=== PATIENT | male | born 1960 | race Caucasian/White ===

== ENCOUNTER → 2020-07-02 14:05 | Outpatient (BNVA) | payer OTHER, SELFPAY | PROVIDERS: Visit Provider Internal Medicine Endocrinology, Diabetes & Metabolism | DX: Z76.89 Persons encountering health services in other specified circumstances (principal) | CPT/HCPCS: 99214 ==

== ENCOUNTER → 2020-08-08 10:47 | Outpatient (BNVA) | payer OTHER, SELFPAY | PROVIDERS: Visit Provider Internal Medicine Endocrinology, Diabetes & Metabolism | DX: E11.65 Type 2 diabetes mellitus with hyperglycemia (principal); E11.42 Type 2 diabetes mellitus with diabetic polyneuropathy; E11.22 Type 2 diabetes mellitus with diabetic chronic kidney disease; I12.9 Hypertensive chronic kidney disease with stage 1 through stage 4 chronic kidney disease, or unspecified chronic kidney disease; N18.30 Chronic kidney disease, stage 3 unspecified; Z96.41 Presence of insulin pump (external) (internal); E78.5 Hyperlipidemia, unspecified; E66.9 Obesity, unspecified; Z91.19 Patient's noncompliance with other medical treatment and regimen | CPT/HCPCS: 99212 ==

== ENCOUNTER → 2020-10-17 10:17 | Outpatient (BNVA) | payer OTHER, SELFPAY | PROVIDERS: PCP Family Medicine; Visit Provider Internal Medicine Endocrinology, Diabetes & Metabolism ==

== ENCOUNTER → 2021-03-15 10:13 | Outpatient (BNVA) | payer OTHER, SELFPAY | PROVIDERS: PCP Family Medicine; Visit Provider Internal Medicine Endocrinology, Diabetes & Metabolism | DX: E11.65 Type 2 diabetes mellitus with hyperglycemia (principal); E11.42 Type 2 diabetes mellitus with diabetic polyneuropathy; E11.21 Type 2 diabetes mellitus with diabetic nephropathy; E11.22 Type 2 diabetes mellitus with diabetic chronic kidney disease; I12.9 Hypertensive chronic kidney disease with stage 1 through stage 4 chronic kidney disease, or unspecified chronic kidney disease; N18.30 Chronic kidney disease, stage 3 unspecified; E78.5 Hyperlipidemia, unspecified; E66.9 Obesity, unspecified; Z91.19 Patient's noncompliance with other medical treatment and regimen; Z79.1 Long term (current) use of non-steroidal anti-inflammatories (NSAID); Z71.3 Dietary counseling and surveillance | CPT/HCPCS: 82947; 96372; 99212; J1815 ==

== ENCOUNTER 2021-03-15 11:07 | Emergency (ER) | payer OTHER, SELFPAY ==
--- NOTE | ~2021-03-15 | XR_ITS ---
EXAMINATION: XR CHEST CLINICAL INFORMATION: Hyperglycemia COMPARISON: None TECHNIQUE: Portable upright AP view of the chest was obtained. FINDINGS: The lungs are clear. The vascularity is normal. There is no vascular congestion, airspace consolidation, groundglass opacity, or effusion. The costophrenic sulci are clear. The heart is normal in size. The hilar and mediastinal contours are normal. No visible acute bony abnormality. XR/XR chest 1V IMPRESSION: Unremarkable examination.
[2021-03-15 11:26] VITALS: BP 200/101; PULSE 103; RESP 20; TEMP 37.2; O2SAT 100; BMI 33.0
[2021-03-15 11:33] LABS: Glucose, Whole Blood > 600 mg/dL (60-115)
[2021-03-15 12:02] LABS: MANUAL DIFF FLAG NO
[2021-03-15 12:05] LABS: Basophils Percent Auto 0.3 % (0-2); Eosinophils Absolute Auto 0.1 X10*3/uL (0.0-0.4); Eosinophils Percent Auto 0.8 % (0-4); Hematocrit 47.3 % (42-52); Imm Gran Abs Auto 0.01 X10*3/uL (0.00-0.03); Imm Gran Pct Auto 0.2 % (0.0-0.4); Lymphocytes Percent Auto 32.2 % (20-40); Mean Corpuscular HGB Conc 35.9 g/dl (31.0-36.0); Mean Corpuscular Hemoglobin 31.1 pg (27.0-33.0); Mean Corpuscular Volume 86.5 fL (80-98); Mean Platelet Volume 11.4 fL (9.4-12.4); Monocytes Absolute Auto 0.4 X10*3/uL (0.1-1.2); Neutrophils Absolute Auto 3.7 X10*3/uL (2.0-8.3); Neutrophils Percent Auto 59.5 % (45-73); Platelet Count 204 X10*3/uL (160-400); Red Blood Count 5.47 X10*6/uL (4.60-5.80); Red Cell Distribution Width 11.9 % (11.0-16.0); White Blood Count 6.1 X10*3/uL (4.8-10.8)
--- NOTE | 2021-03-15 12:07 | ECG_ITS ---
Test Reason : GENERAL MEDICINE Blood Pressure : / mmHG Vent. Rate : 102 BPM Atrial Rate : 102 BPM P-R Int : 164 ms QRS Dur : 086 ms QT Int : 346 ms P-R-T Axes : 070 050 066 degrees QTc Int : 450 ms Sinus tachycardia Otherwise normal ECG No previous ECGs available Referred By: Fransisca Chapman Electronically Signed By:ESTRELLA IVERSON
[2021-03-15 12:28] LABS: Acetone, serum QL Negative (Negative)
--- NOTE | 2021-03-15 12:32 | ED.GENADULT ---
HPI - General Adult General Chief complaint: General Medical Stated complaint: HBS Time Seen by Provider: 03/15/21 12:05 Source: patient History of Present Illness HPI narrative: 60-year-old male with a past medical history of CKD, diabetes on insulin, hyperlipidemia, hypertension, presenting to the ED from PCPs office for hyperglycemia with POC noted to be greater than 600. Patient reports has been out of his insulin secondary to insurance issues for the past 4 days, states his glucometer has been reading high at home, but was just waiting for his PCP visit today. Admits was given 10 units subQ insulin [employer]. Reports headaches, generalized fatigue, dizziness, polyuria, polydipsia, nausea, and some chest burning. Denies fever, chills, cough, abdominal pain, vomiting, diarrhea, SOB Related Data Home Medications Medication Instructions Recorded Confirmed albuterol sulfate 90 mcg/actuation INHALATION 06/30/20 03/15/21 aerosol inhaler blood sugar diagnostic #10 ea 06/30/20 03/15/21 clopidogrel 75 mg tablet 75 mg PO DAILY 06/30/20 03/15/21 lidocaine 5 % topical patch 1 patch TOPICAL DAILY 06/30/20 03/15/21 omeprazole 40 mg capsule,delayed 40 mg PO QAM 06/30/20 03/15/21 release pen needle, diabetic 32 gauge x #50 ea 06/30/20 03/15/21 nortriptyline 50 mg capsule 50 mg PO DAILY cap 07/02/20 03/15/21 nortriptyline 25 mg capsule 25 mg PO cap 10/17/20 03/15/21 Previous Rx's Medication Instructions Recorded atorvastatin 80 mg tablet 80 mg PO DAILY #90 tab 07/02/20 diltiazem HCl 360 mg capsule,24 360 mg PO DAILY 30 Days #30 cap 07/02/20 hr,extended release lisinopril 40 mg tablet 40 mg PO DAILY 30 Days #30 tab 10/19/20 Humulin R U-500 (Conc) Insulin 500 See Rx Instructions SUBCUT DAILY 03/15/21 unit/mL subcutaneous soln 30 Days #20 ml NS insulin pump cartridge #15 ea 03/15/21 Allergies Allergy/AdvReac Type Severity Reaction Status Date / Time No Known Allergies Allergy Verified 06/30/20 11:02 Review of Systems Review of Systems: Constitutional: No Weight loss, No Fever, No Chills, +Fatigue, No Malaise Cardiovascular: No Chest Pain, No SOB, No Edema, No Palpitations Respiratory: No Cough, No Dyspnea Gastrointestinal: + Nausea, No Vomiting, No Diarrhea, No Constipation, No Abdominal pain Genitourinary: No Dysuria, No Urinary Frequency, No Hematuria, No Flank Pain, No Urinary Flow Changes Musculoskeletal: No joint pain, No Myalgias, No Joint Swelling Skin: No Skin Lesions, No rash Neuro: No Weakness, No Numbness, No Paresthesias, + Dizziness, No Headache Endocrine: + Polyuria, + Polydipsia Yes all other systems are reviewed and are negative FORMERLY [facility], 1928–1983 Past Medical History Medical History (Updated 03/15/21 @ 16:40 by RA Payton) CKD (chronic kidney disease) stage 3, GFR 30-59 ml/min Diabetes type 2, uncontrolled Diabetic nephropathy associated with type 2 diabetes mellitus Diabetic polyneuropathy associated with type 2 diabetes mellitus Dyslipidemia Hypertension correction (current) use of insulin Non-adherence to medical treatment Obesity (BMI 30-39.9) Surgical History (Updated 08/08/20 @ 10:53 by LU Durbin) No pertinent past surgical history Family History Family History (Updated 07/02/20 @ 14:42 by Dali Jarrett MD) Father Lung cancer Mother Diabetes Hypertension Arthritis CKD (chronic kidney disease) stage 4, GFR 15-29 ml/min Social History Social History (Updated 10/17/20 @ 10:16 by LU Durbin) Household Members: Family Alcohol intake: never Advance Directives: No Advance Directives Information Provided: No Physical Exam Vital Signs: Vital Signs: Last Vital Signs Temp 98.8 F 03/15/21 12:34 Pulse 87 03/15/21 15:12 Resp 20 03/15/21 15:12 BP 185/105 H 03/15/21 15:12 Pulse Ox 98 03/15/21 12:34 Body Mass Index 33.0 Const: General: cooperative, healthy appearing and no acute distress Orientation/consciousness: patient oriented x3 Limitations: no limitations HENMT: Head: Yes normal to inspection Ears: hearing grossly normal bilaterally General nose exam: Normal external nose present Face and sinus: Yes normal facial exam Eyes: General: appearance normal, both eyes and all related structures EOM: EOMs intact bilaterally Neck: Neck: Yes normal visual inspection and Yes no meningeal signs Resp: Effort & Inspection: normal respiratory effort Auscultation: clear to auscultation bilaterally, no crackles and no wheezes Cardio: Rate: regular rate Heart sounds: S1 normal heart sound present and S2 normal heart sound present GI: Inspection: Yes normal to inspection Palpation (GI): Soft to palpation, nontender, no guarding and not rigid Skin: Rashes: no rashes Wounds: no wounds Neuro: General: patient oriented x3 and no meningeal signs Gait exam (Neuro): Normal gait present Extrem: General: Yes normal to inspection Course Course Course Narrative: -1252--No leukocytosis, glucose 654, no anion gap, acetone negative. Sodium 128 > corrected for hyperglycemia is 137. Patient with acute on chronic CARLOS ENRIQUE with a BUN of 21, creatinine of 2.16 (unknown baseline renal function with CKD records requested from PCP) Labs from PCPs office from 06/11/20: BUN/creatinine 21/1.8 and AST/ALT 72/85 -AST/ALT elevated. -1258--Additional 5 units IV insulin ordered -1452--VBG with a pH is 7.42, repeat POC 345 -1517--repeat POC 285. Second L IV fluid completed will obtain repeat BMP to check renal function XR chest 1V IMPRESSION: Unremarkable examination. -1637--repeat BMP with improved BUN/creatinine to 18/1.6 > back to patient's baseline. Glucose 300. Patient was supplied with Humalog from PCP to get him through the weekend, then his insulin will be completely restocking it at the pharmacy on Thursday. Stressed importance of monitoring/taking his insulin at home, he verbalized understanding of feel safe for discharge home Medical Decision Making [facility] Narrative Medical decision making narrative: 60-year-old male with a past medical history of CKD, diabetes on insulin, hyperlipidemia, hypertension, presenting to the ED from PCPs office for hyperglycemia with POC noted to be greater than 600. Patient reports has been out of his insulin secondary to insurance issues for the past 4 days. Reports headaches, generalized fatigue, dizziness, polyuria, polydipsia, nausea, and some chest burning. On exam initially hypertensive, tachycardic, anxious, NAD/nontoxic appearing. Concern for hyperglycemia from noncompliance vs DKA. Rule out metabolic abnormalities, lower concern for infectious etiology. Rule out ACS Plan: EKG, labs, UA, CXR, IVF, insulin, reassess Lab Data Result diagrams: 03/15/21 11:58 03/15/21 15:51 Labs: Lab Results 03/15/21 03/15/21 03/15/21 Range/Units 11:26 11:58 11:58 WBC 6.1 (4.8-10.8) X10*3/uL RBC 5.47 (4.60-5.80) X10*6/uL Hgb 17.0 (14.0-18.0) g/dl Hct 47.3 (42-52) % MCV 86.5 (80-98) fL MCH 31.1 (27.0-33.0) pg MCHC 35.9 (31.0-36.0) g/dl RDW 11.9 (11.0-16.0) % Plt Count 204 (160-400) X10*3/uL MPV 11.4 (9.4-12.4) fL Immature Gran % (Auto) 0.2 (0.0-0.4) % Neut % (Auto) 59.5 (45-73) % Lymph % (Auto) 32.2 (20-40) % [place] % (Auto) 7.0 (2-11) % Eos % (Auto) 0.8 (0-4) % Baso % (Auto) 0.3 (0-2) % Lymph # (Auto) 2.0 (1.2-4.9) X10*3/uL [place] # (Auto) 0.4 (0.1-1.2) X10*3/uL Eos # (Auto) 0.1 (0.0-0.4) X10*3/uL Baso # (Auto) 0.0 (0.0-0.2) X10*3/uL Abs Immat Gran (auto) 0.01 (0.00-0.03) X10*3/uL Absolute Neuts (auto) 3.7 (2.0-8.3) X10*3/uL Absolute Nucleated RBC 0.000 (0.0-0.012) X10*3/uL Nucleated RBC % (auto) 0.0 (0.0-0.2) /100WBC VBG pH (7.32-7.43) VBG pCO2 mmHg VBG pO2 mmHg VBG HCO3 (22-26) mmol/L VBG O2 Saturation % VBG Base Excess mmol/L Sodium 128 L (135-145) mmol/L Potassium 4.2 (3.3-5.1) mmol/L Chloride 91 L (96-108) mmol/L Carbon Dioxide 25 (22-29) mmol/L Anion Gap 16 (12-20) BUN 21 H (9-16) mg/dL Creatinine 2.16 H (0.5-1.4) mg/dL Estim Creat Clear Calc 41.0 Estimated GFR 32 POC Glucose > 600 H* (60-115) mg/dL Random Glucose 654 H* (60-115) mg/dL Calcium 9.2 (8.4-10.2) mg/dL Magnesium 2.1 (1.6-2.6) mg/dL Total Bilirubin 0.7 (0.0-1.0) mg/dL Direct Bilirubin 0.3 (0.0-0.5) mg/dL AST 73 H (5-37) U/L ALT 112 H (0-40) U/L Alkaline Phosphatase 158 H (39-117) U/L Troponin I High Sens (<3.5-35.0) ng/L Total Protein 8.0 (6.5-8.0) g/dL Albumin 4.4 (3.5-5.0) g/dL Lipase 48 (8-78) U/L Urine Color Urine Appearance Urine pH (5.0-8.0) Ur Specific [place] (1.005-1.025) Urine Protein (NEG-TRACE) MG/DL Urine Glucose (UA) (NEG) MG/DL Urine Ketones (NEG) MG/DL Urine Blood (NEG) Urine Nitrite (NEG) Ur Leukocyte Esterase (NEG) Urine RBC (0) /HPF Urine WBC (0-4) /HPF Ur Squamous Epith Cells /LPF Urine Bacteria /LPF Acetone, Qual Negative (Negative) 03/15/21 03/15/21 03/15/21 Range/Units 11:58 12:53 12:58 WBC (4.8-10.8) X10*3/uL RBC (4.60-5.80) X10*6/uL Hgb (14.0-18.0) g/dl Hct (42-52) % MCV (80-98) fL MCH (27.0-33.0) pg MCHC (31.0-36.0) g/dl RDW (11.0-16.0) % Plt Count (160-400) X10*3/uL MPV (9.4-12.4) fL Immature Gran % (Auto) (0.0-0.4) % Neut % (Auto) (45-73) % Lymph % (Auto) (20-40) % [place] % (Auto) (2-11) % Eos % (Auto) (0-4) % Baso % (Auto) (0-2) % Lymph # (Auto) (1.2-4.9) X10*3/uL [place] # (Auto) (0.1-1.2) X10*3/uL Eos # (Auto) (0.0-0.4) X10*3/uL Baso # (Auto) (0.0-0.2) X10*3/uL Abs Immat Gran (auto) (0.00-0.03) X10*3/uL Absolute Neuts (auto) (2.0-8.3) X10*3/uL Absolute Nucleated RBC (0.0-0.012) X10*3/uL Nucleated RBC % (auto) (0.0-0.2) /100WBC VBG pH 7.42 (7.32-7.43) VBG pCO2 37 mmHg VBG pO2 64 mmHg VBG HCO3 24 (22-26) mmol/L VBG O2 Saturation 92.0 % VBG Base Excess 0.1 mmol/L Sodium (135-145) mmol/L Potassium (3.3-5.1) mmol/L Chloride (96-108) mmol/L Carbon Dioxide (22-29) mmol/L Anion Gap (12-20) BUN (9-16) mg/dL Creatinine (0.5-1.4) mg/dL Estim Creat Clear Calc Estimated GFR POC Glucose (60-115) mg/dL Random Glucose (60-115) mg/dL Calcium (8.4-10.2) mg/dL Magnesium (1.6-2.6) mg/dL Total Bilirubin (0.0-1.0) mg/dL Direct Bilirubin (0.0-0.5) mg/dL AST (5-37) U/L ALT (0-40) U/L Alkaline Phosphatase (39-117) U/L Troponin I High Sens 6.3 (<3.5-35.0) ng/L Total Protein (6.5-8.0) g/dL Albumin (3.5-5.0) g/dL Lipase (8-78) U/L Urine Color YELLOW Urine Appearance CLEAR Urine pH 6.0 (5.0-8.0) Ur Specific [place] 1.010 (1.005-1.025) Urine Protein 2+ H (NEG-TRACE) MG/DL Urine Glucose (UA) >=1000 H (NEG) MG/DL Urine Ketones 5 (NEG) MG/DL Urine Blood 1+ H (NEG) Urine Nitrite NEG (NEG) Ur Leukocyte Esterase NEG (NEG) Urine RBC 0-2 (0) /HPF Urine WBC 0 (0-4) /HPF Ur Squamous Epith Cells NONE /LPF Urine Bacteria TRACE /LPF Acetone, Qual (Negative) 03/15/21 03/15/21 03/15/21 Range/Units 13:59 15:12 15:51 WBC (4.8-10.8) X10*3/uL RBC (4.60-5.80) X10*6/uL Hgb (14.0-18.0) g/dl Hct (42-52) % MCV (80-98) fL MCH (27.0-33.0) pg MCHC (31.0-36.0) g/dl RDW (11.0-16.0) % Plt Count (160-400) X10*3/uL MPV (9.4-12.4) fL Immature Gran % (Auto) (0.0-0.4) % Neut % (Auto) (45-73) % Lymph % (Auto) (20-40) % [place] % (Auto) (2-11) % Eos % (Auto) (0-4) % Baso % (Auto) (0-2) % Lymph # (Auto) (1.2-4.9) X10*3/uL [place] # (Auto) (0.1-1.2) X10*3/uL Eos # (Auto) (0.0-0.4) X10*3/uL Baso # (Auto) (0.0-0.2) X10*3/uL Abs Immat Gran (auto) (0.00-0.03) X10*3/uL Absolute Neuts (auto) (2.0-8.3) X10*3/uL Absolute Nucleated RBC (0.0-0.012) X10*3/uL Nucleated RBC % (auto) (0.0-0.2) /100WBC VBG pH (7.32-7.43) VBG pCO2 mmHg VBG pO2 mmHg VBG HCO3 (22-26) mmol/L VBG O2 Saturation % VBG Base Excess mmol/L Sodium 134 L (135-145) mmol/L Potassium 4.0 (3.3-5.1) mmol/L Chloride 103 (96-108) mmol/L Carbon Dioxide 24 (22-29) mmol/L Anion Gap 11 L (12-20) BUN 18 H (9-16) mg/dL Creatinine 1.62 H (0.5-1.4) mg/dL Estim Creat Clear Calc 54.7 Estimated GFR 44 POC Glucose 345 H 285 H (60-115) mg/dL Random Glucose 300 H D (60-115) mg/dL Calcium 8.1 L D (8.4-10.2) mg/dL Magnesium (1.6-2.6) mg/dL Total Bilirubin (0.0-1.0) mg/dL Direct Bilirubin (0.0-0.5) mg/dL AST (5-37) U/L ALT (0-40) U/L Alkaline Phosphatase (39-117) U/L Troponin I High Sens (<3.5-35.0) ng/L Total Protein (6.5-8.0) g/dL Albumin (3.5-5.0) g/dL Lipase (8-78) U/L Urine Color Urine Appearance Urine pH (5.0-8.0) Ur Specific [place] (1.005-1.025) Urine Protein (NEG-TRACE) MG/DL Urine Glucose (UA) (NEG) MG/DL Urine Ketones (NEG) MG/DL Urine Blood (NEG) Urine Nitrite (NEG) Ur Leukocyte Esterase (NEG) Urine RBC (0) /HPF Urine WBC (0-4) /HPF Ur Squamous Epith Cells /LPF Urine Bacteria /LPF Acetone, Qual (Negative) Discharge Plan Discharge Clinical Impression: Acute hyperglycemia Patient Disposition: Home, Self-Care Instructions: Diabetic Hyperglycemia (ED) Additional Instructions: It is important for you to closely monitor your glucose at home. Take insulin as needed Follow-up with her primary care doctor Refill/pick up driver her medications on Thursday If her glucometer is reading high, and your unable to control your sugars, please return to the ED Prescriptions: No Action atorvastatin 80 mg tablet 80 mg PO DAILY Qty: 90 RF: 1 lisinopril 40 mg tablet 40 mg PO DAILY 30 Days Qty: 30 RF: 4 (DME) Omnipod Insulin Refill Cartridge See Rx Instructions .ROUTE .MEDSUPPLY Qty: 15 RF: 6 Humulin R U-500 (Conc) Insulin 500 unit/mL solution See Rx Instructions subcut DAILY 30 Days Qty: 20 RF: 6 clopidogrel 75 mg tablet 75 mg PO DAILY RF: 0 (DME) pen needle, diabetic 32 gauge x 5/32 needle See Rx Instructions ea subcut .MEDSUPPLY Qty: 50 RF: 0 lidocaine 5 % adhesive patch,medicated 1 patch topical DAILY RF: 0 omeprazole 40 mg capsule,delayed release(DR/EC) 40 mg PO QAM RF: 0 (DME) FreeStyle Lite Strips Strip See Rx Instructions ea Not Applicable .MEDSUPPLY Qty: 10 RF: 0 albuterol sulfate 90 mcg/actuation HFA aerosol inhaler inhalation RF: 0 nortriptyline 50 mg capsule 50 mg PO DAILY RF: 0 diltiazem HCl 360 mg capsule,extended release 24 hr 360 mg PO DAILY 30 Days Qty: 30 RF: 4 nortriptyline 25 mg capsule 25 mg PO RF: 0 Referrals: Jose Angel Jo MD [Primary Care Provider] - 3 days
[2021-03-15 12:34] VITALS: BP 156/79; PULSE 98; RESP 18; TEMP 37.1; O2SAT 98
[2021-03-15 12:37] LABS: Glucose Random 654 mg/dL (60-115)
[2021-03-15 12:38] LABS: Alanine Aminotransferase 112 U/L (0-40); Albumin Level 4.4 g/dL (3.5-5.0); Alkaline Phosphatase 158 U/L (39-117); Anion Gap 16 (12-20); Aspartate Amino Transferase 73 U/L (5-37); Bilirubin Direct 0.3 mg/dL (0.0-0.5); Bilirubin Total 0.7 mg/dL (0.0-1.0); Blood Urea Nitrogen 21 mg/dL (9-16); Calcium 9.2 mg/dL (8.4-10.2); Carbon Dioxide 25 mmol/L (22-29); Chloride 91 mmol/L (96-108); Estimated Glomerular Filt Rate 32; Lipase 48 U/L (8-78); Magnesium 2.1 mg/dL (1.6-2.6); Potassium 4.2 mmol/L (3.3-5.1); Sodium 128 mmol/L (135-145)
[2021-03-15] MEDS: 0.9 % Sodium Chloride 1,000 ML 999 ML IVCONT ×2 (12:56)
[2021-03-15 13:04] LABS: Glucose Urine UA >=1000 MG/DL (NEG); Leukocyte Esterase Urine NEG (NEG); Nitrite Urine NEG (NEG); Urine Blood 1+ (NEG); Urine Ketones 5 MG/DL (NEG); Urine Protein 2+ MG/DL (NEG-TRACE); Venous Blood Gas Refer to POC result
[2021-03-15 13:06] LABS: VBG Base Excess 0.1 mmol/L; VBG HCO3 24 mmol/L (22-26); VBG pCO2 37 mmHg; VBG pH 7.42 (7.32-7.43); VBG pO2 64 mmHg
[2021-03-15 13:06] LABS: Appearance Urine CLEAR; Color Urine YELLOW
[2021-03-15] MEDS: Insulin Regular, Human 100 UNIT/ML 3 ML VIAL IVPUSH (13:09)
[2021-03-15 13:19] LABS: Bacteria Urine TRACE /LPF; RBC Urine 0-2 /HPF (0); WBC Urine 0 /HPF (0-4)
[2021-03-15 14:03] LABS: Glucose, Whole Blood 345 mg/dL (60-115)
[2021-03-15 14:13] LABS: Troponin-I High Sensitivity 6.3 ng/L (<3.5-35.0)
[2021-03-15 15:12] VITALS: BP 185/105; PULSE 87; RESP 20
[2021-03-15 15:16] LABS: Glucose, Whole Blood 285 mg/dL (60-115)
[2021-03-15 16:25] LABS: Anion Gap 11 (12-20); Blood Urea Nitrogen 18 mg/dL (9-16); Calcium 8.1 mg/dL (8.4-10.2); Carbon Dioxide 24 mmol/L (22-29); Chloride 103 mmol/L (96-108); Creatinine Clr Calc Pharmacy 54.7; Estimated Glomerular Filt Rate 44; Glucose Random 300 mg/dL (60-115); Sodium 134 mmol/L (135-145)
[2021-03-15 16:33] VITALS: BP 171/106; PULSE 86; RESP 18; TEMP 36.7; O2SAT 98
== END 2021-03-15 17:21 | disposition home or self-care (01) ==
PROVIDERS: Physician Assistant; Emergency Provider Internal Medicine; PCP Family Medicine
DX: E11.65 Type 2 diabetes mellitus with hyperglycemia (principal); I12.9 Hypertensive chronic kidney disease with stage 1 through stage 4 chronic kidney disease, or unspecified chronic kidney disease; E11.22 Type 2 diabetes mellitus with diabetic chronic kidney disease; N18.9 Chronic kidney disease, unspecified; Z79.4 Long term (current) use of insulin; Z79.899 Other long term (current) drug therapy
CPT/HCPCS: 36415; 71045; 80048; 80053; 80076; 81001; 81003; 82009; 82248; 82947; 83690; 83735; 84484; 85025; 93005; 96361; 96374; 99284

== ENCOUNTER → 2021-03-25 12:54 | Outpatient (BNVA) | payer OTHER, SELFPAY | PROVIDERS: PCP Family Medicine; Visit Provider Internal Medicine Endocrinology, Diabetes & Metabolism | DX: E11.65 Type 2 diabetes mellitus with hyperglycemia (principal); E11.42 Type 2 diabetes mellitus with diabetic polyneuropathy; E11.21 Type 2 diabetes mellitus with diabetic nephropathy; E11.22 Type 2 diabetes mellitus with diabetic chronic kidney disease; I12.9 Hypertensive chronic kidney disease with stage 1 through stage 4 chronic kidney disease, or unspecified chronic kidney disease; N18.30 Chronic kidney disease, stage 3 unspecified; E78.5 Hyperlipidemia, unspecified; E66.9 Obesity, unspecified; Z91.19 Patient's noncompliance with other medical treatment and regimen; Z79.4 Long term (current) use of insulin | CPT/HCPCS: 82947; 99212 ==

== ENCOUNTER → 2021-04-04 12:37 | Outpatient (BNVA) | payer OTHER, SELFPAY | PROVIDERS: PCP Family Medicine; Visit Provider Internal Medicine Endocrinology, Diabetes & Metabolism | DX: E11.65 Type 2 diabetes mellitus with hyperglycemia (principal); E11.21 Type 2 diabetes mellitus with diabetic nephropathy; E11.42 Type 2 diabetes mellitus with diabetic polyneuropathy; I12.9 Hypertensive chronic kidney disease with stage 1 through stage 4 chronic kidney disease, or unspecified chronic kidney disease; N18.30 Chronic kidney disease, stage 3 unspecified; K21.9 Gastro-esophageal reflux disease without esophagitis; E66.9 Obesity, unspecified; F32.9 Major depressive disorder, single episode, unspecified; E78.5 Hyperlipidemia, unspecified; Z79.4 Long term (current) use of insulin; Z96.41 Presence of insulin pump (external) (internal); Z46.81 Encounter for fitting and adjustment of insulin pump; Z91.19 Patient's noncompliance with other medical treatment and regimen | CPT/HCPCS: 82947; 99212 ==

== ENCOUNTER → 2021-08-06 12:21 | Outpatient (BNVA) | payer OTHER, SELFPAY | PROVIDERS: PCP Family Medicine; Visit Provider Nurse Practitioner Gerontology | DX: E11.65 Type 2 diabetes mellitus with hyperglycemia (principal); E11.42 Type 2 diabetes mellitus with diabetic polyneuropathy; E11.21 Type 2 diabetes mellitus with diabetic nephropathy; E11.22 Type 2 diabetes mellitus with diabetic chronic kidney disease; I12.9 Hypertensive chronic kidney disease with stage 1 through stage 4 chronic kidney disease, or unspecified chronic kidney disease; N18.30 Chronic kidney disease, stage 3 unspecified; E66.9 Obesity, unspecified; E78.5 Hyperlipidemia, unspecified; R00.0 Tachycardia, unspecified; Z79.4 Long term (current) use of insulin | CPT/HCPCS: 82947; 83036; 99212 ==

== ENCOUNTER 2021-09-25 13:51 | Outpatient (REF) | payer OTHER, SELFPAY ==
[2021-09-25 15:28] LABS: Hematocrit 49.5 % (42.0-52.0); Hemoglobin 17.1 g/dl (14.0-18.0); Mean Corpuscular HGB Conc 34.5 g/dl (31.0-36.0); Mean Corpuscular Hemoglobin 31.2 pg (27.0-33.0); Mean Corpuscular Volume 90.3 fL (80.0-98.0); Mean Platelet Volume 11.1 fL (9.4-12.4); Platelet Count 224 X10*3/uL (160-400); Red Blood Count 5.48 X10*6/uL (4.60-5.80); Red Cell Distribution Width 12.3 % (11.0-16.0); White Blood Count 6.2 X10*3/uL (4.8-10.8)
[2021-09-25 15:58] LABS: Prothrombin Time 11.5 SEC (9.9-13.0)
[2021-09-25 16:13] LABS: Alanine Aminotransferase 112 U/L (0-40); Alkaline Phosphatase 114 U/L (39-117); Anion Gap 12 (12-20); Aspartate Amino Transferase 66 U/L (5-37); Bilirubin Total 0.5 mg/dL (0.0-1.0); Blood Urea Nitrogen 28 mg/dL (9-16); Calcium 9.5 mg/dL (8.4-10.2); Carbon Dioxide 30 mmol/L (22-29); Chloride 98 mmol/L (96-108); Cholesterol 235 mg/dL; Estimated Glomerular Filt Rate 34; Glucose Fasting 229 mg/dL (60-99); HDL Cholesterol 35 mg/dL; Potassium 4.6 mmol/L (3.3-5.1); Sodium 135 mmol/L (135-145); Total Protein 7.5 g/dL (6.5-8.0); Triglycerides 437 mg/dL
[2021-09-25 16:31] LABS: Free T4 (Free Thyroxine) 0.85 ng/dL (0.71-1.85); Vitamin D 25-OH Total 25.6 ng/mL (>30)
[2021-09-25 16:35] LABS: Vitamin B12 504 pg/mL (200-900)
[2021-09-25 18:47] LABS: Creatinine Urine 202.64 mg/dL
[2021-09-25 19:13] LABS: Microalbum/Creatinine Ratio Ur 925.7 ug/mg cr
[2021-09-26 04:42] LABS: LDL Cholesterol Direct 95 mg/dL (<100)
== END 2021-09-25 13:52 | disposition home or self-care (01) ==
LOC: HO.LAB 13:51
PROVIDERS: Nurse Practitioner Gerontology; PCP Family Medicine; Visit Provider Internal Medicine Cardiovascular Disease
DX: I42.9 Cardiomyopathy, unspecified (principal); E11.65 Type 2 diabetes mellitus with hyperglycemia; E55.9 Vitamin D deficiency, unspecified
CPT/HCPCS: 36415; 80048; 80053; 80061; 82043; 82306; 82607; 83721; 84439; 84443; 85027; 85610; 93005; 99202

== ENCOUNTER → 2021-10-24 14:09 | Outpatient (BNVA) | payer OTHER, SELFPAY | PROVIDERS: PCP Family Medicine; Visit Provider Internal Medicine Cardiovascular Disease | DX: I42.8 Other cardiomyopathies (principal); I10 Essential (primary) hypertension | CPT/HCPCS: 99212 ==

== ENCOUNTER → 2021-11-27 09:43 | Outpatient (BNVA) | payer OTHER, SELFPAY | PROVIDERS: PCP Family Medicine; Visit Provider Nurse Practitioner Gerontology ==

== ENCOUNTER → 2021-12-18 12:18 | Outpatient (BNVA) | payer OTHER, SELFPAY | PROVIDERS: PCP Family Medicine; Visit Provider Registered Nurse Diabetes Educator | DX: E11.42 Type 2 diabetes mellitus with diabetic polyneuropathy (principal); Z79.4 Long term (current) use of insulin | CPT/HCPCS: 99212 ==

== ENCOUNTER → 2021-12-25 13:13 | Outpatient (BNVA) | payer OTHER, SELFPAY | PROVIDERS: PCP Family Medicine; Visit Provider Dietitian, Registered | DX: E11.42 Type 2 diabetes mellitus with diabetic polyneuropathy (principal); Z71.3 Dietary counseling and surveillance | CPT/HCPCS: 97802 ==

== ENCOUNTER → 2022-02-11 12:45 | Outpatient (BNVA) | payer OTHER, SELFPAY | PROVIDERS: PCP Family Medicine; Visit Provider Dietitian, Registered | DX: E11.42 Type 2 diabetes mellitus with diabetic polyneuropathy (principal) | CPT/HCPCS: 97802 ==

== ENCOUNTER 2022-03-26 14:59 | Outpatient (REF) | payer OTHER, SELFPAY ==
[2022-03-26 15:47] LABS: Estimated Average Glucose 266 mg/dL; Hemoglobin A1c % 10.9 %
[2022-03-26 16:00] LABS: Creatinine Urine 103.17 mg/dL
[2022-03-26 16:12] LABS: Microalbum/Creatinine Ratio Ur 613.5 ug/mg cr
[2022-03-26 18:04] LABS: Alanine Aminotransferase 60 U/L (0-40); Albumin Level 3.8 g/dL (3.5-5.0); Alkaline Phosphatase 152 U/L (39-117); Anion Gap 12 (12-20); Aspartate Amino Transferase 36 U/L (5-37); Bilirubin Total 0.5 mg/dL (0.0-1.0); Blood Urea Nitrogen 16 mg/dL (9-16); Calcium 9.5 mg/dL (8.4-10.2); Carbon Dioxide 26 mmol/L (22-29); Chloride 100 mmol/L (96-108); Cholesterol 119 mg/dL; Estimated Glomerular Filt Rate 36; Glucose Fasting 393 mg/dL (60-99); HDL Cholesterol 32 mg/dL; LDL Cholesterol Calculated 47 mg/dl; Potassium 4.6 mmol/L (3.3-5.1); Sodium 133 mmol/L (135-145); Total Protein 7.2 g/dL (6.5-8.0); Triglycerides 203 mg/dL
[2022-03-28 01:32] LABS: LDL Cholesterol Direct 56 mg/dL (<100)
== END 2022-03-26 15:00 | disposition home or self-care (01) ==
LOC: HO.LAB 14:59
PROVIDERS: PCP Family Medicine; Visit Provider Nurse Practitioner Gerontology
DX: E11.65 Type 2 diabetes mellitus with hyperglycemia (principal); E11.42 Type 2 diabetes mellitus with diabetic polyneuropathy
CPT/HCPCS: 36415; 80053; 80061; 82043; 83036; 83721; 97803

== ENCOUNTER → 2022-04-15 13:16 | Outpatient (BNVA) | payer OTHER, SELFPAY | PROVIDERS: PCP Family Medicine; Visit Provider Internal Medicine Endocrinology, Diabetes & Metabolism | DX: E11.42 Type 2 diabetes mellitus with diabetic polyneuropathy (principal); Z96.41 Presence of insulin pump (external) (internal) | CPT/HCPCS: 82947; 99212 ==

== ENCOUNTER → 2022-05-05 13:03 | Outpatient (BNVA) | payer OTHER, SELFPAY | PROVIDERS: PCP Family Medicine; Visit Provider Registered Nurse Diabetes Educator | DX: E11.65 Type 2 diabetes mellitus with hyperglycemia (principal) | CPT/HCPCS: 99211 ==

== ENCOUNTER → 2022-05-14 12:34 | Outpatient (BNVA) | payer OTHER, SELFPAY | PROVIDERS: PCP Family Medicine; Visit Provider Dietitian, Registered | DX: E11.42 Type 2 diabetes mellitus with diabetic polyneuropathy (principal); Z71.3 Dietary counseling and surveillance | CPT/HCPCS: 97803 ==

== ENCOUNTER → 2022-06-11 14:07 | Outpatient (BNVA) | payer OTHER, SELFPAY | PROVIDERS: PCP Family Medicine; Visit Provider Registered Nurse Diabetes Educator | DX: Z46.81 Encounter for fitting and adjustment of insulin pump (principal); E11.42 Type 2 diabetes mellitus with diabetic polyneuropathy; E11.22 Type 2 diabetes mellitus with diabetic chronic kidney disease; N18.30 Chronic kidney disease, stage 3 unspecified | CPT/HCPCS: 99211 ==

== ENCOUNTER → 2022-08-01 13:27 | Outpatient (BNVA) | payer OTHER, SELFPAY | PROVIDERS: PCP Family Medicine; Visit Provider Internal Medicine Endocrinology, Diabetes & Metabolism | DX: E11.65 Type 2 diabetes mellitus with hyperglycemia (principal); E11.42 Type 2 diabetes mellitus with diabetic polyneuropathy; E11.21 Type 2 diabetes mellitus with diabetic nephropathy; Z79.4 Long term (current) use of insulin; Z96.41 Presence of insulin pump (external) (internal); Z46.81 Encounter for fitting and adjustment of insulin pump | CPT/HCPCS: 82947; 83036; 99212 ==

== ENCOUNTER → 2022-08-08 14:11 | Outpatient (BNVA) | payer OTHER, SELFPAY | PROVIDERS: PCP Family Medicine; Visit Provider Registered Nurse Diabetes Educator | DX: E11.65 Type 2 diabetes mellitus with hyperglycemia (principal); E11.42 Type 2 diabetes mellitus with diabetic polyneuropathy; E11.21 Type 2 diabetes mellitus with diabetic nephropathy; E11.22 Type 2 diabetes mellitus with diabetic chronic kidney disease; I12.9 Hypertensive chronic kidney disease with stage 1 through stage 4 chronic kidney disease, or unspecified chronic kidney disease; N18.30 Chronic kidney disease, stage 3 unspecified; Z79.4 Long term (current) use of insulin; Z96.41 Presence of insulin pump (external) (internal); Z91.14 Patient's other noncompliance with medication regimen | CPT/HCPCS: 99211 ==

== ENCOUNTER → 2022-08-14 13:12 | Outpatient (BNVA) | payer OTHER, SELFPAY | PROVIDERS: PCP Family Medicine; Visit Provider Dietitian, Registered | DX: E11.42 Type 2 diabetes mellitus with diabetic polyneuropathy (principal) | CPT/HCPCS: 97803 ==

== ENCOUNTER → 2022-09-03 13:20 | Outpatient (BNVA) | payer OTHER, SELFPAY | PROVIDERS: PCP Family Medicine; Visit Provider Internal Medicine Cardiovascular Disease | DX: I42.8 Other cardiomyopathies (principal); R00.0 Tachycardia, unspecified; R07.9 Chest pain, unspecified | CPT/HCPCS: 93005; 99212 ==

== ENCOUNTER → 2022-09-09 13:40 | Outpatient (REF) | payer OTHER, SELFPAY ==
--- NOTE | 2022-09-09 13:43 | CA_ITS ---
Transthoracic Echocardiogram Patient (Last, First, Middle): Sang Lester, Gender: Male Date of : 1960 Age: 62 Procedure Date: 09/09/2022 Procedure Type: Transthoracic Echocardiogram Location: OP Height: 170.18 cm Weight: 102.06 kg BSA: 2.13 m2 Heart Rate: bpm BP: 134 / 80 mmHg Distance Learning Technician: Referring MD: Yo Baig MD Symptoms: I42.8 - Other cardiomyopathies Study Quality: Fair/Contrast ECG Rhythm: Sinus Conclusions: - The left ventricular systolic function is mildly decreased. The calculated ejection fraction is 46% by biplane method. - There is moderately increased left ventricular wall thickness. - The basal inferior and basal inferolateral segments are akinetic. - No obvious valvular pathology seen on this study. Findings Procedure Information Contrast agent, definity, is being given per protocol without apparent complications. Left Ventricle Normal left ventricular cavity size. There is moderately increased left ventricular wall thickness. The left ventricular systolic function is mildly decreased. The calculated ejection fraction is 46% by biplane method. There is mild global hypokinesis. Diastolic function is normal for age. Wall Motion Rest Echo Findings The basal inferior and basal inferolateral segments are akinetic. Right Ventricle Normal right ventricular cavity size and systolic function. Atria Both atria are normal in size. Aortic Valve There is a normal trileaflet aortic valve. There is no aortic valve stenosis. There is no aortic valve regurgitation. Mitral Valve The mitral valve appears normal. There is no mitral valve regurgitation. There is no mitral valve stenosis. Pulmonic Valve The pulmonic valve is likely normal. Tricuspid Valve There is trace tricuspid valve regurgitation. There is no evidence of pulmonary hypertension. Great Vessels The aortic annulus, sinuses of valsalva, and asc aorta are normal in size. Venous The inferior vena cava was not well visualized. The inferior vena cava is normal in size. Pericardium/Pleural There is no evidence of pericardial effusion. Prior Study Comparison No prior study available for comparison. Recommendations, Care & Conclusions No obvious valvular pathology seen on this study. Measurements 2D Linear Measurements IVSd: 1.32 0.6-0.9/0.6-1.0 cm LVIDd: 3.48 3.9-5.3/4.2-5.9 cm LVIDd Index: 1.63 2.4-3.2/2.2-3.1 cm/m2 LVIDs: 2.52 2.0-3.6 cm LVPWd: 1.31 0.7-1.1 cm Ao Root: 3.40 2.1-3.5 cm LA Diam: 3.30 2.7-3.8/3.0-4.0 cm LAIDs Index: 1.55 1.5-2.3 cm/m2 LV Mass: 193.39 67-162/88-224 g LV Mass Index: 90.79 43-95/49-115 g/m2 LVOT Diam: 2.10 3.0+(-)1.3 cm 2D Systolic Function EF 4C: 46.50 >55% EF 2C: 46.60 >55% EF BiP: 46.30 >55% Mitral Valve MV Pk E: 0.63 MV PK A: 0.89 MV Decel Time: 157.00 E/A: 0.70 E'Lateral: 7.62 E'Medial: 5.22 E/E' Med: 12.10 E/E' Lat: 8.30 PHT: 46.00 MVA PHT: 4.78 Decel Rowan: 4.03 Aortic Valve AoV Pk Danie: 1.34 AoV Mn Danie: 0.84 AoV VTI: 0.24 AoV Pk Grad: 7.00 Aov Mn Grad: 4.00 KAYLEE Cont.VTI: 2.47 LVOT LVOT Pk Danie: 0.80 LVOT Mn Danie: 0.49 LVOT VTI: 0.17 LVOT Pk Grad: 3.00 LVOT Mn Grad: 1.00 LVOT Diam: 2.10 LVOT Area: 3.46 Diastolic Function MV Pk E: 0.63 MV Pk A: 0.89 E/A: 0.70 E'Medial: 5.22 E/E' Med: 12.10 E' Laterial: 7.62 E/E' Lat: 8.30 Right Ventricle TAPSE (mm): 24.00 TVS' Danie: 13.00 Tricuspid Valve TR Pk Danie: 1.72 TR Pk Grad: 12.00 RA Press: 3.00 RVSP: 15.00 Great Vessels Aorta Ao Root-2D: 3.40 2.0-3.7 cm Ao Asc: 3.60 2.1-3.4 cm Pulmonary Valve PV Pk Danie: 0.97 Peak PV Grad: 4.00 Updated in Other Vendor System with Status of Final Justin Garcia MD electronically signed on 09/14/2022 11:18:09 AM with status of Final
== END ==
LOC: HO.CARD 13:40
PROVIDERS: Visit Provider Internal Medicine Cardiovascular Disease
DX: I42.8 Other cardiomyopathies (principal)
CPT/HCPCS: 93306; Q9957

== ENCOUNTER → 2022-10-08 13:49 | Outpatient (BNVA) | payer OTHER, SELFPAY | PROVIDERS: PCP Family Medicine; Visit Provider Registered Nurse Diabetes Educator | DX: E11.42 Type 2 diabetes mellitus with diabetic polyneuropathy (principal); Z79.4 Long term (current) use of insulin | CPT/HCPCS: 99211 ==

== ENCOUNTER → 2022-11-07 12:57 | Outpatient (BNVA) | payer OTHER, SELFPAY | PROVIDERS: PCP Family Medicine; Visit Provider Internal Medicine Endocrinology, Diabetes & Metabolism | DX: E11.42 Type 2 diabetes mellitus with diabetic polyneuropathy (principal); E11.21 Type 2 diabetes mellitus with diabetic nephropathy; I12.9 Hypertensive chronic kidney disease with stage 1 through stage 4 chronic kidney disease, or unspecified chronic kidney disease; N18.30 Chronic kidney disease, stage 3 unspecified; K21.9 Gastro-esophageal reflux disease without esophagitis; E66.9 Obesity, unspecified; Z68.36 Body mass index [BMI] 36.0-36.9, adult; Z79.4 Long term (current) use of insulin; Z96.41 Presence of insulin pump (external) (internal) | CPT/HCPCS: 82947; 83036; 99212 ==

== ENCOUNTER → 2022-12-11 09:29 | Outpatient (REF) | payer OTHER, SELFPAY ==
--- NOTE | ~2022-12-11 | NM_ITS ---
Exercise Myocardial perfusion study Indication: Chest pain to evaluate for myocardial ischemia Technique: The patient was brought in for an exercise perfusion study on 12/11/2022. Patient performed exercise as per Jay protocol and was injected 35 mCi of sestamibi was given intravenously one target HR was achieved. Images were obtained using the SPECT gamma camera interlaced with the gating device. Images were obtained in supine position. Resting perfusion study was performed on 12/12/2022. Patient was administered 35 mCi of sestamibi intravenously at rest. Images were then obtained in supine position. Images obtained with and without CT attenuation. Total DLP 161 mGy-cm. Images were processed with the software and compared side to side in short axis, horizontal long axis and vertical long axis views. Findings: The stress perfusion study showed non attenuated images show minimally reduced uptake in the basal of the LV myocardium. Attenuation corrected images show mildly reduced uptake in the apex of the LV myocardium.. The gated study shows normal LV systolic function with calculated LVEF of 56%. LV cavity is normal in size. The gated study shows normal systolic wall thickening and contraction of all segments. There is no transient ischemic dilation. Resting study shows no change in perfusion in compared to stress perfusion study. Gating at rest reveals normal systolic wall motion with ejection fraction at greater than 55%. The findings are consistent with likely normal myocardial perfusion. NM/NM valarie perf SPECT rest & str Impression: 1. Likely normal myocardial perfusion 2. Gated LVEF is 56% 3. Transient ischemic dilatation present Stress EKG is equivocal for ischemia
--- NOTE | 2022-12-11 09:32 | CA_ITS ---
Acquisition Time: 2022-12-11 09:48:26 Total Exercise Time: 00:04:47 Test Indications: CP, PREOP Medications: SEE H Protocol: HIRA Max HR: 139 BPM 86% of Pred: 160 BPM Max BP: 170/050 mmHG Max Work Load: 6.0 METS Exercise stress test with 4 min 47 sec of Hira protocol acheiving 86% MPHR, with moderate SOB, no chest discomfort, without arrythmia, with normotensive response to exercise, with basline EKG showing non specific ST abnormality in V5, V6. With exercise there are downsloping ST segments in leads 3, aVF, V4 - V6, horizontal ST depression in lead 2 only. Equivocal for ischemia. Nuclear images pending. Test reviewed with Dr. Baig. Referred By: Yo Baig Overread By: OLIVE RIVERA
== END ==
LOC: HO.CARD 09:29
PROVIDERS: Visit Provider Internal Medicine Cardiovascular Disease
DX: R07.9 Chest pain, unspecified (principal)
CPT/HCPCS: 78452; 93017; A9500

== ENCOUNTER 2023-01-19 09:10 | Outpatient (REF) | payer OTHER, SELFPAY ==
[2023-01-19 09:22] LABS: MANUAL DIFF FLAG NO
[2023-01-19 09:57] LABS: Basophils Percent Auto 0.4 % (0-2); Eosinophils Absolute Auto 0.1 X10*3/uL (0.0-0.4); Eosinophils Percent Auto 1.8 % (0-4); Hemoglobin 16.1 g/dl (14.0-18.0); Imm Gran Abs Auto 0.02 X10*3/uL (0.00-0.03); Imm Gran Pct Auto 0.3 % (0.0-0.4); Lymphocytes Absolute Auto 2.6 X10*3/uL (1.2-4.9); Lymphocytes Percent Auto 33.8 % (20-40); Mean Corpuscular HGB Conc 34.3 g/dl (31.0-36.0); Mean Corpuscular Hemoglobin 31.1 pg (27.0-33.0); Mean Corpuscular Volume 90.7 fL (80.0-98.0); Mean Platelet Volume 10.9 fL (9.4-12.4); Monocytes Absolute Auto 0.7 X10*3/uL (0.1-1.2); Monocytes Percent Auto 8.4 % (2-11); Neutrophils Absolute Auto 4.3 x10*3/uL (2.0-8.3); Neutrophils Percent Auto 55.3 % (45-73); Platelet Count 193 X10*3/uL (160-400); Red Blood Count 5.18 X10*6/uL (4.60-5.80); Red Cell Distribution Width 12.8 % (11.0-16.0); White Blood Count 7.8 X10*3/uL (4.8-10.8)
[2023-01-19 10:01] LABS: Prothrombin Time 11.3 SEC (10.0-13.1)
[2023-01-19 10:56] LABS: Anion Gap 12 (12-20); Blood Urea Nitrogen 20 mg/dL (9-16); Calcium 9.4 mg/dL (8.4-10.2); Carbon Dioxide 29 mmol/L (22-29); Chloride 103 mmol/L (96-108); Estimated Glomerular Filt Rate 38; Glucose Random 144 mg/dL (60-115); Potassium 4.9 mmol/L (3.3-5.1); Sodium 139 mmol/L (135-145)
== END 2023-01-19 09:11 | disposition home or self-care (01) ==
LOC: HO.LAB 09:10
PROVIDERS: Visit Provider Internal Medicine Cardiovascular Disease
DX: R07.9 Chest pain, unspecified (principal); I10 Essential (primary) hypertension
CPT/HCPCS: 36415; 80048; 85025; 85610

== ENCOUNTER → 2023-02-20 13:10 | Outpatient (BNVA) | payer OTHER, SELFPAY | PROVIDERS: PCP Family Medicine; Visit Provider Internal Medicine Endocrinology, Diabetes & Metabolism | DX: E11.42 Type 2 diabetes mellitus with diabetic polyneuropathy (principal) | CPT/HCPCS: 82947; 99212 ==

== ENCOUNTER → 2023-02-24 15:01 | Outpatient (BNVA) | payer OTHER, SELFPAY | PROVIDERS: PCP Family Medicine; Visit Provider Nurse Practitioner Family | DX: I25.10 Atherosclerotic heart disease of native coronary artery without angina pectoris (principal); I42.8 Other cardiomyopathies; I10 Essential (primary) hypertension; E78.5 Hyperlipidemia, unspecified; Z79.02 Long term (current) use of antithrombotics/antiplatelets; Z79.82 Long term (current) use of aspirin; Z79.899 Other long term (current) drug therapy; Z98.890 Other specified postprocedural states | CPT/HCPCS: 99212 ==

== ENCOUNTER → 2023-05-22 14:51 | Outpatient (REF) | payer OTHER, SELFPAY ==
--- NOTE | 2023-05-22 14:53 | CA_ITS ---
Transthoracic Echocardiogram Patient (Last, First, Middle): Sang Lester, Gender: Male Date of : 1960 Age: 63 Procedure Date: 05/22/2023 Procedure Type: Transthoracic Echocardiogram Location: OP Height: 170.18 cm Weight: 99.79 kg BSA: 2.11 m2 Heart Rate: 79 bpm BP: 130 / 72 mmHg Billet Cutter: SB Referring MD: Alise Harris ORIENTAL MEDICINE PRACTITIONER-C Symptoms: I25.10 - Atherosclerotic heart disease of [place] coronary artery without... Study Quality: Adequate w contrast/limited echo ordered ECG Rhythm: Sinus Conclusions: - The left ventricular systolic function is mildly decreased. The visually estimated ejection fraction is between 45-50%. - Even with contrast, difficult to assess wall motion. Possibly basal inferior/infero-lateral hypokinesis. Findings Procedure Information Contrast agent, definity, is being given per protocol without apparent complications. Left Ventricle Mildly increased left ventricular cavity size. There is normal left ventricular wall thickness. The left ventricular systolic function is mildly decreased. The visually estimated ejection fraction is between 45-50%. Even with contrast, difficult to assess wall motion. Possibly basal inferior/infero-lateral hypokinesis. Prior Study Comparison No significant change compared to prior study dated: 09/09/2022. Measurements 2D Linear Measurements IVSd: 0.84 0.6-0.9/0.6-1.0 cm LVIDd: 5.51 3.9-5.3/4.2-5.9 cm LVIDd Index: 2.61 2.4-3.2/2.2-3.1 cm/m2 LVPWd: 0.87 0.7-1.1 cm LV Mass: 217.45 67-162/88-224 g LV Mass Index: 103.06 43-95/49-115 g/m2 2D Systolic Function EF 4C: 53.80 >55% EF 2C: 52.40 >55% EF BiP: 53.60 >55% Updated in Other Vendor System with Status of Final Justin Garcia MD electronically signed on 05/23/2023 12:20:46 PM with status of Final
== END ==
LOC: HO.CARD 14:51
PROVIDERS: PCP Family Medicine; Visit Provider Nurse Practitioner Family
DX: I25.10 Atherosclerotic heart disease of native coronary artery without angina pectoris (principal); I42.8 Other cardiomyopathies
CPT/HCPCS: 93308; Q9957

== ENCOUNTER → 2023-05-22 14:53 | Outpatient (BNV) | payer OTHER, SELFPAY | PROVIDERS: PCP Family Medicine; Visit Provider Internal Medicine | DX: I25.10 Atherosclerotic heart disease of native coronary artery without angina pectoris (principal) | CPT/HCPCS: 93308 ==

== ENCOUNTER 2023-08-24 09:21 | Outpatient (AMB) | payer OTHER, SELFPAY ==
--- NOTE | 2023-08-24 10:02 | MHC.AMDMED ---
Intake Intake Visit Reasons: DM Pump Range Conservationist Required: No Accompanied by: Nephew or Niece Allergies No Known Allergies Allergy (Verified 02/24/23 15:13) HPI Comprehensive Diabetes Asmnt Most Recent Diabetes Results: Microalb/Creat Ratio 613.5 ug/mg cr 03/26/22 Cholesterol 119 mg/dL 03/26/22 HDL Cholesterol 32 mg/dL 03/26/22 Triglycerides 203 mg/dL 03/26/22 Creatinine 1.84 mg/dL (0.5-1.4) H 01/19/23 Blood Urea Nitrogen 20 mg/dL (9-16) H 01/19/23 Sodium 139 mmol/L (135-145) 01/19/23 Potassium 4.9 mmol/L (3.3-5.1) 01/19/23 Chloride 103 mmol/L (96-108) 01/19/23 Carbon Dioxide 29 mmol/L (22-29) 01/19/23 Calcium 9.4 mg/dL (8.4-10.2) 01/19/23 AST 36 U/L (5-37) 03/26/22 ALT 60 U/L (0-40) H 03/26/22 Total Protein 7.2 g/dL (6.5-8.0) 03/26/22 Albumin 3.8 g/dL (3.5-5.0) 03/26/22 [facility] Medical History CKD (chronic kidney disease) stage 3, GFR 30-59 ml/min Diabetes type 2, uncontrolled Diabetic nephropathy associated with type 2 diabetes mellitus Diabetic polyneuropathy associated with type 2 diabetes mellitus Dyslipidemia Fatty liver Hypertension 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 insulin Non-adherence to medical treatment Obesity (BMI 30-39.9) Surgical History History of cardiac cath History of carpal tunnel surgery Family History Father Lung cancer Mother Diabetes Hypertension Arthritis CKD (chronic kidney disease) stage 4, GFR 15-29 ml/min Household Members: Family Alcohol intake: current Alcohol intake frequency: other Alcohol type: wine Patient Tobacco Use Status: Former Tobacco user Quit Date: Over 10 years ago Assessment & Plan Assessment & Plan (1) Type 2 diabetes mellitus with diabetic polyneuropathy: Code(s): E11.42 - Type 2 diabetes mellitus with diabetic polyneuropathy Plan: Patient presents for pump training for Omnipod with Dexcom G6. 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 Insurance company says dash pods are approved through February 2024, requesting new prescription for dash pods be sent to patient's pharmacy Patient has not been adding carbohydrates only been, correcting when glucose levels are high. Patient has several episodes hypoglycemia after correction see adjustment to correction factor below Patient overdue for A1c, patient has upcoming appoint with Dr. Pruett on 09/10/2023 ?? High Alert: ? 250 mg/dl ??? Low Alert: ? 70 mg/dl Patient above target 54% Patient at target 44% Patient below target 2% Average glucose for the last 2 weeks 205 mg/dL Encourage patient to continue to work towards improvement, be sure to bolus for half an hour before meals Reviewed with patient importance of changing insulin delivery set/Pod every 72 hours, with site rotation. Patient given the opportunity to ask questions about pump function ?Basal rate(s) (units/hour) : 12 AM? to 12 AM? 1.5 units / hr Bolus setting Insulin Carbohydrate Ratio (s) 12 AM? to 12 AM?? 1:12 Correction Factor / Sensitivity Factor 12 AM? to 12 AM?? 1:75 New 12 AM? to 12 AM?? 1:80 Active Insulin Time:? 5 hours Target(s):120 New added correction threshold 130 mg/dL Patient Instructions: Patient will follow-up with Diabetes Education nurse in 1 month Coding Level of Care Code Est Pt Level 1 (48937) Diagnoses Type 2 diabetes mellitus with diabetic polyneuropathy E11.42
== END 2023-08-24 10:05 | disposition home or self-care (01) ==
PROVIDERS: PCP Family Medicine; Visit Provider Registered Nurse Diabetes Educator
DX: E11.42 Type 2 diabetes mellitus with diabetic polyneuropathy (principal)

== ENCOUNTER → 2023-08-24 09:21 | Outpatient (BNVA) | payer OTHER, SELFPAY | PROVIDERS: PCP Family Medicine; Visit Provider Registered Nurse Diabetes Educator | DX: E11.42 Type 2 diabetes mellitus with diabetic polyneuropathy (principal); Z79.4 Long term (current) use of insulin | CPT/HCPCS: 99211 ==

== ENCOUNTER 2023-12-08 15:07 | Outpatient (AMB) | payer OTHER, SELFPAY ==
--- NOTE | 2023-12-08 15:08 | MHC.OFFVIS ---
Intake Vital Signs 12/08/23 15:09 Height 5 ft 7 in Weight 246 lb 0.574 oz BMI 38.5 BP 152/96 H Blood Pressure Location Lt brachial Position Sitting Pulse 89 Pulse Source Pulse Oximeter Intake Visit Reasons: DM-lvm Intake Note: Patient presents today to follow up on D2MT. Last Diabetic Eye exam:09/2022 Last Podiatry Visit: Doesn't have one. 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 Accompanied by: Self / Same As Patient Allergies No Known Allergies Allergy (Verified 02/24/23 15:13) Medication List - Last Reconciled 12/08/23 by Howie Pruett MD albuterol sulfate 90 mcg/actuation inhalation ONCE PRN atorvastatin 80 mg PO DAILY blood sugar diagnostic As directed blood sugar diagnostic (FreeStyle Lite Strips) TESTS 2 X/DAY carvedilol 25 mg PO BID cholecalciferol (vitamin D3) (Vitamin D3) 25 mcg PO DAILY clopidogrel 75 mg PO DAILY diclofenac sodium 1% 1 ea topical QID doxazosin 4 mg PO BEDTIME fluticasone propionate 50 mcg/actuation sprays intranasal furosemide 20 mg PO DAILY PRN insulin pump cart,cont inf,BT ([employer] Dash Pods (Gen 4) subcutaneous cartridge) As directed change every 72 hours insulin pump cartridge (Omnipod Insulin Refill) every other day insulin pump controller ([employer] DASH PDM Kit (Gen 4)) As directed insulin regular hum U-500 conc (Humulin R U-500 (Concentrated) Insulin) 300 units (0.6 mL) subcut DAILY lidocaine 5% 1 patch topical DAILY lidocaine 5% topical lisinopril 40 mg PO DAILY 30 days loratadine 10 mg PO DAILY nortriptyline 75 mg PO BEDTIME nortriptyline 25 mg PO QAM pantoprazole 40 mg PO DAILY pen needle, diabetic As directed pregabalin 50 mg PO BID sucralfate 1 g PO BID tirzepatide (Mounjaro) 2.5 mg (0.5 mL) subcut QWEEK 4 weeks HPI HPI Comments History of Present Illness Details Patient is a 63-year-old male with DM type 2 diagnosed in 1999 who presents for management of diabetes . .. He is using Humulin U 500. He restarted Trulicity at 1.5mg Q weekly but stopped because of foul burping Past medical history: Diabetes type 2, hypertension, depression, GERD Micro and macrovascular complications: Neuropathy and nephropathy Diabetes medications: Humulin U 500 via pump. last known pump settings: Basal rate(s) (units/hour) : 12 AM? to 12 AM? 1.5 units / hr Bolus setting Insulin Carbohydrate Ratio (s) 12 AM? to 12 AM?? 1:12 Correction Factor / Sensitivity Factor New 12 AM? to 12 AM?? 1:80 Active Insulin Time:? 5 hours Target(s):120 New added correction threshold 130 mg/dL total daily insulin use is 36 units with 78% basal 22% bolus Dexcom download shows average glucose to be 255 with G mi of 9.4%. Using Dexcom 100% of the time. 12 % range with 32% hyperglycemia and 55% very hyperglycemic and 0% hypoglycemia less than 0% very hypoglycemic. 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 the past Operating Room Registered Nurse: denies Dental exam: 2 years ago Ophthalmology evaluation: 08/2023 Other specialists: Category Director Laboratory Tests 03/15/21 03/15/21 10:49 15:51 Creatinine 1.62 H Estimated GFR 44 Hgb A1c (Clinic) > 14.0 H [facility] Medical History CKD (chronic kidney disease) stage 3, GFR 30-59 ml/min Diabetes type 2, uncontrolled Diabetic nephropathy associated with type 2 diabetes mellitus Diabetic polyneuropathy associated with type 2 diabetes mellitus Dyslipidemia Fatty liver Hypertension 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 Non-adherence to medical treatment Obesity (BMI 30-39.9) Surgical History History of cardiac cath History of carpal tunnel surgery Family History Father Lung cancer Mother Diabetes Hypertension Arthritis CKD (chronic kidney disease) stage 4, GFR 15-29 ml/min Social History Household Members: Family Alcohol intake: current Alcohol intake frequency: other Alcohol type: wine Patient Tobacco Use Status: Former Tobacco user Quit Date: Over 10 years ago Physical Exam Vital Signs: Last Vital Signs Pulse 89 12/08/23 15:09 BP 152/96 H 12/08/23 15:09 BMI result Body Mass Index 38.5 Absence of Cushingoid features. Absence of acromegalic features. Neck exam reveals nl size thyroid about 15 gms. No thyroid nodules palpable. No carotid bruits present. Lungs CTA. Heart S1 S2, Reg R/R. No M/R/ G. Skin exam reveals absence of vitiligo or acanthosis nigricans. Abdominal exam reveals Soft NT/ND with NA BS. No organomegaly present. Neck Other: . Extrem Other: Visual exam of foot performed. No ulcerations or open lesions. No onchomycosis, no callouses.Pulses 2 + distally Sensation decreased to monofilament exam. Vibratory sensation sensed is decreased with 128 Hz tuning fork Results AMB Hemoglobin A1c AMB Hemoglobin A1c 8.7 % Last Edit by LU Winchester on 12/08/23 15:29 Results Reviewed Results Reviewed: Laboratory Last Values Glucose (Clinic) 202 mg/dL (60-115) H 12/08/23 15:18 Assessment & Plan Assessment & Plan (1) Type 2 diabetes mellitus with diabetic polyneuropathy: Code(s): E11.42 - Type 2 diabetes mellitus with diabetic polyneuropathy Plan: This 63-year-old white male with a history type 2 diabetes being treated with U-500 insulin in a tandem pump with poor glycemic control and known microvascular complications namely CKD stage IIIB and neuropathy The plan is to start Mounjaro 2.5 mg wkly as pt was intolerant of Trulicity. If insurance will not cover, will then start Ozempic . Alternatively if optimal glycemic control is not obtained , would raise basal rate or consider switching to Tandem Patient will meet with the health educator to discuss. Went over side effects of Mounjaro and Ozempic including but not limited to nausea, vomiting rare risk of pancreatitis Orders: Orders AMB Hemoglobin A1c Today E11.42 - Type 2 diabetes mellitus with diabetic polyneuropathy, Z13.9 - Encounter for screening, unspecified Medications: New tirzepatide (Mounjaro) 2.5 mg (0.5 mL) subcut QWEEK 2 mL 4RF 4 weeks Coding Level of Care Code Est Pt Level 4 (62605) Diagnoses Type 2 diabetes mellitus with diabetic polyneuropathy E11.42
[2023-12-08 15:09] VITALS: BP 152/96; PULSE 89; BMI 38.5
[2023-12-08 15:23] LABS: Glucose, Whole Blood 202 mg/dL (60-115)
== END 2023-12-08 15:41 | disposition home or self-care (01) ==
PROVIDERS: PCP Family Medicine; Visit Provider Internal Medicine Endocrinology, Diabetes & Metabolism
DX: Z13.9 Encounter for screening, unspecified (principal); E11.42 Type 2 diabetes mellitus with diabetic polyneuropathy
CPT/HCPCS: 99214

== ENCOUNTER → 2023-12-08 15:07 | Outpatient (BNVA) | payer OTHER, SELFPAY | PROVIDERS: PCP Family Medicine; Visit Provider Internal Medicine Endocrinology, Diabetes & Metabolism | DX: E11.42 Type 2 diabetes mellitus with diabetic polyneuropathy (principal) | CPT/HCPCS: 82947; 83036; 99212 ==

== ENCOUNTER 2023-12-17 14:50 | Outpatient (AMB) | payer OTHER, SELFPAY ==
--- NOTE | 2023-12-17 15:31 | A.OFFVIS_ITS ---
Intake Intake Visit Reasons: f/u Type 2 DM-lvm Grain Combine Driver Required: No Accompanied by: Self / Same As Patient Allergies No Known Allergies Allergy (Verified 02/24/23 15:13) HPI Comprehensive Diabetes Asmnt Most Recent Diabetes Results: No Data to Display [facility] Medical History CKD (chronic kidney disease) stage 3, GFR 30-59 ml/min Diabetes type 2, uncontrolled Diabetic nephropathy associated with type 2 diabetes mellitus Diabetic polyneuropathy associated with type 2 diabetes mellitus Dyslipidemia Fatty liver Hypertension half-way (current) use of insulin Non-adherence to medical treatment Obesity (BMI 30-39.9) Surgical History History of carpal tunnel surgery History of cardiac cath Family History Father Lung cancer Mother Diabetes Hypertension Arthritis CKD (chronic kidney disease) stage 4, GFR 15-29 ml/min Social History Household Members: Family Alcohol intake: current Alcohol intake frequency: other Alcohol type: wine Patient Tobacco Use Status: Former Tobacco user Quit Date: Over 10 years ago Assessment & Plan Assessment & Plan (1) Type 2 diabetes mellitus with diabetic polyneuropathy: Code(s): E11.42 - Type 2 diabetes mellitus with diabetic polyneuropathy Plan: Patient presents for pump training for Omnipod Dash with Dexcom G6. The following topics were reviewed today: Patient uses Humulin U 500 in insulin pump Topics covered today's: -Omnipod 5 verses Omnipod Dash -T slim insulin ?? High Alert: ? 250 mg/dl ??? Low Alert: ? 70 mg/dl Patient above target 93% Patient at target 7% Patient below target 0% Average glucose for the last 2 weeks 279 mg/dL Patient glucose running well above target. Patient reports that sometimes he even puts in carbs that he is not eating to trying correct hyperglycemia Explained to patient this makes it more difficult for us to adjust pump settings, see adjustments to pump settings below Encourage patient to continue to work towards improvement, be sure to bolus for half an hour before meals Reviewed with patient importance of changing insulin delivery set/Pod every 48 hours, with site rotation. Patient given the opportunity to ask questions about pump function ?Basal rate(s) (units/hour) : 12 AM? to 12 AM? 1.5 units / hr New 12 AM? to 12 AM? 1.75 units / hr Bolus setting Insulin Carbohydrate Ratio (s) 12 AM? to 12 AM?? 1:12 Correction Factor / Sensitivity Factor 12 AM? to 12 AM?? 1:80 New 12 AM? to 12 AM?? 1:75 Active Insulin Time:? 5 hours Target(s):120 New added correction threshold 130 mg/dL Coding Level of Care Code Est Pt Level 1 (11506) Diagnoses Type 2 diabetes mellitus with diabetic polyneuropathy E11.42
== END 2023-12-17 15:33 | disposition home or self-care (01) ==
PROVIDERS: PCP Family Medicine; Visit Provider Registered Nurse Diabetes Educator
DX: E11.42 Type 2 diabetes mellitus with diabetic polyneuropathy (principal)

== ENCOUNTER → 2023-12-17 14:50 | Outpatient (BNVA) | payer OTHER, SELFPAY | PROVIDERS: PCP Family Medicine; Visit Provider Registered Nurse Diabetes Educator | DX: E11.42 Type 2 diabetes mellitus with diabetic polyneuropathy (principal); Z96.41 Presence of insulin pump (external) (internal); Z79.4 Long term (current) use of insulin | CPT/HCPCS: 99211 ==

== ENCOUNTER 2024-01-05 14:07 | Outpatient (AMB) | payer OTHER, SELFPAY ==
--- NOTE | 2024-01-05 15:17 | MHC.AMDMED ---
Intake Intake Visit Reasons: needs help with pump Performance Improvement Specialist Required: No Accompanied by: Self / Same As Patient Allergies No Known Allergies Allergy (Verified 02/24/23 15:13) HPI Comprehensive Diabetes Asmnt Most Recent Diabetes Results: No Data to Display [facility] Medical History CKD (chronic kidney disease) stage 3, GFR 30-59 ml/min Diabetes type 2, uncontrolled Diabetic nephropathy associated with type 2 diabetes mellitus Diabetic polyneuropathy associated with type 2 diabetes mellitus Dyslipidemia Fatty liver Hypertension nursing home (current) use of insulin Non-adherence to medical treatment Obesity (BMI 30-39.9) Surgical History History of carpal tunnel surgery History of cardiac cath Family History Father Lung cancer Mother Diabetes Hypertension Arthritis CKD (chronic kidney disease) stage 4, GFR 15-29 ml/min Social History Household Members: Family Alcohol intake: current Alcohol intake frequency: other Alcohol type: wine Patient Tobacco Use Status: Former Tobacco user Quit Date: Over 10 years ago Assessment & Plan Assessment & Plan (1) Type 2 diabetes mellitus with diabetic polyneuropathy: Code(s): E11.42 - Type 2 diabetes mellitus with diabetic polyneuropathy Plan: Patient presents for pump training for Omnipod Dash with Dexcom G6. The following topics were reviewed today: Patient uses Humulin U 500 in insulin pump Topics covered today's: -Omnipod 5 verses Omnipod Dash -T slim insulin ?? High Alert: ? 250 mg/dl ??? Low Alert: ? 70 mg/dl Patient above target 93% Patient at target 7% Patient below target 0% Average glucose for the last 2 weeks 279 mg/dL Patient glucose running well above target. Patient reports that sometimes he even puts in carbs that he is not eating to trying correct hyperglycemia Explained to patient this makes it more difficult for us to adjust pump settings, see adjustments to pump settings below Encourage patient to continue to work towards improvement, be sure to bolus for half an hour before meals Reviewed with patient importance of changing insulin delivery set/Pod every 48 hours, with site rotation. Patient given the opportunity to ask questions about pump function ?Basal rate(s) (units/hour) : 12 AM? to 12 AM? 1.5 units / hr New 12 AM? to 12 AM? 1.75 units / hr Bolus setting Insulin Carbohydrate Ratio (s) 12 AM? to 12 AM?? 1:12 Correction Factor / Sensitivity Factor 12 AM? to 12 AM?? 1:75 Active Insulin Time:? 5 hours Target(s):120 New added correction threshold 130 mg/dL Plan Patient presents for pump training for Omnipod 5 with Dexcom G6. The following topics were reviewed today: Patient uses Humulin U 500 in insulin pump Topics covered today's: Entered Omnipod dash setting into new Omnipod 5 ?? High Alert: ? 250 mg/dl ??? Low Alert: ? 70 mg/dl Encourage patient to continue to work towards improvement, be sure to bolus for half an hour before meals Reviewed with patient importance of changing insulin delivery set/Pod every 48 hours, with site rotation. Patient given the opportunity to ask questions about pump function ?Basal rate(s) (units/hour) : 12 AM? to 12 AM? 1.5 units / hr New 12 AM? to 12 AM? 1.75 units / hr Bolus setting Insulin Carbohydrate Ratio (s) 12 AM? to 12 AM?? 1:12 Correction Factor / Sensitivity Factor 12 AM? to 12 AM?? 1:80 Active Insulin Time:? 5 hours Target(s):120 correction threshold 130 mg/dL Patient Instructions: Follow-up with assistant health educator in 1 week Coding Level of Care Code Est Pt Level 1 (28452) Diagnoses Type 2 diabetes mellitus with diabetic polyneuropathy E11.42
== END 2024-01-05 15:35 | disposition home or self-care (01) ==
PROVIDERS: PCP Family Medicine; Visit Provider Registered Nurse Diabetes Educator
DX: E11.42 Type 2 diabetes mellitus with diabetic polyneuropathy (principal)

== ENCOUNTER → 2024-01-05 14:07 | Outpatient (BNVA) | payer OTHER, SELFPAY | PROVIDERS: PCP Family Medicine; Visit Provider Registered Nurse Diabetes Educator | DX: E11.21 Type 2 diabetes mellitus with diabetic nephropathy (principal); E11.42 Type 2 diabetes mellitus with diabetic polyneuropathy; E11.65 Type 2 diabetes mellitus with hyperglycemia; E11.22 Type 2 diabetes mellitus with diabetic chronic kidney disease; I12.9 Hypertensive chronic kidney disease with stage 1 through stage 4 chronic kidney disease, or unspecified chronic kidney disease; N18.30 Chronic kidney disease, stage 3 unspecified; Z79.4 Long term (current) use of insulin; Z46.81 Encounter for fitting and adjustment of insulin pump; Z96.41 Presence of insulin pump (external) (internal) | CPT/HCPCS: 99211 ==

== ENCOUNTER 2024-01-13 15:21 | Outpatient (AMB) | payer OTHER, SELFPAY ==
--- NOTE | 2024-01-13 15:49 | MHC.AMDMED ---
Intake Intake Visit Reasons: Needs help with Pump/CONFIRMED Shoe Sticks Repairer Required: No Accompanied by: Self / Same As Patient Allergies No Known Allergies Allergy (Verified 02/24/23 15:13) HPI Comprehensive Diabetes Asmnt Most Recent Diabetes Results: No Data to Display [facility] Medical History CKD (chronic kidney disease) stage 3, GFR 30-59 ml/min Diabetes type 2, uncontrolled Diabetic nephropathy associated with type 2 diabetes mellitus Diabetic polyneuropathy associated with type 2 diabetes mellitus Dyslipidemia Fatty liver Hypertension [facility] (current) use of insulin Non-adherence to medical treatment Obesity (BMI 30-39.9) Surgical History History of carpal tunnel surgery History of cardiac cath Family History Father Lung cancer Mother Diabetes Hypertension Arthritis CKD (chronic kidney disease) stage 4, GFR 15-29 ml/min Social History Household Members: Family Alcohol intake: current Alcohol intake frequency: other Alcohol type: wine Patient Tobacco Use Status: Former Tobacco user Quit Date: Over 10 years ago Assessment & Plan Assessment & Plan (1) Type 2 diabetes mellitus with diabetic polyneuropathy: Code(s): E11.42 - Type 2 diabetes mellitus with diabetic polyneuropathy Plan: Patient presents for pump training for Omnipod 5 with Dexcom G6. The following topics were reviewed today: Patient uses Humulin U 500 in insulin pump Topics covered today's: How to enter carbohydrates into Omnipod 5 ?? High Alert: ? 250 mg/dl ??? Low Alert: ? 70 mg/dl CGM: Patient above target 34% Patient at target 63% Patient below target 2% Average glucose for the last 10 days 159 mg/dL Encourage patient to continue to work towards improvement, be sure to bolus for half an hour before meals Also connected patient's Omnipod 5 PDM to [place] Reviewed with patient importance of changing insulin delivery set/Pod every 48 hours, with site rotation. Patient given the opportunity to ask questions about pump function ?Basal rate(s) (units/hour) : 12 AM? to 12 AM? 1.75 units / hr Bolus setting Insulin Carbohydrate Ratio (s) 12 AM? to 12 AM?? 1:12 Correction Factor / Sensitivity Factor 12 AM? to 12 AM?? 1:80 Active Insulin Time:? 5 hours Target(s):120 correction threshold 130 mg/dL Coding Level of Care Code Est Pt Level 1 (71297) Diagnoses Type 2 diabetes mellitus with diabetic polyneuropathy E11.42
== END 2024-01-13 15:51 | disposition home or self-care (01) ==
PROVIDERS: PCP Family Medicine; Visit Provider Registered Nurse Diabetes Educator
DX: E11.42 Type 2 diabetes mellitus with diabetic polyneuropathy (principal)

== ENCOUNTER → 2024-01-13 15:21 | Outpatient (BNVA) | payer OTHER, SELFPAY | PROVIDERS: PCP Family Medicine; Visit Provider Registered Nurse Diabetes Educator | DX: Z46.81 Encounter for fitting and adjustment of insulin pump (principal); E11.42 Type 2 diabetes mellitus with diabetic polyneuropathy; Z79.4 Long term (current) use of insulin | CPT/HCPCS: 99211 ==

== ENCOUNTER 2024-02-15 15:37 | Outpatient (AMB) | payer OTHER, SELFPAY ==
--- NOTE | 2024-02-15 15:53 | A.OFFVIS_ITS ---
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 Accompanied by: Self / Same As Patient Allergies No Known Allergies Allergy (Verified 02/24/23 15:13) HPI Comprehensive Diabetes Asmnt Most Recent Diabetes Results: Microalb/Creat Ratio 613.5 ug/mg cr 03/26/22 Cholesterol 119 mg/dL 03/26/22 HDL Cholesterol 32 mg/dL 03/26/22 Triglycerides 203 mg/dL 03/26/22 Creatinine 1.84 mg/dL (0.5-1.4) H 01/19/23 Blood Urea Nitrogen 20 mg/dL (9-16) H 01/19/23 Sodium 139 mmol/L (135-145) 01/19/23 Potassium 4.9 mmol/L (3.3-5.1) 01/19/23 Chloride 103 mmol/L (96-108) 01/19/23 Carbon Dioxide 29 mmol/L (22-29) 01/19/23 Calcium 9.4 mg/dL (8.4-10.2) 01/19/23 AST 36 U/L (5-37) 03/26/22 ALT 60 U/L (0-40) H 03/26/22 Total Protein 7.2 g/dL (6.5-8.0) 03/26/22 Albumin 3.8 g/dL (3.5-5.0) 03/26/22 [facility] Medical History CKD (chronic kidney disease) stage 3, GFR 30-59 ml/min Diabetes type 2, uncontrolled Diabetic nephropathy associated with type 2 diabetes mellitus Diabetic polyneuropathy associated with type 2 diabetes mellitus Dyslipidemia Fatty liver Hypertension residential (current) use of insulin Non-adherence to medical treatment Obesity (BMI 30-39.9) Surgical History History of carpal tunnel surgery History of cardiac cath Family History Father Lung cancer Mother Diabetes Hypertension Arthritis CKD (chronic kidney disease) stage 4, GFR 15-29 ml/min Social History Household Members: Family Alcohol intake: current Alcohol intake frequency: other Alcohol type: wine Patient Tobacco Use Status: Former Tobacco user Quit Date: Over 10 years ago Assessment & Plan Assessment & Plan (1) Type 2 diabetes mellitus with diabetic polyneuropathy: Code(s): E11.42 - Type 2 diabetes mellitus with diabetic polyneuropathy Plan: Patient presents for pump training for Omnipod 5 with Dexcom G6. The following topics were reviewed today: Patient uses Humulin U 500 in insulin pump Topics covered today's: How to enter carbohydrates into Omnipod 5 ?? High Alert: ? 250 mg/dl ??? Low Alert: ? 70 mg/dl CGM: Patient above target 36% Patient at target 64% Patient below target 0% Average glucose for the last 10 days 167 mg/dL Patient is only using 15 units daily, with U 500 in his Omnipod. Patient reports he is too afraid of hypoglycemia to put carbohydrates into insulin pump. Discussed with Dr. Pruett changing from U 500 to U 100. If patient is glucose deteriorates we can try U 200. Ask front loader residential driver to contact patient to set up appointment when he picks up U 100 from the pharmacy ?Basal rate(s) (units/hour) : 12 AM? to 12 AM? 1.5 units / hr Bolus setting Insulin Carbohydrate Ratio (s) 12 AM? to 12 AM?? 1:12 Correction Factor / Sensitivity Factor 12 AM? to 12 AM?? 1:80 Active Insulin Time:? 5 hours Target(s):120 correction threshold 130 mg/dL Medications: New insulin lispro (Humalog U-100 Insulin) infuse up to 100 units via insulin pump subcutaneously 3 times a day; 30 mL 5RF Discontinued insulin regular hum U-500 conc (Humulin R U-500 (Concentrated) Insulin) Discontinued Reason: Doctor's Order 300 units (0.6 mL) subcut DAILY 20 mL 3RF E11.65 - Type 2 diabetes mellitus with hyperglycemia Coding Level of Care Code Est Pt Level 1 (61041) Diagnoses Type 2 diabetes mellitus with diabetic polyneuropathy E11.42
== END 2024-02-15 16:08 | disposition home or self-care (01) ==
PROVIDERS: PCP Family Medicine; Visit Provider Registered Nurse Diabetes Educator
DX: E11.42 Type 2 diabetes mellitus with diabetic polyneuropathy (principal)

== ENCOUNTER → 2024-02-15 15:37 | Outpatient (BNVA) | payer OTHER, SELFPAY | PROVIDERS: PCP Family Medicine; Visit Provider Registered Nurse Diabetes Educator | DX: E11.65 Type 2 diabetes mellitus with hyperglycemia (principal); E11.21 Type 2 diabetes mellitus with diabetic nephropathy; E11.42 Type 2 diabetes mellitus with diabetic polyneuropathy; E11.22 Type 2 diabetes mellitus with diabetic chronic kidney disease; I12.9 Hypertensive chronic kidney disease with stage 1 through stage 4 chronic kidney disease, or unspecified chronic kidney disease; N18.30 Chronic kidney disease, stage 3 unspecified; Z96.41 Presence of insulin pump (external) (internal); Z79.4 Long term (current) use of insulin | CPT/HCPCS: 99211 ==

== ENCOUNTER 2024-05-12 12:42 | Outpatient (AMB) | payer OTHER, SELFPAY ==
--- NOTE | 2024-05-12 13:19 | A.OFFVIS_ITS ---
Intake Intake Visit Reasons: Type 2 dm/CONFIRMED Signwriter Required: No Accompanied by: Self / Same As Patient Allergies No Known Allergies Allergy (Verified 02/24/23 15:13) HPI Comprehensive Diabetes Asmnt Most Recent Diabetes Results: Microalb/Creat Ratio 613.5 ug/mg cr 03/26/22 Cholesterol 119 mg/dL 03/26/22 HDL Cholesterol 32 mg/dL 03/26/22 Triglycerides 203 mg/dL 03/26/22 Creatinine 1.84 mg/dL (0.5-1.4) H 01/19/23 Blood Urea Nitrogen 20 mg/dL (9-16) H 01/19/23 Sodium 139 mmol/L (135-145) 01/19/23 Potassium 4.9 mmol/L (3.3-5.1) 01/19/23 Chloride 103 mmol/L (96-108) 01/19/23 Carbon Dioxide 29 mmol/L (22-29) 01/19/23 Calcium 9.4 mg/dL (8.4-10.2) 01/19/23 AST 36 U/L (5-37) 03/26/22 ALT 60 U/L (0-40) H 03/26/22 Total Protein 7.2 g/dL (6.5-8.0) 03/26/22 Albumin 3.8 g/dL (3.5-5.0) 03/26/22 [facility] Medical History CKD (chronic kidney disease) stage 3, GFR 30-59 ml/min Diabetes type 2, uncontrolled Diabetic nephropathy associated with type 2 diabetes mellitus Diabetic polyneuropathy associated with type 2 diabetes mellitus Dyslipidemia Fatty liver Hypertension 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 (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) use of insulin Non-adherence to medical treatment Obesity (BMI 30-39.9) Surgical History History of carpal tunnel surgery History of cardiac cath Family History Father Lung cancer Mother Diabetes Hypertension Arthritis CKD (chronic kidney disease) stage 4, GFR 15-29 ml/min Social History Household Members: Family Alcohol intake: current Alcohol intake frequency: other Alcohol type: wine Patient Tobacco Use Status: Former Tobacco user Assessment & Plan Assessment & Plan (1) Type 2 diabetes mellitus with diabetic polyneuropathy: Code(s): E11.42 - Type 2 diabetes mellitus with diabetic polyneuropathy Plan: Patient presents for pump training for Omnipod 5 with Dexcom G6. The following topics were reviewed today: Patient has transitioned from Humulin U 500 to Humulin U 100 in insulin pump Topics covered today's: Reinforced the importance of entering carbohydrates Reinforced the importance of manual corrections when glucoses above target High Alert: ? 250 mg/dl Low Alert: ? 70 mg/dl CGM: Patient above target 69% Patient at target 31% Patient below target 0% Average glucose for the last 10 days 202 mg/dL Patient in Automode 100% Basal: 84% Bolus: 14% Patient has not been entering carbohydrates into pump, reports that he does not eat very much, only a few crackers Patient has been doing some manual corrections, see changes to correction factor and target goals below We did not adjust insulin to carb ratio at this visit, because patient is rarely entering carbs into the pump Troubleshooting after starting new pod or inserting new insulin set: Occlusion, adhesive tape sensitivity, redness Check BG 2 hours after site change Safety information: Importance of a backup plan, for manual injections, proper prescriptions and emergency supplies ketone strips, and rules for testing for ketones Patient was able to insert insulin set today without difficulty. Patient understands the basic concepts of pump therapy, how to give insulin for meals and snacks, how to troubleshoot for hyper and hypoglycemia. Setting verified by CDCES ?Basal rate(s) (units/hour) : 12 AM? to 12 AM? 1.5 units / hr Bolus setting Insulin Carbohydrate Ratio (s) 12 AM? to 12 AM?? 1:12 Correction Factor / Sensitivity Factor 12 AM? to 12 AM?? 1:80 New 12 AM? to 12 AM?? 1:70 Active Insulin Time:? 5 hours Target(s):12 AM? to 12 AM 120mg/dL New 12 AM? to 12 AM 110 mg/dL Correction threshold 130 mg/dL New 12 AM? to 12 AM 120 mg/dL Patient Instructions: Patient will follow-up with disability specialist in 3 months Coding Level of Care Code Est Pt Level 1 (58845) Diagnoses Type 2 diabetes mellitus with diabetic polyneuropathy E11.42
== END 2024-05-12 13:20 | disposition home or self-care (01) ==
PROVIDERS: PCP Family Medicine; Visit Provider Registered Nurse Diabetes Educator
DX: E11.42 Type 2 diabetes mellitus with diabetic polyneuropathy (principal)

== ENCOUNTER 2024-05-12 12:42 | Outpatient (REF) | payer OTHER, SELFPAY ==
[2024-05-12 15:50] LABS: Creatinine Urine 98.17 mg/dL; Microalbum/Creatinine Ratio Ur 500.1 ug/mg cr (<30)
[2024-05-12 15:52] LABS: Anion Gap 12 (12-20); Blood Urea Nitrogen 18 mg/dL (9-16); Calcium 8.9 mg/dL (8.4-10.2); Carbon Dioxide 28 mmol/L (22-29); Chloride 102 mmol/L (96-108); Cholesterol 150 mg/dL (<200); Estimated Glomerular Filt Rate 27; Glucose Random 204 mg/dL (60-115); HDL Cholesterol 33 mg/dL (>40); LDL Cholesterol Calculated 74 mg/dL (<100); Potassium 3.9 mmol/L (3.3-5.1); Sodium 138 mmol/L (135-145); Triglycerides 216 mg/dL (<150)
== END 2024-05-12 12:43 | disposition home or self-care (01) ==
LOC: HO.LAB 12:42
PROVIDERS: Absent Provider Internal Medicine Endocrinology, Diabetes & Metabolism; PCP Family Medicine; Visit Provider Registered Nurse Diabetes Educator
DX: E11.65 Type 2 diabetes mellitus with hyperglycemia (principal); E11.42 Type 2 diabetes mellitus with diabetic polyneuropathy; Z96.41 Presence of insulin pump (external) (internal)
CPT/HCPCS: 36415; 80048; 80061; 82043; 82570; 99211

== ENCOUNTER 2024-05-20 15:15 | Outpatient (AMB) | payer OTHER, SELFPAY ==
--- NOTE | 2024-05-20 15:16 | A.OFFVIS_ITS ---
Vital Signs 05/20/24 15:22 Height 5 ft 7 in Weight 209 lb 7.026 oz BMI 32.8 BP 124/80 Blood Pressure Location Rt brachial Position Sitting Pulse 95 Pulse Source Pulse Oximeter Intake Visit Reasons: T2DM/CONFIRMED Intake Note: Patient presents today to re-establish treatment for Type 2 Diabetes Mellitus: Last Diabetic eye exam was on: a year ago Last Podiatry exam was on: Does not see a Director Of Early Childhood Most recent HbA1c: 7.1%, 05/20/2024 Random Glucose- 147mg/dL, Today Rehabilitation Therapy Technician Required: No Accompanied by: Self / Same As Patient Allergies No Known Allergies Allergy (Verified 05/20/24 15:24) HPI Comments Details: Patient is a 64-year-old male with DM type 2 diagnosed in 1999 who presents for management of diabetes. He was last seen by Tori JOHN 1 week ago and by Dr. Pruett in 02/15/2024. He was using Humulin U 500 in a pump but has been changed to u100 insulin. He had tried trulicity 1.5mg Q weekly but stopped because of foul burping. He has been on Mounjaro since his last visit with Dr. Pruett. His appetite is down and has lost 44 pounds. Hgb A1C in the office today is: 7/1% Past medical history: Diabetes type 2, hypertension, depression, GERD Micro and macrovascular complications: Neuropathy and nephropathy Diabetes medications: humalog via pump.Omni pod jardiance 10mg started by nephrology mounjaro 5mg Dexcom average glucose: [190 ] 14 day continous glucose monitor report reviewed Glucose Managment indicator [7.9 ] % TIme in range: Six % very high (above 250) 50 % high ?(181-250) 24 % in range ?(70-180] 0 % low (69-55) 0 % ?very low (below 54) [ 91] % TIme CGM Active Details [he is in auto mode 100% of the time he is entering in 37.5 carb g per day 1.6 entries total daily dose of insulin 13.7 units 76% basal 10.3 units and 24% bolus 3.3 unit carbs entered 38 Symptoms reported: + numbness, tingling, cramping in lower extremities Hypoglycemia:very rare Hyperglycemia: + urinary frequency, +nocturia, + polydypsia Exercise: limited due to pain in feet ldl:74 05/21 Creatinine:2.47 05/21 which is an increase City Planner - CDE education: has been seen recently Director Of Early Childhood: denies Dental exam: 2 years ago Ophthalmology evaluation: 08/2023 He is overdue and will find a new opth as he missed several appts. Other specialists: Research Development Manager on a regular basis. Appetite is down, He reports drinking alot of mushroom and herbal tea and powdered protein. Basal rate(s) (units/hour) : 12 AM? to 12 AM? 1.5 units / hr Bolus setting Insulin Carbohydrate Ratio (s) 12 AM? to 12 AM?? 1:12 new 11 Correction Factor / Sensitivity Factor 12 AM? to 12 AM?? 1:70 NEW 65 Active Insulin Time:? 5 hours Target(s):12 AM? 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 Diabetic nephropathy associated with type 2 diabetes mellitus Diabetes type 2, uncontrolled Surgical History History of carpal tunnel surgery History of cardiac cath Family History Father Lung cancer Mother Diabetes Hypertension Arthritis CKD (chronic kidney disease) stage 4, GFR 15-29 ml/min Social History Household Members: Family Alcohol intake: current Alcohol intake frequency: other Alcohol type: wine Patient Tobacco Use Status: Former Tobacco user Physical Exam Vital Signs: Last Vital Signs Pulse 95 05/20/24 15:22 BP 124/80 05/20/24 15:22 BMI result Body Mass Index 32.8 Const Other: Absence of Cushingoid features. Absence of acromegalic features. Neck exam reveals nl size thyroid about 15 gms. No thyroid nodules palpable. Heart S1 S2, Reg R/R. No M/R G. Skin exam reveals absence of vitiligo or acanthosis nigricans. Extrem Other: Visual exam of foot performed. No ulcerations or open lesions. No onchomycosis, no callouses. no interdigit fissuring or maceration. Sensation diminished to monofilament exam. Vibratory sensation is diminished with 128 Hz tuning fork. Results AMB Hemoglobin A1c AMB Hemoglobin A1c 7.1 % Last Edit by LU Durbin on 05/20/24 15:39 Results Reviewed Results Reviewed: Laboratory Last Values Glucose (Clinic) 147 mg/dL (60-115) H 05/20/24 15:29 Hgb A1c (Clinic) 7.1 % (4.0-6.0) H 05/20/24 15:34 Laboratory Tests 01/19/23 05/12/24 09:21 13:39 Plt Count 193 Potassium 3.9 BUN 18 H Creatinine 2.47 H Estimated GFR 27 Calcium 8.9 Triglycerides 216 H Cholesterol 150 LDL Cholesterol, Calc 74 HDL Cholesterol 33 L Assessment & Plan Assessment & Plan (1) Type 2 diabetes mellitus with diabetic polyneuropathy: Code(s): E11.42 - Type 2 diabetes mellitus with diabetic polyneuropathy Category: Medical Plan: Type 2 diabetic CKD CAD and neuropathy with improved A1c of 7 1%. GME my latest sensor report is 7.9%. Changes made in pump setting to bolus settings. He is consuming a small amount of carbs less than he has required nutritional intake. He has an upcoming appointment with both the Palmira Crowder RD in the office and his business support manager. He is consuming large amounts of mushroom in a T along with a protein based powder. He was advised to discuss this we will providers. I discussed taking him off Mounjaro today is I believe it is suppressing his appetite too much and is triggering weight loss. He is reluctant to do some today but I will see him back in 4 weeks' time in the interim he will have seen both the Palmira Vel RD and business support manager. Will order an JORDI at his next visit. Prescriptions for ketone test strips and nasal glucagon were sent. Reviewed use with both patient and his sales representative publications who is his niece. Patient was encouraged to schedule an appointment with his loss prevention coordinator as he is has not been seen in over a year Orders: Orders AMB Hemoglobin A1c Today E11.21 - Type 2 diabetes mellitus with diabetic nephropathy Medications: New glucagon 3 mg/actuation (Baqsimi) 3 mg intranasal BID 30 days PRN 2 ea 1RF Unresponsive hypoglycemia MDD 6 mg E11.42 - Type 2 diabetes mellitus with diabetic polyneuropathy acetone (urine) test (Ketone Urine Test strips) As directed p.r.n. tid glucose 250 coming illness, nausea, vomiting 25 ea 1RF E11.42 - Type 2 diabetes mellitus with diabetic polyneuropathy Patient Instructions: The patient was counseled to always carry a source of sugar and on the rule of 15's: Take 3 glucose tablets and repeat again in 15 minutes if blood sugar is not in normal range. Continue to repeat every 15 minutes until blood sugar is normal. The patient was counseled to achieve a target A1C of 7% (154 avg). Fasting blood sugars should be 90-130 in the morning and less than 180 two hours after meals. Reviewed the relationship between poor diabetic control and the developement of complications Troubleshooting after starting new pod or inserting new insulin set: Occlusion, adhesive tape sensitivity, redness Check BG 2 hours after site change Safety information: Importance of a backup plan, for manual injections, proper prescriptions and emergency supplies ketone strips, and rules for testing for ketones Coding Level of Care Code Est Pt Level 5 (55299) Complex EM visit Add On G2211 Diagnoses Type 2 diabetes mellitus with diabetic polyneuropathy E11.42 Time Spent (min) 60
[2024-05-20 15:22] VITALS: BP 124/80; PULSE 95; BMI 32.8
[2024-05-20 15:34] LABS: Glucose, Whole Blood 147 mg/dL (60-115)
== END 2024-05-20 16:18 | disposition home or self-care (01) ==
PROVIDERS: PCP Family Medicine; Visit Provider Nurse Practitioner Adult Health
DX: E11.42 Type 2 diabetes mellitus with diabetic polyneuropathy (principal); E11.21 Type 2 diabetes mellitus with diabetic nephropathy
CPT/HCPCS: 99215; G2211

== ENCOUNTER → 2024-05-20 15:15 | Outpatient (BNVA) | payer OTHER, SELFPAY | PROVIDERS: PCP Family Medicine; Visit Provider Nurse Practitioner Adult Health | DX: E11.42 Type 2 diabetes mellitus with diabetic polyneuropathy (principal); E11.21 Type 2 diabetes mellitus with diabetic nephropathy; Z79.4 Long term (current) use of insulin; Z46.81 Encounter for fitting and adjustment of insulin pump | CPT/HCPCS: 82947; 83036; 99212 ==

== ENCOUNTER 2024-05-25 12:37 | Outpatient (AMB) | payer OTHER, SELFPAY ==
[2024-05-25 12:42] VITALS: BMI 33.6
--- NOTE | 2024-05-25 12:42 | A.OFFVIS_ITS ---
VS Expanded 05/25/24 12:42 06/01/24 11:26 Height 5 ft 7 in 5 ft 7 in Weight 214 lb 11.684 oz 215 lb BMI 33.6 33.7 Intake Visit Reasons: T2DM/CONFIRMED Allergies No Known Allergies Allergy (Verified 05/20/24 15:24) Nutrition Presentation Details: Pt presents for MNT for T2DM. Pt was referred by Yeni Rosado NP from endocrinology Pt reports feeling motivated working on diet modifications Meal pattern 7am B: mushroom coffee 10 am cheese sand on honey wheat bread , milk o r water 1pm lean cuisine snack on tea and crackers dinner: rice/chicken or soup with poultry starchy veg food frequency fruits 2-3 /day vegetables: 1-2 x/wk fish at least once/ wk sweets/pastries: 1-2 x/wk physical activity: daily life activities eoth/smoking: denies BS Monitoring Most Recent Diabetes Results: Microalb/Creat Ratio 500.1 ug/mg cr (<30) H 05/12/24 Cholesterol 150 mg/dL (<200) 05/12/24 HDL Cholesterol 33 mg/dL (>40) L 05/12/24 Triglycerides 216 mg/dL (<150) H 05/12/24 Creatinine 2.47 mg/dL (0.5-1.4) H 05/12/24 Blood Urea Nitrogen 18 mg/dL (9-16) H 05/12/24 Sodium 138 mmol/L (135-145) 05/12/24 Potassium 3.9 mmol/L (3.3-5.1) 05/12/24 Chloride 102 mmol/L (96-108) 05/12/24 Carbon Dioxide 28 mmol/L (22-29) 05/12/24 Calcium 8.9 mg/dL (8.4-10.2) 05/12/24 CNL-Mynulql-Zk.Jeor Equation Height: 5 ft 7 in Weight: 215 lb Resting Metabolic Rate: 1737.83 Calculated Activity Level: Sedentary Calories Needed to Maintain Weight: 2085.40 Diagnosis Nutrition problem #1: food nutri know defi As related to (etiology) #1: diagnosis PFSH Medical History Fatty liver Non-adherence to medical treatment Diabetic polyneuropathy associated with type 2 diabetes mellitus Obesity (BMI 30-39.9) Hypertension CKD (chronic kidney disease) stage 3, GFR 30-59 ml/min Dyslipidemia MCC (current) use of insulin Diabetic nephropathy associated with type 2 diabetes mellitus Diabetes type 2, uncontrolled Surgical History History of carpal tunnel surgery History of cardiac cath Family History Father Lung cancer Mother Diabetes Hypertension Arthritis CKD (chronic kidney disease) stage 4, GFR 15-29 ml/min Social History Household Members: Family Alcohol intake: current Alcohol intake frequency: other Alcohol type: wine Patient Tobacco Use Status: Former Tobacco user Assessment & Plan Assessment & Plan (1) Type 2 diabetes mellitus with diabetic polyneuropathy: Code(s): E11.42 - Type 2 diabetes mellitus with diabetic polyneuropathy Category: Medical Plan Used wt : 97kg (05/21) Est kcal as per MSJ: 2100 (40% carb, 30% fat/prot) Est fluid needs: 2400 ml/d (25 ml/kg bw) Rec fiber: increase to 8-10 g per day and gradually increase to 35 g as tolerated Rec Na: < 1500 mg /d Educate patient on: (R= Reviewed, V = verbalizes understanding N/R= Needs review N/A= not applicable) * Food sources of carbohydrates and serving adequate serving sizes : R V * Difference between complex carbohydrates and simple carbohydrates, role of fiber: R V * Differences between fats (MUFA/PUFA/saturated fats, trans fats) and food sources of various fats: R * Food sources of sodium and salt and healthy modifications for heart health and kidney health: R R * Vitamins and minerals: R V * How to interpret food labels: R V * Healthy Plate method concept: R V * Physical activity: benefits and precaution: R V Patient Instructions: Follow healthy plate method at dinner Choose low sodium food options keep hydrated by having water with meals/snacks Coding Level of Care Code Nutr Indiv Subseq (52126) Diagnoses Type 2 diabetes mellitus with diabetic polyneuropathy E11.42 Time Spent (min) 30
[2024-06-01 12:20] VITALS: BMI 33.7
== END 2024-05-25 13:21 | disposition home or self-care (01) ==
PROVIDERS: PCP Family Medicine; Visit Provider Dietitian, Registered
DX: E11.42 Type 2 diabetes mellitus with diabetic polyneuropathy (principal)

== ENCOUNTER → 2024-05-25 12:37 | Outpatient (BNVA) | payer OTHER, SELFPAY | PROVIDERS: PCP Family Medicine; Visit Provider Dietitian, Registered | DX: E11.42 Type 2 diabetes mellitus with diabetic polyneuropathy (principal); Z71.3 Dietary counseling and surveillance | CPT/HCPCS: 97803 ==

== ENCOUNTER 2024-07-06 12:42 | Outpatient (AMB) | payer OTHER, SELFPAY ==
[2024-07-06 12:45] VITALS: BP 120/78; PULSE 75; BMI 33.1
--- NOTE | 2024-07-06 12:45 | A.OFFVIS_ITS ---
Vital Signs 07/06/24 12:45 Height 5 ft 7 in Weight 211 lb 10.3 oz BMI 33.1 BP 120/78 Blood Pressure Location Rt brachial Position Sitting Pulse 75 Pulse Source Pulse Oximeter Intake Visit Reasons: DM/CONFIRMED Intake Note: Patient presents today to re-establish treatment for Type 2 Diabetes Mellitus: Last Diabetic eye exam was on: a year ago Last Podiatry exam was on: Does not see a Juvenile Probation Officer Most recent HbA1c: 7.1%, 05/20/2024 Random Glucose- 325mg/dL, Today Auto Parts Salesperson Required: No Accompanied by: Self / Same As Patient Allergies No Known Allergies Allergy (Verified 05/20/24 15:24) HPI Comments Details: Patient is a 64-year-old male with DM type 2 diagnosed in 1999 who presents for management of diabetes. He was last seen 05/20/24. He previously had been on an insulin pump with u500 and was recently changed to u100.He had tried trulicity 1.5mg Q weekly but stopped because of foul burping. He has been on Mounjaro since his last visit with Dr. Pruett. His appetite is down and has lost 44 pounds. Hgb A1C in the office today is: 7/1% Past medical history: Diabetes type 2, hypertension, depression, GERD Micro and macrovascular complications: Neuropathy and nephropathy Had tried trulicity but stopped due to foul odor burping. Diabetes medications: humalog via pump.Omni pod jardiance 10mg started by nephrology mounjaro 5mg Dexcom average glucose: [175 ] 14 day continous glucose monitor report reviewed TIme in range: 3 % very high (above 250) 38 % high ?(181-250) 59 % in range ?(70-180] 0 % low (69-55) 0 % ?very low (below 54) [ 49] % TIme CGM Active didn't have sensor for few days Details [he is in auto mode 100% of the time he is entering in 47 carbs 1.7 entries total daily dose of insulin 13.3 units 92% basal 1.1units and 8% bolus carbs entered 47 Symptoms reported: + numbness, tingling, cramping in lower extremities Hypoglycemia:very rare Hyperglycemia: + urinary frequency, +nocturia, + polydypsia Exercise: limited due to pain in feet ldl:74 05/21 Creatinine:2.47 05/21 which is an increase Ticket Marker - CDE education: has been seen recently Juvenile Probation Officer: denies Dental exam: 2 years ago Ophthalmology evaluation: 05/2024 per patient no retinopathy mild cataract Other specialists: Coil Winding Machines Set Up Mechanic on a regular basis. Appetite is down, He reports drinking herbal tea. He stopped the protein powder he was using He takes one protein shake daily. Basal rate(s) (units/hour) : 12 AM? to 12 AM? 1.5 units / hr Bolus setting Insulin Carbohydrate Ratio (s) 12 AM? to 12 AM?? 1:11 Correction Factor / Sensitivity Factor 12 AM? to 12 AM?? 1:65 Active Insulin Time:? 5 hours Target(s):12 AM? 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 Diabetic nephropathy associated with type 2 diabetes mellitus Diabetes type 2, uncontrolled Surgical History History of carpal tunnel surgery History of cardiac cath Family History Father Lung cancer Mother Diabetes Hypertension Arthritis CKD (chronic kidney disease) stage 4, GFR 15-29 ml/min Social History Household Members: Family Alcohol intake: current Alcohol intake frequency: other Alcohol type: wine Patient Tobacco Use Status: Former Tobacco user Physical Exam Vital Signs: Last Vital Signs Pulse 75 07/06/24 12:45 BP 120/78 07/06/24 12:45 BMI result Body Mass Index 33.1 Const Other: Absence of Cushingoid features. Absence of acromegalic features. Neck exam reveals nl size thyroid about 15 gms. No thyroid nodules palpable. No carotid bruits present. Lungs CTA. Heart S1 S2, Reg R/R. No M/R G. Skin exam reveals absence of vitiligo or acanthosis nigricans. No edema Visual exam of foot performed. No ulcerations or open lesions. No inter digit maceration or fissuring. No onychomycosis, no callouses. Sensation dimnished to monofilament exam. Vibratory sensation is diminishedl with 128 Hz tuning fork. Results Reviewed Results Reviewed: Laboratory Last Values Glucose (Clinic) 325 mg/dL (60-115) H 07/06/24 12:51 Assessment & Plan Assessment & Plan (1) Type 2 diabetes mellitus with diabetic polyneuropathy: Code(s): E11.42 - Type 2 diabetes mellitus with diabetic polyneuropathy Category: Medical Plan: see below Plan Type 2 diabetic with nephropathy and neuropathy with improved A1c to 7.1%. He is on Mounjaro and Jardiance in his insulin requirements have dramatically dropped. He was counseled for the need to track his prior authorization for his diabetes equipment as they annually. He tried to fill his sensors through [employer] but was unable to. He was counseled to continue with his current DME Orders: Orders AMB Glucose Monitoring Today E11.42 - Type 2 diabetes mellitus with diabetic polyneuropathy Medications: New blood-glucose meter (FreeStyle Lite Meter kit) As directed 1 ea 0RF tirzepatide (Mounjaro) 5 mg (0.5 mL) subcut QWEEK 2 mL 3RF blood sugar diagnostic (FreeStyle Lite Strips) qid prn sensor failure, confirm glucose 100 ea 1RF lancets (FreeStyle Lancets) 4 times a day prn sensor failure or to confirm glucose dispense as 30 gauge if available 100 ea 1RF Refilled acetone (urine) test (Ketone Urine Test strips) As directed p.r.n. tid glucose 250 coming illness, nausea, vomiting 25 ea 1RF E11.42 - Type 2 diabetes mellitus with diabetic polyneuropathy Patient Instructions: The patient was counseled to achieve a target A1C of 7% (154 avg). Fasting blood sugars should be 90-130 in the morning and less than 180 two hours after meals. Reviewed the relationship between poor diabetic control and the development of complications. The patient had an opportunity to ask questions regarding treatment plan. The patient expressed understanding and agreement with the above treatment plan. The patient is aware they should contact our office by phone for worsening glucose readings or for any low blood sugars which may warrant a change in diabetes medication. Compliance is encouraged with any medications and followup testing that is ordered The patient was counseled to wear closed toe shoes, never walk barefooted and to inspect the feet daily. For any signs of infection or open wound patient should notify PCP or go to urgent care. Symptoms of DKA were reviewed: early: frequent urination, dry mouth, fatigue, feeling ill, severe symptoms: ketones in the urine, abdominal pain, nausea, vomiting and weakness. It is important to hydrate with sugar free liquids every 30 minutes and bring the sugars down to normal levels. Troubleshooting after starting new pod or inserting new insulin set: Occlusion, adhesive tape sensitivity, redness Check BG 2 hours after site change Safety information: Importance of a backup plan, for manual injections, proper prescriptions and emergency supplies ketone strips, and rules for testing for ketones Coding Level of Care Code Est Pt Level 4 (72455) Diagnoses Type 2 diabetes mellitus with diabetic polyneuropathy E11.42 Time Spent (min) 30 Comment Reviewing labs/provider notes, glucose sensor/pump reports, face to face, chart doc
[2024-07-06 12:54] LABS: Glucose, Whole Blood 325 mg/dL (60-115)
== END 2024-07-06 13:31 | disposition home or self-care (01) ==
PROVIDERS: PCP Family Medicine; Visit Provider Nurse Practitioner Adult Health
DX: E11.42 Type 2 diabetes mellitus with diabetic polyneuropathy (principal)
CPT/HCPCS: 99214

== ENCOUNTER → 2024-07-06 12:42 | Outpatient (BNVA) | payer OTHER, SELFPAY | PROVIDERS: PCP Family Medicine; Visit Provider Nurse Practitioner Adult Health | DX: E11.65 Type 2 diabetes mellitus with hyperglycemia (principal); E11.42 Type 2 diabetes mellitus with diabetic polyneuropathy; E11.21 Type 2 diabetes mellitus with diabetic nephropathy; E11.22 Type 2 diabetes mellitus with diabetic chronic kidney disease; I12.9 Hypertensive chronic kidney disease with stage 1 through stage 4 chronic kidney disease, or unspecified chronic kidney disease; N18.30 Chronic kidney disease, stage 3 unspecified; Z79.4 Long term (current) use of insulin | CPT/HCPCS: 82947; 99212 ==

== ENCOUNTER 2024-07-22 22:11 | Emergency (ER) | payer MEDICARE, MEDICAID, SELFPAY ==
--- NOTE | 2024-07-22 | ECG_ITS ---
Test Reason : WEAKNESS Blood Pressure : / mmHG Vent. Rate : 063 BPM Atrial Rate : 063 BPM P-R Int : 178 ms QRS Dur : 092 ms QT Int : 434 ms P-R-T Axes : 083 053 086 degrees QTc Int : 444 ms Normal sinus rhythm Normal ECG When compared with ECG of 15-MAR-2021 12:29, Vent. rate has decreased BY 39 BPM Referred By: Generic ED Physician Electronically Signed By:Yo Baig
--- NOTE | ~2024-07-22 | CT_ITS ---
EXAMINATION: CT HEAD WITHOUT CONTRAST CT CERVICAL SPINE WITHOUT CONTRAST CLINICAL INFORMATION: Fall. Pain. COMPARISON: None available. TECHNIQUE: Contiguous axial imaging was performed through the head and cervical spine without intravenous administration of contrast. Sagittal and coronal reformatted images also obtained. This CT examination was performed using dose optimization techniques as appropriate, variously including the following: *Automated exposure control *Adjustment of mA and/or kV according to patient size (this includes techniques or standardized protocols for targeted exams where dose is matched to indication/reason for exam; i.e. extremities or head) *Use of iterative reconstruction technique DLP: 1165 mGy-cm FINDINGS: There is cerebral volume loss with prominence of the lateral and the third ventricles. The cortical sulci are widened appropriately. The fourth ventricle and basal cisterns are normally outlined. There is minimal bilateral periventricular and central white matter diminished attenuation. There is no acute territorial defect, hemorrhage or midline shift. The extra-axial spaces are unremarkable. Calvarium/scalp: Intact. Maxillofacial sinuses and mastoids: Clear as visualized. Cervical spine: There is straightening of the expected cervical spine curvature. There is diffuse mild to moderate cervical disc degenerative change most pronounced at C5-6 and C6-7 with loss of disc space, endplate change and posterior osteophytes associated with mild diffuse facet osteoarthritic hypertrophic change with mild spinal canal and multilevel bilateral neuroforaminal narrowing moderate at C6-7 and mild at the remaining levels. There is no fracture. The soft tissues are unremarkable. The visualized upper lung coello are clear. CT/CT cervical spine wo IV con IMPRESSION: CT HEAD: No acute intracranial process seen. CT CERVICAL SPINE: Straightening of the expected cervical spine curvature. There is no acute fracture or dislocation. There is moderate degenerative disc changes C5-6 and C6-7 with mild spinal canal and bilateral neuroforaminal narrowing. Electronically signed by: Alvaro Neves MD 07/23/2024 05:03 AM EDT
[2024-07-22 22:20] VITALS: BP 106/57; PULSE 70; RESP 16; TEMP 36.3; O2SAT 97; BMI 31.0
[2024-07-22 22:54] LABS: Basophils Percent Auto 0.5 % (0-2); Eosinophils Absolute Auto 0.1 X10*3/uL (0.0-0.4); Eosinophils Percent Auto 1.7 % (0-4); Hematocrit 44.1 % (42.0-52.0); Hemoglobin 15.5 g/dl (14.0-18.0); Imm Gran Abs Auto 0.01 X10*3/uL (0.00-0.03); Imm Gran Pct Auto 0.2 % (0.0-0.4); Lymphocytes Absolute Auto 1.9 X10*3/uL (1.2-4.9); Lymphocytes Percent Auto 31.2 % (20-40); MANUAL DIFF FLAG NO; Mean Corpuscular HGB Conc 35.1 g/dl (31.0-36.0); Mean Corpuscular Hemoglobin 31.9 pg (27.0-33.0); Mean Corpuscular Volume 90.7 fL (80.0-98.0); Mean Platelet Volume 11.3 fL (9.4-12.4); Monocytes Absolute Auto 0.4 X10*3/uL (0.1-1.2); Monocytes Percent Auto 7.2 % (2-11); Neutrophils Absolute Auto 3.6 x10*3/uL (2.0-8.3); Neutrophils Percent Auto 59.2 % (45-73); Platelet Count 196 X10*3/uL (160-400); Red Blood Count 4.86 X10*6/uL (4.60-5.80); Red Cell Distribution Width 12.2 % (11.0-16.0)
[2024-07-22 23:11] LABS: Alanine Aminotransferase 33 U/L (0-40); Albumin Level 3.9 g/dL (3.5-5.0); Alkaline Phosphatase 93 U/L (39-117); Anion Gap 14 (12-20); Aspartate Amino Transferase 26 U/L (5-37); Bilirubin Total 0.4 mg/dL (0.0-1.0); Blood Urea Nitrogen 44 mg/dL (9-16); Calcium 8.9 mg/dL (8.4-10.2); Carbon Dioxide 23 mmol/L (22-29); Chloride 102 mmol/L (96-108); Estimated Glomerular Filt Rate 22; Glucose Random 351 mg/dL (60-115); Potassium 5.1 mmol/L (3.3-5.1); Sodium 134 mmol/L (135-145); Total Protein 7.6 g/dL (6.5-8.0)
[2024-07-23 00:32] VITALS: BP 106/40; PULSE 65; RESP 18; TEMP 36.4; O2SAT 96
--- NOTE | 2024-07-23 02:12 | ED.GENADULT ---
HPI - General Adult General Chief complaint: General Medical Stated complaint: fall yesterday, legs are weak Time Seen by Provider: 07/23/24 02:12 Source: patient Mode of arrival: ambulatory Limitations: no limitations History of Present Illness ED Provider: shailesh TURNER narrative: Patient with history of diabetic neuropathy been feeling increased overall weakness for last several weeks got worse in last 3 days almost fell yesterday without any significant injury no pain but just feel waxy and weak patient does have CKD and diabetes Related Data Home Medications ?Medication ?Instructions ?Recorded ?Confirmed blood sugar diagnostic #10 ea 06/30/20 02/24/23 clopidogrel 75 mg tablet 75 mg PO DAILY 06/30/20 02/24/23 lidocaine 5 % topical patch 1 patch topical DAILY 06/30/20 02/24/23 pen needle, diabetic 32 gauge x #50 ea 06/30/20 02/24/23 albuterol sulfate 90 mcg/actuation inhalation ONCE PRN 08/06/21 02/24/23 aerosol inhaler fluticasone propionate 50 spray intranasal 08/06/21 02/24/23 mcg/actuation nasal spray,suspension loratadine 10 mg tablet 10 mg PO DAILY 08/06/21 02/24/23 pantoprazole 40 mg tablet,delayed 40 mg PO DAILY 08/06/21 02/24/23 release atorvastatin 80 mg tablet 80 mg PO DAILY 10/24/21 02/24/23 cholecalciferol (vitamin D3) 25 25 mcg PO DAILY 10/24/21 02/24/23 mcg (1,000 unit) tablet (Vitamin D3) diclofenac sodium 1 % topical gel 1 ea topical QID 10/24/21 02/24/23 furosemide 20 mg tablet 20 mg PO DAILY PRN 10/24/21 02/24/23 lidocaine 5 % topical ointment topical 10/24/21 02/24/23 nortriptyline 75 mg capsule 75 mg PO BEDTIME 10/24/21 02/24/23 sucralfate 1 gram tablet 1 g PO BID 10/24/21 02/24/23 carvedilol 25 mg tablet 25 mg PO BID 08/01/22 02/24/23 doxazosin 4 mg tablet 4 mg PO BEDTIME 09/03/22 02/24/23 pregabalin 50 mg capsule 50 mg PO BID 09/03/22 02/24/23 nortriptyline 25 mg capsule 25 mg PO QAM 11/07/22 02/24/23 empagliflozin 10 mg tablet 10 mg PO DAILY 05/20/24 (Jardiance) nifedipine 30 mg tablet,extended 30 mg PO DAILY 05/20/24 release 24 hr Previous Rx's ?Medication ?Instructions ?Recorded lisinopril 40 mg tablet 40 mg PO DAILY 30 days #30 tabs 10/19/20 insulin lispro 100 unit/mL See Rx Instructions subcut TID #30 02/15/24 subcutaneous solution (Humalog mL U-100 Insulin) insulin pump cartridge,automated #3 ea 04/26/24 dose,BT with controller subcutaneous (Omnipod 5 G6 Intro Kit (Gen 5) subcutaneous cartridge with controller) insulin pump cart,automated,BT #15 ea 05/12/24 (Omnipod 5 G6 Pods (Gen 5) subcutaneous cartridge) glucagon 3 mg/actuation nasal 3 mg intranasal BID PRN 05/20/24 spray (Baqsimi) Unresponsive hypoglycemia 30 days #2 ea acetone (urine) test (Ketone Urine #25 ea 07/06/24 Test strips) blood sugar diagnostic (FreeStyle #100 ea 07/06/24 Lite Strips) blood-glucose meter (FreeStyle #1 ea 07/06/24 Lite Meter kit) lancets 28 gauge (FreeStyle #100 ea 07/06/24 Lancets) tirzepatide 5 mg/0.5 mL 5 mg (0.5 mL) subcut QWEEK #2 mL 07/06/24 subcutaneous pen injector (Abby) Allergies Allergy/AdvReac Type Severity Reaction Status Date / Time No Known Allergies Allergy Verified 07/22/24 22:26 Review of Systems Review of Systems: Yes all other systems are reviewed and are negative [facility] Past Medical History Medical History Fatty liver Non-adherence to medical treatment Diabetic polyneuropathy associated with type 2 diabetes mellitus Obesity (BMI 30-39.9) Hypertension CKD (chronic kidney disease) stage 3, GFR 30-59 ml/min 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 Diabetic nephropathy associated with type 2 diabetes mellitus Diabetes type 2, uncontrolled Surgical History History of carpal tunnel surgery History of cardiac cath Family History Family History Father Lung cancer Mother Diabetes Hypertension Arthritis CKD (chronic kidney disease) stage 4, GFR 15-29 ml/min Social History Social History Household Members: Family Alcohol intake: current Alcohol intake frequency: other Alcohol type: wine Patient Tobacco Use Status: Former Tobacco user Smoked in Last 30 Days: No Use of substances other than those prescribed or required for medical reasons: No Advance Directives: No Advance Directives Information Provided: Yes Physical Exam ED Vital Signs: Vital Signs - 24 hr 07/22/24 22:20 07/23/24 00:32 07/23/24 02:32 Temperature 97.4 F 97.5 F 98.0 F Pulse Rate 70 65 65 Respiratory Rate 16 18 16 Blood Pressure 106/57 L 106/40 L 126/39 L Pulse Oximetry 97 96 95 Oxygen Delivery Method Room Air Room Air Room Air 07/23/24 05:34 07/23/24 05:40 Temperature 97.8 F 97.8 F Pulse Rate 67 67 Respiratory Rate 16 16 Blood Pressure 111/64 111/64 Pulse Oximetry 98 98 Oxygen Delivery Method Room Air Room Air BMI result Body Mass Index 31.0 Appearance: Alert. Oriented X3. No acute distress. Eyes: PERRLA, No Nystagmus ENT: Pharynx normal. Oral Mucosa moist Neck: Normal inspection. Neck supple. Tenderness in lower cervical spine CVS: Normal heart rate and rhythm. Pulses normal. Respiratory: No respiratory distress. Equal air entry bilateral, no wheezing/rales/rhonchi Abdomen: Soft and nontender. Bowel sounds are present, no mass palpable, no CVA tenderness Skin: Skin warm and dry. Normal skin color. Normal skin turgor. Extremities: No lower extremity edema. No calf tenderness Neuro: Oriented X 3. No motor deficit. Decreased sensitive to light touch and pinprick in lower extremities.No cerebellar signs , cranial nerves II-XII intact Medical Decision Making Medical Decision Making MDM Narrative: Patient with peripheral neuropathy from diabetes likely the cause for poor gait and imbalance CT scan of the head and C-spine was negative for acute showed arthritic changes in the lower cervical spine patient advised to follow with PCP for further management patient ambulate in the in his steady gait Differential Diagnosis Differential Diagnoses: The differential diagnosis associated with the presentation includes Lab Data MDM Lab Attestation statement: I reviewed the patient's lab results. 07/22/24 22:48 07/22/24 22:48 Labs: Lab Results 07/22/24 07/23/24 07/23/24 Range/Units 22:48 02:30 02:56 WBC 6.0 (4.8-10.8) X10*3/uL RBC 4.86 (4.60-5.80) X10*6/uL Hgb 15.5 (14.0-18.0) g/dl Hct 44.1 (42.0-52.0) % MCV 90.7 (80.0-98.0) fL MCH 31.9 (27.0-33.0) pg MCHC 35.1 (31.0-36.0) g/dl RDW 12.2 (11.0-16.0) % Plt Count 196 (160-400) X10*3/uL MPV 11.3 (9.4-12.4) fL Immature Gran % (Auto) 0.2 (0.0-0.4) % Neut % (Auto) 59.2 (45-73) % Lymph % (Auto) 31.2 (20-40) % [place] % (Auto) 7.2 (2-11) % Eos % (Auto) 1.7 (0-4) % Baso % (Auto) 0.5 (0-2) % Lymph # (Auto) 1.9 (1.2-4.9) X10*3/uL [place] # (Auto) 0.4 (0.1-1.2) X10*3/uL Eos # (Auto) 0.1 (0.0-0.4) X10*3/uL Baso # (Auto) 0.0 (0.0-0.2) X10*3/uL Abs Immat Gran (auto) 0.01 (0.00-0.03) X10*3/uL Absolute Neuts (auto) 3.6 (2.0-8.3) x10*3/uL Absolute Nucleated RBC 0.000 (0.0-0.012) X10*3/uL Nucleated RBC % (auto) 0.0 (0.0-0.2) /100WBC Sodium 134 L (135-145) mmol/L Potassium 5.1 D (3.3-5.1) mmol/L Chloride 102 (96-108) mmol/L Carbon Dioxide 23 (22-29) mmol/L Anion Gap 14 (12-20) BUN 44 H (9-16) mg/dL Creatinine 2.92 H (0.5-1.4) mg/dL Estim Creat Clear Calc 28.0 Estimated GFR 22 POC Glucose 251 H (60-115) mg/dL Random Glucose 351 H* (60-115) mg/dL Calcium 8.9 (8.4-10.2) mg/dL Magnesium 2.4 (1.6-2.6) mg/dL Total Bilirubin 0.4 (0.0-1.0) mg/dL AST 26 (5-37) U/L ALT 33 (0-40) U/L Alkaline Phosphatase 93 (39-117) U/L Total Creatine Kinase 105 (38-174) U/L Total Protein 7.6 (6.5-8.0) g/dL Albumin 3.9 (3.5-5.0) g/dL Urine Color Yellow Urine Appearance Clear Urine pH 5.5 (5.0-9.0) Ur Specific [place] >= 1.030 H (1.005-1.025) Urine Protein 100 (2+) H (Neg-Trace) mg/dL Urine Glucose (UA) >=1000 H (Negative) mg/dL Urine Ketones Negative (Negative) mg/dL Urine Blood Negative (Negative) Urine Nitrite Negative (Negative) Ur Leukocyte Esterase Negative (Negative) Urine RBC 0-2 (0-2) /HPF Urine WBC 0-5 (0-5) /HPF Ur Squamous Epith Cells 0-2 (0-2) /HPF Urine Bacteria None Seen (None Seen) Hyaline Casts 0-2 (0-2) /LPF Discharge Plan Discharge Clinical Impression: Diabetic neuropathy, Cervical arthritis Patient Disposition: Home, Self-Care Instructions: Diabetic Peripheral Neuropathy (ED), Neck Pain (ED) Additional Instructions: Care and cautions as advised Continue pregabalin and nortriptyline Follow with your PCP Prescriptions: No Action lisinopril 40 mg tablet 40 mg PO DAILY 30 Days Qty: 30 4RF (DME) Omnipod 5 G6 Intro Kit (Gen 5) Cartridge See Rx Instructions .Route Qty: 3 3RF Rx Instructions: As directed change every a48 hours (DME) Omnipod 5 G6 Pods (Gen 5) Cartridge See Rx Instructions .Route Qty: 15 5RF Rx Instructions: As directed change every 48 hrs pantoprazole 40 mg tablet,delayed release (DR/EC) 40 mg PO DAILY loratadine 10 mg tablet 10 mg PO DAILY fluticasone propionate 50 mcg/actuation spray,suspension intranasal clopidogrel 75 mg tablet 75 mg PO DAILY (DME) pen needle, diabetic 32 gauge x needle See Rx Instructions subcut .MEDSUPPLY Qty: 50 Rx Instructions: As directed lidocaine 5 % adhesive patch,medicated 1 patch topical DAILY (DME) FreeStyle Lite Strips Strip See Rx Instructions Not Applicable .MEDSUPPLY Qty: 10 Rx Instructions: As directed albuterol sulfate 90 mcg/actuation HFA aerosol inhaler inhalation ONCE PRN carvedilol 25 mg tablet 25 mg PO BID furosemide 20 mg tablet 20 mg PO DAILY PRN atorvastatin 80 mg tablet 80 mg PO DAILY cholecalciferol (vitamin D3) [Vitamin D3] 25 mcg (1,000 unit) tablet 25 mcg PO DAILY nortriptyline 75 mg capsule 75 mg PO BEDTIME sucralfate 1 gram tablet 1 g PO BID diclofenac sodium 1 % gel 1 ea topical QID lidocaine 5 % ointment topical doxazosin 4 mg tablet 4 mg PO BEDTIME pregabalin 50 mg capsule 50 mg PO BID nortriptyline 25 mg capsule 25 mg PO QAM insulin lispro [Humalog U-100 Insulin] 100 unit/mL solution See Rx Instructions subcut TID Qty: 30 5RF Rx Instructions: infuse up to 100 units via insulin pump subcutaneously 3 times a day; Jardiance 10 mg tablet 10 mg PO DAILY nifedipine 30 mg tablet extended release 24hr 30 mg PO DAILY Baqsimi 3 mg/actuation spray,non-aerosol 3 mg intranasal BID MDD 6 mg PRN (Reason: Unresponsive hypoglycemia) 30 Days Qty: 2 1RF (DME) Ketone Urine Test Strip See Rx Instructions .ROUTE .MEDSUPPLY Qty: 25 1RF Rx Instructions: As directed p.r.n. tid glucose 250 coming illness, nausea, vomiting (DME) FreeStyle Lite Strips Strip See Rx Instructions .ROUTE .MEDSUPPLY Qty: 100 1RF Rx Instructions: qid prn sensor failure, confirm glucose (DME) lancets [FreeStyle Lancets] 28 gauge misc See Rx Instructions .ROUTE .MEDSUPPLY Qty: 100 1RF Rx Instructions: 4 times a day prn sensor failure or to confirm glucose dispense as 30 gauge if available (DME) blood-glucose meter [FreeStyle Lite Meter] Kit See Rx Instructions .Route Qty: 1 0RF Rx Instructions: As directed Mounjaro 5 mg/0.5 mL pen injector 5 mg subcut QWEEK Qty: 2 3RF Interventions: ED Discharge Assessment Last Done: 07/23/24 05:40 Discharge Date/Time: 07/23/24 05:43 Print Language: Swedish
[2024-07-23 02:32] VITALS: BP 126/39; PULSE 65; RESP 16; TEMP 36.7; O2SAT 95
[2024-07-23 02:38] LABS: Appearance Urine Clear; Color Urine Yellow; Glucose Urine UA >=1000 mg/dL (Negative); Leukocyte Esterase Urine Negative (Negative); Nitrite Urine Negative (Negative); PH 5.5 (5.0-9.0); Specific Gravity - Urine >= 1.030 (1.005-1.025); UMIC TRIGGER UACC YES; Urine Blood Negative (Negative); Urine Ketones Negative (Negative); Urine Protein 100 (2+) mg/dL (Neg-Trace)
[2024-07-23 02:46] LABS: Magnesium 2.4 mg/dL (1.6-2.6)
[2024-07-23 03:00] LABS: Glucose, Whole Blood 251 mg/dL (60-115)
[2024-07-23 03:16] LABS: Bacteria Urine None Seen (None Seen); Hyaline Casts Urine 0-2 /LPF (0-2); RBC Urine 0-2 /HPF (0-2); Squamous Epithelial Cell Urine 0-2 /HPF (0-2); WBC Urine 0-5 /HPF (0-5)
--- NOTE | 2024-07-23 04:39 | PC.NURSE ---
Took over care from Geovani Patel, pt resting in bed no sign of distress.
[2024-07-23 05:34] VITALS: BP 111/64; PULSE 67; RESP 16; TEMP 36.6; O2SAT 98
--- NOTE | 2024-07-23 05:39 | PC.NURSE ---
reviewed discharge assignment with pt, pt verbalized understanding, no sign of distress. pt wheeled out by family
[2024-07-23 05:40] VITALS: BP 111/64; PULSE 67; RESP 16; TEMP 36.6; O2SAT 98
== END 2024-07-23 05:43 | disposition home or self-care (01) ==
PROVIDERS: Emergency Provider Internal Medicine; PCP Family Medicine
DX: E11.40 Type 2 diabetes mellitus with diabetic neuropathy, unspecified (principal); R53.1 Weakness; E11.22 Type 2 diabetes mellitus with diabetic chronic kidney disease; R51.9 Headache, unspecified; M54.2 Cervicalgia; I12.9 Hypertensive chronic kidney disease with stage 1 through stage 4 chronic kidney disease, or unspecified chronic kidney disease; N18.30 Chronic kidney disease, stage 3 unspecified; Z79.4 Long term (current) use of insulin; Z79.899 Other long term (current) drug therapy; Z87.891 Personal history of nicotine dependence
CPT/HCPCS: 36415; 70450; 72125; 80053; 81001; 82550; 82947; 83735; 85025; 93005; 99284

== ENCOUNTER → 2024-07-22 22:35 | Outpatient (BNV) | payer SELFPAY | PROVIDERS: Emergency Provider Internal Medicine; PCP Family Medicine; Visit Provider Internal Medicine Cardiovascular Disease | DX: R53.1 Weakness (principal) | CPT/HCPCS: 93010 ==

== ENCOUNTER 2024-07-27 13:59 | Outpatient (AMB) | payer OTHER, SELFPAY ==
[2024-07-27 14:05] VITALS: BMI 32.4
--- NOTE | 2024-07-27 14:05 | A.OFFVIS_ITS ---
VS Expanded 07/27/24 14:05 Height 5 ft 7 in Weight 206 lb 9.17 oz BMI 32.4 Intake Visit Reasons: T2DM/LVM Allergies No Known Allergies Allergy (Verified 07/22/24 22:26) Nutrition Presentation Details: Pt presents for MNT f/u for t2dm Pt reports he was in a cruise and return last week, had elevated BG due to lack of meds in combination with choosing larger food portions Pt reports working on getting back on track BG at 150 in the morning 10-11 am and now at 2 pm at 130 BS Monitoring Most Recent Diabetes Results: Microalb/Creat Ratio 500.1 ug/mg cr (<30) H 05/12/24 Cholesterol 150 mg/dL (<200) 05/12/24 HDL Cholesterol 33 mg/dL (>40) L 05/12/24 Triglycerides 216 mg/dL (<150) H 05/12/24 Creatinine 2.92 mg/dL (0.5-1.4) H 07/22/24 Blood Urea Nitrogen 44 mg/dL (9-16) H 07/22/24 Sodium 134 mmol/L (135-145) L 07/22/24 Potassium 5.1 mmol/L (3.3-5.1) 07/22/24 Chloride 102 mmol/L (96-108) 07/22/24 Carbon Dioxide 23 mmol/L (22-29) 07/22/24 Calcium 8.9 mg/dL (8.4-10.2) 07/22/24 AST 26 U/L (5-37) 07/22/24 ALT 33 U/L (0-40) 07/22/24 Total Protein 7.6 g/dL (6.5-8.0) 07/22/24 Albumin 3.9 g/dL (3.5-5.0) 07/22/24 [facility]Je[facility] Equation Height: 5 ft 7 in Weight: 206 lb Resting Metabolic Rate: 1697.05 Calculated Activity Level: Sedentary Calories Needed to Maintain Weight: 2036.46 [facility] Medical History Fatty liver Non-adherence to medical treatment Diabetic polyneuropathy associated with type 2 diabetes mellitus Obesity (BMI 30-39.9) Hypertension CKD (chronic kidney disease) stage 3, GFR 30-59 ml/min Dyslipidemia 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 Diabetic nephropathy associated with type 2 diabetes mellitus Diabetes type 2, uncontrolled Surgical History History of carpal tunnel surgery History of cardiac cath Family History Father Lung cancer Mother Diabetes Hypertension Arthritis CKD (chronic kidney disease) stage 4, GFR 15-29 ml/min Social History Household Members: Family Alcohol intake: current Alcohol intake frequency: other Alcohol type: wine Patient Tobacco Use Status: Former Tobacco user Assessment & Plan Assessment & Plan (1) Type 2 diabetes mellitus with diabetic polyneuropathy: Code(s): E11.42 - Type 2 diabetes mellitus with diabetic polyneuropathy Category: Medical Plan Used wt : 97kg (05/21), 94 kg (06/2024) Est kcal as per MSJ: 2100 (40% carb, 30% fat/prot) Est fluid needs: 2400 ml/d (25 ml/kg bw) Rec fiber: increase to 8-10 g per day and gradually increase to 35 g as tolerated Rec Na: < 1500 mg /d Educate patient on: (R= Reviewed, V = verbalizes understanding N/R= Needs review N/A= not applicable) * Food sources of carbohydrates and serving adequate serving sizes : R V * Difference between complex carbohydrates and simple carbohydrates, role of fiber: R V * Differences between fats (MUFA/PUFA/saturated fats, trans fats) and food sources of various fats: R, V * Food sources of sodium and salt and healthy modifications for heart health and kidney health: R R * Vitamins and minerals: R V * How to interpret food labels: R V * Healthy Plate method concept: R V * Physical activity: benefits and precaution: R V Patient Instructions: Include omega 3 fatty acids at least 1 serving daily ( fish, nuts, seeds, leafy vegetables) Resume following healthy plate method Engage in activity , walking 30 minutes 3-4 x/wk Coding Level of Care Code Nutr Indiv Subseq (46340) Diagnoses Type 2 diabetes mellitus with diabetic polyneuropathy E11.42 Time Spent (min) 30
[2024-08-03 09:02] VITALS: BMI 32.3
== END 2024-07-27 14:37 | disposition home or self-care (01) ==
PROVIDERS: PCP Family Medicine; Visit Provider Dietitian, Registered
DX: E11.42 Type 2 diabetes mellitus with diabetic polyneuropathy (principal)

== ENCOUNTER → 2024-07-27 13:59 | Outpatient (BNVA) | payer OTHER, SELFPAY | PROVIDERS: PCP Family Medicine; Visit Provider Dietitian, Registered | DX: E11.42 Type 2 diabetes mellitus with diabetic polyneuropathy (principal) | CPT/HCPCS: 97803 ==

== ENCOUNTER 2024-08-29 15:32 | Outpatient (AMB) | payer OTHER, SELFPAY ==
--- NOTE | 2024-08-29 15:58 | A.OFFVIS_ITS ---
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 Accompanied by: Nephew or Niece Allergies No Known Allergies Allergy (Verified 07/22/24 22:26) HPI Comprehensive Diabetes Asmnt Most Recent Diabetes Results: Microalb/Creat Ratio 500.1 ug/mg cr (<30) H 05/12/24 Cholesterol 150 mg/dL (<200) 05/12/24 HDL Cholesterol 33 mg/dL (>40) L 05/12/24 Triglycerides 216 mg/dL (<150) H 05/12/24 Creatinine 2.92 mg/dL (0.5-1.4) H 07/22/24 Blood Urea Nitrogen 44 mg/dL (9-16) H 07/22/24 Sodium 134 mmol/L (135-145) L 07/22/24 Potassium 5.1 mmol/L (3.3-5.1) 07/22/24 Chloride 102 mmol/L (96-108) 07/22/24 Carbon Dioxide 23 mmol/L (22-29) 07/22/24 Calcium 8.9 mg/dL (8.4-10.2) 07/22/24 AST 26 U/L (5-37) 07/22/24 ALT 33 U/L (0-40) 07/22/24 Total Protein 7.6 g/dL (6.5-8.0) 07/22/24 Albumin 3.9 g/dL (3.5-5.0) 07/22/24 [facility] Medical History Fatty liver Non-adherence to medical treatment Diabetic polyneuropathy associated with type 2 diabetes mellitus Obesity (BMI 30-39.9) Hypertension CKD (chronic kidney disease) stage 3, GFR 30-59 ml/min Dyslipidemia assisted (current) use of insulin Diabetic nephropathy associated with type 2 diabetes mellitus Diabetes type 2, uncontrolled Surgical History History of carpal tunnel surgery History of cardiac cath Family History Father Lung cancer Mother Diabetes Hypertension Arthritis CKD (chronic kidney disease) stage 4, GFR 15-29 ml/min Social History Household Members: Family Alcohol intake: current Alcohol intake frequency: other Alcohol type: wine Patient Tobacco Use Status: Former Tobacco user Assessment & Plan Assessment & Plan (1) Diabetes type 2, uncontrolled: Code(s): E11.65 - Type 2 diabetes mellitus with hyperglycemia Plan: Patient did not bring Omnipod control her to today's visit Patient is Omnipod information no longer a bloating to [employer] number [employer] customer service given to patient's niece, so that she can call and reconnect to clinic's [employer] account Patient also reports that he put Humulin U 500 back into pods, cause he ran out of lispro Explained to patient that he should no longer use Humulin U 500, because his insulin pump settings have been changed when he transition to U 100 this could lead him to severe hypoglycemic events Reviewed with patient how to treat hypoglycemia with rule of 15s Patient denies hypoglycemia, instructed patient to stop using came in U 500 Patient will follow-up with informatics educator on 09/07/2024 Coding Level of Care Code Est Pt Level 1 (91130) Diagnoses Diabetes type 2, uncontrolled E11.65
== END 2024-08-29 16:00 | disposition home or self-care (01) ==
LOC: HO.ENCR 15:32
PROVIDERS: PCP Family Medicine; Visit Provider Registered Nurse Diabetes Educator
DX: E11.65 Type 2 diabetes mellitus with hyperglycemia (principal)

== ENCOUNTER → 2024-08-29 15:32 | Outpatient (BNVA) | payer OTHER, SELFPAY | PROVIDERS: PCP Family Medicine; Visit Provider Registered Nurse Diabetes Educator | DX: E11.65 Type 2 diabetes mellitus with hyperglycemia (principal); Z96.41 Presence of insulin pump (external) (internal); Z79.4 Long term (current) use of insulin | CPT/HCPCS: 99211 ==

== ENCOUNTER 2024-09-07 12:58 | Outpatient (AMB) | payer OTHER, SELFPAY ==
--- NOTE | 2024-09-07 13:14 | A.OFFVIS_ITS ---
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 Accompanied by: Nephew or Niece Allergies No Known Allergies Allergy (Verified 07/22/24 22:26) HPI Comprehensive Diabetes Asmnt Most Recent Diabetes Results: Creatinine 2.92 mg/dL (0.5-1.4) H 07/22/24 Blood Urea Nitrogen 44 mg/dL (9-16) H 07/22/24 Sodium 134 mmol/L (135-145) L 07/22/24 Potassium 5.1 mmol/L (3.3-5.1) 07/22/24 Chloride 102 mmol/L (96-108) 07/22/24 Carbon Dioxide 23 mmol/L (22-29) 07/22/24 Calcium 8.9 mg/dL (8.4-10.2) 07/22/24 AST 26 U/L (5-37) 07/22/24 ALT 33 U/L (0-40) 07/22/24 Total Protein 7.6 g/dL (6.5-8.0) 07/22/24 Albumin 3.9 g/dL (3.5-5.0) 07/22/24 [facility] Medical History Fatty liver Non-adherence to medical treatment Diabetic polyneuropathy associated with type 2 diabetes mellitus Obesity (BMI 30-39.9) Hypertension CKD (chronic kidney disease) stage 3, GFR 30-59 ml/min 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 Diabetic nephropathy associated with type 2 diabetes mellitus Diabetes type 2, uncontrolled Surgical History History of carpal tunnel surgery History of cardiac cath Family History Father Lung cancer Mother Diabetes Hypertension Arthritis CKD (chronic kidney disease) stage 4, GFR 15-29 ml/min Social History Household Members: Family Alcohol intake: current Alcohol intake frequency: other Alcohol type: wine Patient Tobacco Use Status: Former Tobacco user Assessment & Plan Assessment & Plan (1) Diabetes type 2, uncontrolled: Code(s): E11.65 - Type 2 diabetes mellitus with hyperglycemia Plan: Patient presents for pump training for Omnipod 5 with Dexcom G6. The following topics were reviewed today: Patient has transitioned to Humalog U 100 in insulin pump Topics covered today's: Procedure for transitioning from Dexcom G6 to Dexcom G7 Reinforced the importance of manual corrections when glucoses above target High Alert: ? 250 mg/dl Low Alert: ? 70 mg/dl CGM: Patient above target 30% Patient at target 60% Patient below target 0% Average glucose for the last 10 days 158 mg/dL Patient in Automode 100% Basal: 88% Bolus: 18% Auto:79% Manual: 21% At last visit patient was told never to use Humulin U 500 in pump, due to settings being changed after transitioning to Humalog U 100. Patient stated he has discarded Humulin U 500. Patient brought G6-G7 pods to today's visit, patient reports he will transition at next pod change, request for Dexcom G7 pods script sent to provider Troubleshooting after starting new pod or inserting new insulin set: Occlusion, adhesive tape sensitivity, redness Check BG 2 hours after site change Safety information: Importance of a backup plan, for manual injections, proper prescriptions and emergency supplies ketone strips, and rules for testing for ketones Patient was able to insert insulin set today without difficulty. Patient understands the basic concepts of pump therapy, how to give insulin for meals and snacks, how to troubleshoot for hyper and hypoglycemia. Setting verified by CDCES ?Basal rate(s) (units/hour) : 12 AM? to 12 AM? 1.5 units / hr Bolus setting Insulin Carbohydrate Ratio (s) 12 AM? to 12 AM?? 1:11 Correction Factor / Sensitivity Factor 12 AM? to 12 AM?? 1:65 Active Insulin Time:? 4 hours Target(s): 12 AM? to 12 AM 110 mg/dL Correction threshold 12 AM? to 12 AM 120 mg/dL Coding Level of Care Code Est Pt Level 1 (98561) Diagnoses Diabetes type 2, uncontrolled E11.65
== END 2024-09-07 13:38 | disposition home or self-care (01) ==
PROVIDERS: PCP Family Medicine; Visit Provider Registered Nurse Diabetes Educator
DX: E11.65 Type 2 diabetes mellitus with hyperglycemia (principal)

== ENCOUNTER 2024-09-07 12:58 | Outpatient (AMB) | payer OTHER, SELFPAY ==
--- NOTE | 2024-09-07 13:32 | A.OFFVIS_ITS ---
VS Expanded 09/07/24 13:33 Height 5 ft 7 in Weight 205 lb 4.006 oz BMI 32.1 Intake Visit Reasons: T2DM/Left vm Allergies No Known Allergies Allergy (Verified 07/22/24 22:26) Nutrition Presentation Details: Pt presents for MNT f/u for T2DM Pt reports doing well food frequency fruits: 3/d fish: 0-1/wk veg: adding to meals 3x/wk dairy: desserts, cheese mainly starches > 20 serving/d beverages: water, tea, coffee, reg soda physical activity: daily life activities BS Monitoring Most Recent Diabetes Results: Creatinine 2.92 mg/dL (0.5-1.4) H 07/22/24 Blood Urea Nitrogen 44 mg/dL (9-16) H 07/22/24 Sodium 134 mmol/L (135-145) L 07/22/24 Potassium 5.1 mmol/L (3.3-5.1) 07/22/24 Chloride 102 mmol/L (96-108) 07/22/24 Carbon Dioxide 23 mmol/L (22-29) 07/22/24 Calcium 8.9 mg/dL (8.4-10.2) 07/22/24 AST 26 U/L (5-37) 07/22/24 ALT 33 U/L (0-40) 07/22/24 Total Protein 7.6 g/dL (6.5-8.0) 07/22/24 Albumin 3.9 g/dL (3.5-5.0) 07/22/24 [facility] Medical History Fatty liver Non-adherence to medical treatment Diabetic polyneuropathy associated with type 2 diabetes mellitus Obesity (BMI 30-39.9) Hypertension CKD (chronic kidney disease) stage 3, GFR 30-59 ml/min Dyslipidemia FDC (current) use of insulin Diabetic nephropathy associated with type 2 diabetes mellitus Diabetes type 2, uncontrolled Surgical History History of carpal tunnel surgery History of cardiac cath Family History Father Lung cancer Mother Diabetes Hypertension Arthritis CKD (chronic kidney disease) stage 4, GFR 15-29 ml/min Social History Household Members: Family Alcohol intake: current Alcohol intake frequency: other Alcohol type: wine Patient Tobacco Use Status: Former Tobacco user Assessment & Plan Assessment & Plan (1) Type 2 diabetes mellitus with diabetic polyneuropathy: Code(s): E11.42 - Type 2 diabetes mellitus with diabetic polyneuropathy Category: Medical Plan Used wt : 97kg (05/21), 94 kg (06/2024), 93 kg (09/20) Est kcal as per MSJ: 2100 (40% carb, 30% fat/prot) Est fluid needs: 2400 ml/d (25 ml/kg bw) Rec fiber: increase to 8-10 g per day and gradually increase to 35 g as tolerated Rec Na: < 1500 mg /d Educate patient on: (R= Reviewed, V = verbalizes understanding N/R= Needs review N/A= not applicable) * Food sources of carbohydrates and serving adequate serving sizes : R V * Difference between complex carbohydrates and simple carbohydrates, role of fiber: R V * Differences between fats (MUFA/PUFA/saturated fats, trans fats) and food sources of various fats: R, V * Food sources of sodium and salt and healthy modifications for heart health and kidney health: R R * Vitamins and minerals: R V * How to interpret food labels: R V * Healthy Plate method concept: R V * Physical activity: benefits and precaution: R V Patient Instructions: Continue working on following healthy plate method, choosing foods low in saturated fats (fish, nuts, legumes) have a yogurt as a bedtimes snack Coding Level of Care Code Nutr Indiv Subseq ([id number]) Diagnoses Type 2 diabetes mellitus with diabetic polyneuropathy E11.42 Time Spent (min) 20
[2024-09-07 13:33] VITALS: BMI 32.1
== END 2024-09-07 13:54 | disposition home or self-care (01) ==
PROVIDERS: PCP Family Medicine; Visit Provider Dietitian, Registered
DX: E11.42 Type 2 diabetes mellitus with diabetic polyneuropathy (principal)

== ENCOUNTER → 2024-09-07 12:58 | Outpatient (BNVA) | payer OTHER, SELFPAY | PROVIDERS: PCP Family Medicine; Visit Provider Registered Nurse Diabetes Educator | DX: E11.42 Type 2 diabetes mellitus with diabetic polyneuropathy (principal); Z71.3 Dietary counseling and surveillance; E11.65 Type 2 diabetes mellitus with hyperglycemia; Z96.41 Presence of insulin pump (external) (internal); Z79.4 Long term (current) use of insulin | CPT/HCPCS: 97803; 99211 ==

== ENCOUNTER 2024-10-28 09:58 | Outpatient (AMB) | payer OTHER, SELFPAY ==
[2024-10-28 10:10] VITALS: BP 114/72; PULSE 70; BMI 32.9
--- NOTE | 2024-10-28 10:10 | A.OFFVIS_ITS ---
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 tid glucose 250 coming illness, nausea, vomiting albuterol sulfate 90 mcg/actuation inhalation ONCE PRN blood sugar diagnostic As directed blood sugar diagnostic (FreeStyle Lite Strips) qid prn sensor failure, confirm glucose blood-glucose meter (FreeStyle Lite Meter kit) As directed blood-glucose sensor (InternetVista G7 Sensor device) As directed change every 10 days carvedilol 25 mg PO BID cholecalciferol (vitamin D3) (Vitamin D3) 25 mcg PO DAILY clopidogrel 75 mg PO DAILY diclofenac sodium 1% 1 ea topical QID doxazosin 4 mg PO BEDTIME empagliflozin (Jardiance) 10 mg PO DAILY fluticasone propionate 50 mcg/actuation sprays intranasal furosemide 20 mg PO DAILY PRN glucagon 3 mg/actuation (Baqsimi) 3 mg intranasal ONCE PRN 30 days MDD 6 mg insulin lispro (Humalog U-100 Insulin) infuse up to 70 units via insulin pump daily 30 days insulin pump cart,auto,BT-cntr (Omnipod 5 G6 Intro Kit (Gen 5) subcutaneous cartridge with controller) As directed change every a48 hours insulin pump cart,automated,BT As directed change every 48 hrs lancets (FreeStyle Lancets) 4 times a day prn sensor failure or to confirm glucose dispense as 30 gauge if available lidocaine 5% 1 patch topical DAILY lidocaine 5% topical lisinopril 40 mg PO DAILY 30 days loratadine 10 mg PO DAILY nifedipine ER 30 mg PO DAILY nortriptyline 75 mg PO BEDTIME nortriptyline 25 mg PO QAM pen needle, diabetic As directed pregabalin 50 mg PO BID tirzepatide (Mounjaro) 5 mg (0.5 mL) subcut QWEEK HPI HPI pre-op/clearance/hand surgery: Details: Sang is a 64-year-old male with past medical history of hypertension, hyperlipidemia, obesity, chronic kidney disease, cardiomyopathy, CAD, PIOTR to the proximal circumflex 12/2022 who presents for follow-up and preop clearance. His last prior visit to our office was 02/24/2023. Today he reports that since his last visit he has been having some issues with dizziness, head spinning. He reports unsteadiness at times with walking. For this reason he does only light physical activities. He has not had any recent falls. No chest discomfort brought on by walking. He does get periodic left chest burning which happens randomly. If he drinks [place] this helps to relieve this symptom. He says this has been going on intermittently since 2020. He has had no new chest symptoms since the cardiac catheterization. He does have some shortness of breath with activity which is not new. No PND, orthopnea or edema. Daughter is present. He is taking meds as directed and currently uses med [facility]. He reports that he needs surgery on his wrist but is unable to give further details. 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 Diabetic nephropathy associated with type 2 diabetes mellitus Diabetes type 2, uncontrolled Surgical History History of carpal tunnel surgery History of cardiac cath Family History Father Lung cancer Mother Diabetes Hypertension Arthritis CKD (chronic kidney disease) stage 4, GFR 15-29 ml/min Social History Household Members: Family Alcohol intake: current Alcohol intake frequency: other Alcohol type: wine Patient Tobacco Use Status: Former Tobacco user Review of Systems Const All systems reviewed & are unremarkable except as noted in HPI and below ENT Reports dizziness Card Reports chest pain, Denies chest pain at rest, Denies chest pain with activity, Denies rapid heart rate, Denies pedal edema, Denies edema, Denies leg edema, Denies lightheadedness, Denies palpitations, Denies dyspnea, Reports dyspnea on exertion and Denies orthopnea Resp Denies cough, Denies dyspnea and Reports dyspnea on exertion GI Denies hematochezia and Denies change in stool character Musc Denies abnormal gait, Denies limited range of motion, Denies muscle cramps, Denies muscle weakness, Denies numbness, Denies radiating pain into limb, Denies stiffness and Denies tingling Neuro Denies abnormal gait, Reports dizziness, Denies numbness and Denies tingling Endo Denies palpitations Physical Exam Vital Signs: Last Vital Signs Pulse 70 10/28/24 10:10 BP 114/72 10/28/24 10:10 BMI result Body Mass Index 32.9 Const General: cooperative, healthy appearing, comfortable and no acute distress Orientation/consciousness: patient oriented x3 Neck Neck: Yes normal visual inspection and Yes no JVD Resp Effort & Inspection: normal respiratory effort Auscultation: clear to auscultation bilaterally, no rales, no rhonchi and no wheezes Cardio Jugular venous distension: no JVD Rate: regular rate Rhythm: regular rhythm Heart sounds: S1 normal heart sound present, S2 normal heart sound present, no murmurs and no rubs Peripheral pulses: Peripheral pulses 2+ throughout Neuro General: patient oriented x3 Extrem Other: Right radial cath site well healed. easily palpable radial pulse, no bruising or swelling. Hand assessment within normal limits General: Yes normal to inspection and No no pedal edema Psych Appearance: grossly normal Mental Status: mental status grossly normal Speech and movement: Normal speech and movement present Office Procedures EKG Details: Today, read by me, normal sinus rhythm, nonspecific T-wave abnormality, rate 70, QTC 434 milliseconds [id number], Complete Assessment & Plan Assessment & Plan (1) CAD (coronary artery disease): Code(s): I25.10 - Atherosclerotic heart disease of [place] coronary artery without angina pectoris Category: Medical Plan: History of shortness of breath with activity as well as chest discomfort. A nuclear stress test done 12/11/2022 for ongoing symptoms showed exercise just under 5 minutes with moderate shortness of breath, equivocal EKG and normal myocardial perfusion imaging. Due to the known history of circumflex stenosis, seen on prior cath, he underwent a repeat cardiac catheterization on 01/23/2023 showing proximal circumflex 70% stenosis, IFR 0.88. He underwent balloon angioplasty and placement of PIOTR. On follow-up visit he reported improvement in his breathing and chest discomfort. He was not seen in our office between 02/24/2023 and today. At this time he reports an intermittent burning sensation in left chest that is relieved with [place]. He says this pain has been occurring on and off since 2020. He has no symptoms brought on by physical activity. Last echo done 05/22/2023 showed EF 45-50%, possible basal inferior and inferior lateral hypokinesis. At this time I will update an echocardiogram to reassess EF and wall motion. Will plan to review results and determine if stress testing is needed. EKG from today shows sinus rhythm with no acute ST or T-wave abnormalities, rate 70. Stopped aspirin due to GI upset. He continues on Plavix as single antiplatelet agent. He will not take statins. He says he looked them up and says they can cause all kind of side effects. He is taking carvedilol. He is agreeable to add Zetia at this time. Will plan a fasting lipid in 2 months. Cardiology follow-up in 6 months, sooner if needed (2) S/P cardiac cath: Comment: Cardiac catheterization 01/23/2023 showing left main normal, lad and RCA minimal luminal irregularities, left circumflex proximal 70% stenosis, IFR 0.88, balloon angioplasty with PIOTR placed Code(s): Z98.890 - Other specified postprocedural states Category: Surgical (3) NICM (nonischemic cardiomyopathy): Code(s): I42.8 - Other cardiomyopathies Category: Medical (4) Hypertension: Code(s): I10 - Essential (primary) hypertension Category: Medical Plan: Well controlled at this time. No med changes made (5) Dyslipidemia: Code(s): E78.5 - Hyperlipidemia, unspecified Category: Medical Plan: [place] LDL goal less than 70. Refuses to take statin. Will add Zetia. Fasting lipids 2 months, order entered, patient informed. (6) Preop cardiovascular exam: Code(s): Z01.810 - Encounter for preprocedural cardiovascular examination Category: Medical Plan: Preop for orthopedic type surgery on his right wrist. He is unable to give me details at this time. I will be updating his echocardiogram as above. He may need cardiac stress testing prior to clearance. I will update this note once clearance is complete. Plan Time spent on chart review, documentation, interview and assessment Orders: Orders Lipid Panel 2 Months E78.5 - Hyperlipidemia, unspecified CA echo transthoracic complete Today I42.8 - Other cardiomyopathies Medications: New ezetimibe (Zetia) 10 mg PO DAILY 30 tabs 5RF Coding Level of Care Code Est Pt Level 4 (13513) Complex EM visit Add On G2211 Diagnoses CAD (coronary artery disease) I25.10 S/P cardiac cath Z98.890 NICM (nonischemic cardiomyopathy) I42.8 Hypertension I10 Dyslipidemia E78.5 Preop cardiovascular exam Z01.810 CPT Codes EKG - CPT: [id number], Complete ([id number]) Time Spent (min) 36
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
--- OUTSIDE RECORDS SUMMARY | 2024-10-28 10:41 | XMS_ITS | Encounter Summary ---
Author Organization [facility] Address [address] [place] [address] Care Team Providers Care Boat Detailer Name Role Phone Jose Angel Perry MD Primary Care Provider Encounter Details Date Type Department Care Team (Late st Contact Info) Description 10/11/[address] [facility] [address] [phone] Venus Braden Social History Tobacco Use Types Packs/Day Years Used Date Smoking Tobacco: Never Assessed Sex and Gender Information Value Date Recorded Sex Assigned at Male 07/31/2024 6:17 AM EST Gender Identity Male 07/31/2024 6:17 AM EST Sexual Orientation Straight 07/31/2024 6: 17 AM EST Job Start Date Occupation Industry Not on file Not on file Not on file documented as of this encounter Progress Notes * Venus Braden - 10/11/2024 4:24 PM EST Spoke with the patient to confirm his preop visit with Dr. Willett that is scheduled for Thursday10/18/[address] Willett. The patient was made aware that he does need to keep this visit as to not impact his surgical date. documented in this encounter Plan of Treatment Upcoming Encounters Date Type Department Care Team (Late st Contact Info) Description 11/01/2024 9:15 AM EST Office Visit Orthopedic Surgery [facility] [address] [phone] Sharlene Champagne PA [address] [facility] [address] [place] [phone] 11/01/2024 3:15 PM EST Evaluation [facility] Occupational Therapy [address] [phone] Liz Mckenzie OT documented as of this encounter Visit Diagnoses Not on filedocumented in this encounter Care Teams Boat Detailer Relationship Specialty Start Date End Date Jose Angel Perry MD [address] [place] [phone] PCP - General 04/11/24 documented as of this encounter
--- OUTSIDE RECORDS SUMMARY | 2024-10-28 10:41 | XMS_ITS | Clinical Summary ---
Author Organization [facility], Address [address] [place] [address] [place] [address] Phone Care Team Providers Care Dairy Laboratory Technician Name Role Phone Jsoe Angel Perry MD Primary Care Provider Allergies Active Allergy Reactions Criticality Noted Date Comments Bupropion Other (see comments) 08/26/2021 Citalopram Other (see comments) 08/26/2021 Medications insulin lispro (HumaLOG) 100 UNIT/ML injection Comments: Filled Date: Apr 10 2017 12:00AM Patient Notes: INJECT UP TO 70 UNITS VIA INSULIN PUMP UTD DAILY. Duration: 7 Active clopidogrel (PLAVIX) 75 MG tablet Take 75 mg by mouth 1 (one) time each day Active cholecalcifero l (VITAMIN D-3) 25 MCG (1000 UT) tablet Take 1,000 Units by mouth 1 (one) time each day Active lisinopril 40 MG tablet Take 40 mg by mouth 1 (one) time each day Active atorvastatin (LIPITOR) 80 MG tablet Take 80 mg by mouth 1 (one) time each day Active carvedilol (COREG) 25 MG tablet Take 25 mg by mouth in the morning and 25 mg in the evening. Take with meals. Active loratadine (CLARITIN) 10 MG tablet Take 10 mg by mouth 1 (one) time each day Active pregabalin (LYRICA) 25 MG capsule Take 25 mg by mouth in the morning and 25 mg in the evening. Active nortriptyline (PAMELOR) 75 MG capsule Take 75 mg by mouth every night Active pantoprazole (PROTONIX) 40 MG EC tablet Take 40 mg by mouth 1 (one) time each day before breakfast Do not crush, chew, or split. Active sucralfate (CARAFATE) 1 g tablet Take 1 g by mouth in the morning and 1 g at noon and 1 g in the evening and 1 g before bedtime. Active Insulin Regular Human (HUMULIN R U-500, CONCENTRATED, SC) Inject under the skin Active Mounjaro 2.5 MG/0.5ML solution pen-injector INJECT 2.5 MG (0.5 ML) SUBCUTANEOUSLY WEEKLY F4W 4 Active furosemide (LASIX) 20 MG tablet Take 1 tablet (20 mg total) by mouth if needed 4 Active doxazosin (CARDURA) 4 MG tablet Take 1 tablet (4 mg total) by mouth at bed time 90 tablet 3 4 Active Jardiance 10 MG tablet Take 10 mg by mouth 1 (one) time each day 90 tablet 3 4 025 Active NIFEdipine XL (PROCARDIA XL) 30 MG 24 hr tablet Take 1 tablet (30 mg total) by mouth 1 (one) time each day Do not crush, chew, or split. 30 tablet 11 4 025 Active Active Problems Problem Noted Date Diagnosed Date Stage 3b chronic kidney disease 07/01/2022 Renal disorder due to type 2 diabetes mellitus 0 02/23/2020 Hypertensive heart disease without congestive he art failure 02/23/2020 Hypertension Proteinuria Resolved Problems Problem Noted Date Diagnosed Date Resolved Date Stage 3a chronic kidney disease 02/23/2020 10/31/2022 Immunizations Name Administration Dates Next Due H1N1 Inj 08/10/2009 Hep A / Hep B 11/18/2006 Hep A, Unspecified 10/11/2007 Hep B, Unspecified 09/26/2008,10/11/2007, 007 Influenza LAIV (Nasal) 08/10/2009 Influenza Split High Dose Pr eservative Free IM 05/29/2015 Influenza Whole 07/11/2020, 8,11/09/2007,11/18 Influenza, MDCK, Quadrivalen t, with preservative 07/11/2020,08/10/2017 Influenza, Unspecified 08/12/2021,2014,09/01/2013,06/18,06/25/2011 Pfizer SARS-COV-2 04/24/2021,04/03/2021 Pneumococcal Polysaccharide 07/19/2018,02/21/200 7 SARS-CoV-2, Unspecified 11/28/2021,09/26/2008 Tdap 07/19/2018 Tetanus Toxoid, Unspecified 12/22/2007 Family History Medical History Relation Comments Cancer Father lung/Lung Diabetes Father Heart disease Father Hypertension Father Stroke Father Dementia Mother Alzheimer diseas e/Alzheimers Diabetes Mother Mat. Grandmother /grandmother Heart disease Mother Hypertension Mother Kidney disease Mother Renal failure sy ndrome Stroke Mother Relation Status Comments Father Unknown Mother Unknown Social History Tobacco Use Types Packs/Day Years Used Date Smoking Tobacco: Former Cigarettes Q uit: 05/26/2011 Tobacco Cessation:Counseling Given: Not Answered Comments:Smoking History Info:Every day Alcohol Use Standard Drinks/Week Comments No 0 (1 standard drink = 0.6 oz pur e alcohol) Sex and Gender Information Value Date Recorded Sex Assigned at Not on file Legal Sex Male 4:35 PM EST Gender Identity Not on file Sexual Orientation Not on file Last Filed Vital Signs Vital Sign Reading Time Taken Comments Blood Pressure 134/94 01/27/2024 3:26 PM EDT Pulse 68 08/22/2019 12:00 PM EST Temperature - - Respiratory Rate 16 08/22/2019 12:00 PM EST Oxygen Saturation - - Inhaled Oxygen Concentration - - Weight 105 kg (230 lb 9.6 oz) 01/27/2024 3:26 PM EDT Height 167.6 cm (5' 6 ) 01/27/2024 3:26 PM EDT Body Mass Index 37.22 01/27/2024 3:26 PM EDT Plan of Treatment Upcoming Encounters Date Type Department Care Team (Late st Contact Info) Description 12/21/2024 3:00 PM EDT Office Visit [facility], [address] [place] [address] Denis Gutierrez MD [address] [place] [address] Health Maintenance Due Date Last Done Comments Hepatitis B Vaccine (2 of 3 - Hep B Twinrix 3-dose series) 10/24/2008 09/26/2008, 10/11/2007, 11/18/2006, Additional history exists Colorectal Cancer Screening: Annual FOBT 2011 Colorectal Cancer Screening: Colonoscopy 2011 Colorectal Cancer Screening: Sigmoidoscopy 2011 Pneumococcal Vaccine: Pediat rics (0 to 5 Years) and At-Risk Patients (6 to 64 Years) (3 of 3 - PCV) 07/19/2019 07/19/2018, 11/18/2006 Diabetes: Ophthalmology Exam 12/19/2019 Diabetes: Pedal Pulse Checked 12/19/2019 Diabetes: Sensory Foot Exam 12/19/2019 Diabetes: Visual Foot Exam 12/19/2019 Diabetes: Hemoglobin A1C 04/26/2024 024, 06/30/2022, 09/19/2021, Additional history exists Influenza Vaccine (#1) 2024 , 07/11/2020, 07/11/2020, Additional history exists Procedures Procedure Name Priority Date/Time Associated Diagnosis Comments HEMOGLOBIN A1C Routine 01/26/2024 4:10 PM EDT Renal disorder due to type 2 diabetes mellitus <Other diabetic kidney complication> (HCC) from Last 3 Months or Most Recently Relevant to Health Maintenance Results * (ABNORMAL) Hemoglobin A1c (01/26/2024 4:10 PM EDT) Hemoglobin A1C 8.4(H) 4.8 - 5.6 % See order comments Comment: ? Prediabetes: 5.7 - 6.4 ? Diabetes: >6.4 ? Glycemic control for adults with diabetes: <7.0 Blood (Blood, Venous) 01/26/2024 4:10 PM EDT 01/26/2024 Narrative [facility] - 01/27/2024 2:08 PM EDT Performed at: ??01 - [facility] [address] ??[id number] Keyboarding Clerk: Rose Mary Rosales MD, Phone: ??[phone] us Sha [facility] LAB BLOOD ORDERABLES Final Re sult [facility] See order comments [place] [address] from Last 3 Months or Most Recently Relevant to Health Maintenance Insurance [employer] MEDICA[employer] Care Teams Dairy Laboratory Technician Relationship Specialty Start Date End Date Jose Angel Perry MD [address] PCP - General 08/02/19
--- OUTSIDE RECORDS SUMMARY | 2024-10-28 10:41 | XMS_ITS | Encounter Summary ---
Author Organization [facility] Address [address] [place] [address] Phone Care Team Providers Care Sole Layer Name Role Phone Jose Angel Perry MD Primary Care Provider Encounter Details Date Type Department Care Team (Late st Contact Info) Description 10/29/2022 Documentation Only [facility] [address] [place] [address] Sha Chaudhry PA [address] [place] [address] [place] [address] Social History Tobacco Use Types Packs/Day Years Used Date Smoking Tobacco: Former Cigarettes Q uit: 05/26/2011 Comments:Smoking History Inf o:Every day Alcohol Use Standard Drinks/Week Comments No 0 (1 standard drink = 0.6 oz pur e alcohol) Sex and Gender Information Value Date Recorded Sex Assigned at Not on file Legal Sex Male 4:35 PM EST Gender Identity Not on file Sexual Orientation Not on file documented as of this encounter Plan of Treatment Upcoming Encounters Date Type Department Care Team (Late st Contact Info) Description 12/21/2024 3:00 PM EDT Office Visit [facility] [address] [place] [address] Denis Gutierrez MD [address] [place] [address] [place] [address] documented as of this encounter Visit Diagnoses Not on filedocumented in this encounter Care Teams Sole Layer Relationship Specialty Start Date End Date Jose Angel Perry MD [address] PCP - General 08/02/19 documented as of this encounter
--- OUTSIDE RECORDS SUMMARY | 2024-10-28 10:41 | XMS_ITS | Encounter Summary ---
Author Organization [facility] Address [address] [place] [address] Care Team Providers Care Respite Worker Name Role Phone Jose Angel Perry MD Primary Care Provider Reason for Visit * Reason Comments Pre-op Visit eCTR DOS: 10/20/24 Pre-op Visit TF release DOS: 10/20 Encounter Details Date Type Department Care Team (Late st Contact Info) Description 10/18/2024 9:30 AM EST Consult Orthopedic Surgery - [place] [address] [facility] [address] [place] [phone] Colette Willett MD [address] [facility] [address] [place] [phone] Diabetic mononeuropathy associated with type 2 diabetes mellitus (CMS/HCC) (Primary Dx); Right carpal tunnel syndrome; Trigger middle finger of right hand Social History Tobacco Use Types Packs/Day Years Used Date Smoking Tobacco: Never Assessed Sex and Gender Information Value Date Recorded Sex Assigned at Male 07/31/2024 6:17 AM EST Gender Identity Male 07/31/2024 6:17 AM EST Sexual Orientation Straight 07/31/2024 6: 17 AM EST Job Start Date Occupation Industry Not on file Not on file Not on file documented as of this encounter Last Filed Vital Signs Vital Sign Reading Time Taken Comments Blood Pressure 136/82 10/18/2024 9:18 AM EST Pulse 75 10/18/2024 9:18 AM EST Temperature 36.7 ??C (98.1 ??F) 10/18/2024 9:18 AM ES T Respiratory Rate - - Oxygen Saturation - - Inhaled Oxygen Concentration - - Weight 93 kg (205 lb) 10/18/2024 9:18 AM EST Height 170.2 cm (5' 7 ) 10/18/2024 9:18 AM EST Body Mass Index 32.11 10/18/2024 9:18 AM EST documented in this encounter Progress Notes * Colette Willett MD - 10/18/2024 9:30 AM EST PRE-OPERATIVE HISTORY & PHYSICAL PATIENT: Sang Lester :1960 VISIT DATE:10/18/2024 HPI: Sang Lester IS A 64 y.o. YEAR OLD male who presents for pre-operative exam. The patient isscheduled for revision right open carpal tunnel release and we will be adding on an A1 sepideh release of the right long finger. Patient reports he continues to have numbness and tingling in the right hand. Also the locking has persisted in his right long finger. He reports no recent colds flus or infections. ROS: Patient reports no hospitalizations, no colds or flus, he has not had any recent changes in his medications. Looking at the records we do not have a recent hemoglobin A1c. We might not be able to get the [place] records so we will send him over to get an updated 1. ALLERGIES: Allergies Allergen Reactions Bupropion Other and Unknown Other Reaction(s): made him aggressive Pt denies Other reaction(s): made him aggressive Citalopram Other Other reaction(s): Other (see comments) pt denies PROBLEM LIST: Patient Active Problem List Diagnosis Right carpal tunnel syndrome Trigger middle finger of right hand Diabetic neuropathy (CMS/HCC) Hypertension Neuropathy Neck pain on right side PAST SURGERIES: Past Surgical History: Procedure Laterality Date CARPAL TUNNEL RELEASE Right 2020 COLONOSCOPY SOCIAL HISTORY: Social History Tobacco Use Smoking status: Not on file Smokeless tobacco: Not on file Substance Use Topics Alcohol use: Not on file MEDICATIONS: Current Outpatient Medications: atorvastatin (LIPITOR) 80 mg tablet, Take 1 tablet (80 mg total) by mouth 1 (one) time each day., Disp: , Rfl: Baqsimi 3 mg/actuation nasal spray, given by Yeni colin alternate nostrils In one nostril; dose does not need to be inhaled, 0 Refills, Maintenance, 08/03/24 15:59:00 EST, Disp: , Rfl: carvediloL (COREG) 25 mg tablet, Take 1 tablet (25 mg total) by mouth 2 (two) times a day with meals., Disp: , Rfl: cholecalciferol (VITAMIN D-3) 25 mcg (1,000 unit) tablet, Take 1 tablet (1,000 Units total) by mouth 1 (one) time each day., Disp: , Rfl: clopidogreL (PLAVIX) 75 mg tablet, Take 1 tablet (75 mg total) by mouth 1 (one) time each day., Disp: , Rfl: doxazosin (CARDURA) 4 mg tablet, Take 1 tablet (4 mg total) by mouth daily., Disp: , Rfl: fluticasone propionate (FLONASE) 50 mcg/actuation nasal spray, Administer into affected nostril(s)., Disp: , Rfl: furosemide (LASIX) 20 mg tablet, Take 1 tablet (20 mg total) by mouth., Disp: , Rfl: insulin lispro 100 unit/mL injection, See Instructions, Use w arsenio colin, Howie Pruett, 0 Refills, Maintenance, 08/03/24 16:03:00 EST, Disp: , Rfl: lidocaine (LIDODERM) 5 % patch, , Disp: , Rfl: lisinopril (PRINIVIL,ZESTRIL) 40 mg tablet, Take 1 tablet (40 mg total) by mouth 1 (one) time each day., Disp: , Rfl: loratadine (CLARITIN) 10 mg tablet, Take 1 tablet (10 mg total) by mouth 1 (one) time each day., Disp: , Rfl: Lyrica 150 mg capsule, Take 1 capsule (150 mg total) by mouth 2 (two) times a day., Disp: , Rfl: nortriptyline (PAMELOR) 25 mg capsule, Take 1 capsule (25 mg total) by mouth., Disp: , Rfl: nortriptyline (PAMELOR) 75 mg capsule, Take 1 capsule (75 mg total) by mouth at bedtime., Disp: , Rfl: scopolamine (TRANSDERM-SCOP) 1 mg over 3 days patch 3 day, Apply topically., Disp: , Rfl: sucralfate (CARAFATE) 1 gram tablet, Take 1 tablet (1 g total) by mouth., Disp: , Rfl: tirzepatide (Mounjaro) 5 mg/0.5 mL injection, Inject 0.5 mL (5 mg total) under the skin every 7 (seven) days., Disp: , Rfl: PHYSICAL EXAM: Visit Vitals BP 136/82 Pulse 75 Temp 36.7 ??C (98.1 ??F) Ht 1.702 m (67 ) Wt 93 kg (205 lb) BMI 32.11 kg/m?? BSA 2.04 m?? APPEARANCE: Patient is alert and oriented and in no acute distress. HEENT: Normocephalic. Pupils are equal round and reactive to light. HEART: Heart rate is regular. There are no appreciable murmurs, rubs, or gallops. There is no JVD. LUNGS: Clear to auscultation. EXTREMITIES: Patient has an old scar in the palm of his right hand. He has intact sensation howeverhe has a positive Tinel's and positive Phalen's test. When he makes a fist the fingers do not come all the way down to the palm but rather about half a centimeter off. He has tenderness at the A1 sepideh of the long finger but not the neighboring fingers. There is no thenar hypothenar or intrinsic atrophy. Patient does have generalized puffiness of the hand and of the digits consistent with some diabetic sclerodactyly. ASSESSMENT & PLAN: ICD-10-CM ICD-9-CM 1. Diabetic mononeuropathy associated with type 2 diabetes mellitus (CMS/[facility]) E11.41 250.60 Hemoglobin A1c 355.9 Comprehensive metabolic panel 2. Right carpal tunnel syndrome G56.01 354.0 3. Trigger middle finger of right hand M65.331 727.03 I reviewed the surgery with the patient. Because he is still symptomatic we will add an A1 sepideh release of the right long finger. I showed the patient where the incisions would be. We talked about the surgery and the postoperative course. Risks of the procedure were reviewed. These can include, but are not limited to, nerve, tendon, or artery damage. There can also be complications with infection, bleeding, persistent pain, incomplete resolution of symptoms, and possibly the need for additional interventions. Any of these events could compromise the limb on a temporary or permanent basis. There can also be medical complications such as heart or lung dysfunction or blood clots that can putthe patient at risk. We reviewed the recuperative time and limitations. Pain management was reviewed with the patient. Typically Tylenol, an anti- inflammatory, and then, if necessary, a few tablets of pain medication. The patient indicated understanding. Patient's questions were answered. Consent was obtained. We will send to the lab to get an A1c Prescription was provided for him to go up to therapy so we can set that up right now. POST-OPERATIVE APPOINTMENT DATE: 11/01/2024 with Sharlene documented in this encounter Plan of Treatment Upcoming Encounters Date Type Department Care Team (Late st Contact Info) Description 11/01/2024 9:15 AM EST Office Visit Orthopedic Surgery [facility] [address] [facility] [address] [place] [phone] Sharlene Champagne PA 174 [facility] [address] [place] [phone] 11/01/2024 3:15 PM EST Evaluation [facility] Occupational Therapy [address] [facility] [address] [place] [phone] Liz Mckenzie OT documented as of this encounter Results * (ABNORMAL) Comprehensive metabolic panel (10/18/2024 9:54 AM EST) Sodium 135 133 - 145 mmol/L LAB CHEMISTRY METHOD 10/18/2024 2:31 PM [facility] Potassium 4.4 3.5 - 5.5 mmol/L LAB CHEMISTRY METHOD 10/18/2024 2:31 PM [facility] Chloride 104 96 - 110 mmol/L LAB CHEMISTRY METHOD 10/18/2024 2:31 PM [facility] CO2 27 21 - 32 mmol/L LAB CHEMISTRY METHOD 10/18/2024 2:31 PM [facility] Anion Gap 4 3 - 11 LAB CHEMISTRY METHOD 10/18/2024 2:31 PM [facility] Glucose 238(H) 70 - 100 mg/dL LAB CHEMISTRY METHOD 10/18/2024 2:31 PM [facility] BUN 15 5 - 25 mg/dL LAB CHEMISTRY METHOD 10/18/2024 2:31 PM [facility] Creatinine 2.42(H) 0.70 - 1.30 mg/dL LAB CHEMISTRY METHOD 10/18/2024 2:31 PM [facility] eGFR 29(L) >=60 mL/min/1. 73m2 LAB CHEMISTRY METHOD 10/18/2024 2:31 PM [facility] Comment:Calculation based on the??Chronic Kidney Disease Epidemiology Collaboration (CKD-EPI) equation refit??without adjustment for race. BUN/Creatinine Ratio 6.2 LAB CHEMISTRY METHOD 10/18/2024 2:31 PM [facility] Calcium 8.8 8.5 - 10.5 mg/dL LAB CHEMISTRY METHOD 10/18/2024 2:31 PM [facility] AST (SGOT) 20 10 - 42 unit/L LAB CHEMISTRY METHOD 10/18/2024 2:31 PM [facility] ALT (SGPT) 26 10 - 60 unit/L LAB CHEMISTRY METHOD 10/18/2024 2:31 PM [facility] Alkaline Phosphatase 100 42 - 121 unit/L LAB CHEMISTRY METHOD 10/18/2024 2:31 PM [facility] Total Protein 7.4 6.0 - 8.0 g/dL LAB CHEMISTRY METHOD 10/18/2024 2:31 PM [facility] Albumin 3.4 3.2 - 5.0 g/dL LAB CHEMISTRY METHOD 10/18/2024 2:31 PM [facility] Total Bilirubin 0.5 0.0 - 1.4 mg/dL LAB CHEMISTRY METHOD 10/18/2024 2:31 PM [facility] Blood Venous blood specimen / Unknown Venipuncture / Unknown 10/18/2024 9:54 AM EST 10/18/2024 9:54 AM EST Colette Willett MD LAB BLOOD ORDERABLES [facility] [address] [place] [address], * (ABNORMAL) Hemoglobin A1c (10/18/2024 9:54 AM EST) Hemoglobin A1C 7.0(H) <6.5 % LAB CHEMISTRY METHOD 10/18/2024 3:14 PM EST [facility] Mean Bld Glu Estim. 154 mg/dL LAB CHEMISTRY METHOD 10/18/2024 3:14 PM EST [facility] Blood Venous blood specimen / Unknown Venipuncture / Unknown 10/18/2024 9:54 AM EST 10/18/2024 9:54 AM EST Colette Willett MD LAB BLOOD ORDERABLES [facility] [address] [place] [address], documented in this encounter Visit Diagnoses Diagnosis Diabetic mononeuropathy associated with type 2 diabetes mellitus (CMS/HCC)- Primary Right carpal tunnel syndrome Carpal tunnel syndrome Trigger middle finger of right hand documented in this encounter Care Teams Respite Worker Relationship Specialty Start Date End Date Jose Angel Perry MD [address] [place] [phone] PCP - General 04/11/24 documented as of this encounter
--- OUTSIDE RECORDS SUMMARY | 2024-10-28 10:41 | XMS_ITS | Encounter Summary ---
Author Organization [facility] Address [address] [place] [address] Phone Care Team Providers Care Body And Fender Mechanic Name Role Phone Jose Angel Perry MD Primary Care Provider Encounter Details Date Type Department Care Team (Late st Contact Info) Description 09/25/2023 Documentation Only [facility] [address] [place] [address] Sha Chaudhry PA [address] [place] [address] [place] [address] Social History Tobacco Use Types [...] Visit [facility] [address] [place] [address] Denis Gutierrez MD [address] [place] [address] [place] [address] documented as of this encounter Visit Diagnoses Not on filedocumented in this encounter Care Teams Body And Fender Mechanic Relationship Specialty Start Date End Date Jose Angel Perry MD [address] PCP - General 08/02/19 documented as of this encounter
--- OUTSIDE RECORDS SUMMARY | 2024-10-28 10:41 | XMS_ITS | Encounter Summary ---
Author Organization [facility] Address [address] [place] [address] Phone Care Team Providers Care Briquette Maker Name Role Phone Jose Angel Perry MD Primary Care Provider Encounter Details Date Type Department Care Team (Late st Contact Info) Description 09/25/2023 Documentation Only [facility] [address] [place] [address] Sha Chaudhry PA [address] [place] [address] [place] [address] Social History Tobacco Use Types [...] Visit [facility] [address] [place] [address] Denis Gutierrez MD [address] [place] [address] [place] [address] documented as of this encounter Visit Diagnoses Not on filedocumented in this encounter Care Teams Briquette Maker Relationship Specialty Start Date End Date Jose Angel Perry MD [address] PCP - General 08/02/19 documented as of this encounter
--- OUTSIDE RECORDS SUMMARY | 2024-10-28 10:41 | XMS_ITS | Encounter Summary ---
Author Organization [facility] Address [address] [place] [address] Care Team Providers Care Paramedic Rn Name Role Phone Jose Angel Perry MD Primary Care Provider Reason for Visit * Auth/Cert (Routine) Specialty Diagnoses / Procedures Referred By Amparo ramirez Referred To Contact Diagnoses Right carpal tunnel syndrome Trigger middle finger of right hand RIGHT CARPAL TUNNEL SYNDROME,TRIGGER MIDDLE FINGER RIGHT Procedures VA NEUROPLASTY/TRANSPOSITION MEDIAN NERVE AT CARPAL TUNNEL VA INCISION TENDON SHEATH RELEASE CARPAL TUNNEL RIGHT RELEASE TRIGGER FINGER RIGHT [facility] Colette Willett MD [address] [facility] [address] [place] [address] [facility] Main [place] [address] [place] [address] Referral ID Status Reason Start Date Expiration Date Visits Re quested Visits Authorized [id number] 1 1 Encounter Details Date Type Department Care Team (Late st Contact Info) Description 10/20/2024 10:47 AM EST Anesthesia Event [facility] [place] [address] [place] [address] Sravanthi Chery MD [address] [place] [id number] Anesthesia Record Procedure Summary Procedure Name Responsible Anesthesiologist Anesthesia Start Time Anesthesia Stop Time RELEASE CARPAL TUNNEL RIGHT (canceled) Events Date Time Event Comment 10/20/2024 1011 Meds * Agents No agents on file. * Blood No blood administrations on file. Lines, Drains, and Airways No LDAs on file. documented in this encounter Social History Tobacco Use Types Packs/Day Years Used Date Smoking Tobacco: Never Assessed Interpersonal Safety Answer Date Record ed Physical [...] as of this encounter Progress Notes * Sravanthi Chery MD - 10/19/2024 2:08 PM EST 64 y.o. male scheduled for [VA NEUROPLASTY/TRANSPOSITION MEDIAN NERVE AT CARPAL TUNNEL *] Ht Readings from Last 1 Encounters: 10/18/24 1.702 m (67 ) Wt Readings from Last 1 Encounters: 10/18/24 93 kg (205 lb) Body mass index is 32.11 kg/m??. Past Medical History: Diagnosis Date Anxiety Chronic kidney disease Dental disease upper Diabetes mellitus (CMS/HCC) Heart disease cad Hyperlipidemia Hypertension Motion sickness Past Surgical History: Procedure Laterality Date CARPAL TUNNEL RELEASE Right 2020 COLONOSCOPY Denies anesthesia complications Allergies Allergen Reactions Bupropion Other and Unknown Other Reaction(s): made him aggressive Pt denies Other reaction(s): made him aggressive Citalopram Other Other reaction(s): Other (see comments) pt denies No current facility-administered medications on file prior to encounter. Current Outpatient Medications on File Prior to Encounter Medication Sig Dispense Refill atorvastatin (LIPITOR) 80 mg tablet Take 1 tablet (80 mg total) by mouth 1 (one) time each day. Baqsimi 3 mg/actuation nasal spray given by Yeni colin alternate nostrils In one nostril;dose does not need to be inhaled, 0 Refills, Maintenance, 08/03/24 15:59:00 EST carvediloL (COREG) 25 mg tablet Take 1 tablet (25 mg total) by mouth 2 (two) times a day with meals. cholecalciferol (VITAMIN D-3) 25 mcg (1,000 unit) tablet Take 1 tablet (1,000 Units total) by mouth1 (one) time each day. clopidogreL (PLAVIX) 75 mg tablet Take 1 tablet (75 mg total) by mouth 1 (one) time each day. doxazosin (CARDURA) 4 mg tablet Take 1 tablet (4 mg total) by mouth daily. fluticasone propionate (FLONASE) 50 mcg/actuation nasal spray Administer into affected nostril(s). furosemide (LASIX) 20 mg tablet Take 1 tablet (20 mg total) by mouth. insulin lispro 100 unit/mL injection See Instructions, Use w arsenio colin, Howie Pruett, 0 Refills, Maintenance, 08/03/24 16:03:00 EST lidocaine (LIDODERM) 5 % patch lisinopril (PRINIVIL,ZESTRIL) 40 mg tablet Take 1 tablet (40 mg total) by mouth 1 (one) time each day. loratadine (CLARITIN) 10 mg tablet Take 1 tablet (10 mg total) by mouth 1 (one) time each day. Lyrica 150 mg capsule Take 1 capsule (150 mg total) by mouth 2 (two) times a day. nortriptyline (PAMELOR) 25 mg capsule Take 1 capsule (25 mg total) by mouth. nortriptyline (PAMELOR) 75 mg capsule Take 1 capsule (75 mg total) by mouth at bedtime. scopolamine (TRANSDERM-SCOP) 1 mg over 3 days patch 3 day Apply topically. sucralfate (CARAFATE) 1 gram tablet Take 1 tablet (1 g total) by mouth. tirzepatide (Mounjaro) 5 mg/0.5 mL injection Inject 0.5 mL (5 mg total) under the skin every 7 (seven) days. Current In-hospital Medications Is the patient a current smoker (e.g. cigarette, cigar, pip, e-cigarette, or mariajuana)? Yes [] No[] Patient previously instructed to abstain from smoking on the day of procedure? Yes [] No[] Patient smoked on the day of procedure? Yes [] No[] ASPIRE smoking VBR: [] Not interested in quitting [] Interested in quitting- referred to treatment [] Interested in quitting - treatment provided Visit Vitals Ht 1.702 m (67 ) Wt 93 kg (205 lb) BMI 32.11 kg/m?? BSA 2.04 m?? Available cardiac studies reviewed: No results found. EKG No results found for this or any previous visit (from the past 4464 hour(s)). ECHO No results found for this or any previous visit. CATH No results found for this or any previous visit. LABS: No results found for: WBC , HGB , HCT , MCV , PLT Lab Results Component Value Date GLUCOSE 238 (H) 10/18/2024 CALCIUM 8.8 10/18/2024 NA 135 10/18/2024 K 4.4 10/18/2024 CO2 27 10/18/2024 CL 104 10/18/2024 BUN 15 10/18/2024 CREATININE 2.42 (H) 10/18/2024 No results found for: INR , PROTIME No results found for: PTT Pt took his plavix- case postponed; in interim will see cafeteria operator (due shortly) Cad s/p stent 2 years ago, silent OK (Sees cafeteria operator yearly- no recent changes-walks thru large grocery store) HTN,HYPERLIPIDEMIA Quit smoking 15 years ago Dental disease CKD JOYA doesn't use cpap Anxiety Denies cardiac, pulm, neuro, hepatic or renal s/sx. Patient meets ASA guidelines for NPO status. > 4 mets without anginal symptoms. Relevant labs, vitals, imaging, cardiac and pulmonary studies as well as HPI, Meds, Allergies, ROS,PMH, PSH, SH, and FH reviewed. Relevant Problems Cardio (+) Hypertension Clinical information reviewed: Allergies Meds Med Hx Surg Hx Fam Hx Soc Hx Anesthesia Plan ASA 3 Anesthesia Plan: MAC Comment: (ga backup discussed with patient) Anesthesia Risks Discussed nausea and pain Plan Factors Patient is not a current smoker Induction method: intravenous Anesthesia Evaluation No history of anesthetic complications Airway Dental (+) lower dentures and upper dentures Pulmonary breath sounds clear to auscultation Cardiovascular (+) hypertension Rhythm: regular Neuro/Psych Mental Status: alert and oriented GI/Hepatic/Renal (+) chronic renal disease Endo/Other (+) diabetes mellitus Abdominal PONV RISK SCORE: 1 Vitals: 10/03/24 1300 Weight: 93 kg (205 lb) Height: 1.702 m (67 ) SpO2 Readings from Last 1 Encounters: No data found for SpO2 No results found for: WBC , RBC , HGB , HCT , PLT , MCV Allergies Allergen Reactions Bupropion Other and Unknown Other Reaction(s): made him aggressive Pt denies Other reaction(s): made him aggressive Citalopram Other Other reaction(s): Other (see comments) pt denies STOP BANG: No data recorded NPO Status: No data recorded documented in this encounter Plan of Treatment Upcoming Encounters Date Type Department Care Team (Late st Contact Info) Description 11/01/2024 9:15 AM EST Office Visit Orthopedic Surgery [facility] 175 [facility] [address] [place] [address] Sharlene Champagne PA 174 [facility] [address] [place] [phone] 11/01/2024 3:15 PM EST Evaluation [facility] [address] [phone] Liz Mckenzie OT documented as of this encounter Visit Diagnoses Not on filedocumented in this encounter Care Teams Paramedic Rn Relationship Specialty Start Date End Date Jose Angel Perry MD [address] [place] [phone] PCP - General 04/11/24 documented as of this encounter
--- OUTSIDE RECORDS SUMMARY | 2024-10-28 10:41 | XMS_ITS | Encounter Summary ---
Author Organization [employer] [facility] Address [address] [place] [address] Care Team Providers Care Machine Edge Bander Name Role Phone Jose Angel Perry MD Primary Care Provider Reason for Visit * Auth/Cert (Routine) Specialty Diagnoses / Procedures Referred By Amparo ramirez Referred To Contact Diagnoses Right carpal tunnel syndrome Trigger middle finger of right hand RIGHT CARPAL TUNNEL SYNDROME,TRIGGER MIDDLE FINGER RIGHT Procedures DC NEUROPLASTY/TRANSPOSITION MEDIAN NERVE AT CARPAL TUNNEL DC INCISION TENDON SHEATH RELEASE CARPAL TUNNEL RIGHT RELEASE TRIGGER FINGER RIGHT MIDDLE Colette Willett MD [address] [phone] [facility] Main Or [address] [place] [address] Referral ID Status Reason Start Date Expiration Date Visits Re quested Visits Authorized [id number] 1 1 Encounter Details Date Type Department Care Team (Latest Contact Info) Description 10/20/2024 9:36 AM EST - 10/20/2024 11:59 PM [facility] Hospital Encounter [facility] Main OR [address] [place] [address] Colette Willett MD [address] [address] Discharge Disposition: Home or Self Care Social History Tobacco Use Types Packs/Day Years [...] - - Weight 93 kg (205 lb) 10/03/2024 1:00 PM EST Height 170.2 cm (5' 7 ) 10/03/2024 1:00 PM EST Body Mass Index 32.11 10/03/2024 1:00 PM EST documented in this encounter Medications at Time of Discharge Medication Sig Dispensed Refills Start Date End Date atorvastatin (LIPITOR) 80 mg tablet Take 1 tablet (80 mg total) by mouth 1 (one) time each day. 04/25/2024 carvediloL (COREG) 25 mg tablet Take 1 tablet (25 mg total) by mouth 2 (two) times a day with meals. 04/25/2024 cholecalciferol (VITAMIN D-3) 25 mcg (1,000 unit) tablet Take 1 tablet (1,000 Units total) by mouth 1 (one) time each day. clopidogreL (PLAVIX) 75 mg tablet Take 1 tablet (75 mg total) by mouth 1 (one) time each day. 04/25/2024 doxazosin (CARDURA) 4 mg tablet Take 1 tablet (4 mg total) by mouth daily. 01/23/2023 furosemide (LASIX) 20 mg tablet Take 1 tablet (20 mg total) by mouth. 01/27/2024 insulin lispro 100 unit/mL injection See Instructions, Use w Howie sapp, 0 Refills, Maintenance, 08/03/24 16:03:00 EST 08/03/2024 lisinopril (PRINIVIL,ZESTRIL) 40 mg tablet Take 1 tablet (40 mg total) by mouth 1 (one) time each day. 04/25/2024 Lyrica 150 mg capsule Take 1 capsule (150 mg total) by mouth 2 (two) times a day. 04/25/2024 nortriptyline (PAMELOR) 25 mg capsule Take 1 capsule (25 mg total) by mouth. 04/25/2024 04/20/2025 nortriptyline (PAMELOR) 75 mg capsule Take 1 capsule (75 mg total) by mouth at bedtime. 04/25/2024 Baqsimi 3 mg/actuation nasal spray given by endo , ?Yeni?? Matilda alternate nostrils In one nostril; dose does not need to be inhaled, 0 Refills, Maintenance, 08/03/24 15:59:00 EST 08/03/2024 fluticasone propionate (FLONASE) 50 mcg/actuation nasal spray Administer into affected nostril(s). 04/25/2024 lidocaine (LIDODERM) 5 % patch 08/04/2024 loratadine (CLARITIN) 10 mg tablet Take 1 tablet (10 mg total) by mouth 1 (one) time each day. 04/25/2024 sucralfate (CARAFATE) 1 gram tablet Take 1 tablet (1 g total) by mouth. 04/25/2024 tirzepatide (Mounjaro) 5 mg/0.5 mL injection Inject 0.5 mL (5 mg total) under the skin every 7 (seven) days. documented as of this encounter Discharge Disposition Disposition Code Departure Means Destination Home or Self Care documented in this encounter Progress Notes * Colette Willett MD - 10/20/2024 3:25 PM EST This morning there was a confusion as to what time the patient was having his surgery. He did come in at the time he had been previously told. Unfortunately he forgot to stop taking his Plavix. Giventhat we were planning to surgical sites and 1 is a revision open carpal tunnel I think it is best that we postpone the surgery so we do not run into bleeding issues. 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 We will look ahead to get another date for the procedure. documented in this encounter Procedure Notes * Jaylene Manning RN - 10/20/2024 10:21 AM EST RIDAgapito BROOKE [phone] documented in this encounter Plan of Treatment Upcoming Encounters Date Type Department Care Team (Late st Contact Info) Description 11/01/2024 9:15 AM EST Office Visit Orthopedic Surgery - [place] 175 [facility] [address] [place] [phone] Sharlene Champagne PA 174 [facility] [address] [place] [phone] 11/01/2024 3:15 PM EST Evaluation [facility] Occupational Therapy 175 [facility] [address] [place] [phone] Liz Mckenzie, OT documented as of this encounter Procedures Procedure Name Priority Date/Time Associated Diagnosis Comments POCT GLUCOSE BLOOD Routine 10/20/2024 9: 50 AM EST documented in this encounter Results * (ABNORMAL) POCT Glucose, blood (10/20/2024 9:50 AM EST) Glucose POCT 138(H) 70 - 100 mg/dL 10/20/2024 9:51 AM EST [facility] Blood Capillary blood specimen / Unknown 10/20/2024 9:50 AM EST 10/20/2024 9:52 AM EST Colette Willett MD LAB POINT OF CARE TE ST DOCKED DEVICE UNSOLICITED RESULTS [facility] [address] [place] [address], documented in this encounter Visit Diagnoses Diagnosis Right carpal tunnel syndrome Carpal tunnel syndrome Trigger middle finger of right hand documented in this encounter Admitting Diagnoses Diagnosis Right carpal tunnel syndrome Carpal tunnel syndrome Trigger middle finger of right hand documented in this encounter Administered Medications Inactive Administered Medications - up to 3 most recent administrations Medication Order MAR Action Action Date Dose Rate Site sodium chloride 0.9 % flush 10 mL 10 mL, intravenous, 2 times daily, First dose on Petty 10/20/24 at 1000, Preprocedure sodium chloride 0.9 % flush 10 mL 10 mL, intravenous, As needed, line care, Starting on Petty 10/20/24 at 0940, Preprocedure documented in this encounter Discontinued Medications Medication Sig Discontinue Reason Start Date End Da te empagliflozin (Jardiance) 10 mg tablet Take by mouth. Formulary change 10/03/2024 insulin regular (HumuLIN R U-500) 500 unit/mL CONCENTRATED injection Formulary change 04/03/2021 10/03/2024 insulin lispro (HumaLOG) 100 UNIT/ML patient supplied pump 1 EA by continuous sub-Q infusn (via wearable injector) route continuously. Formulary change 10/03/2024 pantoprazole (PROTONIX) 40 mg EC tablet Take 1 tablet (40 mg total) by mouth 1 (one) time each day before breakfast. Therapy completed 10/03/2024 albuterol HFA (PROAIR HFA ; PROVENTIL HFA ; VENTOLIN HFA) 90 mcg/actuation inhaler Inhale 2 puffs by mouth every 4 (four) hours if needed. 10/03/2024 scopolamine (TRANSDERM-SCOP) 1 mg over 3 days patch 3 day Apply topically. 08/03/2024 025 documented as of this encounter Historical Medications * This list may reflect changes made after this encounter. Medication Sig Dispensed Refills Start Date End Date tirzepatide (Mounjaro) 5 mg/0.5 mL injection Inject 0.5 mL (5 mg total) under the skin every 7 (seven) days. insulin lispro (HumaLOG) 100 UNIT/ML patient supplied pump 1 EA by continuous sub-Q infusn (via wearable injector) route continuously. 10/03/2024 added in this encounter Active and Recently Administered Medications Times are shown in EST. Scheduled Medication Order 10/18/2024 10/19/2024 10/20/2024 sodium chloride 0.9 % flush 10 mL(Linked Group 1) 10 mL, intravenous, 2 times daily, First dose on Petty 10/20/24 at 1000, Preprocedure 1000 (Canceled Entry - Provider: Automatic Discharge Provider - Comment: Automatically canceled at discontinue of medication order)2100 (Canceled Entry - Provider: Automatic Discharge Provider - Comment: Automatically canceled at discontinue of medication order) PRN Medication Order 10/18/2024 10/19/2024 10/20/2024 sodium chloride 0.9 % flush 10 mL(Linked Group 1) 10 mL, intravenous, As needed, line care, Starting on Petty 10/20/24 at 0940, Preprocedure Linked Groups Order Group 1: Insert peripheral IV (CANCELED) STAT, Once, On Petty 10/20/24 at 0941, For 1 occurrence, Preprocedure And Maintain IV access (CANCELED) Until discontinued, Starting on Petty 10/20/24 at 0941, Until Specified, Preprocedure And Saline lock IV (CANCELED) Routine, Once, On Petty 10/20/24 at 0941, For 1 occurrence, Preprocedure And sodium chloride 0.9 % flush 10 mLJump to med 10 mL, intravenous, 2 times daily, First dose on Petty 10/20/24 at 1000, Preprocedure And sodium chloride 0.9 % flush 10 mLJump to med 10 mL, intravenous, As needed, line care, Starting on Petty 10/20/24 at 0940, Preprocedure documented in this encounter Orders Medications Ordered That Yung ht Not Have Been Administered Count Last Ordered Date First Ordered Date sodium chloride 0.9 % flush 10 mL 2 025 documented in this encounter Care Teams Machine Edge Bander Relationship Specialty Start Date End Date Jose Angel Perry MD [address] [place] [phone] PCP - General 04/11/24 documented as of this encounter
--- OUTSIDE RECORDS SUMMARY | 2024-10-28 10:41 | XMS_ITS | Encounter Summary ---
Author Organization [facility] Address [address] [place] [address] Phone Care Team Providers Care Audio Visual Project Manager Name Role Phone Jose Angel Perry MD Primary Care Provider Encounter Details Date Type Department Care Team (Late Contact Info) Description 06/16/2022 Documentation Only [facility] [address] [place] [address] Og Weber MD [address] [place] [address] [place] [address] Social History Tobacco Use Types Packs/Day Years [...] Encounters Date Type Department Care Team (Late Contact Info) Description 12/21/2024 3:00 PM EDT Office Visit [facility] [address] [place] [address] Denis Gutierrez MD [address] [facility] [place] [address] documented as of this encounter Visit Diagnoses Not on filedocumented in this encounter Care Teams Audio Visual Project Manager Relationship Specialty Start Date End Date Jose Angel Perry MD [address] PCP - General 08/02/19 documented as of this encounter
== END 2024-10-28 10:53 | disposition home or self-care (01) ==
PROVIDERS: PCP Family Medicine; Visit Provider Nurse Practitioner Family
DX: I25.10 Atherosclerotic heart disease of native coronary artery without angina pectoris (principal); Z98.890 Other specified postprocedural states; I42.8 Other cardiomyopathies; I10 Essential (primary) hypertension; E78.5 Hyperlipidemia, unspecified; Z01.810 Encounter for preprocedural cardiovascular examination
CPT/HCPCS: 93010; 99214; G2211

== ENCOUNTER → 2024-10-28 09:58 | Outpatient (BNVA) | payer OTHER, SELFPAY | PROVIDERS: PCP Family Medicine; Visit Provider Nurse Practitioner Family | DX: Z01.810 Encounter for preprocedural cardiovascular examination (principal); I25.10 Atherosclerotic heart disease of native coronary artery without angina pectoris; I42.8 Other cardiomyopathies; E78.5 Hyperlipidemia, unspecified; I10 Essential (primary) hypertension; R94.31 Abnormal electrocardiogram [ECG] [EKG]; Z98.890 Other specified postprocedural states | CPT/HCPCS: 93005; 99212 ==

== ENCOUNTER → 2024-11-02 12:31 | Outpatient (BNVA) | payer OTHER, SELFPAY | PROVIDERS: PCP Family Medicine; Visit Provider Nurse Practitioner Adult Health | DX: E11.65 Type 2 diabetes mellitus with hyperglycemia (principal); E11.42 Type 2 diabetes mellitus with diabetic polyneuropathy; Z96.41 Presence of insulin pump (external) (internal); Z79.4 Long term (current) use of insulin | CPT/HCPCS: 82947; 83036; 99212 ==

== ENCOUNTER → 2024-11-17 11:21 | Outpatient (REF) | payer OTHER, SELFPAY ==
--- NOTE | 2024-11-17 11:25 | CA_ITS ---
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 The calculated ejection fraction is 47% by biplane method. - The basal inferior segment is hypokinetic. - No obvious valvular pathology seen on this study. Findings Procedure Information Contrast agent, definity, is being given per protocol without apparent complications. Left Ventricle Normal left ventricular cavity size. There is normal left ventricular wall thickness. The left ventricular systolic function is mildly decreased. The calculated ejection fraction is 47% by biplane method. There is mild global hypokinesis. Diastolic function is normal for age. Wall Motion Rest Echo Findings The basal inferior segment is hypokinetic. Right Ventricle Normal right ventricular cavity size. There is mildly decreased right ventricular systolic function. Atria Both atria are normal in size. Aortic Valve The aortic valve was not well visualized. There is no aortic valve stenosis. There is no aortic valve regurgitation. Mitral Valve The mitral valve appears normal. There is no mitral valve regurgitation. There is no mitral valve stenosis. Pulmonic Valve The pulmonic valve is likely normal. Tricuspid Valve There is no tricuspid valve regurgitation. Tricuspid regurgitation envelope is inadequate for calculation of right ventricular systolic pressure. Great Vessels The asc aorta is normal in size. Venous The inferior vena cava is normal in size and collapses greater than 50% with inspiration. Pericardium/Pleural There is no evidence of pericardial effusion. Prior Study Comparison No significant change compared to prior study dated: 05/22/2023. Recommendations, Care & Conclusions No obvious valvular pathology seen on this study. Measurements 2D Linear Measurements IVSd: 0.99 0.6-0.9/0.6-1.0 cm LVIDd: 4.13 3.9-5.3/4.2-5.9 cm LVIDd Index: 2.00 2.4-3.2/2.2-3.1 cm/m2 LVIDs: 2.88 2.0-3.6 cm LVPWd: 0.98 0.7-1.1 cm LA Diam: 3.40 2.7-3.8/3.0-4.0 cm LAIDs Index: 1.64 1.5-2.3 cm/m2 LV Mass: 162.10 67-162/88-224 g LV Mass Index: 78.31 43-95/49-115 g/m2 LVOT Diam: 2.00 3.0+(-)1.3 cm 2D Systolic Function EF 4C: 47.90 >55% EF 2C: 48.30 >55% EF BiP: 47.40 >55% Mitral Valve MV Pk E: 0.59 MV PK A: 0.65 MV Decel Time: 234.00 E/A: 0.90 E'Lateral: 5.55 E'Medial: 4.68 E/E' Med: 12.50 E/E' Lat: 10.60 PHT: 69.00 MVA PHT: 3.19 Decel [place]: 2.51 Aortic Valve AoV Pk Danie: 0.95 AoV Mn Danie: 0.76 AoV VTI: 0.18 AoV Pk Grad: 4.00 Aov Mn Grad: 2.00 KAYLEE Cont.VTI: 2.44 LVOT LVOT Pk Danie: 0.77 LVOT Mn Danie: 0.59 LVOT VTI: 0.14 LVOT Pk Grad: 2.00 LVOT Mn Grad: 2.00 LVOT Diam: 2.00 LVOT Area: 3.14 Diastolic Function MV Pk E: 0.59 MV Pk A: 0.65 E/A: 0.90 E'Medial: 4.68 E/E' Med: 12.50 E' Laterial: 5.55 E/E' Lat: 10.60 Right Ventricle TAPSE (mm): 19.80 TVS' Danie: 8.92 Tricuspid Valve RA Press: 3.00 Great Vessels Aorta Sinus of Valsalva: 3.71 2.0-3.[address] Ridge: 2.68 1.7-3.4 cm Ao Asc: 3.70 2.1-3.4 cm Updated in Other Vendor System with Status of Final Justin Garcia MD electronically signed on 11/18/2024 12:49:44 PM with status of Final
--- OUTSIDE RECORDS SUMMARY | 2024-11-17 12:39 | XMS_ITS | Encounter Summary ---
Author Organization [employer] [facility] Address [address] [place] [address] Care Team Providers Care Industry Operations Investigator Name Role Phone Jose Angel Perry MD Primary Care Provider Reason for Visit * Auth/Cert (Routine) Specialty Diagnoses / Procedures Referred By Amparo ramirez Referred To Contact Diagnoses Right carpal tunnel syndrome Trigger middle finger of right hand RIGHT CARPAL TUNNEL SYNDROME,TRIGGER MIDDLE FINGER RIGHT Procedures ND NEUROPLASTY/TRANSPOSITION MEDIAN NERVE AT CARPAL TUNNEL ND INCISION TENDON SHEATH RELEASE CARPAL TUNNEL RIGHT RELEASE TRIGGER FINGER RIGHT MIDDLE Colette Willett MD [address] [address] Phone: tel: fax: [facility] OR [address] [place] [phone] Phone: tel: Referral ID Status Reason Start Date Expiration Date Visits Re quested Visits Authorized [id number] 1 1 Encounter Details Date Type Department Care Team (Latest Contact Info) Description 10/20/2024 9:36 AM EST - 10/20/2024 11:59 PM EST Hospital Encounter [facility] OR [address] [place] [address] Colette Willett MD [address] [address] Discharge Disposition: Home or Self [...] Assigned at Male 07/31/2024 6:17 AM EST Legal Sex Male 5:43 AM EST Gender Identity Male 07/31/2024 6:17 AM EST Sexual Orientation Straight 07/31/2024 6: 17 AM EST documented as of this encounter Last Filed [...] this encounter Medications at Time of Discharge atorvastatin (LIPITOR) 80 mg tablet Take 1 tablet (80 mg total) by mouth 1 (one) time each day. 04/25/2024 Baqsimi 3 mg/actuation nasal spray given by endo , ?Yeni?? Matilda alternate nostrils In one nostril; dose does not need to be inhaled, 0 Refills, Maintenance, 08/03/24 15:59:00 EST 08/03/2024 carvediloL (COREG) 25 mg tablet Take 1 [...] (4 mg total) by mouth daily. 01/23/2023 fluticasone propionate (FLONASE) 50 mcg/actuation nasal spray Administer into affected nostril(s). 04/25/2024 furosemide (LASIX) 20 mg tablet Take 1 tablet (20 mg total) by mouth. 01/27/2024 insulin lispro 100 unit/mL injection See Instructions, Use w omnipod dixie, Howie Pruett, 0 Refills, Maintenance, 08/03/24 16:03:00 EST 08/03/2024 lidocaine (LIDODERM) 5 % patch 08/04/2024 lisinopril (PRINIVIL,ZESTRI L) 40 mg tablet Take 1 tablet (40 mg total) by mouth 1 (one) time each day. 04/25/2024 loratadine (CLARITIN) 10 mg tablet Take 1 tablet (10 mg total) by mouth 1 (one) time each day. 04/25/2024 Lyrica 150 mg capsule Take 1 capsule (150 mg total) by mouth 2 (two) times a day. 04/25/2024 nortriptyline (PAMELOR) 25 mg capsule Take 1 capsule (25 mg total) by mouth. 04/25/2024 nortriptyline (PAMELOR) 75 mg capsule Take 1 capsule (75 mg total) by mouth at bedtime. 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 We will look ahead to get another date for the procedure. documented in this encounter Procedure Notes * Jaylene Manning RN - 10/20/2024 10:21 AM EST RAN BROOKE [phone] documented in this encounter Plan of Treatment Not on file documented as of this encounter Procedures Procedure Name Priority Date/Time Associated Diagnosis Comments POCT GLUCOSE BLOOD Routine 10/20/2024 9: 50 AM EST documented in this encounter Results * (ABNORMAL) POCT Glucose, blood (10/20/2024 9:50 AM EST) Glucose POCT 138(H) 70 - 100 mg/dL 10/20/2024 9:51 AM EST [facility] Blood Capillary blood specimen / Unknown 10/20/2024 9:50 AM EST 10/20/2024 9:52 AM EST Colette Willett MD LAB POINT OF CARE TE ST DOCKED DEVICE UNSOLICITED RESULTS Final Result [facility] [address] [place] [address], documented in this encounter Visit Diagnoses Diagnosis [...] may reflect changes made after this encounter. tirzepatide (Mounjaro) 5 mg/0.5 mL injection Inject 0.5 mL (5 mg total) under the skin every 7 (seven) days. insulin lispro (HumaLOG) 100 UNIT/ML patient supplied pump 1 EA by continuous sub-Q infusn (via wearable injector) route continuously. added in this encounter Active and Recently [...] 025 documented in this encounter Care Teams Industry Operations Investigator Relationship Specialty Start Date End Date Jose Angel Perry MD [address] [place] [phone] PCP - General 04/11/24 documented as of this encounter
--- OUTSIDE RECORDS SUMMARY | 2024-11-17 12:40 | XMS_ITS | Encounter Summary ---
Author Organization [facility] Address [address] [place] [address] Phone Care Team Providers Care Scaling Machine Operator Name Role Phone Jose Angel Perry MD Primary Care Provider Encounter Details Date Type Department Care Team (Late Contact Info) Description 06/16/2022 Documentation Only [facility] [address] [place] [address] Og Weber MD [address] [place] [address] [place] [address] Social History Tobacco Use Types [...] Visit [facility] [address] [place] [address] Denis Gutierrez MD [address] [facility] [place] [address] documented as of this encounter Visit Diagnoses Not on filedocumented in this encounter Care Teams Scaling Machine Operator Relationship Specialty Start Date End Date Jose Angel Perry MD [address] PCP - General 08/02/19 documented as of this encounter
--- OUTSIDE RECORDS SUMMARY | 2024-11-17 12:40 | XMS_ITS | Encounter Summary ---
Author Organization [facility] Address [address] [place] [address] Phone Care Team Providers Care Hoop Cutter Name Role Phone Jose Angel Perry MD Primary Care Provider Encounter Details Date Type Department Care Team (Late st Contact Info) Description 09/25/2023 Documentation Only [facility] [address] [place] [phone] Sha Chaudhry PA Social History Tobacco Use Types Packs/Day Years [...] Visit [facility] [address] [place] [phone] Denis Gutierrez MD [address] [place] [address] [place] [phone] documented as of this encounter Visit Diagnoses Not on filedocumented in this encounter Care Teams Hoop Cutter Relationship Specialty Start Date End Date Jose Angel Perry MD [address] PCP - General 08/02/19 documented as of this encounter
--- OUTSIDE RECORDS SUMMARY | 2024-11-17 12:40 | XMS_ITS ---
Author Organization [facility] Address [address] [place] [address] Care Team Providers Care Wellness Manager Name Role Phone Sandro SRIVASTAVA, Juice Primary Care Provider Unavail able Frances Duncan Unavailable [phone] Allergies No Known Allergies REASON FOR VISIT At Risk Footcare, Skin problem(s) Medications Medication SIG (Take, Route, Frequency, Duration) Notes Start Date End Date Status Lisinopril Active Clopidogrel Bisulfate Active Carvedilol Active NIFEdipine Not-Takin g Doxazosin Mesylate 4 MG 1 tablet Orally Once a day Active Jardiance Active Vitamin D3 Active Nortriptyline HCl Ac tive Furosemide Active Insulin Lispro Activ e Loratadine Active Ventolin HFA Active Social History Tobacco Use: Social History Observation Description Date Details (start date - stop date) Former Smoker NA - NA Tobacco use other than smoking: Question Answer Notes Are you an other tobacco user? No Tobacco Control (Standard) Question Answer Notes Tobacco use: Former smoker Additional Findings: Tobacco non-user Ex-cigaret te smoker AUDIT-C (Standard) Question Answer Notes Did you have a drink containing alcohol in the p ast year? No Points 0 Interpretation Negative Vital Signs Height 5ft 7in in 09/08/2024 Weight 202 lbs 09/08/2024 BMI 31.63 kg/m2 09/08/2024 Blood pressure systolic 0120 mm Hg 09/08/20 24 Blood pressure diastolic 77 mm Hg 024 Encounters Encounter Location Date Provider Diagnosis [facility] [address] [address] 09/08/2024 Frances Duncan Xerosis of skin L85. 3 ; Type 2 diabetes mellitus with diabetic polyneuropathy E11.42 and Tinea unguium B35.1 Assessments Encounter Date Diagnosis (ICD Code) Assessment Notes Treatment Notes Treatment Clinical Notes Section Notes 09/08/2024 Xerosis of skin (ICD-10 - L85.3) 09/08/2024 Type 2 diabetes mellitus with diabetic polyneuropathy (ICD-10 - E11.42) 09/08/2024 Tinea unguium (ICD-10 - B35.1) Plan Of Treatment Next Appt Details Follow Up: 3 Months, Reason: Provider Name:Frances burciaga, 11/17/2024 03:00:00 PM, [address] [facility], [place], [address], Procedure Notes * Category Sub-Category Detail Notes Keratoma Treatment Parring or Cutting o f Benign Hyperkeratotic Lesion(s) (-56) 2-4 Lesions - Due to the at risk nature of the patients medical condition as documented in the exam findings, performance of this keratoderma treatment is medically necessary as its management by an unskilled/untrained nonprofessional would put this patients foot and overall health at risk. Therefore, the benign hyperkeratotic lesions, ( 4 ) in total, locations as stated and described in the exam, were pared, and/or cut utilizing a sterile 15 blade, tissue nippers, and/or power dremel instrumentation by the physician of record - 23632 Debride Nails 1-5 Procedure: Performance of this nail treatment by a nonprofessional would put this patients foot and overall health at risk. Therefore, nail debridement was performed extensively to reduce/remove overall nail length, girth, thickness, subungual debris, and necrotic tissue, by manual and/or electrical means through the use of a nail nipper and/or dremel-type snuff grinder and screener, to a more viable healthy nail plate or bed tissue 1-5. Silver nitrate used for any petechial bleeding as necessary. Definitive antifungal treatment options have been reviewed and discussed with the patient. The patient chooses, no pharmaceutical tx - 19376 Nail Reduction Nail Reduction (-27) Trimming o f dystrophic nails performed to reduce/remove overall nail length and girth, by manual and electrical means with use of a nail nipper and/or dremel, to more viable healthy nail plate or bed tissue, any number - G0127 Progress Notes * Sang LESTER ADOB:1959 (64 yo M)Acc No.[id number]:09/08/2024 Progress Note Patient:?Sang LESTER Provider:?Frances Duncan DPM :1960???Age:64 Y???Sex:Male Price e:09/08/2024 Address:[address] [place] [address] [place], [facility] Pcp:Juice Jo MD Subjective: * Chief Complaints: * ???At Risk FootcareSkin prob jamil(s) * HPI: ???At Risk footcare:?Pt States Last PCP Visit:?Date?08/10/2024 ???Skin problems:?Nature:?dryness , scaling.?Location:?B/L .?Duration:?several days.?Course:?worse.? * ROS:?General/Constitutional:?Nausea?denies.?Vomiting?denies.?Hunger Thirst?denies.?Loss appetite?denies.?Chills?denies.?Fatigue?denies.?Fever?denies.?Night Sweats?denies.?Unexplained weight loss?denies.?Unexplained weight gain?denies.?HEENTM:?Dentures?denies.?Dizziness?denies.?Glasses/contacts?admits.?Retinopathy?den ies.?Blurred/double vision?denies.?TMJ?denies.?Discharge/drainage?denies.?Implants?denies.?Sore throat?denies.?Dental implants?denies.?Hard of hearing ?denies.?Difficulty chewing/swallowing/speaking?denies.?Nose bleeds?denies.?Sore mouth?denies.?Respiratory:?On O xygen?denies.?Pneumonia/pleurisy?denies.?Bronchitis?denies.?Emphysema?denies.?Co ughing?denies.?Cough blood?denies.?Shortness of breath?admits.?Wheezing?denies.?Cardiovascular:?Pacemaker?denies.?MVP?denies.?WPW?denies.?CHF?denies.?Heart attack?denies.?Septal defect?denies.?Rapid beat?denies.?Chest pain ?denies.?Atrial Fib.?denies.?Murmur/Palpitations?denies.?Gastrointestinal:?Hemorrhoids?denies.?Stomach/Abdominal pain?denies.?Dark blood stool?denies.?Irritable bowel ?denies.?Constipation?denies.?Diarrhea?denies.?Hematology:?Swelling?denies.?Clots?denies.?Varicose Veins?denies.?Bruising?denies.?Bleeding problem?denies.?Genitourinary:?Blood urine?denies.?Frequent/Painfu/urination/bladder control?denies.?Kidney stones?denies.?Infection (UTI)?denies.?Nephropathy?denies.?sex trans dis (STD)?denies.?Prostate?denies.?Musculoskeletal:?Hammertoes?denies.?Bunions?denies.?Back Pain?denies.?Muscle Cramps/ Resting?denies.?Muscle cramps / walking?denies.?Generalized aches and pains?denies.?Weakness?denies.?Integ.:?Nicole?denies.?Scars?denies.?Corns/calluses?denies.?Ingrown nails?denies.?Painful nails?admits.?Open Sores?denies.?Rashes?denies.?Neurologic:?Difficulty sleeping?admits.?Brain disorder?denies.?Numbness?admits.?Balance t rouble?admits.?Confusion?denies.?Fainting/blackouts?denies.?Tingling?admits.?Ja mors?denies.? * Medical History:? * Surgical History:?true rich jagdeep surgery 2022 * Hospitalization/Major Diagno stic Procedure:?Denies Past Hospitalization * Family History:?Mother: dece ased, diabetes, arthritis, stroke, kidney/liver disease, high blood pressure, poor circulation.?Father: .?Maternal Grand Mother: diabetes.? * Social History:?Tobacco Use:?Tobacco use other than smoking?Are you an other tobacco user??No ?Tobacco Control (Standard)?Tobacco use:?Former smoker ?Additional Findings: Tobacco non-user?Ex-cigarette smoker ???Drugs/Alcohol:?Drugs?Have you used drugs other than those for medical reasons in the past 12 months??No ???Miscellaneous:?Caffeine: yes, frequency:, 2-3 cups per day. ?Children: yes. ?Exercise: no. ?Marital status: single. ?Occupation: Disabled. ???Drug/Alcohol:?AUDIT-C (Standard)?Did you have a drink containing alcohol in the past year??No ?Points?0 ?Interpretation?Negative * Medications:?TakingLoratadin e Ventolin HFA Insulin Lispro Jardiance Nortriptyline HCl Vitamin D3 Furosemide Lisinopril Carvedilol Clopidogrel Bisulfate Doxazosin Mesylate 4 MG Tablet 1 tablet Orally Once a day Taking Loratadine Taking Ventolin HFA Taking Insulin Lispro Taking Jardiance Taking Nortriptyline HCl Taking Vitamin D3 Taking Furosemide Taking Lisinopril Taking Carvedilol Taking Clopidogrel Bisulfate Taking Doxazosin Mesylate 4 MG Tablet 1 tablet Orally Once a day Not-Taking/PRNNIFEdipine Medication List reviewed and reconciled with the patientNot-Taking/PRN NIFEdipine Medication List reviewed and reconciled with the patient * Allergies:?N.K.D.A.yes[Aller gies Verified] Objective: * Vitals:?Ht: 5ft 7in, Wt:202, BMI:31.63, Shoe size: 9.5, BP:0120/77mm Hg, BS: 260, Ht-cm: 170.18 cm, Wt-k.63 kg. * ???Past Orders: ???Lab:HEMOGLOBIN A1C (GLYCO HEMOGLOBIN) (Order Date - 06/30/2024) (Collection Date & Time - 06/30/2024 01:00 PM) ? Value Reference Range ?TOTAL HEMOGLOBIN (HGBA1C) 8 * Examination: ???Ophthalmology Referral: ?DIABETES EYE EXAM?Dermatologic: ?SKIN FINDINGS:?Skin shows sign(s) of, dryness, scaling, in a stocking fashion, no fissure(s) present, B/L, Skin exam reveals Keratotic lesion(s) located at, Medial plantar, TA, T5, Plantar Heel(s), B/L.?Neurological: ?SENSORY:?Neurological exam demonstrates, reduced light touch sensation, reduced sharp/dull discrimination , reduced vibration sensation, in a stocking fashion, B/L, 5.07 monofilament test performed at plantar aspects of 5 varied sites per foot shows sensation, reduced, B/L , Pt relates , hyperesthesia , paresthesia , shooting/radiating sensation , pins and needles sensation , B/L.?Nails: ?NAILS are:?Elongated, overgrown, dystrophic, lytic, greater than 3mm thick, discolored and friable with crumbly malodorous subungual debris , TA , T5 , T9 , remaining nails are elongated, overgrown, dystrophic.?Orthopedic: ?MUSCLE STRENGTH:?5/5 all groups in a symmetrical fashion, B/L.?FOOTWEAR:?fair condition.?Vascular: ?DP PULSES (B):?3/4, B/L.?PT PULSES (B):?3/4, B/L.?CAPILLARY FILL TIME:?immediate, all digits, B/L.?TROPHIC CONDITION-TEXTURE/ELASTICITY/TURGOR/HAIR GROWTH (B):?normal, B/L.?TEMPERTURE GRADIENT (C):?normal, warm to cool, proximal to distal, B/L, B/L.?General Examination: ?GENERAL APPEARANCE:?Reveals a pleasant, alert, well nourished, well- developed, well hydrated individual, who demonstrates proper attention to hygiene/body habitus, and is in no acute distress, Pt serves as own historian for office visit today.?ORIENTED:?person, place, and time.?FOOT EXAM:?Footwear Evaluation? Assessment: * Assessment: 1.?Type 2 diabetes mellitus with diabetic polyneuropathy - E11.42???2.?Xerosis of skin - L85.3 (Primary)???Specify :Acute problem, Uncomplicated (3),Rx Management (4)???3.?Tinea unguium - B35.1??? Plan: * Treatment: * Procedures:?Debride Nails 1-5:?Procedure:?Performance of this nail treatment by a nonprofessional would put this patients foot and overall health at risk. Therefore, nail debridement was performed extensively to reduce/remove overall nail length, girth, thickness, subungual debris, and necrotic tissue, by manual and/or electrical means through the use of a nail nipper and/or dremel-type snuff grinder and screener, to a more viable healthy nail plate or bed tissue 1-5. Silver nitrate used for any petechial bleeding as necessary. Definitive antifungal treatment options have been reviewed and discussed with the patient. The patient chooses, no pharmaceutical tx - 27714.?Keratoma Treatment:?Parring or Cutting of Benign Hyperkeratotic Lesion(s)?(-56) 2-4 Lesions - Due to the at risk nature of the patients medical condition as documented in the exam findings, performance of this keratoderma treatment is medically necessary as its management by an unskilled/untrained nonprofessional would put this patients foot and overall health at risk. Therefore, the benign hyperkeratotic lesions, ( 4 ) in total, locations as stated and described in the exam, were pared, and/or cut utilizing a sterile 15 blade, tissue nippers, and/or power dremel instrumentation by the physician of record - 89330.?Nail Reduction:?Nail Reduction?(-27) Trimming of dystrophic nails performed to reduce/remove overall nail length and girth, by manual and electrical means with use of a nail nipper and/or dremel, to more viable healthy nail plate or bed tissue, any number - G0127.? * Procedure Codes:?46534 DEBRI DE NAIL, 1-5, Modifiers: XS G0127 TRIMMING DYSTROPHIC NAILS ANY #, Modifiers: XS 72548 TRIM SKIN LESIONS, 2 TO 4, Modifiers: XS * Preventive Medicine:? ??Counseling:?Discussion:?-13: Office or other outpatient visit for the evaluation and management of an established patient, which required a medically appropriate history and/or examination and LOW level of DECISION MAKING for: 1 STABLE ACUTE UNCOMPLICATED PROBLEM, 2 OR MORE MINOR PROBLEMS, OR 1 STABLE CHRONIC PROBLEM, THAT POSE(S) A LOW RISK FOR MORBIDITY/MORTALITY. The visit on the day of the encounter encompassed interpreting the data and educating the patient as to the nature of their condition, treatment options available according to their individual PMH, meds, allergies, and overall health/living conditions, as well as any potential risks or complications that may occur from a failure to adhere to, and participate in, the recommended course of therapy. The discussion included a complete verbal, and/or written explanation of the examination results, any x-rays taken, the proposed diagnosis, and outline of the treatment plan. A schedule for future care needs was also explained. The patient verbalized an understanding of the instructions at this time and agreed to be an active participant in their treatment. If the patient should think of any questions or concerns after the visit, I have encouraged the patient to call the office.?Xerosis:?The patient was counseled on the diagnosis, potential etiologies, and treatment options for their skin condition. We discussed the risks and benefits of each option from performing no treatment, to utilizing OTC topical skin creams/ointments, to utilizing prescription topical creams/ointments, to utilizing customized compounded topical medications and use of nocturnal occlusion with any/all previously detailed therapies. We discussed the advantages and disadvantages of each possible treatment and importance for adherence to all the recommended therapies for optimum success and avoid potential complications such as open sore/infection/possible hospitalization. We discussed the potential effectiveness of each topical preparation as well as each ones possible side effects and/or patient medication interactions. Patient questions re: use, dosage, successful outcomes, and application consistency were reviewed and the patient verbalized that all answers were clearly understood, Recom. Gold Bonds for Diabetics.? ??Screening/Special Tests:?Fall Risk?Assessment:?Performed ?Screening:?No falls in the past year ?FALLS: Screening for Future Fall Risk?Have you had two or more falls in the past year??No ?Have you had any falls with injury in the past year??No * Follow Up:?3 Months * Images: * Sign off status: Completed true * Provider:?Frances Duncan DPM Date:?08/2024 Generated for Matias zavala/Kacy/Kolby on:?11/17/2024 12:40 PM EST History and Physical Notes * HPI (History of Present Illness) Category Sub-Category Detail Notes Category Not es Skin problems Nature: dryness , scaling Location: B/L Duration: several days Course: worse At Risk footcare Pt States Last PCP Visit: Date: 4 Examination Category Sub-Category Detail Notes Category Not es Neurological SENSORY: Neurological exa m demonstrates, reduced light touch sensation, reduced sharp/dull discrimination , reduced vibration sensation, in a stocking fashion, B/L, 5.07 monofilament test performed at plantar aspects of 5 varied sites per foot shows sensation, reduced, B/L , Pt relates , hyperesthesia , paresthesia , shooting/radiating sensation , pins and needles sensation , B/L Dermatologic SKIN FINDINGS: Skin shows sign( s) of, dryness, scaling, in a stocking fashion, no fissure(s) present, B/L, Skin exam reveals Keratotic lesion(s) located at, Medial plantar, TA, T5, Plantar Heel(s), B/L Orthopedic FOOTWEAR: fair condition MUSCLE STRENGTH: 5/5 all groups in a symmetrical fashion, B/L General Examination GENERAL APPEARANCE: Reveals a pleasant, alert, well nourished, well-developed, well hydrated individual, who demonstrates proper attention to hygiene/body habitus, and is in no acute distress, Pt serves as own historian for office visit today FOOT EXAM: Lower Extremity Neurological Exa m performed:: Yes Visual exam of foot performed:: Yes Date: 09/08/2024 ORIENTED: person, place, and t mee Footwear Evaluation Footwear Evaluation performe d:: Yes Ophthalmology Referral DIABETES EYE EXAM Procedure Perform ed:: Yes ?Date of Exam Performed: 07/20/2024 Diabetic Retinopathy Screening:: Yes Findings of Diabetic Eye Exam:: retinopa thy Vascular DP PULSES (B): 3/4, B/L PT PULSES (B): 3/4, B/L CAPILLARY FILL TIME: immediate, all digi ts, B/L TEMPERTURE GRADIENT (C): normal, warm to cool, proximal to distal, B/L, B/L TROPHIC CONDITION-TEXTURE/ELASTICITY/TURGOR/HAIR GROWTH (B): normal, B/L Nails NAILS are: Elongated, overg rown, dystrophic, lytic, greater than 3mm thick, discolored and friable with crumbly malodorous subungual debris , TA , T5 , T9 , remaining nails are elongated, overgrown, dystrophic
--- OUTSIDE RECORDS SUMMARY | 2024-11-17 12:40 | XMS_ITS | Patient Health Record ---
Author [facility] Address [address] [facility] [address] Care Team Providers Care Counselor Manager Name Role Phone Sandro SRIVASTAVA, Juice Primary Care Provider Unavail able Frances Duncan Unavailable [phone] Allergies No Known Allergies Results Component Value Reference Range Notes HEMOGLOBIN A1C (GLYCOHEMOGLO BIN) Reviewed date:06/30/2024 01:01:05 PM Interpretation: Performing Lab: Notes/Report: TOTAL HEMOGLOBIN (HGBA1C) 8 Reason For Referral No Information Medications Medication SIG (Take, Route, Frequency, Duration) Notes Start Date End Date Status Jardiance Active Vitamin D3 Active Nortriptyline HCl Ac tive Lisinopril Active Furosemide Active Clopidogrel Bisulfate Active Carvedilol Active Loratadine Active NIFEdipine Not-Takin g Doxazosin Mesylate 4 MG 1 tablet Orally Once a day Active Insulin Lispro Activ e Ventolin HFA Active Social History Tobacco Use: [...] ast year? No Points 0 Interpretation Negative Problems Problem Type SNOMED Code ICD Code Onset Dates Problem Status W/U Status Risk Notes Problem Polyneuropathy due to type 2 diabetes mellitus (268223245) Type 2 diabetes mellitus with diabetic polyneuropathy (E11.42) Active confirmed Problem [id number] Neuropathy (G62.9) Active confirmed Vital Signs Blood pressure diastolic 77 mm Hg 09/08/2024 Height 5ft 7in in 09/08/2024 Blood pressure systolic 0120 mm Hg 09/08/2024 Weight 202 lbs 09/08/2024 BMI 31.63 kg/m2 09/08/2024 Encounters Encounter Location Date Provider Diagnosis [address] [address] 06/30/2024 Frances Perla Type 2 diabetes mellitus with diabetic polyneuropathy E11.42 ; Neuropathic pain M79.2 ; Tinea unguium B35.1 and Neuropathy G62.[address] [address] 09/08/2024 Frances Perla Xerosis of skin L85. 3 ; Type 2 diabetes mellitus with diabetic polyneuropathy E11.42 and Tinea unguium B35.1 Assessments Encounter Date Diagnosis (ICD Code) Assessment Notes Treatment Notes Treatment Clinical Notes Section Notes 06/30/2024 Type 2 diabetes mellitus with diabetic polyneuropathy (ICD-10 - E11.42) 06/30/2024 Neuropathic pain (ICD-10 - M79.2) 09/08/2024 Type 2 diabetes mellitus with diabetic polyneuropathy (ICD-10 - E11.42) 09/08/2024 Xerosis of skin (ICD-10 - L85.3) 06/30/2024 Tinea unguium (ICD-10 - B35.1) 09/08/2024 Tinea unguium (ICD-10 - B35.1) 06/30/2024 Neuropathy (ICD-10 - G62.9) Plan Of Treatment Next Appt Details Provider Name:Frances burciaga, 11/17/2024 03:00:00 PM, [address] [place] [address], [phone], Insurance Providers Payer Name Payer Address Payer Phone Subscriber Number Group Number Insured Name Patient Relationship to Insured Coverage Start Date Coverage End Date [facility] [employer] Claims [address] [place] [id number] Sang Lester Self - patient is the insured Medical (General) History Medical History History ICD Code asthma Diabetic Headaches/Migraines High Blood Pressure Liver disease Chicken pox Carpal tunnel Surgical History Surgery Date(Month/Year) carpal tunnel surgery 2022
--- OUTSIDE RECORDS SUMMARY | 2024-11-17 12:40 | XMS_ITS | Encounter Summary ---
Author Organization [facility] Address [address] [place] [address] Care Team Providers Care Fountain Attendant Name Role Phone Jose Angel Perry MD Primary Care Provider Reason for Visit * Auth/Cert (Routine) Specialty Diagnoses / Procedures Referred By Amparo ramirez Referred To Contact Diagnoses Right carpal tunnel syndrome Trigger middle finger of right hand RIGHT CARPAL TUNNEL SYNDROME,TRIGGER MIDDLE FINGER RIGHT Procedures [place] NEUROPLASTY/TRANSPOSITION MEDIAN NERVE AT CARPAL TUNNEL [place] INCISION TENDON SHEATH RELEASE CARPAL TUNNEL RIGHT RELEASE TRIGGER FINGER RIGHT [facility] Colette Willett MD [address] [facility] [address] [place] [address] Phone: tel: fax: [facility] [place] [address] [place] [address] Phone: tel: Referral ID Status Reason Start Date Expiration Date Visits Re quested Visits Authorized [id number] 1 1 Encounter Details Date Type Department Care Team (Late st Contact Info) Description 10/20/2024 10:47 AM EST Anesthesia Event [facility] [place] [address] [place] [address] Sravanthi Chery MD [address] [place] [address] Anesthesia Record Procedure Summary Procedure Name Responsible [...] AM EST documented as of this encounter Progress Notes * Sravanthi Chery MD - 10/19/2024 2:08 PM EST 64 y.o. male scheduled for [[place] NEUROPLASTY/TRANSPOSITION MEDIAN NERVE AT CARPAL TUNNEL *] [...] plavix- case postponed; in interim will see station superintendent (due shortly) Cad s/p stent 2 years ago, silent [place] (Sees station superintendent yearly- no recent changes-walks thru large grocery [...] on file documented as of this encounter Visit Diagnoses Not on filedocumented in this encounter Care Teams Fountain Attendant Relationship Specialty Start Date End Date Jose Angel Perry MD [address] [place] [phone] PCP - General 04/11/24 documented as of this encounter
--- OUTSIDE RECORDS SUMMARY | 2024-11-17 12:40 | XMS_ITS ---
[facility] Organization [facility] Address [address] [place] [address] Care Team Providers Care Hog Pusher Name Role Phone Sandro SRIVASTAVA, Juice Primary Care Provider Unavail able Frances Duncan Unavailable [phone] Allergies No Known Allergies REASON FOR VISIT At Risk Footcare Medications Medication SIG (Take, Route, Fr equency, Duration) Notes Start Date End Date Status Loratadine Active Doxazosin Mesylate 4 MG 1 tablet Orally Once a day Active Clopidogrel Bisulfate Active Carvedilol Active Lisinopril Active NIFEdipine Active Furosemide Active Vitamin D3 Active Nortriptyline HCl Ac tive Jardiance Active Insulin Lispro Activ e Ventolin HFA Active Social History Tobacco Use: Social History Observation Description Date Details (start date - stop date) Former Smoker NA - NA Tobacco Use/Smoking Question Answer Notes Are you a: former smoker Additional Findings: Tobacco Non-User Ex-moderat e cigarette smoker (10-19/day) Alcohol Screen Question Answer Notes Did you have a drink containing alcohol in the p ast year? No Points 0 Interpretation Negative Tobacco use other than smoking: Question Answer Notes Are you an other tobacco user? No Problems Problem Type SNOMED Code ICD Code Onset Dates Problem Status W/U Status Risk Notes Problem Polyneuropathy due to type 2 diabetes mellitus (189421933) Type 2 diabetes mellitus with diabetic polyneuropathy (E11.42) Active confirmed Problem 346500269 Neuropathy (G62.9) Active confirmed Vital Signs Height 5ft 7in in 06/30/2024 Weight 211 lbs 06/30/2024 BMI 33.04 kg/m2 06/30/2024 Encounters Encounter Location Date Provider Diagnosis [facility] [address] [place] [address] 06/30/2024 Frances Duncan Type 2 diabetes mellitus with diabetic polyneuropathy E11.42 ; Neuropathic pain M79.2 ; Tinea unguium B35.1 and Neuropathy G62.9 Assessments Encounter Date Diagnosis (ICD Code) Assessment Notes Treatment Notes Treatment Clinical Notes Section Notes 06/30/2024 Type 2 diabetes mellitus with diabetic polyneuropathy (ICD-10 - E11.42) 06/30/2024 Neuropathic pain (ICD-10 - M79.2) 06/30/2024 Tinea unguium (ICD-10 - B35.1) 06/30/2024 Neuropathy (ICD-10 - G62.9) Plan Of Treatment Next Appt Details Follow Up: 2 Months, Reason: Provider Name:Frances burciaga, 11/17/2024 03:00:00 PM, [address] [facility], [place], [address], Procedure Notes * Category Sub-Category Detail Notes Debride Nails 1-5 Procedure: Performance of this nail treatment by a nonprofessional would put this patients foot and overall health at risk. Therefore, nail debridement was performed extensively to reduce/remove overall nail length, girth, thickness, subungual debris, and necrotic tissue, by manual and/or electrical means through the use of a nail nipper and/or dremel-type universal grinder tool, to a more viable healthy nail plate or bed tissue 1-5. Silver nitrate used for any petechial bleeding as necessary. Definitive antifungal treatment options have been reviewed and discussed with the patient. The patient chooses, no pharmaceutical tx - 11915 Nail Reduction Nail Reduction (-27) Trimming o f dystrophic nails performed to reduce/remove overall nail length and girth, by manual and electrical means with use of a nail nipper and/or dremel, to more viable healthy nail plate or bed tissue, any number - G0127 Progress Notes * Sang LESTER ADOB:1959 (64 yo M)Acc No.[id number]:06/30/2024 Progress Notes Patient:?Sang Lester Provider:?Frances Duncan DPM :1960???Age:64 Y???Sex:Male Price e:06/30/2024 Address:[address], [place], [place] Pcp:Juice Jo MD Subjective: * Chief Complaints: * ???At Risk Footcare * HPI: ???At Risk footcare:?Pt States Last PCP Visit:?Date?09/29/2023 ???Toe pain:?Location:?B/L feet.?Duration:?several years.?Course:?worse.?Aggravated by:?shoes, any pressure.?Treatments:?change in shoes.? * ROS:?General/Constitutional:?Nausea?denies.?Vomiting?denies.?Hunger Thirst?denies.?Loss appetite?denies.?Chills?denies.?Fatigue?denies.?Fever?denies.?Night Sweats?denies.?Unexplained weight loss?denies.?Unexplained weight gain?denies.?HEENTM:?Dentures?denies.?Dizziness?denies.?Glasses/contacts?admits.?Retinopathy?de nies.?Blurred/double vision?denies.?TMJ?denies.?Discharge/drainage?denies.?Implants?denies.?Sore throat?denies.?Dental implants?denies.?Hard of hearing ?denies.?Difficulty chewing/swallowing/speaking?denies.?Nose bleeds?denies.?Sore mouth?denies.?Respiratory:?On Oxygen?denies.?Pneumonia/pleurisy?denies.?Bronchitis?denies.?Emphysema?denies.?C oughing?denies.?Cough blood?denies.?Shortness of breath?admits.?Wheezing?denies.?Cardiovascular:?Pacemaker?denies.?MVP?denies.?WPW?denies.?CHF?denies.?Heart attack?denies.?Septal defect?denies.?Rapid beat?denies.?Chest pain ?denies.?Atrial Fib.?denies.?Murmur/Palpitations?denies.?Gastrointestinal:?Hemorrhoids?denies.?Stomach/Abdominal pain?denies.?Dark blood stool?denies.?Irritable bowel ?denies.?Constipation?denies.?Diarrhea?denies.?Hematology:?Swelling?denies.?Clots?denies.?Varicose Veins?denies.?Bruising?denies.?Bleeding problem?denies.?Genitourinary:?Blood urine?denies.?Frequent/Painfu/urination/bladder control?denies.?Kidney stones?denies.?Infection (UTI)?denies.?Nephropathy?denies.?sex trans dis (STD)?denies.?Prostate?denies.?Musculoskeletal:?Hammertoes?denies.?Bunions?denies.?Back Pain?denies.?Muscle Cramps/ Resting?denies.?Muscle cramps / walking?denies.?Generalized aches and pains?denies.?Weakness?denies.?Integ.:?Nicole?denies.?Scars?denies.?Corns/calluses?denies.?Ingrown nails?denies.?Painful nails?denies.?Open Sores?denies.?Rashes?denies.?Neurologic:?Difficulty sleeping?admits.?Brain disorder?denies.?Numbness?denies.?Balance trouble?admits.?Confusion?denies.?Fainting/blackouts?denies.?Tingling?admits.?Tr emors?denies.? * Medical History:? * Surgical History:?carpal layla jagdeep surgery 2022 * Hospitalization/Major Diagno stic Procedure:?No Hospitalization History. * Family History:?Mother: dece ased, diabetes, arthritis, stroke, kidney/liver disease, high blood pressure, poor circulation.?Father: .?Maternal Grand Mother: diabetes.? * Social History:?Tobacco Use:?Tobacco Use/Smoking?Are you a:?former smoker ?Additional Findings: Tobacco Non-User?Ex-moderate cigarette smoker (10-19/day) ?Tobacco use other than smoking?Are you an other tobacco user??No ???Drugs/Alcohol:?Drugs?Have you used drugs other than those for medical reasons in the past 12 months??No ?Alcohol Screen?Did you have a drink containing alcohol in the past year??No ?Points?0 ?Interpretation?Negative ???Miscellaneous:?Children: yes. ?no Exercise. ?Marital status: single. ?Occupation: Disabled. * Medications:?TakingLoratadin e Ventolin HFA Insulin Lispro Jardiance Nortriptyline HCl Vitamin D3 Furosemide NIFEdipine Lisinopril Carvedilol Clopidogrel Bisulfate Doxazosin Mesylate 4 MG Tablet 1 tablet Orally Once a dayMedication List reviewed and reconciled with the patientTaking Loratadine Taking Ventolin HFA Taking Insulin Lispro Taking Jardiance Taking Nortriptyline HCl Taking Vitamin D3 Taking Furosemide Taking NIFEdipine Taking Lisinopril Taking Carvedilol Taking Clopidogrel Bisulfate Taking Doxazosin Mesylate 4 MG Tablet 1 tablet Orally Once a dayMedication List reviewed and reconciled with the patient * Allergies:?N.K.D.A.yes[Aller gies Verified] Objective: * Vitals:?Ht: 5ft 7in, Wt:211, BMI:33.04, Shoe size: 9.5, BS: did not test, Ht-cm: 170.18 cm, Wt-k.71 kg. * ???Past Orders: ???Lab:HEMOGLOBIN A1C (GLYCO HEMOGLOBIN) (Order Date - 06/30/2024) (Collection Date - 06/30/2024) ? Value Reference Range ?TOTAL HEMOGLOBIN (HGBA1C) 8 * Examination: ???Ophthalmology Referral: ?DIABETES EYE EXAM?Neurological: ?SENSORY:?Neurological exam demonstrates, reduced light touch sensation, [...] T9 , remaining nails are elongated, overgrown, dystrophic.?Dermatologic: ?SKIN FINDINGS:?Skin exam reveals normal color, texture, elasticity, and turgor. There are no masses, nor excrescences. The interspaces are clear, B/L.?Orthopedic: ?MUSCLE STRENGTH:?5/5 all groups in a symmetrical fashion, B/L.?Vascular: ?DP PULSES(B):?3/4, B/L.?PT PULSES(B):?3/4, B/L.?CAPILLARY FILL TIME:?immediate, all digits, B/L.?TROPHIC CONDITION-TEXTURE/ELASTICITY/TURGOR/HAIR GROWTH(B):?normal, B/L.?TEMPERTURE GRADIENT(C):?normal, warm to cool, proximal to distal, B/L, B/L.?General Examination: ?GENERAL APPEARANCE:?Reveals a pleasant, alert, well nourished, well- developed, well hydrated individual, who demonstrates proper attention to hygiene/body habitus, and is in no acute distress, Pt serves as own historian for office visit today.?ORIENTED:?person, place, and time.? Assessment: * Assessment: 1.?Type 2 diabetes mellitus with diabetic polyneuropathy - E11.42?2.?Neuropathic pain - M79.2 (Primary)?3.?Tinea unguium - B35.1?4.?Neuropathy - G62.9? Plan: * Treatment: * Procedures:?Debride Nails 1-5:?Procedure:?Performance of this nail treatment by a nonprofessional would put this patients foot and overall health at risk. Therefore, nail debridement was performed extensively to reduce/remove overall nail length, girth, thickness, subungual debris, and necrotic tissue, by manual and/or electrical means through the use of a nail nipper and/or dremel-type universal grinder tool, to a more viable healthy nail plate or bed tissue 1-5. Silver nitrate used for any petechial bleeding as necessary. Definitive antifungal treatment options have been reviewed and discussed with the patient. The patient chooses, no pharmaceutical tx - 37512.?Nail Reduction:?Nail Reduction?(-27) Trimming of dystrophic nails performed to reduce/remove overall nail length and girth, by manual and electrical means with use of a nail nipper and/or dremel, to more viable healthy nail plate or bed tissue, any number - G0127.? * Procedure Codes:?G0127 JOSÉ MIGUEL ING DYSTROPHIC NAILS ANY #, Modifiers: XS 82707 DEBRIDE NAIL, 1-5, Modifiers: XS * Preventive Medicine:? ??Counseling:?Discussion:?-04: Office or other outpatient visit for the evaluation and management of a new patient, which required a medically appropriate history and/or examination and MODERATE level of DECISION MAKING for: 1 OR MORE CHRONIC PROBLEM(S) THATS WORSENING, 2 STABLE CHRONIC PROBLEMS, A NEWLY DIAGNOSED PROBLEM WITH UNCERTAIN PROGNOSIS, AN ACUTE COMPLICATED INJURY WITH MULTIPLE TREATMENT OPTIONS, OR AN ACUTE PROBLEM WITH ACCOMPANYING SYSTEMIC SYMPTOMS, THAT POSE(S) A MODERATE RISK OF MORBIDITY. THIS CONDITION MAY ALSO INCLUDE RX DRUG MANAGEMENT, OR A DECISON FOR MINOR SURGERY. The visit on the day of the [...] have encouraged the patient to call the office.?Diabetic Footcare:?The patient was advised against future self nail/callus care due to inherent risks for infection, loss of limb/life given diabetes, neuropathy.?Neuritis/Neuropathy:?The patient was counseled on the diagnosis, possible etiologies (including mechanical stress, injury, entrapment, chemotherapy, diabetes, vertebral disk herniation if hx), treatment options, and importance for adherence to recommendations in order to address the patients Neuritis/Neuropathy. The advantages and disadvantages re: Accomidative mechanical support/offloading, Topical vs PO analgesics including aspercream/Voltaren gel/Lidoderm patches/Neurontin/Lyrica along with their potential side effects were discussed with the patient to their satisfaction. Also discussed the use of therapeutic injectable cortisone if needed. Surgical treatment, if considered an option, was discussed as well. If surgery is warranted, we discussed the potential successful outcomes as well as the possible complications such as failure, painful scar, permanent tingling/numbness/neuralgea/or intractable pain. Patient questions re: medication use, dosage, and possible side effects and drug interactions were reviewed and the answers to each understood. If the condition worsens, the patient was instructed to contact the office for an appointment. The patient verbally confirmed a full understanding of the above, tight glycemic control.? * Follow Up:?2 Months * Images: * Sign off status: Completed true * Provider:?Frances Duncan, DPM Date:?11/2023 Generated for Printi ng/Faxing/eTransmitting on:?11/17/2024 12:40 PM EST History and Physical Notes * HPI (History of Present Illness) Category Sub-Category Detail Notes Category Not es Toe pain Location: B/L feet Duration: several years Course: worse Aggravated by: shoes, any pressure Treatments: change in shoes At Risk footcare Pt States Last PCP Visit: Date: Examination Category Sub-Category Detail Notes Category Not [...] sensation , B/L Dermatologic SKIN FINDINGS: Skin exam reveal s normal color, texture, elasticity, and turgor. There are no masses, nor excrescences. The interspaces are clear, B/L Orthopedic MUSCLE STRENGTH: 5/5 all groups in a symmetrical fashion, B/L General Examination GENERAL APPEARANCE: Reveals a pleasant, alert, well nourished, well-developed, well hydrated individual, who demonstrates proper attention to hygiene/body habitus, and is in no acute distress, Pt serves as own historian for office visit today ORIENTED: person, place, and t mee Ophthalmology Referral DIABETES EYE EXAM Diabetic Retinopa thy Screening:: Yes Vascular DP PULSES (B): 3/4, B/L PT [...]
--- OUTSIDE RECORDS SUMMARY | 2024-11-17 12:40 | XMS_ITS | Clinical Summary ---
Author Organization [facility] Address [address] [place] [address] Phone Care Team Providers Care Chef Manager Name Role Phone Jose Angel Perry MD Primary Care Provider Allergies Active Allergy Reactions Criticality Noted Date Comments Bupropion Other,Unknown 08/26/2021 Other Reaction(s): made him aggressive ??Pt denies Other reaction(s): made him aggressive Citalopram Other 08/26/2021 Other reaction(s): Other (see comments) pt denies Medications atorvastatin (LIPITOR) 80 mg tablet Take 1 tablet (80 mg total) by mouth 1 (one) time each day. 04/25/20 24 Active carvediloL (COREG) 25 mg tablet Take 1 tablet (25 mg total) by mouth 2 (two) times a day with meals. 04/25/20 24 Active cholecalcifero l (VITAMIN D-3) 25 mcg (1,000 unit) tablet Take 1 tablet (1,000 Units total) by mouth 1 (one) time each day. Active clopidogreL (PLAVIX) 75 mg tablet Take 1 tablet (75 mg total) by mouth 1 (one) time each day. 04/25/20 24 Active doxazosin (CARDURA) 4 mg tablet Take 1 tablet (4 mg total) by mouth daily. 01/24/20 23 Active fluticasone propionate (FLONASE) 50 mcg/actuation nasal spray Administer into affected nostril(s). 04/25/20 24 Active furosemide (LASIX) 20 mg tablet Take 1 tablet (20 mg total) by mouth. 01/27/20 24 Active Baqsimi 3 mg/actuation nasal spray given by endo , ?Yeni?? Matilda alternate nostrils In one nostril; dose does not need to be inhaled, 0 Refills, Maintenance, 08/03/24 15:59:00 EST 08/03/20 Active insulin lispro 100 unit/mL injection See Instructions, Use w omnipod Howie colin, 0 Refills, Maintenance, 08/03/24 16:03:00 EST 08/03/20 Active lidocaine (LIDODERM) 5 % patch 08/04/20 Active lisinopril (PRINIVIL,ZEST RIL) 40 mg tablet Take 1 tablet (40 mg total) by mouth 1 (one) time each day. 04/25/20 Active loratadine (CLARITIN) 10 mg tablet Take 1 tablet (10 mg total) by mouth 1 (one) time each day. 04/25/20 Active nortriptyline (PAMELOR) 75 mg capsule Take 1 capsule (75 mg total) by mouth at bedtime. 04/25/20 Active nortriptyline (PAMELOR) 25 mg capsule Take 1 capsule (25 mg total) by mouth. 04/25/20 24 025 Active Lyrica 150 mg capsule Take 1 capsule (150 mg total) by mouth 2 (two) times a day. 04/25/20 Active sucralfate (CARAFATE) 1 gram tablet Take 1 tablet (1 g total) by mouth. 04/25/20 Active tirzepatide (Mounjaro) 5 mg/0.5 mL injection Inject 0.5 mL (5 mg total) under the skin every 7 (seven) days. Active scopolamine (TRANSDERM-SCO P) 1 mg over 3 days patch 3 day Apply topically. 08/03/20 24 025 Discontinued Active Problems Problem Noted Date Diagnosed Date Neuropathy 10/18/2024 Neck pain on right side 10/18/2024 Right carpal tunnel syndrome 08/16/2024 Trigger middle finger of right hand 08/16/2024 Hypertension 04/11/2024 Diabetic neuropathy 06/25/2011 Encounters Date Type Department Care Team Description 10/20/2024 10:47 AM EST Anesthesia Event [facility] Main OR [address] [place] [address] Sravanthi Chery MD 10/20/2024 9:36 AM EST - 10/20/2024 11:59 PM EST Hospital Encounter [facility] Main OR [address] [place] [phone] Colette Willett MD Discharge Disposition: Home or Self Care 10/18/2024 9:30 AM EST Consult Orthopedic Surgery [facility] [address] [phone] Colette Willett MD Diabetic mononeuropathy associated with type 2 diabetes mellitus (CMS/HCC) (Primary Dx); Right carpal tunnel syndrome; Trigger middle finger of right hand 10/11/2024 Telephone Orthopedic Surgery [address] [phone] SampsonVenus kennedy Jacky 08/29/2024 1:00 PM EST - 08/29/2024 11:59 PM EST Hospital Encounter [facility] Neurodiagnostic [address] [place] [phone] Carpal tunnel syndrome, unspecified upper limb Discharge Disposition: Home or Self Care from Last 3 Months Immunizations Name Administration [...] Orientation Straight 07/31/2024 6: 17 AM EST Obstetrics History Last Filed Vital Signs Vital [...] 10/18/2024 9:18 AM EST Plan of Treatment Health Maintenance Due Date Last Done Comments Diabetes: Annual Foot Exam 1972 Diabetes: Annual Retina Eye Exam 1972 Hepatitis A Vaccines (3 of 3 - Hep A Twinrix risk 3-dose series) 03/11/2008 10/11/2007, 11/18/2006 Zoster Vaccines (1 of 2) 2012 Pneumococcal Vaccine: 50+ Years (2 of 2 - PCV) 07/19/2019 07/19/2018, 11/18/2006 Pneumococcal Vaccine: Pediatrics (0 to 5 Years) [...] patient's age to complete this topic Meningococcal B Vacine Aged Out No lo nger eligible based on patient's age to complete this topic RSV Immunization Patients Under 20 months Aged Out No longer eligible based on patient's age to complete this topic Varicella Vaccines Aged Out No longer eligible based on patient's age to complete this topic Medical Devices Implanted Type Area Redipper Device Identifier Shelf Expiration Date Model / [...] POCT Glucose, blood (10/20/2024 9:50 AM EST) Pathologist [facility] Glucose POCT 138(H) 70 - 100 mg/dL 10/20/2024 9:51 AM EST [facility] Blood Capillary blood specimen / Unknown 10/20/2024 9:50 AM EST 10/20/2024 9:52 AM EST us Colette Willett MD LAB POINT OF CARE TE ST DOCKED DEVICE UNSOLICITED RESULTS Final Result Performing Organization Address [facility]/ZIP Co de Phone Number [facility] [address] [place] [address], [place] [phone] * (ABNORMAL) Hemoglobin A1c (10/18/2024 9:54 AM EST) [facility] Hemoglobin A1C 7.0(H) <6.5 % LAB CHEMISTRY METHOD 10/18/2024 3:14 PM EST [facility] Mean Bld Glu Estim. 154 mg/dL LAB CHEMISTRY METHOD 10/18/2024 3:14 PM EST [facility] Blood Venous blood specimen / Unknown Venipuncture / Unknown 10/18/2024 9:54 AM EST 10/18/2024 9:54 AM EST us Colette Willett MD LAB BLOOD ORDERABLES Final Re sult [facility] [address] [place] [address], [place] [phone] * (ABNORMAL) Comprehensive metabolic panel (10/18/2024 9:54 AM EST) [facility] Sodium 135 133 - 145 mmol/L LAB CHEMISTRY METHOD 10/18/2024 2:31 PM EST [facility] Potassium 4.4 3.5 - 5.5 mmol/L LAB CHEMISTRY METHOD 10/18/2024 2:31 PM EST [facility] Chloride 104 96 - 110 mmol/L LAB CHEMISTRY METHOD 10/18/2024 2:[address] [facility] CO2 27 21 - 32 mmol/L LAB CHEMISTRY METHOD 10/18/2024 2:[address] [facility] Anion Gap 4 3 - 11 LAB CHEMISTRY METHOD 10/18/2024 2:[address] [facility] Glucose 238(H) 70 - 100 mg/dL LAB CHEMISTRY METHOD 10/18/2024 2:[address] [facility] BUN 15 5 - 25 mg/dL LAB CHEMISTRY METHOD 10/18/2024 2:[address] [facility] Creatinine 2.42(H) 0.70 - 1.30 mg/dL LAB CHEMISTRY METHOD 10/18/2024 2:[address] [facility] eGFR 29(L) >=60 mL/min/1. 73m2 LAB CHEMISTRY METHOD 10/18/2024 2:[address] [facility] Comment:Calculation based on the??Chronic Kidney Disease Epidemiology Collaboration (CKD-EPI) equation refit??without adjustment for race. BUN/Creatinine Ratio 6.2 LAB CHEMISTRY METHOD 10/18/2024 2:[address] [facility] Calcium 8.8 8.5 - 10.5 mg/dL LAB CHEMISTRY METHOD 10/18/2024 2:[address] [facility] AST (SGOT) 20 10 - 42 unit/L LAB CHEMISTRY METHOD 10/18/2024 2:[address] [facility] ALT (SGPT) 26 10 - 60 unit/L LAB CHEMISTRY METHOD 10/18/2024 2:[address] [facility] Alkaline Phosphatase 100 42 - 121 unit/L LAB CHEMISTRY METHOD 10/18/2024 2:[address] [facility] Total Protein 7.4 6.0 - 8.0 g/dL LAB CHEMISTRY METHOD 10/18/2024 2:[address] [facility] Albumin 3.4 3.2 - 5.0 g/dL LAB CHEMISTRY METHOD 10/18/2024 2:31 PM EST [facility] Total Bilirubin 0.5 0.0 - 1.4 mg/dL LAB CHEMISTRY METHOD 10/18/2024 2:31 PM EST [facility] Blood Venous blood specimen / Unknown Venipuncture / Unknown 10/18/2024 9:54 AM EST 10/18/2024 9:54 AM EST us Colette Willett MD LAB BLOOD ORDERABLES Final Re sult [facility] ([facility]) [facility] [address] [place] [address], * [facility] two limbs (08/29/2024 2:30 PM EST) Narrative Graham Sellers MD - 08/29/2024 3:56 PM EST See report in chart review us Colette Willett MD NEUROLOGY ORDERABLES Final Re sult from Last 3 Months Insurance [facility] MEDIC[facility] Member Subscriber Plan / Payer (Ef fective 2024-Present) Name:Sang Lester Relation to Subscriber:Self Name:Sang Lester Payer ID:[id number] Group ID:[id number] Type:Not on file Address: [place] [address] [address] [address] Care Teams Chef Manager Relationship Specialty Start Date End Date Jose Angel Perry MD [address] [place] [phone] PCP - General 04/11/24
--- OUTSIDE RECORDS SUMMARY | 2024-11-17 12:40 | XMS_ITS | Clinical Summary ---
Author Organization [facility], Address [address] [place] [address] [place] [address] Phone Care Team Providers Care Steam Generating Powerplant Mechanic Name Role Phone Jose Angel Perry [...] Visit [facility], [address] [place] [address] Denis Gutierrez MD [address] [place] [address] Health Maintenance Due Date Last Done [...] PM EDT Performed at: ??01 - [facility] [address] ??[id number] Communication Manager: Rose Mary Rosales MD, Phone: ??[phone] us Sha KNAPP LAB BLOOD ORDERABLES Final Re sult [facility] See order comments [place] [address] from Last 3 Months or Most Recently Relevant to Health Maintenance Insurance [facility] MEDICAID Care Teams Steam Generating Powerplant Mechanic Relationship Specialty Start Date End Date Jose Angel Perry MD [address] PCP - General 08/02/19
--- OUTSIDE RECORDS SUMMARY | 2024-11-17 12:40 | XMS_ITS | Encounter Summary ---
Author Organization [facility] Address [address] [place] [address] Phone Care Team Providers Care Flame Burner Name Role Phone Jose Angel Perry MD Primary Care Provider Encounter Details Date Type Department Care Team (Late st Contact Info) Description 09/25/2023 Documentation Only [facility] [address] [place] [phone] Sha Chaudhry PA Social History Tobacco Use [...] Visit [facility] [address] [place] [phone] Denis Gutierrez MD [address] [place] [address] [place] [phone] documented as of this encounter Visit Diagnoses Not on filedocumented in this encounter Care Teams Flame Burner Relationship Specialty Start Date End Date Jose Angel Perry MD [address] PCP - General 08/02/19 documented as of this encounter
--- OUTSIDE RECORDS SUMMARY | 2024-11-17 12:40 | XMS_ITS | Encounter Summary ---
Author Organization [facility] Address [address] [place] [address] Phone Care Team Providers Care Rubber Press Operator Name Role Phone Jose Angel Perry MD Primary Care Provider Encounter Details Date Type Department Care Team (Late st Contact Info) Description 10/29/2022 Documentation Only [facility] [address] [place] [phone] Sha Chaudhry PA Social History Tobacco Use [...] Visit [facility] [address] [place] [phone] Denis Gutierrez MD [address] [place] [address] [place] [phone] documented as of this encounter Visit Diagnoses Not on filedocumented in this encounter Care Teams Rubber Press Operator Relationship Specialty Start Date End Date Jose Angel Perry MD [address] PCP - General 08/02/19 documented as of this encounter
--- OUTSIDE RECORDS SUMMARY | 2024-11-17 12:40 | XMS_ITS | Encounter Summary ---
Author Organization [facility] Address [address] [place] [address] Care Team Providers Care Rubber Mold Maker Name Role Phone Jose Angel Perry MD Primary Care Provider Reason for Visit * Reason Comments Pre-op Visit eCTR DOS: 10/20/24 Pre-op Visit TF release DOS: 10/20 Encounter Details Date Type Department Care Team (Late st Contact Info) Description 10/18/2024 9:30 AM EST Consult Orthopedic Surgery - [place] [address] [place] [phone] oClette Willett MD [address] [place] [phone] Diabetic mononeuropathy associated with type 2 diabetes [...] might not be able to get the [facility] records so we will send him over [...] mononeuropathy associated with type 2 diabetes mellitus (CMS/[facility]) E11.41 250.60 Hemoglobin A1c 355.9 Comprehensive metabolic [...] on file documented as of this encounter Results * (ABNORMAL) Comprehensive metabolic panel (10/18/2024 9:54 AM EST) Sodium 135 133 - 145 mmol/L LAB CHEMISTRY METHOD 10/18/2024 2:31 PM [facility] Potassium 4.4 3.5 - 5.5 mmol/L LAB CHEMISTRY METHOD 10/18/2024 2:31 PM [facility] Chloride 104 96 - 110 mmol/L LAB CHEMISTRY METHOD 10/18/2024 2:31 PM [facility] CO2 27 21 - 32 mmol/L LAB CHEMISTRY METHOD 10/18/2024 2:31 PM [facility] Anion Gap 4 3 - 11 LAB CHEMISTRY METHOD 10/18/2024 2:31 PM [facility] Glucose 238(H) 70 - 100 mg/dL LAB CHEMISTRY METHOD 10/18/2024 2:31 PM [facility] BUN 15 5 - 25 mg/dL LAB CHEMISTRY METHOD 10/18/2024 2:31 PM [facility] Creatinine 2.42(H) 0.70 - 1.30 mg/dL LAB CHEMISTRY METHOD 10/18/2024 2:31 PM [facility] eGFR 29(L) >=60 mL/min/1. 73m2 LAB CHEMISTRY METHOD 10/18/2024 2:31 PM [facility] Comment:Calculation based on the??Chronic Kidney Disease Epidemiology Collaboration (CKD-EPI) equation refit??without adjustment for race. BUN/Creatinine Ratio 6.2 LAB CHEMISTRY METHOD 10/18/2024 2:31 PM [facility] Calcium 8.8 8.5 - 10.5 mg/dL LAB CHEMISTRY METHOD 10/18/2024 2:31 PM [facility] AST (SGOT) 20 10 - 42 unit/L LAB CHEMISTRY METHOD 10/18/2024 2:31 PM [facility] ALT (SGPT) 26 10 - 60 unit/L LAB CHEMISTRY METHOD 10/18/2024 2:31 PM [facility] Alkaline Phosphatase 100 42 - 121 unit/L LAB CHEMISTRY METHOD 10/18/2024 2:31 PM [facility] Total Protein 7.4 6.0 - 8.0 g/dL LAB CHEMISTRY METHOD 10/18/2024 2:31 PM [facility] Albumin 3.4 3.2 - 5.0 g/dL LAB CHEMISTRY METHOD 10/18/2024 2:31 PM [facility] Total Bilirubin 0.5 0.0 - 1.4 mg/dL LAB CHEMISTRY METHOD 10/18/2024 2:31 PM [facility] Blood Venous blood specimen / Unknown Venipuncture / Unknown 10/18/2024 9:54 AM EST 10/18/2024 9:54 AM EST us Colette Willett MD LAB BLOOD ORDERABLES Final Re sult [facility] [address] [place] [address], * (ABNORMAL) Hemoglobin A1c (10/18/2024 9:54 AM EST) Hemoglobin A1C 7.0(H) <6.5 % LAB CHEMISTRY METHOD 10/18/2024 3:14 PM EST [facility] Mean Bld Glu Estim. 154 mg/dL LAB CHEMISTRY METHOD 10/18/2024 3:14 PM EST [facility] Blood Venous blood specimen / Unknown Venipuncture / Unknown 10/18/2024 9:54 AM EST 10/18/2024 9:54 AM EST us Colette Willett MD LAB BLOOD ORDERABLES Final Re sult [facility] [address] [place] [address], documented in this encounter Visit Diagnoses Diagnosis Diabetic mononeuropathy associated with type 2 diabetes mellitus (CMS/HCC)- Primary Right carpal tunnel syndrome Carpal tunnel syndrome Trigger middle finger of right hand documented in this encounter Care Teams Rubber Mold Maker Relationship Specialty Start Date End Date Jose Angel Perry MD [address] [place] [phone] PCP - General 04/11/24 documented as of this encounter
--- OUTSIDE RECORDS SUMMARY | 2024-11-17 12:40 | XMS_ITS ---
Author Organization [facility] Address [address] [place] [address] Care Team Providers Care Waterside Worker Name Role Phone Sandro SRIVASTAVA, Juice Primary Care Provider Unavail able Frances Duncan Unavailable [phone] Encounters Encounter Location Date Provider Diagnosis [address] [address] 11/17/2024 Frances Duncan Plan Of Treatment Next Appt Details Provider Name:Frances burciaga, 11/17/2024 03:00:00 PM, [address] [place] [address], [phone], Progress Notes * Sang LESTER ADOB:1959 (64 yo M)Acc No.[id number]:11/17/2024 Progress Note Patient:?Sang LESTER Provider:?Frances Duncan DPM :1960???Age:64 Y???Sex:Male Price e:11/17/2024 [facility] [facility] Pcp:Juice Jo MD Subjective: * Chief Complaints: * ??? * Medical History:? Objective: * Vitals:? Assessment: Plan: * Treatment: * Images: * The named appointment provid er may or may not be the originator of this progress note, and it is not deemed complete until electronically signed by the appointment provider. Sign off status: Pending * Provider:?Frances Duncan DPM Date:? Generated for Matias zavala/Kacy/Kolby on:?11/17/2024 12:40 PM EST
== END ==
LOC: HO.CARD 11:21
PROVIDERS: PCP Family Medicine; Visit Provider Nurse Practitioner Family
DX: I42.8 Other cardiomyopathies (principal)
CPT/HCPCS: 93306; Q9957

== ENCOUNTER → 2024-11-17 11:25 | Outpatient (BNV) | payer OTHER, SELFPAY | PROVIDERS: PCP Family Medicine; Visit Provider Internal Medicine | DX: I42.8 Other cardiomyopathies (principal) | CPT/HCPCS: 93306 ==

== ENCOUNTER 2024-12-07 13:38 | Outpatient (AMB) | payer OTHER, SELFPAY ==
--- NOTE | 2024-12-07 13:57 | A.OFFVIS_ITS ---
Intake Intake Visit Reasons: T2DM Service Observer Chief Required: No Accompanied by: Nephew or Niece Allergies No Known Allergies Allergy (Verified 11/02/24 12:40) HPI Comprehensive Diabetes Asmnt Most Recent Diabetes Results: 2 Microalb/Creat Ratio 500.1 ug/mg cr (<30) H 05/12/24 Cholesterol 150 mg/dL (<200) 05/12/24 HDL Cholesterol 33 mg/dL (>40) L 05/12/24 Triglycerides 216 mg/dL (<150) H 05/12/24 Creatinine 2.92 mg/dL (0.5-1.4) H 07/22/24 Blood Urea Nitrogen 44 mg/dL (9-16) H 07/22/24 Sodium 134 mmol/L (135-145) L 07/22/24 Potassium 5.1 mmol/L (3.3-5.1) 07/22/24 Chloride 102 mmol/L (96-108) 07/22/24 Carbon Dioxide 23 mmol/L (22-29) 07/22/24 Calcium 8.9 mg/dL (8.4-10.2) 07/22/24 AST 26 U/L (5-37) 07/22/24 ALT 33 U/L (0-40) 07/22/24 Total Protein 7.6 g/dL (6.5-8.0) 07/22/24 Albumin 3.9 g/dL (3.5-5.0) 07/22/24 [facility] Medical History Fatty liver Non-adherence to medical treatment Diabetic polyneuropathy associated with type 2 diabetes mellitus Obesity (BMI 30-39.9) Hypertension CKD (chronic kidney disease) stage 3, GFR 30-59 ml/min Dyslipidemia halfway (current) use of insulin Diabetic nephropathy associated with type 2 diabetes mellitus Diabetes type 2, uncontrolled Surgical History History of carpal tunnel surgery History of cardiac cath Family History Father Lung cancer Mother Diabetes Hypertension Arthritis CKD (chronic kidney disease) stage 4, GFR 15-29 ml/min Social History Household Members: Family Alcohol intake: current Alcohol intake frequency: other Alcohol type: wine Patient Tobacco Use Status: Former Tobacco user Assessment & Plan Assessment & Plan (1) Diabetes type 2, uncontrolled: Code(s): E11.65 - Type 2 diabetes mellitus with hyperglycemia Plan: Patient presents for pump training for Omnipod 5 with Dexcom G7. The following topics were reviewed today: Topics covered today's: Reinforced the importance of manual corrections when glucoses above target Entering carbohydrates at meal time Patient continues to forget to enter carbohydrates prior to meals showed patient on sensor download how forgetting to take mealtime insulin leads to hyperglycemia Troubleshooting after starting new pod or inserting new insulin set: Occlusion, adhesive tape sensitivity, redness Check BG 2 hours after site change Safety information: Importance of a backup plan, for manual injections, proper prescriptions and emergency supplies ketone strips, and rules for testing for ketones Patient given written instructions for how and when to test for ketones Patient understands the basic concepts of pump therapy, how to give insulin for meals and snacks, how to troubleshoot for hyper and hypoglycemia. Setting verified by CDCES, no changes made to patient's settings at today's visit encourage patient to change behavior before making any more adjustments ?Basal rate(s) (units/hour) : 12 AM? to 12 AM? 1.5 units / hr Bolus setting Insulin Carbohydrate Ratio (s) 12 AM? to 12 AM?? 1:10 Correction Factor / Sensitivity Factor 12 AM? to 12 AM?? 1:60 Active Insulin Time:? 4 hours Target(s): 12 AM? to 12 AM 110 mg/dL Correction threshold 12 AM? to 12 AM 120 mg/dL Patient Instructions: DIABETES PROBLEMS HOMECARE INSTRUCTIONS? for High Blood Sugar and When to Test for Ketones Hyperglycemia is the technical term for high blood glucose (blood sugar). High blood sugar happens when the body has too little insulin or when the body can't use insulin properly. What causes hyperglycemia? A number of things can cause hyperglycemia: * If you have type 1, you may not have given yourself enough insulin. ? If you have type 2, your body may have enough insulin, but it is not as effective as it should be. * You ate more than planned or exercised less than planned. * You have stress from an illness, such as a cold or flu. * You have other stress, such as family conflicts or school or dating problems. How to lower your blood sugar level. ? Take medications as directed by physician. ? Drink extra water or noncaffeinated, nonsugared drinks to prevented hydration. ? Exercise if you are not sick However, if your blood sugar is above 250 mg/dl, check your urine for ketones. I f you have ketones, do not exercise Exercising when ketones are present may make your blood sugar level go even higher. You'll need to work with your doctor to find the safest way for you to lower your blood sugar level. Regularly check blood sugar or urine for sugar and acetone during illness. Diabetic ketoacidosis (DKA) Is serious condition that can lead to diabetic coma (passing out for a long time) or even . When your cells don't get the glucose they need for energy, your body begins to burn fat for energy, which produces ketones. Ketones are chemicals that the body creates when it breaks down fat to use for energy. The body does this when it doesn?t have enough insulin to use glucose, the body?s normal source of energy. When ketones build up in the blood, they make it more acidic. They are a warning sign that your diabetes is out of control or that you are getting sick. Symptoms of Diabetic Ketoacidosis (DKA) ? DKA usually develops slowly. But when vomiting occurs, this life- threatening condition can develop in a few hours. Early symptoms include the following: ? Thirst or a very dry mouth ? Frequent urination ? High blood glucose (blood sugar) levels ? High levels of ketones in the urine ? Then, other symptoms appear: ? Constantly feeling tired ? Dry or flushed skin ? Nausea, vomiting, or abdominal pain ? (Vomiting can be caused by many illnesses, not just ketoacidosis. If vomiting continues for more than 2 hours, contact your health care provider.) ? Difficulty breathing ? Fruity odor on breath ? A hard time paying attention, or confusion When should you test for ketones? It is advisable to check for ketones under the following conditions when: Your blood glucose is higher than 250mg/dl. Feeling nauseated, throwing up, or have pains in your abdominal region. Have a cold or flu. Have general body fatigue. Feel thirsty or have a very dry mouth. Have flushed skin. Have a fruity breath or a hard time breathing. You feel perplexed or in fog. How to Test Urine for Ketones You can detect ketones with a simple urine test using a test strip, similar to a blood testing strip. Ask your health care provider when and how you should test for ketones. Many experts advise to check your urine for ketones when your blood glucose is more than 250 mg/dl. When you are ill (when you have a cold or the flu, for example), check for ketones every 4 to 6 hours. And check every 4 to 6 hours when your blood sugar is more than 250 mg/dl. Also, check for ketones when you have any symptoms of DKA. How to lower your blood sugar level. ? Take medications as directed by physician. ? Drink extra water or noncaffeinated, nonsugared drinks to prevented hydration. ? Exercise if you are not sick However, if your blood sugar is above 250 mg/dl, check your urine for ketones. I f you have ketones, do not exercise Exercising when ketones are present may make your blood sugar level go even higher. You'll need to work with your doctor to find the safest way for you to lower your blood sugar level. Regularly check blood sugar or urine for sugar and acetone during illness Coding Level of Care Code Est Pt Level 1 (76030) Diagnoses Diabetes type 2, uncontrolled E11.65
--- OUTSIDE RECORDS SUMMARY | 2024-12-07 16:05 | XMS_ITS | Clinical Summary ---
Author Organization [facility], Address [address] [place] [address] [place] [address] Phone Care Team Providers Care Insurance Claims Clerk Name Role Phone Jose Angel Perry MD [...] Visit [facility] [place], [address] [place] [address] Denis Gutierrez MD [address] [place] [address] Health Maintenance Due Date Last Done [...] PM EDT Performed at: ??01 - [facility] [address] ??[id number] Activities Therapist: Rose Mary Rosales MD, Phone: ??[phone] us Sha KNAPP LAB BLOOD ORDERABLES Final Re sult [facility] See order comments [place] [address] from Last 3 Months or Most Recently Relevant to Health Maintenance Insurance [employer] Care Teams Insurance Claims Clerk Relationship Specialty Start Date End Date Jose Angel Perry MD [address] PCP - General 08/02/19
--- OUTSIDE RECORDS SUMMARY | 2024-12-07 16:05 | XMS_ITS | Encounter Summary ---
Author Organization [facility] Address [address] [place] [address] Phone Care Team Providers Care Core Oven Tender Name Role Phone Jose Angel Perry MD Primary Care Provider Encounter Details Date Type Department Care Team (Late Contact Info) Description 06/16/2022 Documentation Only [facility] [address] [place] [address] Og Weber MD [address] [place] [address] [place] [address] Social History Tobacco Use Types [...] Visit [facility] [address] [place] [address] Denis Gutierrez MD [address] [place] [address] documented as of this encounter Visit Diagnoses Not on filedocumented in this encounter Care Teams Core Oven Tender Relationship Specialty Start Date End Date Jose Angel Perry MD [address] PCP - General 08/02/19 documented as of this encounter
--- OUTSIDE RECORDS SUMMARY | 2024-12-07 16:05 | XMS_ITS | Encounter Summary ---
Author Organization [facility] Address [address] [place] [address] Care Team Providers Care Patch Sander Name Role Phone Jose Angel Perry MD Primary Care Provider Encounter Details Date Type Department Care Team ([facility] st Contact Info) Description 11/23/2024 Telephone Orthopedic Surgery [facility] [address] [facility] [address] [place] [address] Colette Willett MD [address] [facility] [address] [place] [address] Social History Tobacco Use Types Packs/Day Years Used Date Smoking Tobacco: Former Cigarettes Q uit: 2010 Alcohol Use Standard Drinks/Week Comments Not Currently [...] as of this encounter Progress Notes * Sharlene Gonzalez - 11/23/2024 1:14 PM EST Pt called to see if we had received notes from Cardiology ([facility]) he had test last week documented in this encounter Plan of Treatment Not on file documented as of this encounter Visit Diagnoses Not on filedocumented in this encounter Care Teams Patch Sander Relationship Specialty Start Date End Date Jose Angel Perry MD [address] [place] [phone] PCP - General 04/11/24 documented as of this encounter
--- OUTSIDE RECORDS SUMMARY | 2024-12-07 16:05 | XMS_ITS | Encounter Summary ---
Author Organization [facility] Address [address] [place] [address] Phone Care Team Providers Care Body Designer Name Role Phone Jose Angel Perry MD Primary Care Provider Encounter Details Date Type Department Care Team (Late st Contact Info) Description 09/25/2023 Documentation Only [facility] [address] [place] [phone] Sha Chaudhry PA Social History Tobacco Use [...] Visit [facility] [address] [place] [phone] Denis Gutierrez MD [address] [place] [address] [place] [phone] documented as of this encounter Visit Diagnoses Not on filedocumented in this encounter Care Teams Body Designer Relationship Specialty Start Date End Date Jose Angel Perry MD [address] PCP - General 08/02/19 documented as of this encounter
--- OUTSIDE RECORDS SUMMARY | 2024-12-07 16:05 | XMS_ITS | Encounter Summary ---
Author Organization [facility] Address [address] [place] [address] Phone Care Team Providers Care Shearer [employer] Name Role Phone Jose Angel Perry MD Primary Care Provider Encounter Details Date Type Department Care Team (Late st Contact Info) Description 10/29/2022 Documentation Only [facility] [address] [place] [phone] Sha Chaudhry PA Social History Tobacco Use [...] Visit [facility] [address] [place] [phone] Denis Gutierrez MD [address] [place] [address] [place] [phone] documented as of this encounter Visit Diagnoses Not on filedocumented in this encounter Care Teams Shearer [employer] Relationship Specialty Start Date End Date Jose Angel Perry MD [address] PCP - General 08/02/19 documented as of this encounter
--- OUTSIDE RECORDS SUMMARY | 2024-12-07 16:05 | XMS_ITS | Encounter Summary ---
Author Organization [facility] Address [address] [place] [address] Phone Care Team Providers Care Offal Worker Name Role Phone Jose Angel Perry MD Primary Care Provider Encounter Details Date Type Department Care Team (Late st Contact Info) Description 09/25/2023 Documentation Only [facility] [address] [place] [phone] Sha Chaudhry PA Social History Tobacco Use [...] Visit [facility] [address] [place] [phone] Denis Gutierrez MD [address] [place] [address] [place] [phone] documented as of this encounter Visit Diagnoses Not on filedocumented in this encounter Care Teams Offal Worker Relationship Specialty Start Date End Date Jose Angel Perry MD [address] PCP - General 08/02/19 documented as of this encounter
--- OUTSIDE RECORDS SUMMARY | 2024-12-07 16:06 | XMS_ITS ---
Author Organization [facility] Address [address] [facility] [place] [address] Care Team Providers Care Wire Photo Operator Name Role Phone Sandro SRIVASTAVA, Juice Primary Care Provider Unavail able Frances Duncan Unavailable [phone] Allergies No Known Allergies REASON FOR VISIT [...] Polyneuropathy due to type 2 diabetes mellitus ([id number]) Type 2 diabetes mellitus with diabetic polyneuropathy (E11.42) Active confirmed Problem [id number] Neuropathy (G62.9) Active confirmed Vital Signs Height 5ft 7in in 06/30/2024 Weight 211 lbs 06/30/2024 BMI 33.04 kg/m2 06/30/2024 Encounters Encounter Location Date Provider Diagnosis [facility] [address] [place] [address] 06/30/2024 Frances Duncan Type 2 diabetes mellitus [...] Details Follow Up: 2 Months, Reason: Provider Name:Jorge A Guerin, 12/08/2024 01:45:00 PM, [address] [place] [address], [place], [address], Procedure Notes * Category Sub-Category Detail Notes Debride Nails 1-5 Procedure: Performance of this nail treatment by a nonprofessional would put this patients foot and overall health at risk. Therefore, nail debridement was performed extensively to reduce/remove overall nail length, girth, thickness, subungual debris, and necrotic tissue, by manual and/or electrical means through the use of a nail nipper and/or dremel-type grinder set up operator thread, to a more viable healthy nail plate or bed tissue 1-5. Silver nitrate used for any petechial bleeding as necessary. Definitive antifungal treatment options have been reviewed and discussed with the patient. The patient chooses, no pharmaceutical tx - [address]50 Nail Reduction Nail Reduction (-27) Trimming o f dystrophic nails performed to reduce/remove overall nail length and girth, by manual and electrical means with use of a nail nipper and/or dremel, to more viable healthy nail plate or bed tissue, any number - G0127 Progress Notes * Sang LESTER ADOB:1959 (64 yo M)Acc No.[id number]:06/30/2024 Progress Notes Patient:?Sang Lester Provider:?Frances Duncan DPM :1960???Age:64 Y???Sex:Male Price e:06/30/2024 Address:[address], [place] Pcp:Juice Jo MD Subjective: * Chief Complaints: [...] 8 * Examination: ???Ophthalmology Referral: ?DIABETES EYE EXAM?Diabetic Retinopathy Screening:?Yes?Neurological: ?SENSORY:?Neurological exam demonstrates, reduced light touch sensation, [...] use of a nail nipper and/or dremel-type grinder set up operator thread, to a more viable healthy nail plate or bed tissue 1-5. Silver nitrate used for any petechial bleeding as necessary. Definitive antifungal treatment options have been reviewed and discussed with the patient. The patient chooses, no pharmaceutical tx - [address]9688.?Nail Reduction:?Nail Reduction?(-27) Trimming of dystrophic nails performed to reduce/remove overall nail length and girth, by manual and electrical means with use of a nail nipper and/or dremel, to more viable healthy nail plate or bed tissue, any number - G0127.? * Procedure Codes:?G0127 JOSÉ MIGUEL ING DYSTROPHIC NAILS ANY #, Modifiers: XS [id number] DEBRIDE NAIL, 1-5, Modifiers: XS * Preventive [...] Duncan, DPM Date:?11/2023 Generated for Printi ng/Faxing/eTransmitting on:?12/07/2024 04:06 PM EDT History and Physical Notes * HPI (History [...]
--- OUTSIDE RECORDS SUMMARY | 2024-12-07 16:06 | XMS_ITS ---
Author Organization [facility] Address [address] [place] [address] Care Team Providers Care Bank Advisor Name Role Phone Sandro SRIVASTAVA, Juice Primary Care Provider Unavail Frances Palm Unavailable [phone] Encounters Encounter Location Date Provider Diagnosis [address] [address] 11/17/2024 Frances Duncan Plan Of Treatment Next Appt Details Provider Name:Jorge A Guerin, 12/08/2024 01:45:00 PM, [address] [place] [address], [place], [address], Progress Notes * Sang LESTER ADOB:1959 (64 yo M)Acc No.[id number]:11/17/2024 Progress Note Patient:?Sang LESTER Provider:?Frances Duncan DPM :1960???Age:64 Y???Sex:Male Price e:11/17/2024 [address] [facility] [facility] [id number] Pcp:Juice Jo MD Subjective: * Chief Complaints: [...] Duncan DPM Date:? Generated for Matias zavala/Kacy/Kolby on:?12/07/2024 04:05 PM EDT
--- OUTSIDE RECORDS SUMMARY | 2024-12-07 16:06 | XMS_ITS | Patient Health Record ---
Author Organization [facility] Address [address] [place] [address] Care Team Providers Care Pest Control Chemical Technician Name Role Phone Sandro SRIVASTAVA, Juice Primary Care Provider Unavail able Frances Duncan Unavailable [phone] Allergies No Known Allergies Results Component Value [...] Polyneuropathy due to type 2 diabetes mellitus ([id number]) Type 2 diabetes mellitus with diabetic polyneuropathy (E11.42) Active confirmed Problem [id number] Neuropathy (G62.9) Active confirmed Vital Signs Blood pressure diastolic 77 mm Hg 09/08/2024 Height 5ft 7in in 09/08/2024 Blood pressure systolic 0120 mm Hg 09/08/2024 Weight 202 lbs 09/08/2024 BMI 31.63 kg/m2 09/08/2024 Encounters Encounter Location Date Provider Diagnosis [address] [address] 06/30/2024 Frances Duncan Type 2 diabetes mellitus with diabetic polyneuropathy E11.42 ; Neuropathic pain M79.2 ; Tinea unguium B35.1 and Neuropathy G62.[address] [address] 09/08/2024 Frances Duncan Xerosis of skin L85. [...] Provider Name:Jorge A Guerin, 12/08/2024 01:45:00 PM, [address] [place], [address], Insurance Providers Payer Name Payer Address Payer Phone Subscriber Number Group Number Insured Name Patient Relationship to Insured Coverage Start Date Coverage End Date [facility] [employer] Claims [address] [place] [id number] Sang Lester Self - patient is the insured Medical (General) History Medical History History ICD Code asthma Diabetic Headaches/Migraines High Blood Pressure Liver disease Chicken pox Carpal tunnel Surgical History Surgery Date(Month/Year) carpal tunnel surgery 2022
--- OUTSIDE RECORDS SUMMARY | 2024-12-07 16:06 | XMS_ITS | Clinical Summary ---
Author Organization [address] [facility] Address [address] [place] [address] Phone Care Team Providers Care Product Marketer Name Role Phone Jose Angel Perry MD Primary Care Provider Allergies Active Allergy Reactions Criticality Noted Date Comments Bupropion Other,Unknown 08/26/2021 Other Reaction(s): made him aggressive ??Pt denies Other reaction(s): made him aggressive Citalopram Other 08/26/2021 Other reaction(s): Other (see comments) pt denies Medications atorvastatin (LIPITOR) 80 mg tablet Take 1 tablet (80 mg total) by mouth 1 (one) time each day. 4 Active carvediloL (COREG) 25 mg tablet Take 1 tablet (25 mg total) by mouth 2 (two) times a day with meals. 4 Active cholecalciferol (VITAMIN D-3) 25 mcg (1,000 unit) tablet Take 1 tablet (1,000 Units total) by mouth 1 (one) time each day. Active clopidogreL (PLAVIX) 75 mg tablet Take 1 tablet (75 mg total) by mouth 1 (one) time each day. 4 Active doxazosin (CARDURA) 4 mg tablet Take 1 tablet (4 mg total) by mouth daily. 3 Active fluticasone propionate (FLONASE) 50 mcg/actuation nasal spray Administer into affected nostril(s). 4 Active furosemide (LASIX) 20 mg tablet Take 1 tablet (20 mg total) by mouth. 4 Active Baqsimi 3 mg/actuation nasal spray given by endo , ?Yeni?? Matilda alternate nostrils In one nostril; dose does not need to be inhaled, 0 Refills, Maintenance, 08/03/24 15:59:00 EST 4 Active insulin lispro 100 unit/mL injection See Instructions, Use w omnipod dixie, Howie Pruett, 0 Refills, Maintenance, 08/03/24 16:03:00 EST 4 Active lidocaine (LIDODERM) 5 % patch 4 Active lisinopril (PRINIVIL,ZESTR IL) 40 mg tablet Take 1 tablet (40 mg total) by mouth 1 (one) time each day. 4 Active loratadine (CLARITIN) 10 mg tablet Take 1 tablet (10 mg total) by mouth 1 (one) time each day. 4 Active nortriptyline (PAMELOR) 75 mg capsule Take 1 capsule (75 mg total) by mouth at bedtime. 4 Active nortriptyline (PAMELOR) 25 mg capsule Take 1 capsule (25 mg total) by mouth. 4 04/20/20 25 Active Lyrica 150 mg capsule Take 1 capsule (150 mg total) by mouth 2 (two) times a day. 4 Active sucralfate (CARAFATE) 1 gram tablet Take 1 tablet (1 g total) by mouth. 4 Active tirzepatide (Mounjaro) 5 mg/0.5 mL injection Inject 0.5 mL (5 mg total) under the skin every 7 (seven) days. Active Active Problems Problem Noted Date Diagnosed Date Neuropathy 10/18/2024 Neck pain on right side 10/18/2024 Right carpal tunnel syndrome 08/16/2024 Trigger middle finger of right hand 08/16/2024 Hypertension 04/11/2024 Diabetic neuropathy 06/25/2011 Encounters Date Type Department Care Team Description 11/23/2024 Telephone Orthopedic Surgery - [address] [address] Colette Willett MD 10/20/2024 10:47 AM EST Anesthesia Event [facility] [place] [address] [place] [address] Sravanthi Chery MD 10/20/2024 9:36 AM EST - 10/20/2024 11:59 PM EST Hospital Encounter [facility] OR [address] [place] [address] Colette Willett MD Discharge Disposition: Home or Self Care 10/18/2024 9:30 AM EST Consult Orthopedic Surgery [facility] [address] [address] Colette Willett MD Diabetic mononeuropathy associated with type 2 diabetes mellitus (CMS/HCC) (Primary Dx); Right carpal tunnel syndrome; Trigger middle finger of right hand 10/11/[address] [facility] [address] [address] Venus Braden from Last 3 Months Immunizations Name Administration [...] this topic Medical Devices Implanted Type Area Digital Photographic Printer Device Identifier Shelf Expiration Date Model / [...] associated with type 2 diabetes mellitus (CMS/HCC) from Last 3 Months Results * (ABNORMAL) POCT Glucose, blood (10/20/2024 9:50 AM EST) [facility] Glucose POCT 138(H) 70 - 100 mg/dL 10/20/2024 9:51 AM EST [facility] Blood Capillary blood specimen / Unknown 10/20/2024 9:50 AM EST 10/20/2024 9:52 AM EST us Colette Willett MD LAB POINT OF CARE TE ST DOCKED DEVICE UNSOLICITED RESULTS Final Result [facility] [address] [place] [address], [place] [phone] * (ABNORMAL) Hemoglobin A1c (10/18/2024 9:54 AM EST) Pathologist [facility] Hemoglobin A1C 7.0(H) <6.5 % LAB CHEMISTRY METHOD 10/18/2024 3:14 PM EST [facility] Mean Bld Glu Estim. 154 mg/dL LAB CHEMISTRY METHOD 10/18/2024 3:14 PM [facility] Blood Venous blood specimen / Unknown Venipuncture / Unknown 10/18/2024 9:54 AM EST 10/18/2024 9:54 AM EST us Colette Willett MD LAB BLOOD ORDERABLES Final Re sult [facility] [address] [place] [address], [place] [phone] * (ABNORMAL) Comprehensive metabolic panel (10/18/2024 9:54 AM EST) Pathologist [facility] Sodium 135 133 - 145 mmol/L LAB CHEMISTRY METHOD 10/18/2024 2:31 PM [facility] Potassium 4.4 3.5 - 5.5 mmol/L LAB CHEMISTRY METHOD 10/18/2024 2:31 PM [facility] Chloride 104 96 - 110 mmol/L LAB CHEMISTRY METHOD 10/18/2024 2:31 PM [facility] CO2 27 21 - 32 mmol/L LAB CHEMISTRY METHOD 10/18/2024 2:31 PM [facility] Anion Gap 4 3 - 11 LAB CHEMISTRY METHOD 10/18/2024 2:31 PM [facility] Glucose 238(H) 70 - 100 mg/dL LAB CHEMISTRY METHOD 10/18/2024 2:31 PM [facility] BUN 15 5 - 25 mg/dL LAB CHEMISTRY METHOD 10/18/2024 2:31 PM [facility] Creatinine 2.42(H) 0.70 - 1.30 mg/dL LAB CHEMISTRY METHOD 10/18/2024 2:31 PM [facility] eGFR 29(L) >=60 mL/min/1. 73m2 LAB CHEMISTRY METHOD 10/18/2024 2:31 PM [facility] Comment:Calculation based on the??Chronic Kidney Disease Epidemiology Collaboration (CKD-EPI) equation refit??without adjustment for race. BUN/Creatinine Ratio 6.2 LAB CHEMISTRY METHOD 10/18/2024 2:31 PM [facility] Calcium 8.8 8.5 - 10.5 mg/dL LAB CHEMISTRY METHOD 10/18/2024 2:31 PM [facility] AST (SGOT) 20 10 - 42 unit/L LAB CHEMISTRY METHOD 10/18/2024 2:31 PM [facility] ALT (SGPT) 26 10 - 60 unit/L LAB CHEMISTRY METHOD 10/18/2024 2:31 PM [facility] Alkaline Phosphatase 100 42 - 121 unit/L LAB CHEMISTRY METHOD 10/18/2024 2:31 PM [facility] Total Protein 7.4 6.0 - 8.0 g/dL LAB CHEMISTRY METHOD 10/18/2024 2:31 PM [facility] Albumin 3.4 3.2 - 5.0 g/dL LAB CHEMISTRY METHOD 10/18/2024 2:31 PM [facility] Total Bilirubin 0.5 0.0 - 1.4 mg/dL LAB CHEMISTRY METHOD 10/18/2024 2:31 PM [facility] Blood Venous blood specimen / Unknown Venipuncture / Unknown 10/18/2024 9:54 AM EST 10/18/2024 9:54 AM EST us Colette Willett MD LAB BLOOD ORDERABLES Final Re sult [facility] [address] [place] [address], [place] [phone] from Last 3 Months Insurance [facility] MEDICARE Member Subscriber Plan / Payer (Ef fective 2024-Present) Name:Sang Lester Relation to Subscriber:Self Name:Sang Lester Payer ID:[id number] Group ID:[id number] Type:Not on file Address: [place] [address] [place] [phone] Care Teams Product Marketer Relationship Specialty Start Date End Date Jose Angel Perry MD [address] [place] [phone] PCP - General 04/11/24
--- OUTSIDE RECORDS SUMMARY | 2024-12-07 16:06 | XMS_ITS ---
Author Organization [facility] Address [address] [place] [address] Care Team Providers Care Recordist Chief Name Role Phone Sandro SRIVASTAVA, Juice Primary Care Provider Unavail able Frances Duncan Unavailable [phone] Allergies No Known Allergies REASON FOR VISIT [...] 024 Encounters Encounter Location Date Provider Diagnosis [facility] [address] [address] 09/08/2024 Frances Duncan Xerosis of skin L85. [...] Details Follow Up: 3 Months, Reason: Provider Name:Jorge A Sergio Guerin, 12/08/2024 01:45:00 PM, [address] [facility], [place], [address], Procedure Notes * Category Sub-Category Detail Notes [...] instrumentation by the physician of record - 57092 Debride Nails 1-5 Procedure: Performance of this nail treatment by a nonprofessional would put this patients foot and overall health at risk. Therefore, nail debridement was performed extensively to reduce/remove overall nail length, girth, thickness, subungual debris, and necrotic tissue, by manual and/or electrical means through the use of a nail nipper and/or dremel-type almond grinder, to a more viable healthy nail plate or bed tissue 1-5. Silver nitrate used for any petechial bleeding as necessary. Definitive antifungal treatment options have been reviewed and discussed with the patient. The patient chooses, no pharmaceutical tx - 02916 Nail Reduction Nail Reduction (-27) Trimming o f dystrophic nails performed to reduce/remove overall nail length and girth, by manual and electrical means with use of a nail nipper and/or dremel, to more viable healthy nail plate or bed tissue, any number - G0127 Progress Notes * Sang LESTER ADOB:1959 (64 yo M)Acc No.[id number]:09/08/2024 Progress Note Patient:?Sang LESTER Provider:?Frances Duncan DPM :1960???Age:64 Y???Sex:Male Price e:09/08/2024 Address:[address] [place] [address] [address] [place] Pcp:Juice Jo MD Subjective: * Chief Complaints: [...] rouble?admits.?Confusion?denies.?Fainting/blackouts?denies.?Tingling?admits.?Ja mors?denies.? * Medical History:? * Surgical History:?carpal layla [...] 8 * Examination: ???Ophthalmology Referral: ?DIABETES EYE EXAM?Procedure Performed:?Yes ?Date of Exam Performed?07/20/2024 ?Diabetic Retinopathy Screening:?Yes ?Findings of Diabetic Eye Exam:?retinopathy?Dermatologic: ?SKIN FINDINGS:?Skin shows sign(s) of, dryness, scaling, [...] for office visit today.?ORIENTED:?person, place, and time.?FOOT EXAM:?Lower Extremity Neurological Exam performed:?Yes ?Visual exam of foot performed:?Yes ?Date?09/08/2024 ?Footwear Evaluation?Footwear Evaluation performed:?Yes??? Assessment: * Assessment: 1.?Type 2 diabetes mellitus [...] use of a nail nipper and/or dremel-type almond grinder, to a more viable healthy nail plate or bed tissue 1-5. Silver nitrate used for any petechial bleeding as necessary. Definitive antifungal treatment options have been reviewed and discussed with the patient. The patient chooses, no pharmaceutical tx - 59651.?Keratoma Treatment:?Parring or Cutting of Benign Hyperkeratotic Lesion(s)?(-56) [...] instrumentation by the physician of record - 83411.?Nail Reduction:?Nail Reduction?(-27) Trimming of dystrophic nails performed to reduce/remove overall nail length and girth, by manual and electrical means with use of a nail nipper and/or dremel, to more viable healthy nail plate or bed tissue, any number - G0127.? * Procedure Codes:?29784 DEBRI DE NAIL, 1-5, Modifiers: XS G0127 TRIMMING DYSTROPHIC NAILS ANY #, Modifiers: XS 39962 TRIM SKIN LESIONS, 2 TO 4, Modifiers: [...] all answers were clearly understood, Recom. Gold Prudencio for Diabetics.? ??Screening/Special Tests:?Fall Risk?Assessment:?Performed ?Screening:?No falls in the past year ?FALLS: Screening for Future Fall Risk?Have you had two or more falls in the past year??No ?Have you had any falls with injury in the past year??No * Follow Up:?3 Months * Images: * Sign off status: Completed true * Provider:?RENUKA ElkinsM Date:?08/2024 Generated for Matias zavala/Kacy/Kolby on:?12/07/2024 04:05 PM EDT History and Physical Notes * [...]
== END 2024-12-07 14:08 | disposition home or self-care (01) ==
LOC: HO.ENCR 13:39
PROVIDERS: PCP Family Medicine; Visit Provider Registered Nurse Diabetes Educator
DX: E11.65 Type 2 diabetes mellitus with hyperglycemia (principal)

== ENCOUNTER → 2024-12-07 13:38 | Outpatient (BNVA) | payer OTHER, SELFPAY | PROVIDERS: PCP Family Medicine; Visit Provider Registered Nurse Diabetes Educator | DX: E11.65 Type 2 diabetes mellitus with hyperglycemia (principal); Z96.41 Presence of insulin pump (external) (internal); Z79.4 Long term (current) use of insulin | CPT/HCPCS: 99211 ==

== ENCOUNTER 2025-03-08 13:30 | Outpatient (AMB) | payer OTHER, SELFPAY ==
--- NOTE | 2025-03-08 14:26 | A.OFFVIS_ITS ---
Intake Intake Visit Reasons: 60 min Director Of Recruiting Required: No Accompanied by: Nephew or Niece Allergies No Known Allergies Allergy (Verified 11/02/24 12:40) HPI Comprehensive Diabetes Asmnt Most Recent Diabetes Results: 2 Microalb/Creat Ratio 500.1 ug/mg cr (<30) H 05/12/24 Cholesterol 150 mg/dL (<200) 05/12/24 HDL Cholesterol 33 mg/dL (>40) L 05/12/24 Triglycerides 216 mg/dL (<150) H 05/12/24 Creatinine 2.92 mg/dL (0.5-1.4) H 07/22/24 Blood Urea Nitrogen 44 mg/dL (9-16) H 07/22/24 Sodium 134 mmol/L (135-145) L 07/22/24 Potassium 5.1 mmol/L (3.3-5.1) 07/22/24 Chloride 102 mmol/L (96-108) 07/22/24 Carbon Dioxide 23 mmol/L (22-29) 07/22/24 Calcium 8.9 mg/dL (8.4-10.2) 07/22/24 AST 26 U/L (5-37) 07/22/24 ALT 33 U/L (0-40) 07/22/24 Total Protein 7.6 g/dL (6.5-8.0) 07/22/24 Albumin 3.9 g/dL (3.5-5.0) 07/22/24 [facility] Medical History Fatty liver Non-adherence to medical treatment Diabetic polyneuropathy associated with type 2 diabetes mellitus Obesity (BMI 30-39.9) Hypertension CKD (chronic kidney disease) stage 3, GFR 30-59 ml/min 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 Diabetic nephropathy associated with type 2 diabetes mellitus Diabetes type 2, uncontrolled Surgical History History of carpal tunnel surgery History of cardiac cath Family History Father Lung cancer Mother Diabetes Hypertension Arthritis CKD (chronic kidney disease) stage 4, GFR 15-29 ml/min Social History Household Members: Family Alcohol intake: current Alcohol intake frequency: other Alcohol type: wine Patient Tobacco Use Status: Former Tobacco user Assessment & Plan Assessment & Plan (1) Diabetes type 2, uncontrolled: Code(s): E11.65 - Type 2 diabetes mellitus with hyperglycemia Plan: Patient presents for pump training for Omnipod 5 with Dexcom G7. The following topics were reviewed today: Topics covered today's: Reinforced the importance of manual corrections when glucoses above target Entering carbohydrates at meal time Patient continues to forget to enter carbohydrates. Patient was hospitalized at the end of January 2025 for infection in his hand. Patient reports he eats sporadically throughout the day, frequently not remembering to enter carbohydrates. Suggested that when he forgets to enter carbohydrates he take manual in correction when glucose levels are high to bring down into target range faster. Patient is due for A1c, instructed patient to make appointment with endocrine HOME SECURITY PROFESSIONAL Troubleshooting after starting new pod or inserting new insulin set: Occlusion, adhesive tape sensitivity, redness Check BG 2 hours after site change Patient understands the basic concepts of pump therapy, how to give insulin for meals and snacks, how to troubleshoot for hyper and hypoglycemia. Setting verified by CDCES, no changes made to patient's settings at today's visit encourage patient to change behavior before making any more adjustments ?Basal rate(s) (units/hour) : 12 AM? to 12 AM? 1.5 units / hr Bolus setting Insulin Carbohydrate Ratio (s) 12 AM? to 12 AM?? 1:10 Correction Factor / Sensitivity Factor 12 AM? to 12 AM?? 1:60 Active Insulin Time:? 3.5 hours Target(s): 12 AM? to 12 AM 110 mg/dL Correction threshold 12 AM? to 12 AM 120 mg/dL Coding Level of Care Code Est Pt Level 1 (30006) Diagnoses Diabetes type 2, uncontrolled E11.65
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
== END 2025-03-08 14:38 | disposition home or self-care (01) ==
LOC: HO.ENCR 13:31
PROVIDERS: PCP Family Medicine; Visit Provider Registered Nurse Diabetes Educator
DX: E11.65 Type 2 diabetes mellitus with hyperglycemia (principal)

== ENCOUNTER 2025-03-08 13:30 | Outpatient (AMB) | payer OTHER, SELFPAY ==
[2025-03-08 13:47] VITALS: BMI 32.9
--- NOTE | 2025-03-08 13:47 | A.OFFVIS_ITS ---
VS Expanded 03/08/25 13:47 Height 5 ft 7 in Weight 210 lb 1.608 oz BMI 32.9 Intake Visit Reasons: T2DM Allergies No Known Allergies Allergy (Verified 03/16/25 14:18) Nutrition Presentation Details: Pt presents for MNT f/u for T2DM Pt reports having had days without gluc sensor and not doing finger sticks therefore unaware of glucose control. Pt likes to cooks and enjoys trying different foods /recipes , reports working on reducing salt in diet Carb counting - reports not carb counting consistently Breakfast eggs pink salt/crackers , unsalted with butter, coffee Lunch: sandwhich or soup or dessert dinner: butternut squash white potato/cod fish beets/cucumber/spinach exercise: ordered a treadmill and looking forward to starting to exercise at home [facility] Medical History (Updated 10/28/24 @ 11:13 by Alise Harris NP-C) Fatty liver Non-adherence to medical treatment Diabetic polyneuropathy associated with type 2 diabetes mellitus Obesity (BMI 30-39.9) Hypertension CKD (chronic kidney disease) stage 3, GFR 30-59 ml/min Dyslipidemia 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 Diabetic nephropathy associated with type 2 diabetes mellitus Diabetes type 2, uncontrolled Surgical History (Updated 03/16/25 @ 14:28 by LU Yu) History of carpal tunnel surgery History of cardiac cath Family History Father Lung cancer Mother Diabetes Hypertension Arthritis CKD (chronic kidney disease) stage 4, GFR 15-29 ml/min Social History Household Members: Family Alcohol intake: current Alcohol intake frequency: other Alcohol type: wine Patient Tobacco Use Status: Former Tobacco user Assessment & Plan Assessment & Plan (1) Type 2 diabetes mellitus with diabetic polyneuropathy: Code(s): E11.42 - Type 2 diabetes mellitus with diabetic polyneuropathy Category: Medical Plan Used wt : 97kg (05/21), 94 kg (06/2024), 93 kg (09/20), 95 kg (03/22) Est kcal as per MSJ: 2100 (40% carb, 30% fat/prot) Est fluid needs: 2400 ml/d (25 ml/kg bw) Rec fiber: increase to 8-10 g per day and gradually increase to 35 g as tolerated Rec Na: < 1500 mg /d Educate patient on: (R= Reviewed, V = verbalizes understanding N/R= Needs review N/A= not applicable) * Food sources of carbohydrates and serving adequate serving sizes : R V * Difference between complex carbohydrates and simple carbohydrates, role of fiber: R V * Differences between fats (MUFA/PUFA/saturated fats, trans fats) and food sources of various fats: R, V * Food sources of sodium and salt and healthy modifications for heart health and kidney health: R R * Vitamins and minerals: R V * How to interpret food labels: R V * Healthy Plate method concept: R V * Physical activity: benefits and precaution: R V Patient Instructions: engage in physical activity, walk 30 minutes at least 3 times a week unless otherwise specified by your doctor. Resume carb counting consistently and enter accurate amount of carbohydrate on pump to prevent elevated blood sugar, do finger stick to help you asses current blood sugar control. - Camina por lo 30 minutes por lo menos 3 veces a la semana a menos que tu medico te haiga dado otra recommendacion. -Vuelve a contar los carbohidratos que vas a consumir y gomez la cantidad en la winnie de insulina para evitar que el nivel de azucar en la mónica aumente demasiado. Monitorea tu nivel de azucar haciendo el pinchazo en el dedo para que tengas idea del control de tus niveles de azucar en lo que llegan los sensores. Coding Level of Care Code Nutr Indiv Subseq (45644) Diagnoses Type 2 diabetes mellitus with diabetic polyneuropathy E11.42 Time Spent (min) 30
== END 2025-03-08 14:37 | disposition home or self-care (01) ==
LOC: HO.ENCR 13:31
PROVIDERS: PCP Family Medicine; Visit Provider Dietitian, Registered
DX: E11.42 Type 2 diabetes mellitus with diabetic polyneuropathy (principal)

== ENCOUNTER → 2025-03-08 13:30 | Outpatient (BNVA) | payer OTHER, SELFPAY | PROVIDERS: PCP Family Medicine; Visit Provider Registered Nurse Diabetes Educator | DX: E11.65 Type 2 diabetes mellitus with hyperglycemia (principal); Z71.3 Dietary counseling and surveillance | CPT/HCPCS: 97803; 99211 ==

== ENCOUNTER 2025-03-16 14:08 | Outpatient (AMB) | payer OTHER, SELFPAY ==
--- NOTE | 2025-03-16 14:14 | MHC.OFFVIS ---
Vital Signs 03/16/25 14:16 Height 5 ft 7 in Weight 212 lb 4.882 oz BMI 33.2 BP 114/76 Blood Pressure Location Lt brachial Position Sitting Pulse 66 Pulse Source Pulse Oximeter Pulse Oximetry (%) 96 Oxygen Delivery Method Room Air Intake Visit Reasons: DM Intake Note: Patient present today for a follow-up on Type 2 Diabetes Mellitus Patient receives Dexcom G7 & Omnipod supplies through: [facility] Last Diabetic eye exam: 08/2024 Last Podiatry Visit: 09/2024 Most Recent HgA1C: 7.7% 03/16/2025 Random Glucose: 158 mg/dL, Today Graphite Disk Assembler Required: No Accompanied by: Niece Allergies No Known Allergies Allergy (Verified 03/16/25 14:18) HPI Comments Details: Patient is a 64-year-old male with DM type 2 diagnosed in 1999 who presents for management of diabetes. He was last seen 11/02/24 with an A1C of 7.4%. Hemoglobin A1c 03/16/2025 %. He previously had been on an insulin pump with u500 and was recently changed to u100. Previous medication: trulicity 1.5mg Q weekly but stopped because of foul burping. Diabetes medications: humalog via pump.Omni pod jardiance 10mg started by nephrology abram 5mg Dexcom average glucose: 7.7 14 day continuous glucose monitor report reviewed Glucose Managment indicator 185 % Days with CGM data 94 % TIme in ranges: 7 % very high (above 250) 46 minute % high ?(181-250) 47 % in range ?(70-180] 0 % low (69-55) 0 % ?very low (below 54) Total daily dose of insulin 28.5 Basal 25 units 88% bolus 3.5 units 12% Auto mode 92 % carbohydrate intake entered 50 g Interpretation: Overall running 30 points higher than target Symptoms reported: + numbness, tingling, cramping in lower extremities Hypoglycemia:very rare Hyperglycemia: + urinary frequency, +nocturia, + polydypsia Exercise: limited due to pain in feet ldl:74 05/21 Creatinine:2.47 05/21 which is an increase Food Counter Attendant - CDE education: has been seen recently Electronic Device Repairer: sees Dr. Frances Duncan every 3 months has neuropathy Dental exam: 2 years ago Ophthalmology evaluation: 05/2024 per patient no retinopathy mild cataract Other specialists: Rehab Technician on a regular basis. sees portal developer has appt in 2 months Appetite is down, He reports drinking herbal tea. He stopped the protein powder he was using Basal rate(s) (units/hour) : 12 AM? to 12 AM? 1.5 units / hr Bolus setting Insulin Carbohydrate Ratio (s) 12 AM? to 12 AM?? 1:11 new 1:10 Correction Factor / Sensitivity Factor 12 AM? to 12 AM?? 1:65 new 1:60 Active Insulin Time:? 4 hours new 3.5 hours Target(s):12 AM? to 12 AM 110 mg/dL Correction threshold 120 mg/dL [facility] Medical History (Updated 10/28/24 @ 11:13 by PATO PerryC) Fatty liver Non-adherence to medical treatment Diabetic polyneuropathy associated with type 2 diabetes mellitus Obesity (BMI 30-39.9) Hypertension CKD (chronic kidney disease) stage 3, GFR 30-59 ml/min Dyslipidemia FCI (current) use of insulin Diabetic nephropathy associated with type 2 diabetes mellitus Diabetes type 2, uncontrolled Surgical History (Updated 03/16/25 @ 14:28 by LU Yu) History of carpal tunnel surgery History of cardiac cath Family History Father Lung cancer Mother Diabetes Hypertension Arthritis CKD (chronic kidney disease) stage 4, GFR 15-29 ml/min Social History Household Members: Family Alcohol intake: current Alcohol intake frequency: other Alcohol type: wine Patient Tobacco Use Status: Former Tobacco user Physical Exam Vital Signs: Last Vital Signs Pulse 66 03/16/25 14:16 BP 114/76 03/16/25 14:16 Pulse Ox 96 03/16/25 14:16 Oxygen Delivery Method Room Air 03/16/25 14:16 BMI result Body Mass Index 33.2 Results AMB Hemoglobin A1c AMB Hemoglobin A1c 7.7 % Last Edit by LU Yu on 03/16/25 14:38 Results Reviewed Results Reviewed: Laboratory Last Values Glucose (Clinic) 158 mg/dL (60-115) H 03/16/25 14:26 Assessment & Plan Assessment & Plan Orders: Orders AMB Hemoglobin A1c Today E11.65 - Type 2 diabetes mellitus with hyperglycemia Coding
[2025-03-16 14:16] VITALS: BP 114/76; PULSE 66; O2SAT 96; BMI 33.2
[2025-03-16 14:30] LABS: Glucose, Whole Blood 158 mg/dL (60-115)
== END 2025-03-16 14:53 | disposition home or self-care (01) ==
PROVIDERS: PCP Family Medicine; Visit Provider Nurse Practitioner Adult Health
DX: E11.65 Type 2 diabetes mellitus with hyperglycemia (principal)

== ENCOUNTER → 2025-03-16 14:08 | Outpatient (BNVA) | payer OTHER, SELFPAY | PROVIDERS: PCP Family Medicine; Visit Provider Nurse Practitioner Adult Health | DX: E11.65 Type 2 diabetes mellitus with hyperglycemia (principal); E11.42 Type 2 diabetes mellitus with diabetic polyneuropathy; E11.21 Type 2 diabetes mellitus with diabetic nephropathy; Z96.41 Presence of insulin pump (external) (internal); Z79.4 Long term (current) use of insulin; Z79.84 Long term (current) use of oral hypoglycemic drugs | CPT/HCPCS: 82947; 83036; 99212 ==

== ENCOUNTER 2025-06-01 14:24 | Outpatient (AMB) | payer OTHER, SELFPAY ==
--- OUTSIDE RECORDS SUMMARY | 2024-11-17 11:00 | XMS_ITS ---
Author Organization [facility] Address [address] [place] [address] Care Team Providers Care Sql Server Consultant Name Role Phone Sandro SRIVASTAVA, Juice Primary Care Provider Unavail able Black, Jeanne Unavailable [phone] Frances Duncan Unavailable [phone] Encounters Encounter Location Date Provider Diagnosis [address] [address] 11/17/2024 Frances Duncan Plan Of Treatment No Information Progress Notes * Sang LESTER ADOB:1959 (65 yo M)Acc No.[id number]:11/17/2024 Progress Note Patient: Sang MELLO Provider: Park Duncan DPM :1960 A ge:64 Y S ex:Male Date:11/17/2024 Address:[address] [facility] Pcp:Juice Jo MD Subjective: * Chief Complaints: * * Medical History: Objective: * Vitals: Assessment: Plan: * Treatment: * Images: * The named appointment provid er may or may not be the originator of this progress note, and it is not deemed complete until electronically signed by the appointment provider. Sign off status: Pending * Provider: Park uDncan DPM Date: 0 11/17/2024 Generated for Matias zavala/Kacy/Isasmitting on: 0 06/01/2025 03:44 PM EDT
--- OUTSIDE RECORDS SUMMARY | 2025-02-24 09:15 | XMS_ITS ---
Author Organization [facility] Address [address] [place] [address] Care Team Providers Care Recording Studio Internship Name Role Phone Sandro SRIVASTAVA, Juice Primary Care Provider Unavail able Jeanne Avelar Unavailable [phone] Encounters Encounter Location Date Provider Diagnosis [address] [address] 02/24/2025 Jeanne Avelar Plan Of Treatment No Information Progress Notes * Sang LESTER ADOB:1959 (65 yo M)Acc No.[id number]:02/24/2025 Progress Note Patient: Sang MELLO Provider: Kari Avelar DPM :1960 A ge:64 Y S ex:Male Date:02/24/2025 Address:[address] [place], [place] Pcp:Juice Jo MD Subjective: * Chief Complaints: [...] DPM Date: 0 02/24/2025 Generated for Printi ng/Faxing/eTransmitting on: 0 06/01/2025 03:44 PM EDT
[2025-06-01 14:37] VITALS: BP 120/72; PULSE 78; BMI 32.9
--- NOTE | 2025-06-01 14:37 | A.OFFVIS_ITS ---
Vital Signs 06/01/25 14:37 Height 5 ft 7 in Weight 210 lb 5.136 oz BMI 32.9 BP 120/72 Blood Pressure Location Lt brachial Position Sitting Pulse 78 Pulse Source Pulse Oximeter Intake Visit Reasons: 6m follow up r/s 05/04/25 Heading Maker Required: No Inorganic Chemist: Inorganic Chemist Present Allergies No Known Allergies Allergy (Verified 06/01/25 14:40) Medication List - Last Reconciled 06/01/25 by MARCELA Perry acetone (urine) test (Ketone Urine Test strips) As directed p.r.n. tid glucose 250 coming illness, nausea, vomiting albuterol sulfate 90 mcg/actuation inhalation ONCE PRN blood sugar diagnostic As directed blood sugar diagnostic (FreeStyle Lite Strips) qid prn sensor failure, confirm glucose blood-glucose meter (FreeStyle Lite Meter kit) As directed blood-glucose sensor ([employer] G7 Sensor device) As directed change every 10 days carvedilol 25 mg PO BID cholecalciferol (vitamin D3) (Vitamin D3) 25 mcg PO DAILY clopidogrel 75 mg PO DAILY diclofenac sodium 1% 1 ea topical QID doxazosin 4 mg PO BEDTIME empagliflozin (Jardiance) 10 mg PO DAILY ezetimibe 10 mg PO DAILY fluticasone propionate 50 mcg/actuation sprays intranasal furosemide 20 mg PO DAILY PRN glucagon 3 mg/actuation (Baqsimi) 3 mg intranasal ONCE PRN 30 days MDD 6 mg insulin lispro (Humalog U-100 Insulin) infuse up to 70 units via insulin pump daily 30 days lancets (FreeStyle Lancets) 4 times a day prn sensor failure or to confirm glucose dispense as 30 gauge if available lidocaine 5% 1 patch topical DAILY lidocaine 5% topical lisinopril 40 mg PO DAILY 30 days loratadine 10 mg PO DAILY Omnipod 5 G6-G7 Pods (Gen 5) (insulin pump cart,auto,BT,G6/7) As directed NS pen needle, diabetic As directed pregabalin 150 mg PO BID tamsulosin 0.4 mg PO BEDTIME tirzepatide (Mounjaro) 5 mg (0.5 mL) subcut QWEEK HPI HPI 6m follow up r/s 05/04/25: Details: Sang is a 65-year-old male with past medical history of hypertension, hyperlipidemia, obesity, chronic kidney disease, cardiomyopathy, CAD, PIOTR to the proximal circumflex 12/2022 who presents for follow-up after recent echocardiogram. Today he reports that he is still getting a burning type sensation in his left chest region. He reports that his discomfort occurs now with physical activity, exertion. It can occur at rest as well and can be relieved with [place]-Mouthcard. Other times he just holds the area until his symptom goes away. His head is fee ling clear overall and he is having less dizziness and unsteadiness. He does have some shortness of breath with activity which is not new. No PND, orthopnea or edema. Daughter is present. He is taking meds as directed and currently uses med minder. 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 Diabetic nephropathy associated with type 2 diabetes mellitus Diabetes type 2, uncontrolled Surgical History History of carpal tunnel surgery History of cardiac cath Family History Father Lung cancer Mother Diabetes Hypertension Arthritis CKD (chronic kidney disease) stage 4, GFR 15-29 ml/min Social History Household Members: Family Alcohol intake: current Alcohol intake frequency: other Alcohol type: wine Patient Tobacco Use Status: Former Tobacco user Review of Systems Const All systems reviewed & are unremarkable except as noted in HPI and below ENT Denies dizziness Card Reports chest pain, Reports chest pain at rest, Reports chest pain with activity, Denies rapid heart rate, Denies pedal edema, Denies edema, Denies leg edema, Denies lightheadedness, Denies palpitations, Denies dyspnea, Denies dyspnea on exertion and Denies orthopnea Resp Denies cough, Denies dyspnea and Denies dyspnea on exertion GI Denies hematochezia and Denies change in stool character Musc Denies abnormal gait, Denies limited range of motion, Denies muscle cramps, Denies muscle weakness, Denies numbness, Denies radiating pain into limb, Denies stiffness and Denies tingling Neuro Denies abnormal gait, Denies dizziness, Denies numbness and Denies tingling Endo Denies palpitations Physical Exam Vital Signs: Last Vital Signs Pulse 78 06/01/25 14:37 BP 120/72 06/01/25 14:37 BMI result Body Mass Index 32.9 Const General: cooperative, healthy appearing, comfortable and no acute distress Orientation/consciousness: patient oriented x3 Neck Neck: Yes normal visual inspection and Yes no JVD Resp Effort & Inspection: normal respiratory effort Auscultation: clear to auscultation bilaterally, no rales, no rhonchi and no wheezes Cardio Jugular venous distension: no JVD Rate: regular rate Rhythm: regular rhythm Heart sounds: S1 normal heart sound present, S2 normal heart sound present, no murmurs and no rubs Peripheral pulses: Peripheral pulses 2+ throughout Neuro General: patient oriented x3 Extrem Other: Right radial cath site well healed. easily palpable radial pulse, no bruising or swelling. Hand assessment within normal limits General: Yes normal to inspection and No no pedal edema Psych Appearance: grossly normal Mental Status: mental status grossly normal Speech and movement: Normal speech and movement present Office Procedures EKG Details: Today, read by me, normal sinus rhythm, rate 70, QTC 399 milliseconds [id number], Complete Assessment & Plan Assessment & Plan (1) CAD (coronary artery disease): Code(s): I25.10 - Atherosclerotic heart disease of [place] coronary artery without angina pectoris Category: Medical Plan: Known history of CAD with last cardiac catheterization 01/23/2023 showing p roximal circumflex 70% stenosis, IFR 0.88. He underwent balloon angioplasty and placement of PIOTR. He then did not present to the office between 02/24/2023 and last visit. He was reporting atypical chest discomfort and underwent an echocardiogram 11/17/2024 showing EF 47%, basal inferior hypokinetic which was unchanged from prior echo 05/22/2023. At this visit he continues to report some left chest burning discomfort at rest and now with activity. Will order a exercise nuclear stress test for further evaluation. Signs and symptoms of angina reviewed. He is not on aspirin due to prior GI upset. He is on Plavix as single antiplatelet agent. Continue carvedilol, Zetia. He declined statin use. Plan to call him with stress test results. Cardiology follow-up 6 months, unless test results warrants sooner visit. (2) Chest pain: Code(s): R07.9 - Chest pain, unspecified Category: Medical Plan: As above. Has typical and atypical features. (3) S/P cardiac cath: Comment: Cardiac catheterization 01/23/2023 showing left main normal, lad and RCA minimal luminal irregularities, left circumflex proximal 70% stenosis, IFR 0.88, balloon angioplasty with PIOTR placed Code(s): Z98.890 - Other specified postprocedural states Category: Surgical Plan: As above (4) NICM (nonischemic cardiomyopathy): Code(s): I42.8 - Other cardiomyopathies Category: Medical Plan: History of nonischemic cardiomyopathy with last EF 47%. No signs of heart failure on examination. He is on lisinopril and carvedilol for neurohormonal modulation. (5) Hypertension: Code(s): I10 - Essential (primary) hypertension Category: Medical Plan: Blood pressure goal less than 130/80. Well controlled at this time. No med changes made (6) Dyslipidemia: Code(s): E78.5 - Hyperlipidemia, unspecified Category: Medical Plan: [place] LDL goal less than 70. Refuses to take statin. Continue Zetia. Fasting lipid order in place, patient informed. (7) Preop cardiovascular exam: Code(s): Z01.810 - Encounter for preprocedural cardiovascular examination Category: Medical Plan: Preop for orthopedic type surgery on his right wrist. He is unable to give me details at this time. Nuclear stress test ordered. I will update this note once clearance is complete. Plan Time spent on chart review, documentation, interview and assessment Orders: Orders CA stress test Today I25.10 - Atherosclerotic heart disease of [place] coronary artery without angina pectoris, R07.9 - Chest pain, unspecified, Z98.890 - Other specified postprocedural states NM cardiolite stress test Today I25.10 - Atherosclerotic heart disease of [place] coronary artery without angina pectoris, R07.9 - Chest pain, unspecified, Z98.890 - Other specified postprocedural states Coding Level of Care Code Est Pt Level 4 (10881) Complex EM visit Add On G2211 Diagnoses CAD (coronary artery disease) I25.10 Chest pain R07.9 S/P cardiac cath Z98.890 NICM (nonischemic cardiomyopathy) I42.8 Hypertension I10 Dyslipidemia E78.5 Preop cardiovascular exam Z01.810 CPT Codes EKG - CPT: 13565-[id number], Complete ([id number]) Time Spent (min) 30
--- OUTSIDE RECORDS SUMMARY | 2025-06-01 15:44 | XMS_ITS | Encounter Summary ---
Author Organization [facility] Address [address] [place] [address] Phone Care Team Providers Care Grinding Mill Operator Name Role Phone Jose Angel Perry MD Primary Care Provider Encounter Details Date Type Department Care Team (Late st Contact Info) Description 09/25/2023 Documentation Only [facility] [address] [place] [address] Sha Chaudhry PA [address] [place] [address] Social History Tobacco Use Types [...] Care Team (Late st Contact Info) Description 06/20/2025 2:10 PM EDT Office Visit [facility] [address] [place] [address] Denis Gutierrez MD [address] [place] [address] [place] [address] documented as of this encounter Visit Diagnoses Not on filedocumented in this encounter Care Teams Grinding Mill Operator Relationship Specialty Start Date End Date Jose Angel Perry MD [address] PCP - General 08/02/19 documented as of this encounter
--- OUTSIDE RECORDS SUMMARY | 2025-06-01 15:44 | XMS_ITS | Clinical Summary ---
Author Organization [facility], Address [address] [place] [address] [place] [address] Phone Care Team Providers Care Instruction Dean Name Role Phone Jose Angel Perry MD [...] total) by mouth if needed 4 Active NIFEdipine XL (PROCARDIA XL) 30 MG 24 hr tablet Take 1 tablet (30 mg total) by mouth 1 (one) time each day Do not crush, chew, or split. 30 tablet 11 4 Active Jardiance 10 MG tablet Take 10 mg by mouth 1 (one) time each day 90 tablet 3 5 026 Active doxazosin (CARDURA) 4 MG tablet Take 1 tablet (4 mg total) by mouth at bed time 90 tablet 3 5 Active Active Problems Problem Noted Date Diagnosed Date Stage 3b chronic kidney disease 07/01/2022 Renal disorder due to type 2 diabetes mellitus 0 02/23/2020 Hypertensive heart disease without congestive he art failure 02/23/2020 Hypertension Proteinuria Resolved Problems Problem Noted Date Diagnosed Date Resolved Date Stage 3a chronic kidney disease 02/23/2020 10/31/2022 Encounters Date Type Department Care Team Description 03/20/2025 [facility]ill [facility] [address] [place] [address] Denis Gutierrez MD 03/20/2025 [facility]ill [facility] [address] [place] [address] Denis Gutierrez MD from Last 3 Months Immunizations Immunization Administration Dates Next Due H1N1 Inj 08/10/2009 Hep A / Hep B 11/18/2006 Hep A, Unspecified 10/11/2007 Hep B, Unspecified 09/26/2008,10/11/2007, 007 Influenza LAIV (Nasal) 08/10/2009 Influenza Split High Dose Pr eservative Free IM 05/29/2015 Influenza Whole 07/11/2020, 8,11/09/2007,11/18 Influenza, MDCK, Quadrivalen t, with preservative 07/11/2020,08/10/2017 Influenza, Unspecified 08/12/2021,2014,09/01/2013,06/18,06/25/2011 Pfizer SARS-COV-2 04/24/2021,04/03/2021 Pneumococcal Polysaccharide 07/19/2018, 7 SARS-CoV-2, Unspecified 11/28/2021,09/26/2008 Tdap 07/19/2018 Tetanus [...] Visit [facility], [address] [place] [address] Denis Gutierrez MD [address] [place] [phone] Health Maintenance Due Date Last Done Comments Hepatitis B Vaccine (2 of 3 - Hep B Twinrix 3-dose series) 10/24/2008 09/26/2008, 10/11/2007, 11/18/2006, Additional history exists Colorectal Cancer Screening: Annual FOBT 2011 Colorectal Cancer Screening: Colonoscopy 2011 Colorectal Cancer Screening: Sigmoidoscopy 2011 Pneumococcal Vaccine: 50+ Ye ars (3 of 3 - PCV) 07/19/2019 07/19/2018, 11/18/2006 Diabetes: Ophthalmology Exam 12/19/2019 Diabetes: Pedal Pulse Checked 12/19/2019 Diabetes: Sensory Foot Exam 12/19/2019 Diabetes: Visual Foot Exam 12/19/2019 Diabetes: Hemoglobin A1C 01/16/2025 025, 01/26/2024, 06/30/2022, Additional history exists Influenza Vaccine (#1) 2025 4, 09/17/2023, 07/30/2022, Additional history exists Pneumococcal Vaccine: Peds ( 0 to 5 Years) and At-Risk Patients (6 to 49 Years) Discontinued 07/19/2018, 11/18/2006 Procedures Procedure Name Priority Date/Time Associated Diagnosis Comments HEMOGLOBIN A1C Routine 01/26/2024 4:10 PM EDT Renal disorder due to type 2 diabetes mellitus <Other diabetic kidney complication> (HCC) from Last 3 Months or Most Recently Relevant to Health Maintenance Results * (ABNORMAL) Hemoglobin A1c (01/26/2024 4:10 PM EDT) Hemoglobin A1C 8.4(H) 4.8 - 5.6 % See order comments Comment: Prediabetes: 5.7 - 6.4 Diabetes: >6.4 Glycemic control for adults with diabetes: <7.0 Blood specimen (specimen) Venous blood / Unknown 01/26/2024 4:10 PM EDT 01/26/2024 Narrative [facility] - 01/27/2024 2:08 PM EDT Performed at: 01 - [facility] [address] [id number] Police Lieutenant Patrol: Rose Mary Rosales MD, Phone: [phone] Sha [facility] LAB BLOOD ORDERABLES Final Re sult [facility] See order comments [place] [address] from Last 3 Months or Most Recently Relevant to Health Maintenance Insurance [facility] ([id number]) [place] [phone] Care Teams Instruction Dean Relationship Specialty Start Date End Date Jose Angel Perry MD [address] PCP - General 08/02/19
--- OUTSIDE RECORDS SUMMARY | 2025-06-01 15:44 | XMS_ITS | Encounter Summary ---
Author Organization [facility] Address [address] [place] [address] Phone Care Team Providers Care Wholesale Buyer Name Role Phone Jose Angel Perry MD Primary Care Provider Encounter Details Date Type Department Care Team (Late Contact Info) Description 06/16/2022 Documentation Only [facility] [address] [place] [address] Og Weber MD [address] [place] [address] [place] [address] Social History Tobacco Use Types [...] Department Care Team (Late Contact Info) Description 06/20/2025 2:10 PM EDT Office Visit [facility] [address] [place] [address] Denis Gutierrez MD [address] [place] [address] documented as of this encounter Visit Diagnoses Not on filedocumented in this encounter Care Teams Wholesale Buyer Relationship Specialty Start Date End Date Jose Angel Perry MD [address] PCP - General 08/02/19 documented as of this encounter
--- OUTSIDE RECORDS SUMMARY | 2025-06-01 15:44 | XMS_ITS | Encounter Summary ---
Author Organization [facility] Address [address] [place] [address] Phone Care Team Providers Care Gear Design Engineer Name Role Phone Jose Angel Perry MD Primary Care Provider Encounter Details Date Type Department Care Team (Late st Contact Info) Description 09/25/2023 Documentation Only [facility] [address] [place] [address] Sha Chaudhry PA [address] [place] [address] Social History Tobacco Use Types [...] Visit [facility] [address] [place] [address] Denis Gutierrez MD [address] [place] [address] [place] [address] documented as of this encounter Visit Diagnoses Not on filedocumented in this encounter Care Teams Gear Design Engineer Relationship Specialty Start Date End Date Jose Angel Perry MD [address] PCP - General 08/02/19 documented as of this encounter
--- OUTSIDE RECORDS SUMMARY | 2025-06-01 15:44 | XMS_ITS | Encounter Summary ---
Author Organization [facility] Address [address] [place] [address] Phone Care Team Providers Care Portable Sawmill Operator Name Role Phone Jose Angel Perry MD Primary Care Provider Encounter Details Date Type Department Care Team (Late st Contact Info) Description 10/29/2022 Documentation Only [facility] [address] [place] [address] Sha Chaudhry PA [address] [place] [address] Social History Tobacco Use Types [...] Visit [facility] [address] [place] [address] Denis Gutierrez MD [address] [place] [address] [place] [address] documented as of this encounter Visit Diagnoses Not on filedocumented in this encounter Care Teams Portable Sawmill Operator Relationship Specialty Start Date End Date Jose Angel Perry MD [address] PCP - General 08/02/19 documented as of this encounter
--- OUTSIDE RECORDS SUMMARY | 2025-06-01 15:44 | XMS_ITS | Clinical Summary ---
Author Organization [facility] Address [address] [place] [address] Phone Care Team Providers Care Group Social Worker Name Role Phone Jose Angel Perry MD Primary Care Provider Allergies Active Allergy Reactions Criticality Noted Date Comments Bupropion Other,Unknown 08/26/2021 Other Reaction(s): made him aggressive Pt denies Other reaction(s): made him aggressive Medications carvediloL (COREG) 25 mg tablet Take 1 tablet (25 mg total) by mouth 2 (two) times a day with meals. 4 Active cholecalciferol (VITAMIN D-3) 25 mcg (1,000 unit) tablet Take 1 tablet (1,000 Units total) by mouth 1 (one) time each day. Active clopidogreL (PLAVIX) 75 mg tablet Take 1 tablet (75 mg total) by mouth 1 (one) time each day. Last day 01/30/25 4 Active doxazosin (CARDURA) 4 mg tablet Take 1 tablet (4 mg total) by mouth daily. 3 Active fluticasone propionate (FLONASE) 50 mcg/actuation nasal spray Administer 1 spray into affected nostril(s). 4 Active furosemide (LASIX) 20 mg tablet Take 1 tablet (20 mg total) by mouth if needed (according to weight). 4 Active Baqsimi 3 mg/actuation nasal spray given by Yeni colin alternate nostrils In one nostril; dose does not need to be inhaled, 0 Refills, Maintenance, 08/03/24 15:59:00 EST 4 Active insulin lispro 100 unit/mL injection if needed. Will shut machine off night before sx 4 Active lidocaine (LIDODERM) 5 % patch if needed. 4 Active lisinopril (PRINIVIL,ZESTR IL) 40 mg [...] Take 1 capsule (25 mg total) by mouth 1 (one) time each day. Takes 25 mg po qam 4 Active Lyrica 150 mg capsule Take 1 capsule (150 mg total) by mouth 2 (two) times a day. 4 Active tirzepatide (Mounjaro) 5 mg/0.5 mL injection Inject 0.5 mL (5 mg total) under the skin every 7 (seven) days. Last dose 01/28/25 not taking right now, may start again 02/08/25 Active empagliflozin (Jardiance) 10 mg tablet Take 1 tablet (10 mg total) by mouth 1 (one) time each day. Stopped 3 days prior to sx Active ezetimibe (ZETIA) 10 mg tablet Take 1 tablet (10 mg total) by mouth 1 (one) time each day. Active vitamin D3-vitamin K2, MK4, (K2 Plus D3) 1,000-100 unit-mcg tablet Take by mouth 1 (one) time each day. Active aluminum-magnes ium hydroxide 200-200 mg/5 mL suspension Take by mouth every 6 (six) hours if needed for heartburn. Active acetaminophen (TYLENOL 8 HOUR) 650 mg 8 hr tablet Take 1 tablet (650 mg total) by mouth every 8 (eight) hours if needed for mild pain. Do not crush, chew, or split. 30 tablet 5 Active ARIPiprazole (ABILIFY) 5 mg tablet Take 1 tablet (5 mg total) by mouth 1 (one) time each day. Active sucralfate (CARAFATE) 1 gram tablet Take by mouth 2 (two) times a day. Active tamsulosin (FLOMAX) 0.4 mg 24 hr capsule Take 1 capsule (0.4 mg total) by mouth 1 (one) time each day. Capsules should be taken 30 minutes following the same meal each day. Active Active Problems Problem Noted Date Diagnosed Date Surgery follow-up 04/04/2025 Infection of deep incisional surgical site after procedure 02/24/2025 S/P carpal tunnel release 02/24/2025 Infectious tenosynovitis 02/18/2025 Trigger finger, right middle finger 01/26/2025 Neuropathy 10/18/2024 Neck pain on right side 10/18/2024 Right carpal tunnel syndrome 08/16/2024 Trigger middle finger of right hand 08/16/2024 Hypertension 04/11/2024 Diabetic neuropathy (CMS/HCC V24, CMS/HCC V28) 0 06/25/2011 Encounters Date Type Department Care Team Description 05/23/2025 3:45 PM EDT Office Visit Orthopedic Surgery - [address] [phone] Colette Willett MD Infection of deep incisional surgical site after procedure, subsequent encounter (Primary Dx); S/P carpal tunnel release 04/14/2025 2:45 PM EDT Treatment [facility] [address] [place] [phone] Owen Guadarrama COTA/L S/P trigger finger release (Primary Dx); S/P carpal tunnel release; Infection of deep incisional surgical site after procedure, subsequent encounter 04/04/2025 2:00 PM EDT Office Visit Orthopedic Surgery [address] [phone] Colette Willett MD Surgery follow-up (Primary Dx); Infection of deep incisional surgical site after procedure, subsequent encounter; S/P trigger finger release; S/P carpal tunnel release 04/04/2025 12:30 PM EDT Treatment [facility] [address] [place] [phone] Sharlene Restrepo, OT S/P trigger finger release (Primary Dx); S/P carpal tunnel release; Infection of deep incisional surgical site after procedure, subsequent encounter 03/30/2025 2:30 PM EDT Treatment [address] [phone] Owen Guadarrama, DELA CRUZ/L S/P trigger finger release (Primary Dx); S/P carpal tunnel release; Infection of deep incisional surgical site after procedure, subsequent encounter 03/28/2025 2:30 PM EDT Treatment [address] [phone] Owen Guadarrama, DELA CRUZ/L S/P trigger finger release (Primary Dx); S/P carpal tunnel release; Infection of deep incisional surgical site after procedure, subsequent encounter 03/24/2025 2:30 PM EDT Treatment [address] [phone] Sharlene Restrepo, OT S/P carpal tunnel release (Primary Dx); S/P trigger finger release; Infection of deep incisional surgical site after procedure, subsequent encounter 03/16/2025 3:15 PM EDT Treatment [address] [phone] Owen Guadarrama, DELA CRUZ/L S/P carpal tunnel release (Primary Dx); S/P trigger finger release; Infection of deep incisional surgical site after procedure, subsequent encounter 03/14/2025 3:15 PM EDT Treatment [address] [phone] Owen Guadarrama, DELA CRUZ/L S/P carpal tunnel release (Primary Dx); S/P trigger finger release; Infection of deep incisional surgical site after procedure, subsequent encounter 03/10/2025 2:45 PM EDT Evaluation [address] [phone] Sharlene Restrepo, OT S/P carpal tunnel release; S/P trigger finger release; Infection of deep incisional surgical site after procedure, subsequent encounter 03/06/2025 8:30 AM EDT Office Visit Orthopedic Surgery - [address] [place] [address] Sharlene Champagne PA Surgery follow-up (Primary Dx) from Last 3 Months Immunizations Name Administration Dates Next Due Pfizer SARS-CoV-2 COVID-19, mRNA, LNP-S, preservative free 04/24/2021,04/03/2021 Surgical History Surgery Date Site/Laterality Comments COLONOSCOPY CORONARY STENT PLACEMENT 09/28/2022 - 09/27/2023 OTHER SURGICAL HISTORY CARPAL TUNNEL RELEASE 09/28/2020 - 09/27/2021 Right CARPAL TUNNEL RELEASE 02/03/2025 Right and TF release of long finger Medical History Medical History Date Comments Hypertension Hyperlipidemia Diabetes mellitus ([facility] V24, [facility] V28) Chronic kidney disease Heart disease cad Anxiety Motion sickness Shortness of breath Sleep apnea Liver disease GERD (gastroesophageal reflux disease) Psychiatric illness Depression Social History Tobacco Use Types Packs/Day Years [...] Sign Reading Time Taken Comments Blood Pressure 157/79 02/21/2025 7:33 AM EDT Pulse 65 02/21/2025 7:33 AM EDT Temperature 37.1 C (98.7 F) 02/21/2025 2:22 AM EDT Respiratory Rate 14 02/21/2025 7:33 AM EDT Oxygen Saturation 97% 02/21/2025 7:33 AM EDT Inhaled Oxygen Concentration - - Weight 97.5 kg (215 lb) 05/23/2025 4:11 PM EDT Height 170.2 cm (5' 7 ) 05/23/2025 4:11 PM EDT Body Mass Index 33.67 05/23/2025 4:11 PM EDT Plan of Treatment Health Maintenance Due Date Last Done Comments Diabetes: Annual Foot Exam 1972 Diabetes: Annual Retina Eye Exam 1972 Zoster Vaccines (1 of 2) 1981 Hepatitis A Vaccines (3 of 3 - Hep A Twinrix risk 3-dose series) 03/11/2008 10/11/2007, 11/18/2006 Pneumococcal Vaccine: 50+ Years (2 of 2 - PCV) 07/19/2019 07/19/2018, 11/18/2006 Cholesterol Screening (Lipid Panel) 08/27/2022 Colorectal Cancer Screening: Colonoscopy 08/27/2022 HIV Screening 08/27/2022 Hepatitis C Screening 08/27/2022 Medicare Annual Wellness Visit 08/27/2022 Social Influencers of Health Screening 08/27/2022 Depression Screening 09/28/2024 Diabetes: Blood Sugar Control Test (HGBA1C) 04/17/2025 10/18/2024, 01/26/2024, 01/26/2024 COVID-19 Vaccine (6 - Mixed Product risk season) 2025 08/03/2024, 11/28/2021, 04/24/2021, Additional history exists Influenza Vaccine (#1) 2025 , 09/17/2023, 07/30/2022, Additional history exists Diabetes: Annual Urine Albumin-Creatinine Ratio (uACR) 12/29/2025 12/29/2024 Diabetes: Annual GFR (Glomerular Filtration Rate) 02/20/2026 02/20/2025, 02/19/2025, 02/18/2025, Additional history exists Hypertension/CHF/CAD Annual BMP Blood Test 02/20/2026 02/20/2025, 02/19/2025, 02/18/2025, Additional history exists DTaP,Tdap,and Td Vaccines (2 - Td or Tdap) 07/19/2028 07/19/2018 Hepatitis B Vaccines Completed 09/26/2008, 10/11/2007, 11/18/2006, Additional history exists RSV Immunization Adult Patients Completed 08/03/2024 HIB Vaccines Aged Out No [...] age to complete this topic Meningococcal B Vaccine Aged Out No l onger eligible based on patient's age to complete this topic RSV Immunization Patients Under 20 months Aged Out No longer eligible based on patient's age to complete this topic Varicella Vaccines Aged Out No longer eligible based on patient's age to complete this topic Goals Goal Patient Goal Type Associated Problems Recent Progress Patient-Stated? Author OT goals 8 visits General Improving(04/2025 12:44 PM EDT) Sharlene Mancera, OT Note: Pt/dtr will return demo approp HEP w/ progression (scar massage, ROM, eventual strength) Pt will demo full hand closure to palm 04/04 RF still approx 1.5 cm to pal, the rest touch Pt will report tolerance to BADL/IADL including baking w/out signif pain 04/04/25: not yet baking/cannot squeeze pastry bag for icing cakes Occas A w/ socks, belt New goal estab 04/04: increased R geodetic advisor from currently 32# to at least 40# for ease of baking (vs 55 on L side) Medical Devices Implanted Type Area Combination Building Inspector Device Identifier Shelf Expiration Date Model / Serial / Lot [employer] Other [employer] Other N/A: Heart Description:CARDIAC STENT Procedures Procedure Name Priority Date/Time Associated Diagnosis Comments BASIC METABOLIC PANEL Routine 02/20/2025 6:10 AM EDT HEMOGLOBIN A1C Routine 10/18/2024 9:54 AM EST Diabetic mononeuropathy associated with type 2 diabetes mellitus (CMS/HCC V24, CMS/HCC V28) from Last 3 Months or Most Recently Relevant to Health Maintenance Results * (ABNORMAL) Basic metabolic panel (02/20/2025 6:10 AM EDT) Sodium 136 133 - 145 mmol/L LAB CHEMISTRY METHOD 02/20/2025 7:57 AM [facility] Potassium 3.9 3.5 - 5.5 mmol/L LAB CHEMISTRY METHOD 02/20/2025 7:57 AM [facility] Chloride 103 96 - 110 mmol/L LAB CHEMISTRY METHOD 02/20/2025 7:57 AM [facility] CO2 26 21 - 32 mmol/L LAB CHEMISTRY METHOD 02/20/2025 7:57 AM [facility] Anion Gap 7 3 - 11 LAB CHEMISTRY METHOD 02/20/2025 7:57 AM [facility] Glucose 123(H) 70 - 100 mg/dL LAB CHEMISTRY METHOD 02/20/2025 7:57 AM [facility] BUN 20 5 - 25 mg/dL LAB CHEMISTRY METHOD 02/20/2025 7:57 AM [facility] Creatinine 1.79(H) 0.70 - 1.30 mg/dL LAB CHEMISTRY METHOD 02/20/2025 7:57 AM [facility] eGFR 42(L) >=60 mL/min/1. 73m2 LAB CHEMISTRY METHOD 02/20/2025 7:57 AM [facility] Comment:Calculation based on the Chronic Kidney Disease Epidemiology Collaboration (CKD-EPI) equation refit without adjustment for race. BUN/Creatinine Ratio 11.2 LAB CHEMISTRY METHOD 02/20/2025 7:57 AM [facility] Calcium 8.9 8.5 - 10.5 mg/dL LAB CHEMISTRY METHOD 02/20/2025 7:57 AM [facility] Blood Venous blood specimen / Unknown Venipuncture / Unknown 02/20/2025 6:10 AM EDT 02/20/2025 6:47 AM EDT Rosenda Lui MD LAB BLOOD ORDERABLES Final Result Performing Organization Address City/[facility]/ZIP Co de Phone Number [facility] [address] [place] [address], [place] [phone] * (ABNORMAL) Hemoglobin A1c (10/18/2024 9:54 AM EST) Hemoglobin A1C 7.0(H) <6.5 % LAB CHEMISTRY METHOD 10/18/2024 3:[address] [facility] Mean Bld Glu Estim. 154 mg/dL LAB CHEMISTRY METHOD 10/18/2024 3:[address] [facility] Blood Venous blood specimen / Unknown Venipuncture / Unknown 10/18/2024 9:54 AM EST 10/18/2024 9:54 AM EST Colette Willett MD LAB BLOOD ORDERABLES Final Re sult [facility] [address] [place] [address], [place] [phone] from Last 3 Months or Most Recently Relevant to Health Maintenance Insurance [facility] MEDICARE Member Subscriber Plan / Payer (Ef fective 2024-Present) Name:SANG LESTER Relation to Subscriber:Self Name:Sang Lester Payer ID:[id number] Group ID:[id number] Type:Not on file Address: [place] [address] [place] [id number] Advance Directives * Full Code - Default (Latest Code Status on File) Date Activated Date Inactivated Comments 02/18/2025 1:11 AM 02/21/2025 3:57 PM This is orde r is used when code status has not been discussed with the patient, or code status is otherwise unknown/unconfirmed To update the patient's code status, place a code status order. Do not modify or discontinue any currently active code status orders. * Full Code - Default Date Activated Date Inactivated Comments 02/03/2025 7:56 AM 02/03/2025 1:45 PM This is order is used when code status has not been discussed with the patient, or code status is otherwise unknown/unconfirmed To update the patient's code status, place a code status order. Do not modify or discontinue any currently active code status orders. Care Teams Group Social Worker Relationship Specialty Start Date End Date Jose Angel Perry MD [address] [place] [phone] PCP - General 04/11/24
--- OUTSIDE RECORDS SUMMARY | 2025-06-01 15:44 | XMS_ITS | Patient Health Record ---
[facility] Organization [facility] Address [address] [facility] [place] [address] Care Team Providers Care Adoption Manager Name Role Phone Juice Jo MD Primary Care Provider Unavail able Black, Jeanne Unavailable [phone] Frances Duncan Unavailable [phone] Jorge A Guerin Unavailable [phone] Allergies No Known Allergies Results Component Value Reference Range Notes HEMOGLOBIN A1C (GLYCOHEMOGLO BIN) Reviewed date:06/30/2024 01:01:05 PM Interpretation: Performing Lab: Notes/Report: TOTAL HEMOGLOBIN (HGBA1C) 8 HEMOGLOBIN A1C (GLYCOHEMOGLO BIN) Reviewed date:12/08/2024 01:45:51 PM Interpretation: Performing Lab: Notes/Report: HEMOGLOBIN A1C % (HH) 7.4 Reason For Referral No Information Medications Medication SIG (Take, Route, Frequency, Duration) Notes Start Date End Date Status Doxazosin Mesylate 4 MG 1 tablet Orally Once a day Active Clopidogrel Bisulfate Active Loratadine Active Ezetimibe 10 MG 1 tablet Orally Once a day Active Nortriptyline HCl Ac tive Furosemide Active Vitamin D3 Active Carvedilol Active Lisinopril Active Ventolin HFA Active NIFEdipine Not-Takin g Jardiance Active Insulin Lispro Activ e Social History Tobacco Use: Social History Observation Description Date Details (start date - stop date) Never Smoker NA - NA Tobacco use other than smoking: Question Answer Notes Are you an other tobacco user? No Tobacco Control (Standard) Question Answer Notes Tobacco use: Nonsmoker Additional Findings: Tobacco non-user Current no nsmoker AUDIT-C (Standard) Question Answer Notes Did you have a drink containing alcohol in the p ast year? No Points 0 Interpretation Negative Problems Problem Type SNOMED Code ICD Code Onset Dates Problem Status W/U Status Risk Notes Problem Polyneuropathy due to type 2 diabetes mellitus (746470710) Type 2 diabetes mellitus with diabetic polyneuropathy (E11.42) Active confirmed Problem Neuropathy (342747044) Neuropathy (G62.9) Active confirmed Vital Signs Blood pressure diastolic 77 mm Hg 12/08/2024 Height 5ft 7in in 12/08/2024 Blood pressure systolic 120 mm Hg 12/08/2024 Weight 202 lbs 12/08/2024 BMI 31.63 kg/m2 12/08/2024 Procedures Procedure Date Ordered Date Performed Result Body Sit e 29512-RDFYWQV NAIL, 1-5 12/08/2024 N/A 47859-KZKU SKIN LESIONS, 2 TO 4 12/08/2024 N/A [id number] DYSTROPHIC NAILS ANY # 12/08/2024 N/A Encounters Encounter Location Date Provider Diagnosis [address] [address] 06/30/2024 Frances Duncan Type 2 diabetes mellitus with diabetic polyneuropathy E11.42 ; Neuropathic pain M79.2 ; Tinea unguium B35.1 and Neuropathy G62.[address] [address] 09/08/2024 Frances Duncan Xerosis of skin L85. 3 ; Type 2 diabetes mellitus with diabetic polyneuropathy E11.42 and Tinea unguium B35.[address] [address] 12/08/2024 Jorge A Guerin Type 2 diabetes mellitus with diabetic polyneuropathy E11.42 and Tinea unguium B35.[address] [address] 02/24/2025 Jeanne Avelar Assessments Encounter Date Diagnosis (ICD Code) Assessment Notes Treatment Notes Treatment Clinical Notes Section Notes 06/30/2024 Type 2 diabetes mellitus with diabetic polyneuropathy (ICD-10 - E11.42) 06/30/2024 Neuropathic pain (ICD-10 - M79.2) 09/08/2024 Type 2 diabetes mellitus with diabetic polyneuropathy (ICD-10 - E11.42) 09/08/2024 Xerosis of skin (ICD-10 - L85.3) 12/08/2024 Tinea unguium (ICD-10 - B35.1) 12/08/2024 Type 2 diabetes mellitus with diabetic polyneuropathy (ICD-10 - E11.42) 09/08/2024 Tinea unguium (ICD-10 - B35.1) 06/30/2024 Tinea unguium (ICD-10 - B35.1) 06/30/2024 Neuropathy (ICD-10 - G62.9) Plan Of Treatment Pending Test Test Name Order Date [id number] NAIL, 1-5 12/08/2024 [id number] SKIN LESIONS, 2 TO 4 12/09/19 25 [id number] DYSTROPHIC NAILS ANY # Insurance Providers Payer Name Payer Address Payer Phone Subscriber Number Group Number Insured Name Patient Relationship to Insured Coverage Start Date Coverage End Date [facility] [employer] Claims [address] [place] [id number] Sang Lester Self - patient is the insured Medical (General) History Medical History History ICD Code asthma Diabetic Headaches/Migraines High Blood Pressure Liver disease Chicken pox Carpal tunnel Surgical History Surgery Date(Month/Year) carpal tunnel surgery 2022
== END 2025-06-01 15:12 | disposition home or self-care (01) ==
LOC: HO.HCS 14:24
PROVIDERS: PCP Family Medicine; Visit Provider Nurse Practitioner Family
DX: I25.10 Atherosclerotic heart disease of native coronary artery without angina pectoris (principal); R07.9 Chest pain, unspecified; Z98.890 Other specified postprocedural states; I42.8 Other cardiomyopathies; I10 Essential (primary) hypertension; E78.5 Hyperlipidemia, unspecified; Z01.810 Encounter for preprocedural cardiovascular examination
CPT/HCPCS: 93010; 99214; G2211

== ENCOUNTER → 2025-06-01 14:24 | Outpatient (BNVA) | payer OTHER, SELFPAY | PROVIDERS: PCP Family Medicine; Visit Provider Nurse Practitioner Family | DX: Z01.810 Encounter for preprocedural cardiovascular examination (principal); R07.2 Precordial pain; I25.10 Atherosclerotic heart disease of native coronary artery without angina pectoris; I10 Essential (primary) hypertension; I42.8 Other cardiomyopathies; E78.5 Hyperlipidemia, unspecified; Z98.890 Other specified postprocedural states | CPT/HCPCS: 93005; 99212 ==

== ENCOUNTER → 2025-07-20 08:13 | Outpatient (REF) | payer OTHER, SELFPAY ==
--- NOTE | ~2025-07-20 | NM_ITS ---
EXERCISE MYOCARDIAL PERFUSION STUDY INDICATION: Chest pain, preoperative evaluation TECHNIQUE: The patient was brought in for an exercise perfusion study on 07/20/2025. Patient performed exercise as per Jay protocol and was injected 30 mCi of sestamibi once target heart rate was achieved. Images were obtained using the SPECT gamma camera interlaced with the gating device. Images were obtained in supine position. Resting perfusion study was performed on 07/26/2025. Patient was administered 30 mCi of sestamibi intravenously at rest. Images were then obtained in supine position. Total DLP 120 mGy-cm. Images were processed with the software and compared side to side in short axis, horizontal long axis and vertical long axis views. FINDINGS: Raw aquisition reviewed. The stress perfusion study showed no significant perfusion abnormality. Both uncorrected as well as CT attenuation corrected images were reviewed. The gated study shows mildly reduced LV systolic function with calculated LVEF of 45%, but visually appears normal. LV cavity is normal in size. The gated study shows normal wall thickening and contraction of segments. Resting study shows no significant perfusion abnormality. Gating at rest reveals normal wall motion with ejection fraction at 47%. The findings are consistent with no clear reversible or fixed perfusion abnormality. NM/NM cardiolite stress test IMPRESSION: 1. Myocardial perfusion imaging study shows normal myocardial perfusion. 2. Gated LVEF is 45% during stress and 47% during rest but visually appears higher. Correlate with echocardiogram. 3. Transient ischemic dilatation not present. EKG component of the test reported separately. Electronically signed by: Justin Garcia MD 07/27/2025 03:57 PM EDT
--- NOTE | 2025-07-20 08:15 | CA_ITS ---
Acquisition Time: 2025-07-20 08:20:22 Total Exercise Time: 00:05:35 Test Indications: CP,Dyspnea,Pre-Op Evaluation Medications: SEE H&P Protocol: HIRA Max HR: 141 BPM 89% of Pred: 157 BPM Max BP: 140/50 mmHG Max Work Load: 6.9 METS Exercise stress test with exercise 5 mins 35 secs of Hira Protocol at a reduced speed of 2.1mph, achieving 89% MPHR, with reports of SOB and 2/10 choking throat pain that quickly improved in recovery, without any arrythmias, with normotensive response to exercise. With baseline ST- T wave abnormality that became more prominent with exercise- ST depression inferolaterally- suggestive of ischemia. In recovery, pt's breathing returned to baseline and throat pain resolved. ST segment improved. Nuclear images pending. Test reviewed with Dr. Quintero. Referred By: Alise Harris Electronically Signed By: Murali Alva
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
== END ==
LOC: HO.CARD 08:13
PROVIDERS: PCP Family Medicine; Visit Provider Nurse Practitioner Family
DX: I25.10 Atherosclerotic heart disease of native coronary artery without angina pectoris (principal); R07.9 Chest pain, unspecified; Z98.890 Other specified postprocedural states
CPT/HCPCS: 78452; 93017; A9500; J0280; J2785

== ENCOUNTER → 2025-07-20 08:15 | Outpatient (BNV) | payer OTHER, SELFPAY | PROVIDERS: PCP Family Medicine | DX: R07.9 Chest pain, unspecified (principal) | CPT/HCPCS: 78452; 93016; 93018 ==

== ENCOUNTER 2025-08-30 13:07 | Outpatient (AMB) | payer OTHER, SELFPAY ==
--- NOTE | 2025-08-30 13:15 | MHC.OFFVIS ---
Vital Signs 08/30/25 13:16 Height 5 ft 7 in Weight 213 lb 13.574 oz BMI 33.5 BP 166/86 H Blood Pressure Location Rt brachial Position Sitting Pulse 93 Pulse Source Pulse Oximeter Pulse Oximetry (%) 98 Oxygen Delivery Method Room Air Intake Visit Reasons: DMT2 Intake Note: Patient present today for a follow-up on Type 2 Diabetes Mellitus Patient on Omnipod insulin Pump: Patient last seen by Yeni Grey NP. Last Diabetic eye exam: 08/2024, has a coming up appt Last Podiatry Visit: 09/2024 Most Recent HgA1C: 7.9%, 08/30/2025 Random Glucose: 313 mg/dL, Today Stereotyper Required: No Accompanied by: Self / Same As Patient Allergies No Known Allergies Allergy (Verified 08/30/25 13:28) Medication List - Last Reconciled 08/30/25 by Zaki De La Rosa MD acetone (urine) test (Ketone Urine Test strips) As directed p.r.n. tid glucose 250 coming illness, nausea, vomiting albuterol sulfate 90 mcg/actuation inhalation ONCE PRN blood sugar diagnostic As directed blood sugar diagnostic (FreeStyle Lite Strips) qid prn sensor failure, confirm glucose blood-glucose meter (FreeStyle Lite Meter kit) As directed blood-glucose sensor (Bloxr G7 Sensor device) As directed change every 10 days carvedilol 25 mg PO BID cholecalciferol (vitamin D3) (Vitamin D3) 25 mcg PO DAILY clopidogrel 75 mg PO DAILY diclofenac sodium 1% 1 ea topical QID doxazosin 4 mg PO BEDTIME empagliflozin (Jardiance) 10 mg PO DAILY ezetimibe 10 mg PO DAILY fluticasone propionate 50 mcg/actuation sprays intranasal furosemide 20 mg PO DAILY PRN glucagon 3 mg/actuation (Baqsimi) 3 mg intranasal ONCE insulin lispro (Humalog U-100 Insulin) infuse up to 70 units via insulin pump daily 30 days lancets (FreeStyle Lancets) 4 times a day prn sensor failure or to confirm glucose dispense as 30 gauge if available lidocaine 5% 1 patch topical DAILY lidocaine 5% topical lisinopril 40 mg PO DAILY 30 days loratadine 10 mg PO DAILY Omnipod 5 G6-G7 Pods (Gen 5) (insulin pump cart,auto,BT,G6/7) As directed NS pen needle, diabetic As directed pregabalin 150 mg PO BID tamsulosin 0.4 mg PO BEDTIME tirzepatide (Mounjaro) 5 mg (0.5 mL) subcut QWEEK HPI Comments Details: Patient is a 64-year-old male with DM type 2 diagnosed in 1999 who presents for management of diabetes. He was last seen 11/02/24 with an A1C of 7.4%. Hemoglobin A1c 03/16/2025 7.7 %. Last seen by Yeni Grey 03/16/25. This is my first time seeing this patient. He previously had been on an insulin pump with u500 and was recently changed to u100. Previous medication: trulicity 1.5mg Q weekly but stopped because of foul burping. Diabetes medications: humalog via pump.Omni pod jardiance 10mg started by nephrology mounjaro 5mg CGM/Pump Total daily dose of insulin 32.2 Basal 25 units 92% bolus 3.5 units 8% Auto mode 41% % carbohydrate intake entered 50 g Interpretation: Persistent hyperglycemia due to dietary transgressions and not bolusing for meals. 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 sees second cutter regularly Basal rate(s) (units/hour) : 12 AM? to 12 AM? 1.5 units / hr Bolus setting Insulin Carbohydrate Ratio (s) 12 AM? to 12 AM?? 1:9 Correction Factor / Sensitivity Factor 12 AM? to 12 AM?? 1:60 Active Insulin Time:?2.5 hours Target(s):12 AM? to 12 AM 110 mg/dL Correction threshold 120 mg/dL Interval history: The patient reported dietary indiscretions, including late-night consumption of high-carbohydrate foods such as chuletas and tostones, which affected blood sugar control. The patient admitted to frequently not administering insulin before meals, relying mostly on basal insulin. It was noted that bolus insulin was used only 8% of the time. The patient expressed understanding of the need to improve insulin administration but has been inconsistent. The patient has not been exercising regularly, citing cold weather and safety concerns. Last eye doctor visit was approximately in February of this year. No diabetic retinopathy was noted, but a follow-up was recommended. The patient is not currently on any statin medication due to concerns about side effects, such as alleged links to dementia. The patient is taking Zetia (ezetimibe) for lipid control. The patient previously used Trulicity, but is now on Mounjaro (tirzepatide) 5 mg weekly Physical exam: General: Well appearing. NAD. Not Cushingoid or Acromegalic Neck/Thyroid: Thyroid not palpable, no nodules. CV: RRR, no murmur. No edema. Resp:Lungs clear to auscultation bilaterally Abdomen: Soft, nontender. 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 Diabetic nephropathy associated with type 2 diabetes mellitus Diabetes type 2, uncontrolled Surgical History History of carpal tunnel surgery History of cardiac cath Family History Father Lung cancer Mother Diabetes Hypertension Arthritis CKD (chronic kidney disease) stage 4, GFR 15-29 ml/min Social History Household Members: Family Alcohol intake: current Alcohol intake frequency: other Alcohol type: wine Patient Tobacco Use Status: Former Tobacco user Physical Exam Vital Signs: Last Vital Signs Pulse 93 08/30/25 13:16 BP 166/86 H 08/30/25 13:16 Pulse Ox 98 08/30/25 13:16 Oxygen Delivery Method Room Air 08/30/25 13:16 BMI result Body Mass Index 33.5 Const Other: Absence of Cushingoid features. Absence of acromegalic features. Neck exam reveals nl size thyroid about 15 gms. No thyroid nodules palpable. Heart S1 S2, Reg R/R. No M/R G. Skin exam reveals absence of vitiligo or acanthosis nigricans. No edema Office Procedures Glucose Monitoring Details Details: See [facility] [address] - Glucose Monitoring, continuous Procedure code (CPT) selection complete Results AMB Hemoglobin A1c AMB Hemoglobin A1c 7.9 % Last Edit by LU Durbin on 08/30/25 13:27 Results Reviewed Results Reviewed: Laboratory Last Values Glucose (Clinic) 313 mg/dL (60-115) H 08/30/25 13:18 Hgb A1c (Clinic) 7.9 % (4.0-6.0) H 08/30/25 13:27 Assessment & Plan Assessment & Plan (1) Diabetes type 2, uncontrolled: Code(s): E11.65 - Type 2 diabetes mellitus with hyperglycemia Category: Medical Qualifiers: Glycemic state: with hyperglycemia Qualified Code(s): E11.65 - Type 2 diabetes mellitus with hyperglycemia Plan: Type 2 diabetic, poorly controlled, with nephropathy followed by Nephrology. Poor DM control in the setting of dietary transgressions and misutilization of the pump (does not bolus, does not use automated mode often enough). He is sometimes having problems with the sensor failing. He is also sedentary. 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 Complete Blood Count no Diff Today E11.65 - Type 2 diabetes mellitus with hyperglycemia, Z79.4 - 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 Liver Panel Today E11.65 - Type 2 diabetes mellitus with hyperglycemia, Z79.4 - 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 AMB Glucose Monitoring Today E11.42 - Type 2 diabetes mellitus with diabetic polyneuropathy, Z79.4 - 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 AMB Hemoglobin A1c Today E11.42 - Type 2 diabetes mellitus with diabetic polyneuropathy Basic Metabolic Panel Today E11.65 - Type 2 diabetes mellitus with hyperglycemia, Z79.4 - [facility] (current) use of insulin Microalbumin, Random (w Creat) Today E11.65 - Type 2 diabetes mellitus with hyperglycemia, Z79.4 - [facility] (current) use of insulin Medications: New tirzepatide (Mounjaro) 7.5 mg (0.5 mL) subcut QWEEK 2 mL 3RF E11.65 - Type 2 diabetes mellitus with hyperglycemia, Z79.4 - 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
[2025-08-30 13:16] VITALS: BP 166/86; PULSE 93; O2SAT 98; BMI 33.5
[2025-08-30 13:22] LABS: Glucose, Whole Blood 313 mg/dL (60-115)
--- OUTSIDE RECORDS SUMMARY | 2025-08-30 15:35 | XMS_ITS | Clinical Summary ---
Author Organization [address] [facility] Address [address] [place] [address] Phone Care Team Providers Care Flying Squad Salesperson Name Role Phone Jose Angel Perry MD [...] right hand 08/16/2024 Hypertension 04/11/2024 Diabetic neuropathy ([facility] V24, [facility] V28) 0 06/25/2011 Immunizations Immunization Administration Dates Next Due Pfizer SARS-CoV-2 COVID-19, mRNA, LNP-S, preservative free 04/24/2021,04/03/2021 Surgical History Surgery Date Site/Laterality Comments COLONOSCOPY CORONARY STENT PLACEMENT 09/28/2022 - 09/27/2023 OTHER SURGICAL HISTORY CARPAL TUNNEL RELEASE 09/28/2020 - 09/27/2021 Right CARPAL TUNNEL RELEASE 02/03/2025 Right and TF release of long finger Medical History Medical History Date Comments Hypertension Hyperlipidemia Diabetes mellitus ([facility] V24, [facility] V28) Chronic kidney disease Heart disease cad Anxiety Motion sickness Shortness of breath Sleep apnea Liver disease GERD (gastroesophageal reflux disease) Psychiatric illness Depression Social History Tobacco Use Types Packs/Day Years Used Date Smoking Tobacco: Former Cigarettes 0 Q uit: 2009 Tobacco Cessation:Counseling Given: Not [...] (HGBA1C) 04/17/2025 10/18/2024, 01/26/2024, 01/26/2024 COVID-19 Vaccine ( season) 2025 08/03/2024, 11/28/2021, 04/24/2021, Additional history [...] belt New goal estab 04/04: increased R obgyn specialist from currently 32# to at least 40# for ease of baking (vs 55 on L side) Medical Devices Implanted Type Area Grain Elevator Motor Starter Device Identifier Shelf Expiration Date Model / Serial / Lot [employer] Other [employer] Other N/A: Heart Description:CARDIAC STENT Procedures Procedure Name Priority Date/Time Associated Diagnosis Comments BASIC METABOLIC PANEL Routine 02/20/2025 6:10 AM EDT HEMOGLOBIN A1C Routine 10/18/2024 9:54 AM EST Diabetic mononeuropathy associated with type 2 diabetes mellitus ([facility] V24, [facility] V28) from Last 3 Months or Most Recently Relevant to Health Maintenance Results * (ABNORMAL) Basic metabolic panel (02/20/2025 6:10 AM EDT) Sodium 136 133 - 145 mmol/L LAB CHEMISTRY METHOD 02/20/2025 7:57 AM [facility] Potassium 3.9 3.5 - 5.5 mmol/L LAB CHEMISTRY METHOD 02/20/2025 7:57 AM [facility] Chloride 103 96 - 110 mmol/L LAB CHEMISTRY METHOD 02/20/2025 7:57 AM [facility] CO2 26 21 - 32 mmol/L LAB CHEMISTRY METHOD 02/20/2025 7:57 AM [facility] Anion Gap 7 3 - 11 LAB CHEMISTRY METHOD 02/20/2025 7:57 AM [facility] Glucose 123(H) 70 - 100 mg/dL LAB CHEMISTRY METHOD 02/20/2025 7:57 AM [facility] BUN 20 5 - 25 mg/dL LAB CHEMISTRY METHOD 02/20/2025 7:57 AM [facility] Creatinine 1.79(H) 0.70 - 1.30 mg/dL LAB CHEMISTRY METHOD 02/20/2025 7:57 AM [facility] eGFR 42(L) >=60 mL/min/1. 73m2 LAB CHEMISTRY METHOD 02/20/2025 7:57 AM [facility] Comment:Calculation based on the Chronic Kidney Disease Epidemiology Collaboration (CKD-EPI) equation refit without adjustment for race. BUN/Creatinine Ratio 11.2 LAB CHEMISTRY METHOD 02/20/2025 7:57 AM EDT [facility] Calcium 8.9 8.5 - 10.5 mg/dL LAB CHEMISTRY METHOD 02/20/2025 7:57 AM EDT [facility] Blood Venous blood specimen / Unknown Venipuncture / Unknown 02/20/2025 6:10 AM EDT 02/20/2025 6:47 AM EDT Rosenda Lui MD LAB BLOOD ORDERABLES Final Result Performing Organization Address [facility]/ZIP Co de Phone Number [facility] [address] [place] [address], [place] [phone] * (ABNORMAL) Hemoglobin A1c (10/18/2024 9:54 AM EST) Hemoglobin A1C 7.0(H) <6.5 % LAB CHEMISTRY METHOD 10/18/2024 3:14 PM EST [facility] Mean Bld Glu Estim. 154 mg/dL LAB CHEMISTRY METHOD 10/18/2024 3:14 PM EST [facility] Blood Venous blood specimen / Unknown Venipuncture / Unknown 10/18/2024 9:54 AM EST 10/18/2024 9:54 AM EST Colette Willett MD LAB BLOOD ORDERABLES Final Re sult Performing Organization Address City/[facility]/ZIP Co de Phone Number [facility] [address] [place] [address], [place] [phone] from Last 3 Months or Most Recently Relevant to Health Maintenance Insurance [employer] Member Subscriber Plan / Payer (Ef fective 2024-Present) Name:SANG LESTER Relation to Subscriber:Self Name:Sang Lester Payer ID:[id number] Group ID:[id number] Type:Not on file Address: [place] [address] [place] [phone] Advance Directives * Full Code - Default [...] currently active code status orders. Care Teams Flying Squad Salesperson Relationship Specialty Start Date End Date Jose Angel Perry MD [address] [place] [phone] PCP - General 04/11/24
== END 2025-08-30 13:52 | disposition home or self-care (01) ==
LOC: HO.ENCR 13:08
PROVIDERS: PCP Family Medicine; Visit Provider Student in an Organized Health Care Education/Training Program
DX: E11.65 Type 2 diabetes mellitus with hyperglycemia (principal); Z79.4 Long term (current) use of insulin
CPT/HCPCS: 99214; G2211

== ENCOUNTER → 2025-08-30 13:07 | Outpatient (BNVA) | payer OTHER, SELFPAY | PROVIDERS: PCP Family Medicine; Visit Provider Student in an Organized Health Care Education/Training Program | DX: E11.65 Type 2 diabetes mellitus with hyperglycemia (principal) | CPT/HCPCS: 82947; 83036; 95250; 99212 ==

== ENCOUNTER 2025-09-05 16:15 | Outpatient (AMB) | payer OTHER, SELFPAY ==
--- OUTSIDE RECORDS SUMMARY | 2024-11-17 10:00 | XMS_ITS ---
Author Organization [facility] Address [address] [place] [address] Care Team Providers Care Nurse Instructor Name Role Phone Sandro SRIVASTAVA, Juice Primary Care Provider Unavail able Black, Jeanne Unavailable [phone] Frances Duncan Unavailable [phone] Encounters Encounter Location Date Provider Diagnosis [address] [address] 11/17/2024 Frances Duncan Plan Of Treatment No Information Progress Notes * Sang LESTER ADOB:1959 (65 yo M)Acc No.[id number]:11/17/2024 Progress Note Patient: Sang MELLO Provider: Park Duncan DPM :1960 A ge:64 Y S ex:Male Date:11/17/2024 Address:[address] [facility] Pcp:Juice Jo MD Subjective: * Chief Complaints: [...] 0 11/17/2024 Generated for Matias zavala/Kacy/Isasmitting on: 11/06/2024 10:52 PM EST
--- OUTSIDE RECORDS SUMMARY | 2025-02-24 08:15 | XMS_ITS ---
Author Organization [facility] Address [address] [place] [address] Care Team Providers Care Upkeep Worker Name Role Phone Sandro SRIVASTAVA, Juice Primary Care Provider Unavail able Jeanne Avelar Unavailable [phone] Encounters Encounter Location Date Provider Diagnosis [address] [address] 02/24/2025 Jeanne Avelar Plan Of Treatment No Information Progress Notes * Sang LESTER ADOB:1959 (65 yo M)Acc No.[id number]:02/24/2025 Progress Note Patient: Sang MELLO Provider: Kari Avelar DPM :1960 A ge:64 Y S ex:Male Date:02/24/2025 Address:[address] [place], [place] Pcp:Juice Jo MD Subjective: * Chief Complaints: [...] Avelar DPM Date: 0 02/24/2025 Generated for Aii ng/Fatessg/eTransmitting on: 1 11/06/2024 10:52 PM EST
--- OUTSIDE RECORDS SUMMARY | 2025-09-01 23:59 | XMS_ITS | Continuity of Care Document ---
Author Organization [facility] Address [address] [place] [address]- Care Team Providers Care Legal Contracts Specialist Name Role Phone [place] SRIVASTAVA, Jose Angel Primary Care Physician Encounter [facility] Date(s): 08/02/25 - 09/01/25 [facility]/[address] [address]- Attending Physician: Clarke Mart Encounter Type: Triage Allergies, Adverse Reactions, Alerts Substance Criticality Severity Reaction Reaction Severity Status buPROPion made him aggressive Active Immunizations Given and Recorded Vaccine Date Status Refusal Reason zoster vaccine, inactivated 08/02/25 Given pneumococcal 20-valent conjugate vaccine 08/02/25 Given influenza virus vaccine, inactivated 08/02/25 Give n influenza virus vaccine, inactivated 08/03/24 Give n influenza virus vaccine, inactivated 09/17/23 Give n influenza virus vaccine, inactivated 07/30/22 Give n influenza virus vaccine, inactivated 08/12/21 Give n influenza virus vaccine, inactivated 1 07/11/15 Gi agapito influenza virus vaccine, inactivated 2 09/01/13 Gi agapito influenza virus vaccine, inactivated 3 06/18/12 Gi agapito influenza virus vaccine, inactivated 4 06/25/11 Gi agapito RSV vaccine, preF A-preF B, recombinant 08/03/24 G iven SARS-CoV-2(COVID-19)mRNA-LNP vac([id number]) 08/03/24 Given [id number] 12y+ bivalent booster vax 07/30/22 Given SARS-CoV-2 mRNA ([id number]) vax 11/28/21 Given SARS-CoV-2 (COVID-19) mRNA BNT-162b2 vac 04/24/21 Given SARS-CoV-2 (COVID-19) mRNA BNT-162b2 vac 04/03/21 Given Influenza Virus Vaccine (oldterm) 07/11/20 Recorde d Influenza Virus Vaccine (oldterm) 5 11/09/07 Given pneumococcal 23-valent vaccine 07/19/18 Given pneumococcal 23-valent vaccine 6 11/18/06 Given tetanus/diphtheria/pertussis, acel(Tdap) 07/19/18 Given FluMist (oldterm) 7 08/10/09 Given influ virus vac, H1N1, inactive(oldterm) 8 08/10/09 Given Influenza Vaccine (oldterm) 9 09/26/08 Given Hepatitis B Vaccine (old term) 10 09/26/08 Given Hepatitis B Vaccine (old term) 11 10/11/07 Given Hepatitis B Vaccine (old term) 12 11/18/06 Given Miscellaneous Vaccine 13 09/26/08 Given Tetanus Toxoid Vaccine (oldterm) 12/22/07 Given Hepatitis A Vaccine (oldterm) 14 10/11/07 Given Hepatitis A-Hepatitis B Vaccine 15 11/18/06 Given Influenza Inactive (IM) (oldterm) 16 11/18/06 Give n 1Result Comment: [07/16/2015] Ordered by Dr. Castaneda 2Resrolly Comment: [09/01/2013] Ordered by Tamara Castaneda MD 3Admin Note: VIS03/29/2012 4Admin Note: VIS 04/22/2011GIVEN 5Admin Note: Brian Cali RN 6Admin Note: KAREN 7Admin Note: VIS 2008 8Admin Note: CSL BIOTHERAPIES VIS 03/27/2009 9Admin Note: VIS 04/20/08 GIVEN 10Admin Note: VIS 04/14/07 GIVEN 11Admin Note: vis given 03/28 lower arm 12Admin Note: VIS 12/16/05 13Admin Note: ADACEL VIS 04/08/06 GIVEN 14Admin Note: VIS 12/01 rt upper arm 15Admin Note: KAREN 16Admin Note: KAREN Medications 4 Wheeled walker with seat 4 Wheeled walker with seat, See Instructions, # 1 each, Refills 0, Tot. 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 Refills 2, Maintenance, use as directed for Type 2 Diabetes Mellitus, 04/13/25 4:09:00 PM EDT, Supply Start Date: 04/13/25 Stop Date: 01/08/26 Status: Ordered Medication Dispense Status: Completed Quantity: 600.0 Unit: each Total Allowed Fills: 3 Fills Dispensed: 0 Indications: Type 2 diabetes mellitus with diabetic neuropathy, unspecified; ammonium lactate 12% topical cream 1 applicator, Topically, 2 times a day, # 280 Gm, 11 Refills, Maintenance, 04/21/25 6:25:00 PM EDT, [facility], Partial fill upon patient request if the prescription is for a schedule II opioid drug., 1 applicator Topically 2 times a day, 170, cm, 04/13/25 14:00:00 EDT, Height, 100.1, kg, 04/13/25 14:00:00 EDT, Dry Weight Start Date: 04/21/25 Status: Ordered Medication Dispense Status: Completed Quantity: 280.0 Unit: g Total Allowed Fills: 12 Fills Dispensed: 0 atorvastatin 80 mg oral tablet 1 tablet, By Mouth, Daily, # 30 tablet, 11 Refills, Maintenance, 04/25/24 1:45:00 PM EDT, [facility], 170, cm, 02/18/24 15:28:00 EDT, Height, 101.7, kg, 09/11/22 13:13:00 EST, Dry Weight Start Date: 04/25/24 Stop Date: 04/20/25 Status: Ordered Medication Dispense Status: Completed Quantity: 30.0 Unit: tablet Total Allowed Fills: 12 Fills Dispensed: 0 Baqsimi One Pack 3 mg nasal powder given by endo , ?Yeni?? Matilda alternate nostrils In one nostril; dose does not need to be inhaled, 0 Refills, Maintenance, 08/03/24 3:59:00 PM EST Start Date: 08/03/24 Status: Ordered Medication Dispense Status: Completed Total Allowed Fills: 1 Fills Dispensed: 0 carvedilol 25 mg oral tablet 1, tablet, By Mouth, 2 times a day, ^1R1,1R4., # 60 tablet, Refills 2, Tot. Refills 2, Maintenance,08/29/25 3:28:00 PM EST, Route to Pharmacy Electronically, [facility], 170, cm, 08/02/25 15:52:00 EST, Height, 99.54, kg, 08/02/25 15:52:00 EST, Dry Weight Start Date: 08/29/25 Status: Ordered Medication Dispense Status: Completed Quantity: 60.0 Unit: tablet Total Allowed Fills: 3 Fills Dispensed: 0 clobetasol 0.05% topical ointment See Instructions, APPLY TOPICALLY TWO TIMES A DAY (BULK), # 15 Gm, 3 Refills, Maintenance, 11/30/24 8:08:00 AM EST, [facility], 7, APPLY TOPICALLY TWO TIMES A DAY (BULK), 170, cm, 08/03/24 14:15:00 EST, Height, 97.27, kg, 08/03/24 14:15:00 EST, Dry Weight Start Date: 11/30/24 Status: Ordered Medication Dispense Status: Completed Quantity: 15.0 Unit: g Total Allowed Fills: 1 Fills Dispensed: 0 clopidogrel 75 mg oral tablet 1, tablet, By Mouth, Daily, for 30 days, # 30 tablet, Refills 11, Tot. Refills 11, Hard Stop 04/15/26 1:39:00 PM EDT, 04/20/25 1:39:00 PM EDT, Route to Pharmacy Electronically, [facility], 170,cm, 03/06/25 11:39:00 EDT, Height, 97.27, kg, 08/03/24 14:15:00 EST, Dry Weight Start Date: 04/20/25 Stop Date: 04/15/26 Status: Ordered Medication Dispense Status: Completed Quantity: 30.0 Unit: tablet Total Allowed Fills: 12 Fills Dispensed: 0 Compression- Lower Extremity (Knee High) See Instructions, # 2 each, Refills 11, Tot. Refills 11, Maintenance, use daily; closed toes; 20-30mmHg. Dx peripheral vascular insufficiency I 87.2 Chronic kidney disease a stage G3 B N18.32; leg edema R60.0, 12/18/23 1:24:00 PM EDT, Compound Start Date: 12/18/23 Status: Ordered Medication Dispense Status: Completed Quantity: 2.0 Unit: each Total Allowed Fills: 12 Fills Dispensed: 0 Indications: Localized edema; Chronic kidney disease, stage 3b; CPAP Equipment See Instructions, # 1 each, Refills 0, Tot. Refills 0, Maintenance, use every night at 10 cm of water with a medium Quattro Air Mask with humidification. To be used at least 4 hours every night. Length of need: lifetime. To be use at home. Dx JOYA. sleep study on 11/09/12, Sleep obstructive apnea, 04/14/18 6:05:41 PM EDT, Compound Start Date: 04/14/18 Status: Ordered Medication Dispense Status: Completed Quantity: 1.0 Unit: each Total Allowed Fills: 1 Fills Dispensed: 0 Disposable chux pads 32' x 36' Disposable chux pads 32' x 36', See Instructions, # 60 each, Refills 12, Tot. Refills 12, Maintenance, Use daily at bedtime as instructed Dx urge urinary incontinence ICD10 N39.41, stool [id number] Length of need: 99, 04/13/25 4:07:00 PM EDT, Compound Start Date: 04/13/25 Status: Ordered Medication Dispense Status: Completed Quantity: 60.0 Unit: each Total Allowed Fills: 13 Fills Dispensed: 0 doxazosin 4 mg oral tablet 1 tablet = 4 mg, By Mouth, Daily at bedtime, TAKE 1 TABLET BY MOUTH EVERY NIGHT. Start Date: 01/23/23 Status: Ordered Medication Dispense Status: Completed Total Allowed Fills: 1 Fills Dispensed: 0 fluticasone 50 mcg/inh nasal spray See Instructions, INSTILL 2 SPRAYS IN EACH NOSTRIL DAILY DURING FOR ALLERGIES SEASON. WHILE USING SPRAY KEEP HEAD DOWN (BULK), # 16 Gm, 5 Refills, Maintenance, 08/29/25 3:28:00 PM EST, [facility], 30, INSTILL 2 SPRAYS IN EACH NOSTRIL DAILY DURING FOR ALLERGIES SEASON. WHILE USING SPRAY KEEP HEAD DOWN (BULK), 170, cm, 08/02/25 15:52:00 EST, Height, 99.54, kg, 08/02/25 15:52:00 EST, Dry Weight Start Date: 08/29/25 Status: Ordered Medication Dispense Status: Completed Quantity: 16.0 Unit: g Total Allowed Fills: 6 Fills Dispensed: 0 furosemide 20 mg oral tablet 1, tablet, By Mouth, Daily, CAN TAKE AN EXTRA TABLET IF YOU GAIN 2 POUNDS (VIAL), # 30 tablet, Refills 5, Maintenance, 04/20/25 1:14:00 PM EDT, Route to Pharmacy Electronically, [facility], 170, cm, 04/13/25 14:00:00 EDT, Height, 100.1, kg, 04/13/25 14:00:00 EDT, Dry Weight Start Date: 04/20/25 Status: Ordered Medication Dispense Status: Completed Quantity: 30.0 Unit: tablet Total Allowed Fills: 1 Fills Dispensed: 0 Gloves Gloves, See Instructions, # 100 each, Refills 5, Tot. Refills 5, Maintenance, Dx:R32 ADRIANNE 99, 04/13/25 4:08:00 PM EDT, Supply Start Date: 04/13/25 Status: Ordered Medication Dispense Status: Completed Quantity: 100.0 Unit: each Total Allowed Fills: 6 Fills Dispensed: 0 Indications: Unspecified urinary incontinence; Hand held shower Hand held shower, See Instructions, # 1 each, Refills 0, Tot. Refills 0, Maintenance, Use every dayto bathe osteoarthritis ICD10 M19.90, high risk of fall ICD10: Z91.81 Length of need: 99, 08/03/24 4:15:00 PM EST, Compound Start Date: 08/03/24 Status: Ordered Medication Dispense Status: Completed Quantity: 1.0 Unit: each Total Allowed Fills: 1 Fills Dispensed: 0 Indications: Other symptoms and signs involving the musculoskeletal system; Humulin R (Concentrated) 500 units/mL subcutaneous See Instructions, INJECT 300 UNITS VIA INSULIN PUMP DAILY sliding scale per POC before meals given by Dr Kolby colin Start Date: 04/03/21 Status: Ordered Medication Dispense Status: Completed Total Allowed Fills: 1 Fills Dispensed: 0 insulin lispro 100 u/ml subcutaneous injection See Instructions, Use w omnipod endo, Howie Pruett, 0 Refills, Maintenance, 08/03/24 4:03:00 PM EST Start Date: 08/03/24 Status: Ordered Medication Dispense Status: Completed Total Allowed Fills: 1 Fills Dispensed: 0 Jardiance 10 mg oral tablet 1 tablet = 10 mg, By Mouth, Daily in AM, nephro?? ,?Jyovani?Isidoro, # 30 tablet, 0 Refills, Maintenance, 08/03/24 4:02:00 PM EST, Tablet, Partial fill upon patient request if the prescription is for a schedule II opioid drug. Start Date: 08/03/24 Status: Ordered Medication Dispense Status: Completed Quantity: 30.0 Unit: tablet Total Allowed Fills: 1 Fills Dispensed: 0 lidocaine 4% topical film 1-3, Topically, Daily, Apply patch in affected area. Remove patch(s) after 12 hours. Can reapply after resting 12 hours. Indication: diabetic neuropathy, # 30 patch, 11 Refills, Maintenance, :35:00 PM EDT, [facility], Partial fill upon patient request if the prescription is for a schedule II opioid drug., 1-3 Topically Daily,Instr:Apply patch in affected area. Remove patch(s) after 12 hours. Can reapply after resting 12 hours. Indication: diabetic neuropathy, 170, cm, 05/10/2513:49:00 EDT, Height, 100.1, kg, 04/13/25 14:00:00 EDT, Dry Weight Start Date: 07/12/25 Status: Ordered Medication Dispense Status: Completed Quantity: 30.0 Unit: patch Total Allowed Fills: 12 Fills Dispensed: 0 lidocaine 5% topical film See Instructions, APPLY ONE TO 3 PATCHES TO THE AFFECTED AREA(S). REMOVE PATCH(S) AFTER 12 HOURS. CAN REAPPLY AFTER RESTING 12 HOURS. (BULK), # 30 patch, 10 Refills, Maintenance, 08/08/25 9:15:00 AM EST, [facility], 30, APPLY ONE TO 3 PATCHES TO THE AFFECTED AREA(S). REMOVE PATCH(S) AFTER 12 HOURS. CAN REAPPLY AFTER RESTING 12 HOURS. (BULK), 170, cm, 08/02/25 15:52:00 EST, Height, 99.54, kg, 08/02/25 15:52:00 EST, Dry Weight Start Date: 08/08/25 Status: Ordered Medication Dispense Status: Completed Quantity: 30.0 Unit: patch Total Allowed Fills: 11 Fills Dispensed: 0 lisinopril 40 mg oral tablet 1 tablet, By Mouth, Daily, ^1R1., # 30 tablet, 2 Refills, Maintenance, 08/29/25 3:28:00 PM EST, [facility], 170, cm, 08/02/25 15:52:00 EST, Height, 99.54, kg, 08/02/25 15:52:00 EST, Dry Weight Start Date: 08/29/25 Status: Ordered Medication Dispense Status: Completed Quantity: 30.0 Unit: tablet Total Allowed Fills: 3 Fills Dispensed: 0 loratadine 10 mg oral tablet 1, tablet, By Mouth, Daily, PRN, # 30 tablet, Refills 5, Maintenance, NEEDED FOR ALLERGIES (TRAYS) ^1R1, 04/20/25 1:15:00 PM EDT, Route to Pharmacy Electronically, [facility], 170, cm, 04/13/25 14:00:00 EDT, Height, 100.1, kg, 04/13/25 14:00:00 EDT, Dry Weight Start Date: 04/20/25 Status: Ordered Medication Dispense Status: Completed Quantity: 30.0 Unit: tablet Total Allowed Fills: 1 Fills Dispensed: 0 Lyrica 150 mg oral capsule 1 capsule = 150 mg, By Mouth, 2 times a day, # 60 capsule, 5 Refills, Maintenance, 08/30/25 5:48:00 PM EST, Capsule, [facility], Partial fill upon patient request if the prescription is for a schedule II opioid drug., 170, cm, 08/02/25 15:52:00 EST, Height, 99.54, kg, 08/02/25 15:52:00 EST, Dry Weight Start Date: 08/30/25 Stop Date: 02/26/26 Status: Ordered Medication Dispense Status: Completed Quantity: 60.0 Unit: capsule Total Allowed Fills: 6 Fills Dispensed: 0 mirabegron 25 mg oral tablet, extended release 1 tablet = 25 mg, By Mouth, Daily, do not crush or chew, # 30 tablet, 11 Refills, Maintenance, 08/02/25 5:01:00 PM EST, ER Tablet, [facility] ., 170, cm, 08/02/25 15:52:00 EST, Height, 99.54,kg, 08/02/25 15:52:00 EST, Dry Weight Start Date: 08/02/25 Status: Ordered Medication Dispense Status: Completed Quantity: 30.0 Unit: tablet Total Allowed Fills: 12 Fills Dispensed: 0 Mounjaro 5 mg/0.5 mL subcutaneous solution = 5 mg, Subcutaneous Injection, Every week, rotate injection sites every Thursday ?? endo ,?Yeni?? Matilda, # 4 each, 0 Refills, Maintenance, 08/03/24 3:59:00 PM EST, Solution, Partial fill upon patient request if the prescription is for a schedule II opioid drug. Start Date: 08/03/24 Status: Ordered Medication Dispense Status: Completed Quantity: 4.0 Unit: each Total Allowed Fills: 1 Fills Dispensed: 0 Narcan 4 mg/0.1 mL nasal spray 1 spray, Naris, Left, Once, may repeat every 2 to 3 minutes until patient responds alternating nostril, # 2 each, 0 Refills, Soft Stop, 08/02/25 6:06:00 PM EST, [facility], Partial fill upon patient request if the prescription is for a schedule II opioid drug., 170, cm, 08/02/25 15:52:00 EST, Height, 99.54, kg, 08/02/25 15:52:00 EST, Dry Weight Start Date: 08/02/25 Status: Ordered Medication Dispense Status: Completed Quantity: 2.0 Unit: each Total Allowed Fills: 1 Fills Dispensed: 0 nortriptyline 25 mg oral capsule Refills 0, Maintenance, 03/29/25 3:47:00 PM EDT, Partial fill upon patient request if the prescription is for a schedule II opioid drug. Start Date: 03/29/25 Status: Ordered Medication Dispense Status: Completed Total Allowed Fills: 1 Fills Dispensed: 0 nortriptyline 75 mg oral capsule 150 mg, 2, capsule, By Mouth, Daily at bedtime, # 60 capsule, Refills 0, Maintenance, 03/29/25 3:48:00 PM EDT, Partial fill upon patient request if the prescription is for a schedule II opioid drug. Start Date: 03/29/25 Status: Ordered Medication Dispense Status: Completed Quantity: 60.0 Unit: capsule Total Allowed Fills: 1 Fills Dispensed: 0 Dty-qiq-awwnk medical-grade oxford diabetic shoes, depth or hightop Xbs-ssq-twxme medical-grade oxford diabetic shoes, depth or hightop, See Instructions, # 1 each, Refills 0, Tot. Refills 0, Maintenance, wear every day in both foot Dx DM type 2 with peripheral neuropathy ICD10 E11.40; DMtype 2 pressure callus 11.628 venous peripheral insuficiency I87.2 1pair, 11/05/23 2:47:00 PM EST, Compound Start Date: 11/05/23 Status: Ordered Medication Dispense Status: Completed Quantity: 1.0 Unit: each Total Allowed Fills: 1 Fills Dispensed: 0 pantoprazole 40 mg oral delayed release tablet 1 tablet, By Mouth, Daily, Take 30 minutes before breakfast. Can use with clopidogrel, # 30 tablet,11 Refills, Maintenance, 04/25/24 1:45:00 PM EDT, 170, cm, 02/18/24 15:28:00 EDT, Height, 101.7, kg,09/11/22 13:13:00 EST, Dry Weight Start Date: 04/25/24 Stop Date: 04/20/25 Status: Ordered Medication Dispense Status: Completed Quantity: 30.0 Unit: tablet Total Allowed Fills: 12 Fills Dispensed: 0 Pull ups Pull ups, See Instructions, # 120 each, Refills 11, Tot. Refills 11, Maintenance, Wear daily duringday and night. Change 4 times a day Dx urge urinary incontinence ICD10 N39.41, stool incontinence R15.9 Size: Medium Ht 170cm wt 97.27Kg Length of need: 99, 11/21/24 10:47:00 AM EST, Compound Start Date: 11/21/24 Status: Ordered Medication Dispense Status: Completed Quantity: 120.0 Unit: each Total Allowed Fills: 12 Fills Dispensed: 0 Raised toilet seat with side rails Raised toilet seat with side rails, See Instructions, # 1 each, Refills 0, Tot. Refills 0, Maintenance, use daily as instructed. Dx osteoarthritis ICD10 M19.90, high risk of fall ICD10: Z91.81; Ht 170cm wt 97.27Kg Length of need: 99, 08/03/24 4:18:00 PM EST, Compound Start Date: 08/03/24 Status: Ordered Medication Dispense Status: Completed Quantity: 1.0 Unit: each Total Allowed Fills: 1 Fills Dispensed: 0 Roller walker Roller walker, See Instructions, # 1 each, Refills 0, Tot. Refills 0, Maintenance, ADRIANNE: 99 Dx: 1. Lower extremity weakness 2. Imbalance 3. Frequent falls 4. Chronic low back pain with sciatica, 09/16/24 12:01:00 PM EST, Supply Start Date: 09/16/24 Status: Ordered Medication Dispense Status: Completed Quantity: 1.0 Unit: each Total Allowed Fills: 1 Fills Dispensed: 0 Shingrix intramuscular injection 0.5 mL, Intramuscular, Once, repeat dose in 2 months fill when patient request it, # 0.5 mL, 1 Refills, Soft Stop, 08/02/25 4:45:00 PM EST, [facility], ., 0.5 mL Intramuscular Once,Instr:repeat dose in 2 months; fill when patient request it, 170, cm, 08/02/25 15:52:00 EST, Height, 99.54, kg, 08/02/25 15:52:00 EST, Dry Weight Start Date: 08/02/25 Status: Ordered Medication Dispense Status: Completed Quantity: 0.5 Unit: mL Total Allowed Fills: 2 Fills Dispensed: 0 Shoes insert with arch and thalar support, custom-molded to foot Shoes insert with arch and thalar support, custom-molded to foot, See Instructions, # 3 each, Refills 0, Tot. Refills 0, Maintenance, wear every day in both foot Dx DM type 2 with peripheral neuropathy ICD10 E11.40; plantar fasciitis M72.7 venous peripheral insuficiency I87.2, 09/17/23 9:19:00 AM EST, Compound Start Date: 09/17/23 Status: Ordered Medication Dispense Status: Completed Quantity: 3.0 Unit: each Total Allowed Fills: 1 Fills Dispensed: 0 sock aid sock aid, See Instructions, # 1 each, Refills 0, Tot. Refills 0, Maintenance, use to help put on compression stockings Dx venous PVD, 08/03/24 3:27:00 PM EST, Compound Start Date: 08/03/24 Status: Ordered Medication Dispense Status: Completed Quantity: 1.0 Unit: each Total Allowed Fills: 1 Fills Dispensed: 0 sucralfate 1 gm oral tablet 1, tablet, By Mouth, 2 times a day, ON AN EMPTY STOMACH FOR UPSET STOMACH ^1R1,1R4., # 60 tablet, Refills 5, Tot. Refills 5, Maintenance, 08/29/25 3:28:00 PM EST, Route to Pharmacy Electronically, [facility], 170, cm, 08/02/25 15:52:00 EST, Height, 99.54, kg, 08/02/25 15:52:00 EST, Dry Weight Start Date: 08/29/25 Status: Ordered Medication Dispense Status: Completed Quantity: 60.0 Unit: tablet Total Allowed Fills: 6 Fills Dispensed: 0 suction grab bar suction grab bar, See Instructions, # 1 each, Refills 0, Tot. Refills 0, Maintenance, use as directed Dx osteoarthritis ICD10 M19.90, high risk of fall ICD10: Z91.81; Ht 170cm wt 97.27Kg Length of need: 99, 08/03/24 4:15:00 PM EST, Compound Start Date: 08/03/24 Status: Ordered Medication Dispense Status: Completed Quantity: 1.0 Unit: each Total Allowed Fills: 1 Fills Dispensed: 0 Indications: Other symptoms and signs involving the musculoskeletal system; tamsulosin 0.4 mg oral capsule 0.4 mg, 1, capsule, By Mouth, Daily, # 30 capsule, Refills 11, Tot. Refills 11, Maintenance, 04/17/25 6:28:00 PM EDT, Route to Pharmacy Electronically, [facility], Partial fill upon patient request if the prescription is for a schedule II opioid drug., 170, cm, 04/13/25 14:00:00 EDT, Height,100.1, kg, 04/13/25 14:00:00 EDT, Dry Weight Start Date: 04/17/25 Status: Ordered Medication Dispense Status: Completed Quantity: 30.0 Unit: capsule Total Allowed Fills: 12 Fills Dispensed: 0 traMADol 50 mg oral tablet 1 tablet = 50 mg, By Mouth, Every 6 hours, for 30 days, as needed for pain, # 120 tablet, 1 Refills, Acute 10/29/25 5:47:00 PM EST, 08/30/25 5:47:00 PM EST, [facility], Partial fill upon patientrequest if the prescription is for a schedule II opioid drug., 170, cm, 08/02/25 15:52:00 EST, Height, 99.54, kg, 08/02/25 15:52:00 EST, Dry Weight Start Date: 08/30/25 Stop Date: 10/29/25 Status: Ordered Medication Dispense Status: Completed Quantity: 120.0 Unit: tablet Total Allowed Fills: 2 Fills Dispensed: 0 Transfer Bench See Instructions, # 1 each, Maintenance, Tub transfer bench with back support; use daily as instructed. Dx osteoarthritis ICD10 M19.90, high risk of fall ICD10: Z91.81; Ht 170cm wt 97.27Kg Length of need: 99, 08/03/24 4:15:00 PM EST, Compound Start Date: 08/03/24 Status: Ordered Medication Dispense Status: Completed Quantity: 1.0 Unit: each Total Allowed Fills: 1 Fills Dispensed: 0 Indications: Other symptoms and signs involving the musculoskeletal system; Ventolin HFA 108 mcg/inh inhalation aerosol with adapter 2 puffs, Inhalation, 4 times a day, PRN NEEDED FOR WHEEZING (BULK), # 18 Gm, 1 Refills, Maintenance, 08/29/25 3:28:00 PM EST, [facility], 170, cm, 08/02/25 15:52:00 EST, Height, 99.54, kg, 08/02/25 15:52:00 EST, Dry Weight Start Date: 08/29/25 Status: Ordered Medication Dispense Status: Completed Quantity: 18.0 Unit: g Total Allowed Fills: 2 Fills Dispensed: 0 Vitamin D3 1000 intl units oral tablet 1 tablet, By Mouth, Daily, ^1R1., # 30 tablet, 5 Refills, Maintenance, 04/20/25 1:14:00 PM EDT, [facility], 170, cm, 04/13/25 14:00:00 EDT, Height, 100.1, kg, 04/13/25 14:00:00 EDT, Dry Weight Start Date: 04/20/25 Status: Ordered Medication Dispense Status: Completed Quantity: 30.0 Unit: tablet Total Allowed Fills: 1 Fills Dispensed: 0 wipes wipes, See Instructions, # 4 each, Refills 11, Tot. Refills 11, Maintenance, each box of 50 Use as directed to clean after toileting Dx urge urinary incontinence ICD10 N39.41, stool incontinence R15.9 Length of need: 99, 04/13/25 4:07:00 PM EDT, Compound Start Date: 04/13/25 Status: Ordered Medication Dispense Status: Completed Quantity: 4.0 Unit: each Total Allowed Fills: 12 Fills Dispensed: 0 Wiping wand Wiping wand, See Instructions, # 1 each, Refills 0, Tot. Refills 0, Maintenance, Use every day to open jar as needed osteoarthritis ICD10 M19.90, high risk of fall ICD10: Z91.81, 08/03/24 4:15:00 PM EST, Compound Start Date: 08/03/24 Status: Ordered Medication Dispense Status: Completed Quantity: 1.0 Unit: each Total Allowed Fills: 1 Fills Dispensed: 0 Indications: Other symptoms and signs involving the musculoskeletal system; Problem List Condition Confirmation Course Effective Dates Status H ealth Status Informant Caffeine dependence Confirmed Active Carpal tunnel syndrome Confirmed 05/07/10 Active Chronic depression Confirmed Active Chronic eczema Confirmed 01/19/09 Active Chronic kidney disease, stage 3 Confirmed Active Chronic low back pain Confirmed Active CAD (coronary artery disease) Confirmed Active Diabetes mellitus type 2 with complications Confirmed Active Diabetic neuropathy Confirmed 06/25/11 Active Ex-cigarette smoker Confirmed Active GERD (gastroesophageal reflux disease) Confirmed Active Heart failure with reduced ejection fraction 1 Confirmed 08/07/21 Active H/O right coronary artery stent placement 2, 3 Confirmed 01/23/23 Active Hypersomnia due to medical condition Confirmed Active Hypertension associated with diabetes Confirmed Active Chronic sprain or strain of lumbar region Confirmed Active Microalbuminuria Confirmed Active Migraine Confirmed Active Mixed hyperlipidemia Confirmed Active Neck pain on right side Confirmed Active Obese class I Confirmed Active Obesity Confirmed Active JOYA (obstructive sleep apnea) Confirmed Active *[id number] Trouble Locator Test Desk Aleena Dae Confirmed Active Restless legs syndrome Confirmed 01/19/09 Active Restrictive lung disease 4 Confirmed 06/25/21 Active Fatty liver 5 Confirmed 06/06/21 Active Tubular adenoma of colon 6 Confirmed Active Urinary incontinence Confirmed Active Vitamin D deficiency Confirmed Active 1Echo August 07, 2021: Ejection fraction is 35-40 %. 2with balloon angioplasty 3Catheterization with circumflex artery drug eluting stent placement on 01/23/2023 4Per spirometry 06/25/2021: Mild ventilatory defect, without obstruction. The vital capacity is reduced, probably due to a restrictive process. Patient was scheduled for a bronchial challenge test but he was not able to proceed with the test. Since 29-Apr-21, unchanged FEV1 (-10%), lower FVC (-12%). 5Per liver ultrasound 06/06/2021 6by colonoscopoy 07/12. repeat 3 years. Social History Social History Type Response Smoking Status Former smoker, quit more than 30 days ago entered on: 11/17/19 Sex Sex Representation Male (finding) 1stopped 2 years ago Procedure * Event Display: Cardiology Office Note, Non-BH Authored Date: * Event Display: Cardiology Office Note, Non-BH Authored Date: * Event Display: Cardiology Office Note, Non-BH Authored Date: * Event Display: Cardiology Office Note, Non-BH Authored Date: * Event Display: Non BH Cardiovascular Results Authored Date: Laboratory * Event Display: Non BH Lab Results Authored Date: * Event Display: Non BH Lab Results Authored Date: * Event Display: Non BH Lab Results Authored Date: Imaging * Event Display: X-Ray Hand/Wrist, Non- BH Authored Date: Patient Care team information Care Team Personnel Name: Blas Zhang Position: [facility] Outreach Member Role: Lifetime Consulting Physician Name: Orlando SRIVASTAVA, Jose Angel Position: [facility] Physician - Primary Care Member Role: PCP Address: [address] [place] [address] Telecom: Care Team Related Persons Name: AKANKSHA LYONS Name: RAFAELA ARIAS Name: COBY ARIAS Name: EDWARDO ARIAS Name: JEAN PIERRE COTTO Insurance Providers Guarantor name: DEBO STAR [employer] Plan Information #: 1 Payer: [facility] Payer Identifier: NA Member Number: [id number] Group Number: [id number] Subscriber Identifier: NA Relationship to Subscriber: self Coverage Type: Medicare Managed Care (Includes Medicare Advantage Plans) Coverage Verification Date: NA Telecom: NA Address: NA
--- NOTE | 2025-09-05 16:25 | A.OFFVIS_ITS ---
Intake Intake Visit Reasons: 60 mins Allergies No Known Allergies Allergy (Verified 08/30/25 13:28) HPI Comprehensive Diabetes Asmnt Most Recent Diabetes Results: 2 Microalb/Creat Ratio, (<30) 500.1 ug/mg cr H 05/12/24 Cholesterol, (<200) 150 mg/dL 05/12/24 HDL Cholesterol, (>40) 33 mg/dL L 05/12/24 Triglycerides, (<150) 216 mg/dL H 05/12/24 Creatinine, (0.5-1.4) 2.92 mg/dL H 07/22/24 BUN, (9-16) 44 mg/dL H 07/22/24 Sodium, (135-145) 134 mmol/L L 07/22/24 Potassium, (3.3-5.1) 5.1 mmol/L Δ 07/22/24 Chloride, (96-108) 102 mmol/L 07/22/24 Carbon Dioxide, (22-29) 23 mmol/L 07/22/24 Calcium, (8.4-10.2) 8.9 mg/dL 07/22/24 AST, (5-37) 26 U/L 07/22/24 ALT, (0-40) 33 U/L 07/22/24 Total Protein, (6.5-8.0) 7.6 g/dL 07/22/24 Albumin, (3.5-5.0) 3.9 g/dL 07/22/24 [facility] Medical History Fatty liver Non-adherence to medical treatment Diabetic polyneuropathy associated with type 2 diabetes mellitus Obesity (BMI 30-39.9) Hypertension CKD (chronic kidney disease) stage 3, GFR 30-59 ml/min 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 Diabetic nephropathy associated with type 2 diabetes mellitus Diabetes type 2, uncontrolled Surgical History History of carpal tunnel surgery History of cardiac cath Family History Father Lung cancer Mother Diabetes Hypertension Arthritis CKD (chronic kidney disease) stage 4, GFR 15-29 ml/min Social History Household Members: Family Alcohol intake: current Alcohol intake frequency: other Alcohol type: wine Patient Tobacco Use Status: Former Tobacco user Assessment & Plan Assessment & Plan (1) Diabetes type 2, uncontrolled: Code(s): E11.65 - Type 2 diabetes mellitus with hyperglycemia Qualifiers: Glycemic state: with hyperglycemia Qualified Code(s): E11.65 - Type 2 diabetes mellitus with hyperglycemia Plan Patient presents for pump training for Omnipod 5 with Dexcom G7. The following topics were reviewed today: Topics covered today's: Reinforced the importance of manual corrections when glucoses above target Entering carbohydrates at meal time Patient's last A1c on 08/30/2025 7.9% At last visit with patient was instructed to always put carbohydrates into insulin pump. Patient has started entering carbohydrates into insulin pump, but still having postprandial hyperglycemia At today's visit adjusted insulin to carb ratio and correction factor see changes below Encourage patient to continue to enter carbohydrates and do manual corrections when experiencing hyperglycemia Patient will also increase Mounjaro dose to 7.5 mg Instructed patient if he is experiencing episodes of hypoglycemia to contact provider or Diabetes Education nurse Troubleshooting after starting new pod or inserting new insulin set: Occlusion, adhesive tape sensitivity, redness Check BG 2 hours after site change Patient understands the basic concepts of pump therapy, how to give insulin for meals and snacks, how to troubleshoot for hyper and hypoglycemia. Setting verified by CDCES, no changes made to patient's settings at today's visit encourage patient to change behavior before making any more adjustments ?Basal rate(s) (units/hour) : 12 AM? to 12 AM? 1.5 units / hr Bolus setting Insulin Carbohydrate Ratio (s) 12 AM? to 12 AM?? 1:9 New 12 AM? to 12 AM?? 1:8.5 Correction Factor / Sensitivity Factor 12 AM? to 12 AM?? 1:50 New 12 AM? to 12 AM?? 1:45 Active Insulin Time:? 3.5 hours Target(s): 12 AM? to 12 AM 110 mg/dL Correction threshold 12 AM? to 12 AM 110 mg/dL Coding Level of Care Code Est Pt Level 1 (48715) Diagnoses Uncontrolled type 2 diabetes mellitus with hyperglycemia E11.65 Glycemic state: with hyperglycemia
--- OUTSIDE RECORDS SUMMARY | 2025-09-05 22:52 | XMS_ITS | Encounter Summary ---
Author Organization [facility], Address [address] [place] [address] Phone Care Team Providers Care Chiller Operator Name Role Phone Jose Angel Perry MD Primary Care Provider Encounter Details Date Type Department Care Team (Late st Contact Info) Description 10/29/2022 Documentation Only [facility], [address] [place] [address] Sha Chaudhry PA [address] [place] [address] Social History Tobacco Use Types Packs/Day Years Used Date Smoking Tobacco: Former Cigarettes 1 Q uit: 05/26/2011 Comments:Smoking History Inf o:Every day Alcohol Use Standard Drinks/Week Comments No 0 (1 standard drink = 0.6 oz pur e alcohol) Sex and Gender Information Value Date Recorded Sex Assigned at Not on file Legal Sex Male 4:35 PM EST Gender Identity Not on file Sexual Orientation Not on file documented as of this encounter Plan of Treatment Not on file documented as of this encounter Visit Diagnoses Not on filedocumented in this encounter Care Teams Chiller Operator Relationship Specialty Start Date End Date Jose Angel Perry MD [address] PCP - General 08/02/19 documented as of this encounter
--- OUTSIDE RECORDS SUMMARY | 2025-09-05 22:52 | XMS_ITS | Encounter Summary ---
Author Organization [facility], Address [address] [place] [address] Phone Care Team Providers Care Green House Manager Name Role Phone Jose nAgel Perry MD Primary Care Provider Encounter Details Date Type Department Care Team (Late st Contact Info) Description 09/25/2023 Documentation Only [facility], [address] [place] [address] Sha Chaudhry PA [address] [place] [address] Social History Tobacco Use Types [...] on filedocumented in this encounter Care Teams Green House Manager Relationship Specialty Start Date End Date Jose Angel Perry MD [address] PCP - General 08/02/19 documented as of this encounter
--- OUTSIDE RECORDS SUMMARY | 2025-09-05 22:52 | XMS_ITS | Clinical Summary ---
Author Organization [facility], Address [address] [place] [address] [place] [address] Phone Care Team Providers Care Co Chairman Name Role Phone Jose Angel Perry MD [...] 3a chronic kidney disease 02/23/2020 10/31/2022 Immunizations Immunization Administration Dates Next Due H1N1 [...] Tobacco: Former Cigarettes 1 Q uit: 05/26/2011 Tobacco Cessation:Counseling Given: Not [...] 01/27/2024 3:26 PM EDT Plan of Treatment Health Maintenance [...] Exam 12/19/2019 Diabetes: Hemoglobin A1C 01/16/2025 025, 10/18/2024, 01/26/2024, Additional history exists Influenza Vaccine (#1) 2025 , 09/17/2023, 07/30/2022, Additional history exists Pneumococcal Vaccine: [...] - 01/27/2024 2:08 PM EDT Performed at: [facility] [id number] Retail Client Manager: Rose Mary Rosales MD, Phone: [phone] us Sha [facility] LAB BLOOD ORDERABLES Final Re sult [facility] See order comments [place] [address] from Last 3 Months or Most Recently Relevant to Health Maintenance Insurance [facility] ([id number]) [place] [id number] Care Teams Co Chairman Relationship Specialty Start Date End Date Jose Angel Perry MD [address] PCP - General 08/02/19
--- OUTSIDE RECORDS SUMMARY | 2025-09-05 22:52 | XMS_ITS | Encounter Summary ---
Author Organization [facility], Address [address] [place] [address] Phone Care Team Providers Care Television News Photographer Name Role Phone Jose Angel Perry MD Primary Care Provider Encounter Details Date Type Department Care Team (Late st Contact Info) Description 06/16/2022 Documentation Only [facility], [address] [place] [address] Og Weber MD [address] [place] [address] Social History Tobacco Use Types [...] on filedocumented in this encounter Care Teams Television News Photographer Relationship Specialty Start Date End Date Jose Angel Perry MD [address] PCP - General 08/02/19 documented as of this encounter
--- OUTSIDE RECORDS SUMMARY | 2025-09-05 22:52 | XMS_ITS | Patient Health Record ---
Author [facility] Address [address] [place] [address] Care Team Providers Care Checker In Name Role Phone Juice Jo MD Primary Care Provider Unavail able Black, Jeanne Unavailable [phone] Perla Frances Unavailable [phone] Jorge A Guerin Unavailable [phone] Allergies No Known Allergies Results Component Value Reference Range Notes HEMOGLOBIN A1C (GLYCOHEMOGLO BIN) Reviewed date:12/08/2024 01:45:51 [...] Polyneuropathy due to type 2 diabetes mellitus (123912978) Type 2 diabetes mellitus with diabetic polyneuropathy (E11.42) Active confirmed Problem Neuropathy (231885867) Neuropathy (G62.9) Active confirmed Vital Signs Blood pressure diastolic 77 mm Hg 12/08/2024 Height 5ft 7in in 12/08/2024 Blood pressure systolic 120 mm Hg 12/08/2024 Weight 202 lbs 12/08/2024 BMI 31.63 kg/m2 12/08/2024 Procedures Procedure Date Ordered Date Performed Result Body Sit e 79799-ULBADYB NAIL, 1-5 12/08/2024 N/A 27582-BFWA SKIN LESIONS, 2 TO 4 12/08/2024 N/A J0012-JOMJEIAW DYSTROPHIC NAILS ANY # 12/08/2024 N/A Encounters Encounter Location Date Provider Diagnosis [address] [address] 09/08/2024 Frances Duncan Xerosis of skin L85. 3 ; Type 2 diabetes mellitus with diabetic polyneuropathy E11.42 and Tinea unguium B35.[address] [address] 12/08/2024 Jorge A Guerin Type 2 diabetes mellitus with diabetic polyneuropathy E11.42 and Tinea unguium B35.[address] [address] 02/24/2025 Jeanne Avelar Assessments Encounter Date Diagnosis (ICD Code) Assessment Notes Treatment Notes Treatment Clinical Notes Section Notes 09/08/2024 Type 2 diabetes mellitus with diabetic polyneuropathy (ICD-10 - E11.42) 09/08/2024 Xerosis of skin (ICD-10 - L85.3) 12/08/2024 Tinea unguium (ICD-10 - B35.1) 12/08/2024 Type 2 diabetes mellitus with diabetic polyneuropathy (ICD-10 - E11.42) 09/08/2024 Tinea unguium (ICD-10 - B35.1) Plan Of Treatment Pending Test Test Name Order Date 14783-TSJJTEC NAIL, 1-5 12/08/2024 32231-QOWA SKIN LESIONS, 2 TO 4 12/09/19 25 A7927-UZOKMKVC DYSTROPHIC NAILS ANY # Insurance Providers Payer Name Payer Address Payer Phone Subscriber Number Group Number Insured Name Patient Relationship to Insured Coverage Start Date Coverage End Date [facility] [employer] Claims [address] [place] [id number] Sang Lester Self - patient is the insured Medical (General) History Medical History History ICD Code asthma Diabetic Headaches/Migraines High Blood Pressure Liver disease Chicken pox Carpal tunnel Surgical History Surgery Date(Month/Year) carpal tunnel surgery 2022
--- OUTSIDE RECORDS SUMMARY | 2025-09-05 22:52 | XMS_ITS | Encounter Summary ---
Author Organization [facility], Address [address] [place] [address] Phone Care Team Providers Care Management Development Specialist Name Role Phone Jose Angel Perry MD Primary Care Provider Encounter Details Date Type Department Care Team (Late st Contact Info) Description 09/25/2023 Documentation Only [facility], [address] [place] [address] Sha Chaudhry PA [address] [place] [address] Social History Tobacco Use Types [...] on filedocumented in this encounter Care Teams Management Development Specialist Relationship Specialty Start Date End Date Jose Angel Perry MD [address] PCP - General 08/02/19 documented as of this encounter
--- OUTSIDE RECORDS SUMMARY | 2025-09-05 22:53 | XMS_ITS | Clinical Summary ---
Author Organization [address] [facility] Address [address] [place] [address] Phone Care Team Providers Care Radio Repairer Name Role Phone Jose Angel Perry MD [...] hand 08/16/2024 Hypertension 04/11/2024 Diabetic neuropathy 06/25/2011 Immunizations Immunization Administration Dates Next Due Pfizer SARS-CoV-2 COVID-19, mRNA, LNP-S, preservative free 04/24/2021,04/03/2021 Surgical History Surgery Date Site/Laterality Comments COLONOSCOPY CORONARY STENT PLACEMENT 09/28/2022 - 09/27/2023 OTHER SURGICAL HISTORY CARPAL TUNNEL RELEASE 09/28/2020 - 09/27/2021 Right CARPAL TUNNEL RELEASE 02/03/2025 Right and TF release of long finger Medical History Medical History Date Comments Hypertension Hyperlipidemia Diabetes mellitus ([facility] V24, [facility] V28) Chronic kidney disease Heart disease [...] Orientation Straight 07/31/2024 6: 17 AM EST Last Filed Vital Signs Vital Sign Reading [...] General Improving(04/2025 12:44 PM EDT) Sharlene Mancera, HARITHA Note: Pt/dtr will return demo approp HEP [...] belt New goal estab 04/04: increased R rn circulating from currently 32# to at least 40# for ease of baking (vs 55 on L side) Medical Devices Implanted Type Area Computer Video Game Designer Device Identifier Shelf Expiration Date Model / Serial / Lot [employer] Other [employer] Other N/A: Heart Description:CARDIAC STENT Procedures Procedure Name Priority Date/Time Associated Diagnosis Comments BASIC METABOLIC PANEL Routine 02/20/2025 6:10 AM EDT HEMOGLOBIN A1C Routine 10/18/2024 9:54 AM EST Diabetic mononeuropathy associated with type 2 diabetes mellitus ([facility] V24, [facility] V28) from Last 3 Months or Most Recently Relevant to Health Maintenance Results * (ABNORMAL) Basic metabolic panel (02/20/2025 6:10 AM EDT) Sodium 136 133 - 145 mmol/L LAB CHEMISTRY METHOD 02/20/2025 7:57 AM [facility] Potassium 3.9 3.5 - 5.5 mmol/L LAB CHEMISTRY METHOD 02/20/2025 7:57 AM [facility] Chloride 103 96 - 110 mmol/L LAB CHEMISTRY METHOD 02/20/2025 7:57 AM [facility] CO2 26 21 - 32 mmol/L LAB CHEMISTRY METHOD 02/20/2025 7:57 AM [facility] Anion Gap 7 3 - 11 LAB CHEMISTRY METHOD 02/20/2025 7:57 AM [facility] Glucose 123(H) 70 - 100 mg/dL LAB CHEMISTRY METHOD 02/20/2025 7:57 AM [facility] BUN 20 5 - 25 mg/dL LAB CHEMISTRY METHOD 02/20/2025 7:57 AM [facility] Creatinine 1.79(H) 0.70 - 1.30 mg/dL LAB CHEMISTRY METHOD 02/20/2025 7:57 AM [facility] eGFR 42(L) >=60 mL/min/1. 73m2 LAB CHEMISTRY METHOD 02/20/2025 7:57 AM [facility] Comment:Calculation based on the Chronic Kidney Disease Epidemiology Collaboration (CKD-EPI) equation refit without adjustment for race. BUN/Creatinine Ratio 11.2 LAB CHEMISTRY METHOD 02/20/2025 7:57 AM EDT [facility] Calcium 8.9 8.5 - 10.5 mg/dL LAB CHEMISTRY METHOD 02/20/2025 7:57 AM EDT [facility] Blood Venous blood specimen / Unknown Venipuncture / Unknown 02/20/2025 6:10 AM EDT 02/20/2025 6:47 AM EDT Rosenda Lui MD LAB BLOOD ORDERABLES Final Result Performing Organization Address City/[facility]/ZIP Co de Phone Number [facility] [address] [place] [address], [place] [phone] * (ABNORMAL) Hemoglobin A1c (10/18/2024 9:54 AM [...] Re sult [facility] [address] [place] [address], [place] [phone] from Last 3 Months or Most Recently Relevant to Health Maintenance Insurance [facility] [facility] Member Subscriber Plan / Payer (Ef fective 2024-Present) Name:SANG LESTER Relation to Subscriber:Self Name:Sang Lester Payer ID:[id number] Group ID:[id number] Type:Not on file Address: [place] [address] [place] [phone] Advance Directives * Full Code - Default [...] currently active code status orders. Care Teams Radio Repairer Relationship Specialty Start Date End Date Jose Angel Perry MD [address] [place] [phone] PCP - General 04/11/24
== END 2025-09-05 16:41 | disposition home or self-care (01) ==
LOC: HO.ENCR 16:16
PROVIDERS: PCP Family Medicine; Visit Provider Registered Nurse Diabetes Educator
DX: E11.65 Type 2 diabetes mellitus with hyperglycemia (principal)

== ENCOUNTER → 2025-09-05 16:15 | Outpatient (BNVA) | payer OTHER, SELFPAY | PROVIDERS: PCP Family Medicine; Visit Provider Registered Nurse Diabetes Educator | DX: E11.65 Type 2 diabetes mellitus with hyperglycemia (principal); E11.42 Type 2 diabetes mellitus with diabetic polyneuropathy; E11.22 Type 2 diabetes mellitus with diabetic chronic kidney disease; E11.21 Type 2 diabetes mellitus with diabetic nephropathy; I12.9 Hypertensive chronic kidney disease with stage 1 through stage 4 chronic kidney disease, or unspecified chronic kidney disease; N18.32 Chronic kidney disease, stage 3b; Z79.4 Long term (current) use of insulin; Z96.41 Presence of insulin pump (external) (internal) | CPT/HCPCS: 99211 ==

== ENCOUNTER 2025-09-07 13:42 | Outpatient (AMB) | payer OTHER, SELFPAY ==
--- OUTSIDE RECORDS SUMMARY | 2024-11-17 10:00 | XMS_ITS ---
Author Organization [facility] Address [address] [place] [address] Care Team Providers Care Vice President Client Services Name Role Phone Sandro SRIVASTAVA, Juice Primary Care Provider Unavail able Black, Jeanne Unavailable [phone] Frances Duncan Unavailable [phone] Encounters Encounter Location Date Provider Diagnosis [address] [address] 11/17/2024 Frances Duncan Plan Of Treatment No Information Progress Notes * Sang LESTER ADOB:1959 (65 yo M)Acc No.[id number]:11/17/2024 Progress Note Patient: Sang MELLO Provider: Park Duncan DPM :1960 A ge:64 Y S ex:Male Date:11/17/2024 Address:[address] [facility] Pcp:Juice Jo MD Subjective: * Chief Complaints: * * Medical History: Objective: * Vitals: Assessment: Plan: * Treatment: * Images: * The named appointment provid er may or may not be the originator of this progress note, and it is not deemed complete until electronically signed by the appointment provider. Sign off status: Pending * Provider: Park Duncan DPM Date: 0 11/17/2024 Generated for Matias zavala/Kacy/Isasmitting on: 1 11/08/2024 08:59 PM EST
--- OUTSIDE RECORDS SUMMARY | 2025-02-24 08:15 | XMS_ITS ---
Author Organization [facility] Address [address] [place] [address] Care Team Providers Care Aircraft Line Assembler Name Role Phone Sandro SRIVASTAVA, Juice Primary Care Provider Unavail able Jeanne Avelar Unavailable [phone] Encounters Encounter Location Date Provider Diagnosis [address] [address] 02/24/2025 Jeanne Avelar Plan Of Treatment No Information Progress Notes * Sang LESTER ADOB:1959 (65 yo M)Acc No.[id number]:02/24/2025 Progress Note Patient: Sang MELLO Provider: Kari Avelar DPM :1960 A ge:64 Y S ex:Male Date:02/24/2025 Address:[address] [place], [place] Pcp:Juice Jo MD Subjective: * Chief Complaints: * * Medical History: Objective: * Vitals: Assessment: Plan: * Treatment: * Images: * The named appointment provid er may or may not be the originator of this progress note, and it is not deemed complete until electronically signed by the appointment provider. Sign off status: Pending * Provider: Kari Avelar DPM Date: 0 02/24/2025 Generated for Printi ng/Fatessg/eTransmitting on: 1 11/08/2024 08:59 PM EST
--- NOTE | 2025-09-07 13:47 | A.OFFVIS_ITS ---
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 Diabetic nephropathy associated with type 2 diabetes mellitus Diabetes type 2, uncontrolled Surgical History History of carpal tunnel surgery History of cardiac cath Family History Father Lung cancer Mother Diabetes Hypertension Arthritis CKD (chronic kidney disease) stage 4, GFR 15-29 ml/min Social History Household Members: Family Alcohol intake: current Alcohol intake frequency: other Alcohol type: wine Patient Tobacco Use Status: Former Tobacco user Assessment & Plan Assessment & Plan (1) Type 2 diabetes mellitus with diabetic polyneuropathy: Code(s): E11.42 - Type 2 diabetes mellitus with diabetic polyneuropathy Category: Medical Plan Used wt : 97kg (05/21), 93 kg (09/20), 95 kg (03/22), 97kg (09/21 Est kcal as per MSJ: 2100 (40% carb, 30% fat/prot) Est fluid needs: 2400 ml/d (25 ml/kg bw) Rec fiber: increase to 8-10 g per day and gradually increase to 35 g as tolerated Rec Na: < 1500 mg /d Educate patient on: (R= Reviewed, V = verbalizes understanding N/R= Needs review N/A= not applicable) * Food sources of carbohydrates and serving adequate serving sizes : R V * Difference between complex carbohydrates and simple carbohydrates, role of fiber: R V * Differences between fats (MUFA/PUFA/saturated fats, trans fats) and food sources of various fats: R, V * Food sources of sodium and salt and healthy modifications for heart health and kidney health: R R * Vitamins and minerals: R V * How to interpret food labels: R V * Healthy Plate method concept: R V * Physical activity: benefits and precaution: R V Patient Instructions: Resume working on meal planning reducing calories to 2100 per day. Follow Mediterranean style diet Coding Level of Care Code Nutr Indiv Subseq (20191) Diagnoses Type 2 diabetes mellitus with diabetic polyneuropathy E11.42 Time Spent (min) 30
[2025-09-07 13:50] VITALS: BMI 33.5
--- OUTSIDE RECORDS SUMMARY | 2025-09-07 20:57 | XMS_ITS | Encounter Summary ---
Author Organization [facility], Address [address] [place] [address] Phone Care Team Providers Care Position Clerk Name Role Phone Jose Angel Perry MD Primary Care Provider Encounter Details Date Type Department Care Team (Late st Contact Info) Description 06/16/2022 Documentation Only [facility], [address] [place] [address] Og Weber MD [address] [place] [address] Social History Tobacco Use Types [...] on filedocumented in this encounter Care Teams Position Clerk Relationship Specialty Start Date End Date Jose Angel Perry MD [address] PCP - General 08/02/19 documented as of this encounter
--- OUTSIDE RECORDS SUMMARY | 2025-09-07 20:59 | XMS_ITS | Encounter Summary ---
Author Organization [facility], Address [address] [place] [address] Phone Care Team Providers Care Rib Cloth Knitter Name Role Phone Jose Angel Perry MD Primary Care Provider Encounter Details Date Type Department Care Team (Late st Contact Info) Description 09/25/2023 Documentation Only [facility], [address] [place] [address] Sha Chaudhry PA [address] [place] [address] Social History Tobacco Use Types [...] on filedocumented in this encounter Care Teams Rib Cloth Knitter Relationship Specialty Start Date End Date Jose Angel Perry MD [address] PCP - General 08/02/19 documented as of this encounter
--- OUTSIDE RECORDS SUMMARY | 2025-09-07 20:59 | XMS_ITS | Clinical Summary ---
Author Organization [address] [facility] Address [address] [place] [address] Phone Care Team Providers Care Bridge Mechanic Name Role Phone Jose Angel Perry [...] History Date Comments Hypertension Hyperlipidemia Diabetes mellitus ([facility] V24, [facility] V28) Chronic kidney disease Heart disease cad [...] belt New goal estab 04/04: increased R babbitter from currently 32# to at least 40# for ease of baking (vs 55 on L side) Medical Devices Implanted Type Area Biller Device Identifier Shelf Expiration Date Model / Serial / Lot [employer] Other [employer] Other N/A: Heart Description:CARDIAC STENT Procedures Procedure Name Priority Date/Time Associated Diagnosis Comments BASIC METABOLIC PANEL Routine 02/20/2025 6:10 AM EDT HEMOGLOBIN A1C Routine 10/18/2024 9:54 AM EST 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 Potassium 3.9 3.5 - 5.5 mmol/L LAB CHEMISTRY METHOD 02/20/2025 7:[address] [facility] Chloride 103 96 - 110 mmol/L LAB CHEMISTRY METHOD 02/20/2025 7:[address] [facility] CO2 26 21 - 32 mmol/L LAB CHEMISTRY METHOD 02/20/2025 7:[address] [facility] Anion Gap 7 3 - 11 LAB CHEMISTRY METHOD 02/20/2025 7:[address] [facility] Glucose 123(H) 70 - 100 mg/dL LAB CHEMISTRY METHOD 02/20/2025 7:[address] [facility] BUN 20 5 - 25 mg/dL LAB CHEMISTRY METHOD 02/20/2025 7:[address] [facility] Creatinine 1.79(H) 0.70 - 1.30 mg/dL LAB CHEMISTRY METHOD 02/20/2025 7:[address] [facility] eGFR 42(L) >=60 mL/min/1. 73m2 LAB CHEMISTRY METHOD 02/20/2025 7:[address] [facility] Comment:Calculation based on the Chronic Kidney Disease Epidemiology Collaboration (CKD-EPI) equation refit without adjustment for race. BUN/Creatinine Ratio 11.2 LAB CHEMISTRY METHOD 02/20/2025 7:57 AM EDT [facility] Calcium 8.9 8.5 - 10.5 mg/dL LAB CHEMISTRY METHOD 02/20/2025 7:57 AM EDT [facility] Blood Venous blood specimen / Unknown Venipuncture / Unknown 02/20/2025 6:10 AM EDT 02/20/2025 6:47 AM EDT Rosenda Lui MD LAB BLOOD ORDERABLES Final Result Performing Organization Address City/[facility]/ZIP Co de Phone Number [facility] [address] [place] [address], [place] [phone] * (ABNORMAL) Hemoglobin A1c (10/18/2024 9:54 AM EST) Hemoglobin A1C 7.0(H) <6.5 % LAB CHEMISTRY METHOD 10/18/2024 3:14 PM EST [facility] Mean Bld Glu Estim. 154 mg/dL LAB CHEMISTRY METHOD 10/18/2024 3:14 PM EST [facility] Blood Venous blood specimen / Unknown Venipuncture / Unknown 10/18/2024 9:54 AM EST 10/18/2024 9:54 AM EST Colette Willett MD LAB BLOOD ORDERABLES Final Re sult [facility] [address] [place] [address], [place] [phone] from Last 3 Months or Most Recently Relevant to Health Maintenance Insurance [employer] Member Subscriber Plan / Payer (Ef fective 2024-Present) Name:SANG LESTER Relation to Subscriber:Self Name:Sang Lester Payer ID:[id number] Group ID:[id number] Type:Not on file Address: [place] [address] [place] [id number] Advance Directives * Full Code - Default [...] currently active code status orders. Care Teams Bridge Mechanic Relationship Specialty Start Date End Date Jose Angel Perry MD [address] [place] [phone] PCP - General 04/11/24
--- OUTSIDE RECORDS SUMMARY | 2025-09-07 20:59 | XMS_ITS | Encounter Summary ---
Author Organization [facility], Address [address] [place] [address] Phone Care Team Providers Care Mattress Finisher Name Role Phone Jose Angel Perry MD Primary Care Provider Encounter Details Date Type Department Care Team (Late st Contact Info) Description 09/25/2023 Documentation Only [facility], [address] [place] [address] Sha Chaudhry PA [address] [place] [address] Social History Tobacco Use Types [...] on filedocumented in this encounter Care Teams Mattress Finisher Relationship Specialty Start Date End Date Jose Angel Perry MD [address] PCP - General 08/02/19 documented as of this encounter
--- OUTSIDE RECORDS SUMMARY | 2025-09-07 20:59 | XMS_ITS | Clinical Summary ---
Author Organization [facility], Address [address] [place] [address] [place] [address] Phone Care Team Providers Care Sales Director Name Role Phone Jose Angel Perry MD [...] - 01/27/2024 2:08 PM EDT Performed at: [facility] [id number] Care Coordination Manager: Rose Mary Rosales MD, Phone: [phone] us Sha KNAPP LAB BLOOD ORDERABLES Final Re sult [facility] See order comments [place] [address] from Last 3 Months or Most Recently Relevant to Health Maintenance Insurance [facility] ([id number]) [place] [phone] Care Teams Sales Director Relationship Specialty Start Date End Date Jose Angel Perry MD [address] PCP - General 08/02/19
--- OUTSIDE RECORDS SUMMARY | 2025-09-07 20:59 | XMS_ITS | Patient Health Record ---
[facility] Address [address] [place] [address] Care Team Providers Care Card Scraper Name Role Phone Juice Jo MD Primary Care Provider Unavail able Black, Jeanne Unavailable [phone] Perla Frances Unavailable [phone] Jorge A Guerin Unavailable [phone] Allergies No Known Allergies Results Component Value [...] Polyneuropathy due to type 2 diabetes mellitus (645859246) Type 2 diabetes mellitus with diabetic polyneuropathy (E11.42) Active confirmed Problem Neuropathy (988760735) Neuropathy (G62.9) Active confirmed Vital Signs Blood pressure diastolic 77 mm Hg 12/08/2024 Height 5ft 7in in 12/08/2024 Blood pressure systolic 120 mm Hg 12/08/2024 Weight 202 lbs 12/08/2024 BMI 31.63 kg/m2 12/08/2024 Procedures Procedure Date Ordered Date Performed Result Body Sit e 20449-[id number] NAIL, 1-5 12/08/2024 N/A 96270-[id number] SKIN LESIONS, 2 TO 4 12/08/2024 N/A [id number] DYSTROPHIC NAILS ANY # 12/08/2024 N/A Encounters Encounter Location Date Provider Diagnosis [address] [address] 09/08/2024 Frances Duncan Xerosis of skin L85. 3 ; Type 2 diabetes mellitus with diabetic polyneuropathy E11.42 and Tinea unguium B35.[address] [address] 12/08/2024 Jorge A Guerin Type 2 diabetes mellitus with diabetic polyneuropathy E11.42 and Tinea unguium B35.[address] [address] 02/24/2025 Jeanne Avelar Assessments Encounter Date Diagnosis [...] Treatment Pending Test Test Name Order Date [id number]-YESDRDS NAIL, 1-5 12/08/2024 48230-KPTR SKIN LESIONS, 2 TO 4 12/09/19 25 S6325-NTFRIEGN DYSTROPHIC NAILS ANY # Insurance Providers Payer Name Payer Address Payer Phone Subscriber Number Group Number Insured Name Patient Relationship to Insured Coverage Start Date Coverage End Date [facility] [employer] Claims [address] [place] [id number] Sang Lester Self - patient is the insured Medical (General) History Medical History History ICD Code asthma Diabetic Headaches/Migraines High Blood Pressure Liver disease Chicken pox Carpal tunnel Surgical History Surgery Date(Month/Year) carpal tunnel surgery 2022
== END 2025-09-07 14:14 | disposition home or self-care (01) ==
LOC: HO.ENCR 13:43
PROVIDERS: PCP Family Medicine; Visit Provider Dietitian, Registered
DX: E11.42 Type 2 diabetes mellitus with diabetic polyneuropathy (principal)

== ENCOUNTER → 2025-09-07 13:42 | Outpatient (BNVA) | payer OTHER, SELFPAY | PROVIDERS: PCP Family Medicine; Visit Provider Dietitian, Registered | DX: E11.42 Type 2 diabetes mellitus with diabetic polyneuropathy (principal); E11.22 Type 2 diabetes mellitus with diabetic chronic kidney disease; N18.30 Chronic kidney disease, stage 3 unspecified; Z79.4 Long term (current) use of insulin; Z71.3 Dietary counseling and surveillance | CPT/HCPCS: 97803 ==